=== PATIENT | male | born 1935 | race Caucasian/White ===

== ENCOUNTER → 2020-07-18 13:26 | Outpatient (BNVA) | payer MEDICARE, SELFPAY | PROVIDERS: PCP Internal Medicine; Referring Provider Internal Medicine; Visit Provider Internal Medicine Cardiovascular Disease | DX: I42.9 Cardiomyopathy, unspecified (principal); I48.92 Unspecified atrial flutter; I50.22 Chronic systolic (congestive) heart failure; Z79.899 Other long term (current) drug therapy | CPT/HCPCS: 93005; 99212 ==

== ENCOUNTER → 2020-08-08 09:12 | Outpatient (REF) | payer MEDICARE, SELFPAY ==
--- NOTE | 2020-08-08 09:16 | CA_ITS ---
Transthoracic Echocardiogram Patient (Last, First, Middle): Ozzy Thorne A Gender: Male Date of : 1935 Age: 85 Procedure Date: 08/08/2020 Procedure Type: Transthoracic Echocardiogram Location: OP Height: 177.8 cm Weight: 79.38 kg BSA: 1.97 m2 Heart Rate: bpm BP: 144 / 72 mmHg Machine Adjuster: Miller MD: Woo Finley MD Symptoms: I42.9 - Cardiomyopathy, unspecified Study Quality: Fair ECG Rhythm: Sinus Conclusions: - The left ventricular systolic function is moderate to severely decreased. The visually estimated ejection fraction is between 30-35%. - There is moderately decreased right ventricular systolic function. - There is mild mitral valve regurgitation. Findings Left Ventricle Normal left ventricular cavity size. There is mildly increased left ventricular wall thickness. The left ventricular systolic function is moderate to severely decreased. The visually estimated ejection fraction is between 30-35%. The calculated ejection fraction is 31% by biplane method. Diastolic function is indeterminate on the basis of available data. Right Ventricle Normal right ventricular cavity size. There is moderately decreased right ventricular systolic function. Aortic Valve There is a normal trileaflet aortic valve. There is no aortic valve stenosis. There is mild aortic valve regurgitation. Mitral Valve The mitral valve appears normal. There is mild mitral valve regurgitation. There is no mitral valve stenosis. Pulmonic Valve The pulmonic valve was not well visualized. There is trace pulmonic valve regurgitation. Tricuspid Valve Normal tricuspid valve structure. There is trace tricuspid valve regurgitation. The pulmonary artery systolic pressure is normal. Great Vessels There is mild dilatation of the ascending aorta measuring 3.90 cm. Venous The inferior vena cava is normal in size and collapses greater than 50% with inspiration. Pericardium/Pleural There is no evidence of pericardial effusion. Prior Study Comparison No significant change compared to prior study dated: 12/23/2019. Measurements 2D Linear Measurements RVIDd: 3.24 RVIDd Index: 1.64 IVSd: 1.16 0.6-0.9/0.6-1.0 cm LVIDd: 5.31 3.9-5.3/4.2-5.9 cm LVIDd Index: 2.70 2.4-3.2/2.2-3.1 cm/m2 LVIDs: 4.39 2.0-3.6 cm LVPWd: 1.16 0.7-1.1 cm Ao Root: 4.00 2.1-3.5 cm LA Diam: 4.30 2.7-3.8/3.0-4.0 cm LAIDs Index: 2.18 1.5-2.3 cm/m2 LV Mass: 306.25 67-162/88-224 g LV Mass Index: 155.46 43-95/49-115 g/m2 LVOT Diam: 2.10 3.0+(-)1.3 cm 2D Systolic Function EF 4C: 33.10 >55% EF 2C: 33.60 >55% EF BiP: 31.40 >55% Mitral Valve MR Vol - PW Dopp: 14.58 MR VTI: 1.62 MR ERO: 9.00 MR Alias Michael: 0.27 MR RAD: 0.50 Aortic Valve AoV Pk Michael: 1.22 AoV Mn Michael: 0.86 AoV VTI: 0.23 AoV Pk Grad: 6.00 Aov Mn Grad: 3.00 LORRAINE Cont.VTI: 2.73 AI Pk Michael: 3.18 AI Hunt: 1.17 LVOT LVOT Pk Michael: 0.84 LVOT Mn Michael: 0.54 LVOT VTI: 0.18 LVOT Pk Grad: 3.00 LVOT Mn Grad: 1.00 LVOT Diam: 2.10 LVOT Area: 3.46 Tricuspid Valve TR Pk Michael: 2.26 TR Pk Grad: 20.00 RA Press: 8.00 RVSP: 28.00 Great Vessels Aorta Ao Root-2D: 4.00 2.0-3.7 cm Ao Asc: 3.90 2.1-3.4 cm Updated in Other Vendor System with Status of Final Kristopher Early MD electronically signed on 08/08/2020 3:37:14 PM with status of Final
== END ==
LOC: HO.CARD 09:12
PROVIDERS: PCP Internal Medicine; Visit Provider Internal Medicine Cardiovascular Disease
DX: I42.9 Cardiomyopathy, unspecified (principal)
CPT/HCPCS: 93306

== ENCOUNTER 2020-08-09 08:00 | Outpatient (RCR) | payer MEDICARE, SELFPAY ==
[2020-07-08 10:22] LABS: Anion Gap 12 (12-20); Blood Urea Nitrogen 36 mg/dL (9-16); Calcium 8.7 mg/dL (8.4-10.2); Carbon Dioxide 27 mmol/L (22-29); Chloride 101 mmol/L (96-108); Estimated Glomerular Filt Rate 38; Potassium 4.3 mmol/l (3.3-5.1); Sodium 136 mmol/L (135-145)
--- NOTE | 2020-08-09 09:19 | MHC.PT.DC ---
[facility] [place] Office [place] Office [place] Office [address] Smith Almendarez [address] [phone] F: [phone] F: [phone] F: [phone] F: [phone] Physical Therapy Discharge Report Diagnosis: gait instability Date of Surgery: Date of Evaluation: 06/13/20 Date of Discharge: 08/09/20 Treatments to Date: 16 Cancellations to Date: 0 No Shows to Date: 0 Discharge Status: Improved Function Independent with HEP Discharge Summary: Pt has improved and is independent with all HEPS. All strength and balance exercises were reviewed with him. Pt d/c from therapy today. Pt is currently a part of [employer] where he does all his strengthening exercises. Pt advised to continue with these exercises. Electronically signed by: Korina Savage DPT Please sign and return to therapist. Thank you for your referral.
== END 2020-08-09 09:21 | disposition other institution (70) ==
LOC: HO.PT 08:00
PROVIDERS: Internal Medicine Hypertension Specialist; Visit Provider Internal Medicine
DX: R26.9 Unspecified abnormalities of gait and mobility (principal)
CPT/HCPCS: 80051; 82310; 82565; 84520; 97110; 97112; 97530

== ENCOUNTER → 2020-08-31 12:21 | Outpatient (BNVA) | payer MEDICARE, SELFPAY | PROVIDERS: PCP Internal Medicine; Visit Provider Internal Medicine Cardiovascular Disease | DX: I50.22 Chronic systolic (congestive) heart failure (principal); I48.92 Unspecified atrial flutter; I42.9 Cardiomyopathy, unspecified | CPT/HCPCS: 99212 ==

== ENCOUNTER 2020-09-23 09:48 | Outpatient (REF) | payer MEDICARE, SELFPAY ==
[2020-09-23 10:17] LABS: MANUAL DIFF FLAG NO
[2020-09-23 10:24] LABS: Basophils Percent Auto 0.4 % (0-2); Eosinophils Absolute Auto 0.2 X10*3/uL (0.0-0.4); Eosinophils Percent Auto 3.8 % (0-4); Hematocrit 45.3 % (42-52); Hemoglobin 14.8 g/dl (14.0-18.0); Imm Gran Abs Auto 0.08 X10*3/uL (0.00-0.03); Imm Gran Pct Auto 1.5 % (0.0-0.4); Lymphocytes Absolute Auto 0.9 X10*3/uL (1.2-4.9); Lymphocytes Percent Auto 16.5 % (20-40); Mean Corpuscular HGB Conc 32.7 g/dl (31.0-36.0); Mean Corpuscular Hemoglobin 33.8 pg (27.0-33.0); Mean Corpuscular Volume 103.4 fL (80-98); Mean Platelet Volume 9.8 fL (9.4-12.4); Monocytes Absolute Auto 0.4 X10*3/uL (0.1-1.2); Monocytes Percent Auto 7.7 % (2-11); Neutrophils Absolute Auto 3.7 X10*3/uL (2.0-8.3); Neutrophils Percent Auto 70.1 % (45-73); Platelet Count 136 X10*3/uL (160-400); Red Blood Count 4.38 X10*6/uL (4.60-5.80); Red Cell Distribution Width 13.2 % (11.0-16.0); White Blood Count 5.3 X10*3/uL (4.8-10.8)
[2020-09-23 11:01] LABS: Anion Gap 11 (12-20); Blood Urea Nitrogen 31 mg/dL (9-16); Calcium 8.3 mg/dL (8.4-10.2); Carbon Dioxide 29 mmol/L (22-29); Chloride 101 mmol/L (96-108); Estimated Glomerular Filt Rate 35; Potassium 4.4 mmol/l (3.3-5.1); Sodium 137 mmol/L (135-145)
== END 2020-09-23 09:49 | disposition home or self-care (01) ==
LOC: HO.10HDL 09:48
PROVIDERS: Visit Provider Internal Medicine Hypertension Specialist
DX: I12.9 Hypertensive chronic kidney disease with stage 1 through stage 4 chronic kidney disease, or unspecified chronic kidney disease (principal); N18.30 Chronic kidney disease, stage 3 unspecified
CPT/HCPCS: 36415; 80051; 82310; 82565; 84520; 85025

== ENCOUNTER 2020-10-19 | Outpatient (REF) | payer MEDICARE, SELFPAY | END 2020-10-19 00:01 | disposition home or self-care (01) | LOC: HO.VC | PROVIDERS: Visit Provider Internal Medicine | DX: Z23 Encounter for immunization (principal) | CPT/HCPCS: 0011A ==

== ENCOUNTER 2020-11-15 | Outpatient (REF) | payer MEDICARE, SELFPAY | END 2020-11-15 00:01 | disposition home or self-care (01) | LOC: HO.VC | PROVIDERS: Visit Provider Internal Medicine | DX: Z23 Encounter for immunization (principal) | CPT/HCPCS: 0012A ==

== ENCOUNTER → 2020-12-05 10:43 | Outpatient (BNVA) | payer MEDICARE, SELFPAY | PROVIDERS: PCP Internal Medicine; Visit Provider Internal Medicine Cardiovascular Disease | DX: I42.9 Cardiomyopathy, unspecified (principal); I48.92 Unspecified atrial flutter; I50.22 Chronic systolic (congestive) heart failure | CPT/HCPCS: 99212 ==

== ENCOUNTER 2021-02-02 10:03 | Outpatient (REF) | payer MEDICARE, SELFPAY ==
[2021-02-02 11:01] LABS: Albumin Level 3.9 g/dL (3.5-5.0); Anion Gap 12 (12-20); Blood Urea Nitrogen 38 mg/dL (9-16); Calcium 9.3 mg/dL (8.4-10.2); Carbon Dioxide 31 mmol/L (22-29); Chloride 103 mmol/L (96-108); Estimated Glomerular Filt Rate 31; Magnesium 2.3 mg/dL (1.6-2.6); Phosphorus 3.8 mg/dL (2.7-4.5); Potassium 4.2 mmol/L (3.3-5.1); Sodium 142 mmol/L (135-145)
== END 2021-02-02 10:04 | disposition home or self-care (01) ==
LOC: HO.LAB 10:03
PROVIDERS: PCP Internal Medicine; Referring Provider Internal Medicine; Visit Provider Internal Medicine Hypertension Specialist
DX: I12.9 Hypertensive chronic kidney disease with stage 1 through stage 4 chronic kidney disease, or unspecified chronic kidney disease (principal); N18.30 Chronic kidney disease, stage 3 unspecified
CPT/HCPCS: 36415; 80051; 82040; 82310; 82565; 83735; 84100; 84520

== ENCOUNTER → 2021-02-27 10:42 | Outpatient (BNVA) | payer MEDICARE, SELFPAY | PROVIDERS: PCP Internal Medicine; Referring Provider Internal Medicine; Visit Provider Internal Medicine Cardiovascular Disease | DX: I48.92 Unspecified atrial flutter (principal); I42.9 Cardiomyopathy, unspecified; I50.22 Chronic systolic (congestive) heart failure; Z79.899 Other long term (current) drug therapy | CPT/HCPCS: 99212 ==

== ENCOUNTER → 2021-06-05 10:03 | Outpatient (BNVA) | payer MEDICARE, SELFPAY | PROVIDERS: PCP Internal Medicine; Referring Provider Internal Medicine; Visit Provider Internal Medicine Cardiovascular Disease | DX: I48.92 Unspecified atrial flutter (principal); I50.22 Chronic systolic (congestive) heart failure | CPT/HCPCS: 93005; 99212 ==

== ENCOUNTER 2021-06-06 08:44 | Outpatient (REF) | payer MEDICARE, SELFPAY ==
[2021-06-06 10:15] LABS: Hematocrit 46.6 % (42-52); Mean Corpuscular HGB Conc 32.2 g/dl (31.0-36.0); Mean Corpuscular Volume 102.4 fL (80-98); Mean Platelet Volume 10.3 fL (9.4-12.4); Platelet Count 157 X10*3/uL (160-400); Red Blood Count 4.55 X10*6/uL (4.60-5.80); Red Cell Distribution Width 13.3 % (11.0-16.0); White Blood Count 6.1 X10*3/uL (4.8-10.8)
[2021-06-06 10:47] LABS: Anion Gap 13 (12-20); Blood Urea Nitrogen 22 mg/dL (9-16); Calcium 8.8 mg/dL (8.4-10.2); Carbon Dioxide 28 mmol/L (22-29); Chloride 102 mmol/L (96-108); Estimated Glomerular Filt Rate 37; Glucose Random 129 mg/dL (60-115); Potassium 4.8 mmol/L (3.3-5.1); Sodium 138 mmol/L (135-145)
[2021-06-08 11:01] LABS: Calcium (PTHI) 8.5 mg/dL (8.6-10.3); PTHI 182 pg/mL (14-64)
== END 2021-06-06 08:45 | disposition home or self-care (01) ==
LOC: HO.10HDL 08:44
PROVIDERS: Visit Provider Internal Medicine Hypertension Specialist
DX: I12.9 Hypertensive chronic kidney disease with stage 1 through stage 4 chronic kidney disease, or unspecified chronic kidney disease (principal); N18.9 Chronic kidney disease, unspecified
CPT/HCPCS: 36415; 80048; 83970; 85027

== ENCOUNTER → 2021-08-21 12:31 | Outpatient (BNVA) | payer MEDICARE, SELFPAY | PROVIDERS: PCP Internal Medicine; Referring Provider Internal Medicine; Visit Provider Internal Medicine Cardiovascular Disease | DX: I48.92 Unspecified atrial flutter (principal); I42.9 Cardiomyopathy, unspecified; I50.22 Chronic systolic (congestive) heart failure | CPT/HCPCS: 93005; 99212 ==

== ENCOUNTER → 2021-08-22 07:44 | Outpatient (REF) | payer MEDICARE, SELFPAY ==
--- NOTE | ~2021-08-22 | NM_ITS ---
Lexiscan Myocardial perfusion study Indication: Cardiomyopathy, assess for coronary disease and ischemia Technique: The patient was brought in for a Lexiscan perfusion study on 08/22/2021 and was injected 0.4 mg of Lexiscan intravenously. Within a minute of this injection 30 mCi of sestamibi was given intravenously. Images were obtained using the SPECT gamma camera interlaced with the gating device. Images were obtained in supine position. Resting perfusion study was performed on 08/23/2021. Patient was administered 30 mCi of sestamibi intravenously at rest. Images were then obtained in supine position. Total DLP 126mGy-cm. Images were processed with the software and compared side to side in short axis, horizontal long axis and vertical long axis views. Findings: Raw acquisition was reviewed. Arms by the patient's side. The stress perfusion study showed diminished tracer uptake along the inferior wall and adjacent apex. There is some improvement with CT attenuation correction towards the basal and mid inferior wall. The gated study shows diminished LV systolic function with calculated LVEF of 34%. LV cavity is dilated in size. The gated study shows globally diminished wall thickening and contraction of segments; inferior wall appears akinetic. Resting study shows diminished tracer uptake along the inferior wall and adjacent apex with some improvement during CT attenuation correction in the basal to mid part.. Gating at rest reveals globally diminished wall motion with ejection fraction at 35%. The findings are consistent with no clear reversible defects. Fixed defect in the inferior wall and adjacent apex. NM/NM brian perf SPECT rest & str Impression: 1. Myocardial perfusion imaging study shows no clear ischemia. Fixed defect along the inferior wall and adjacent apex but with some improvement during CT attenuation correction; this could indicate an old inferior infarct with superimposed of traumatic attenuation artifact. 2. Gated LVEF is 34% during stress and 35% during rest. 3. Transient ischemic dilatation not present but LV cavity is dilated. EKG component of the test reported separately.
--- NOTE | 2021-08-22 07:47 | CA_ITS ---
Acquisition Time: 2021-08-22 07:47:01 Total Exercise Time: 00:02:00 Test Indications: LBBB,CHF, AFLUTTER Medications: SEE CHART Protocol: LEXISCAN Max HR: 103 BPM 75% of Pred: 136 BPM Max BP: 128/066 mmHG Max Work Load: 1.0 METS Pharmacological stress test with Lexiscan injection, while sitting, without anginal symptoms, with isolated PVC, with normotensive response to injection, with nondiagnostic EKG for ischemia. Nuclear images pending. Test reviewed with Dr Finley. Referred By: Woo Finley Overread By: BLOSSOM HARE
== END ==
LOC: HO.CARD 07:44
PROVIDERS: PCP Internal Medicine; Visit Provider Internal Medicine Cardiovascular Disease
DX: I50.22 Chronic systolic (congestive) heart failure (principal)
CPT/HCPCS: 78452; 93017; A9500; J0280; J2785

== ENCOUNTER → 2021-08-24 07:38 | Outpatient (REF) | payer MEDICARE, SELFPAY ==
--- NOTE | 2021-08-24 07:41 | CA_ITS ---
Transthoracic Echocardiogram Patient (Last, First, Middle): Ozzy Thorne A Gender: Male Date of : 1935 Age: 86 Procedure Date: 08/24/2021 Procedure Type: Transthoracic Echocardiogram Location: OP Height: 177.8 cm Weight: 79.38 kg BSA: 1.97 m2 Heart Rate: bpm BP: 120 / 68 mmHg Connection Worker: ISRAEL Referring MD: Woo Finley MD Symptoms: I50.22 - Chronic systolic (congestive) heart failure Conclusions: - The left ventricular systolic function is moderate to severely decreased. The visually estimated ejection fraction is between 25-30%. - Mildly increased right ventricular cavity size. There is mild to moderately decreased right ventricular systolic function. Findings Left Ventricle Normal left ventricular cavity size. There is mildly increased left ventricular wall thickness. The left ventricular systolic function is moderate to severely decreased. The visually estimated ejection fraction is between 25-30%. There is moderate global hypokinesis. There is paradoxical septal motion consistent with a left bundle branch block. Diastolic function is indeterminate on the basis of available data. Right Ventricle Mildly increased right ventricular cavity size. There is mild to moderately decreased right ventricular systolic function. Atria The left atrium is mildly dilated. The right atrium is normal in size. Aortic Valve There is a normal trileaflet aortic valve. There is no aortic valve stenosis. There is mild aortic valve regurgitation. Mitral Valve The mitral valve appears normal. There is mild mitral valve regurgitation. There is no mitral valve stenosis. Pulmonic Valve The pulmonic valve is likely normal. Tricuspid Valve Normal tricuspid valve structure and function. There is no tricuspid valve regurgitation. Normal right atrial pressure. There is no evidence of pulmonary hypertension. Great Vessels There is mild dilatation of the ascending aorta measuring 3.80 cm. The visualized portions of the pulmonary artery and branches are normal. Venous The inferior vena cava is dilated and collapses greater than 50% with inspiration. Pericardium/Pleural There is no evidence of pericardial effusion. Prior Study Comparison Changes noted compared to prior study dated: 08/08/2020. EF 25-30% (mildly worse) Measurements 2D Linear Measurements IVSd: 1.08 0.6-0.9/0.6-1.0 cm LVIDd: 4.87 3.9-5.3/4.2-5.9 cm LVIDd Index: 2.47 2.4-3.2/2.2-3.1 cm/m2 LVIDs: 4.38 2.0-3.6 cm LVPWd: 1.14 0.7-1.1 cm Ao Root: 4.10 2.1-3.5 cm LA Diam: 4.40 2.7-3.8/3.0-4.0 cm LAIDs Index: 2.23 1.5-2.3 cm/m2 LV Mass: 250.54 67-162/88-224 g LV Mass Index: 127.18 43-95/49-115 g/m2 LVOT Diam: 2.40 3.0+(-)1.3 cm 2D Systolic Function EF 4C: 13.20 >55% EF 2C: 45.20 >55% EF BiP: 32.00 >55% Mitral Valve MV Pk E: 0.69 MV PK A: 0.21 MV Decel Time: 158.00 E/A: 3.30 E'Lateral: 7.83 E'Medial: 2.28 E/E' Med: 30.30 E/E' Lat: 8.80 PHT: 46.00 MVA PHT: 4.78 Decel Stanton: 4.76 Aortic Valve AoV Pk Michael: 1.03 AoV Pk Grad: 4.00 AI Pk Michael: 3.10 AI Stanton: 1.57 LVOT LVOT Pk Michael: 0.74 LVOT Mn Michael: 0.49 LVOT VTI: 0.15 LVOT Pk Grad: 2.00 LVOT Mn Grad: 1.00 LVOT Diam: 2.40 LVOT Area: 4.52 Diastolic Function MV Pk E: 0.69 MV Pk A: 0.21 E/A: 3.30 E'Medial: 2.28 E/E' Med: 30.30 E' Laterial: 7.83 E/E' Lat: 8.80 Right Ventricle TAPSE (mm): 1.53 Tricuspid Valve TR Pk Michael: 2.60 TR Pk Grad: 27.00 RA Press: 8.00 RVSP: 35.00 Great Vessels Aorta Ao Root-2D: 4.10 2.0-3.7 cm Ao Asc: 3.80 2.1-3.4 cm Updated in Other Vendor System with Status of Final Woo Finley MD electronically signed on 08/27/2021 10:44:15 AM with status of Final
== END ==
LOC: HO.CARD 07:38
PROVIDERS: PCP Internal Medicine; Visit Provider Internal Medicine Cardiovascular Disease
DX: I50.22 Chronic systolic (congestive) heart failure (principal)
CPT/HCPCS: 93306

== ENCOUNTER 2021-09-19 09:58 | Outpatient (REF) | payer MEDICARE, SELFPAY ==
[2021-09-19 13:53] LABS: Anion Gap 13 (12-20); Blood Urea Nitrogen 27 mg/dL (9-16); Calcium 9.3 mg/dL (8.4-10.2); Carbon Dioxide 29 mmol/L (22-29); Chloride 103 mmol/L (96-108); Estimated Glomerular Filt Rate 31; Glucose Random 88 mg/dL (60-115); Potassium 4.7 mmol/L (3.3-5.1); Sodium 140 mmol/L (135-145)
[2021-09-20 11:37] LABS: PTHI 90 pg/mL (14-64)
== END 2021-09-19 09:59 | disposition home or self-care (01) ==
LOC: HO.10HDL 09:58
PROVIDERS: Visit Provider Internal Medicine Hypertension Specialist
DX: N18.32 Chronic kidney disease, stage 3b (principal)
CPT/HCPCS: 36415; 80048; 83970

== ENCOUNTER → 2021-11-02 09:09 | Outpatient (BNVA) | payer MEDICARE, SELFPAY | PROVIDERS: PCP Internal Medicine; Referring Provider Internal Medicine; Visit Provider Internal Medicine Cardiovascular Disease | DX: I42.9 Cardiomyopathy, unspecified (principal); I48.92 Unspecified atrial flutter; I50.22 Chronic systolic (congestive) heart failure | CPT/HCPCS: 99212 ==

== ENCOUNTER 2021-12-07 09:37 | Outpatient (REF) | payer MEDICARE, SELFPAY ==
[2021-12-07 09:55] LABS: MANUAL DIFF FLAG NO
[2021-12-07 10:11] LABS: Basophils Percent Auto 0.8 % (0-2); Eosinophils Absolute Auto 0.3 X10*3/uL (0.0-0.4); Eosinophils Percent Auto 5.6 % (0-4); Hematocrit 48.4 % (42.0-52.0); Hemoglobin 15.6 g/dl (14.0-18.0); Imm Gran Abs Auto 0.04 X10*3/uL (0.00-0.03); Imm Gran Pct Auto 0.8 % (0.0-0.4); Lymphocytes Absolute Auto 1.1 X10*3/uL (1.2-4.9); Lymphocytes Percent Auto 21.1 % (20-40); Mean Corpuscular HGB Conc 32.2 g/dl (31.0-36.0); Mean Corpuscular Hemoglobin 31.6 pg (27.0-33.0); Mean Corpuscular Volume 98.2 fL (80.0-98.0); Mean Platelet Volume 9.5 fL (9.4-12.4); Monocytes Absolute Auto 0.4 X10*3/uL (0.1-1.2); Monocytes Percent Auto 8.6 % (2-11); Neutrophils Absolute Auto 3.2 x10*3/uL (2.0-8.3); Neutrophils Percent Auto 63.1 % (45-73); Platelet Count 145 X10*3/uL (160-400); Red Blood Count 4.93 X10*6/uL (4.60-5.80); Red Cell Distribution Width 13.9 % (11.0-16.0)
[2021-12-07 10:28] LABS: INTERNATIONAL NORM RATIO 1.2 (0.9-1.1); Prothrombin Time 14.2 SEC (9.9-13.0)
[2021-12-07 10:34] LABS: Anion Gap 16 (12-20); Blood Urea Nitrogen 38 mg/dL (9-16); Calcium 9.4 mg/dL (8.4-10.2); Carbon Dioxide 30 mmol/L (22-29); Chloride 96 mmol/L (96-108); Estimated Glomerular Filt Rate 28; Glucose Random 133 mg/dL (60-115); Potassium 4.3 mmol/L (3.3-5.1); Sodium 138 mmol/L (135-145)
== END 2021-12-07 09:38 | disposition home or self-care (01) ==
LOC: HO.LAB 09:37
PROVIDERS: PCP Internal Medicine; Visit Provider Internal Medicine Cardiovascular Disease
DX: I48.91 Unspecified atrial fibrillation (principal)
CPT/HCPCS: 36415; 80048; 85025; 85610

== ENCOUNTER → 2021-12-11 09:15 | Outpatient (BNVA) | payer MEDICARE, SELFPAY | PROVIDERS: PCP Internal Medicine; Referring Provider Internal Medicine; Visit Provider Internal Medicine Cardiovascular Disease | DX: I50.22 Chronic systolic (congestive) heart failure (principal); L03.115 Cellulitis of right lower limb | CPT/HCPCS: 99212 ==

== ENCOUNTER 2021-12-21 12:36 | Outpatient (RCR) | payer MEDICARE, SELFPAY | END 2021-12-29 16:00 | disposition home or self-care (01) | LOC: HO.WCC 12:36 | PROVIDERS: PCP Internal Medicine; Visit Provider Surgery | DX: I87.311 Chronic venous hypertension (idiopathic) with ulcer of right lower extremity (principal); L97.812 Non-pressure chronic ulcer of other part of right lower leg with fat layer exposed; I48.91 Unspecified atrial fibrillation; N18.9 Chronic kidney disease, unspecified; Z87.891 Personal history of nicotine dependence | CPT/HCPCS: 11042; 99212 ==

== ENCOUNTER 2022-01-15 09:19 | Outpatient (REF) | payer MEDICARE, SELFPAY ==
[2022-01-15 10:26] LABS: Hematocrit 45.5 % (42.0-52.0); Hemoglobin 14.5 g/dl (14.0-18.0); Mean Corpuscular HGB Conc 31.9 g/dl (31.0-36.0); Mean Corpuscular Hemoglobin 31.4 pg (27.0-33.0); Mean Corpuscular Volume 98.5 fL (80.0-98.0); Mean Platelet Volume 9.9 fL (9.4-12.4); Platelet Count 149 X10*3/uL (160-400); Red Blood Count 4.62 X10*6/uL (4.60-5.80); White Blood Count 4.6 X10*3/uL (4.8-10.8)
[2022-01-15 10:58] LABS: Anion Gap 14 (12-20); Blood Urea Nitrogen 24 mg/dL (9-16); Calcium 9.1 mg/dL (8.4-10.2); Carbon Dioxide 29 mmol/L (22-29); Chloride 101 mmol/L (96-108); Estimated Glomerular Filt Rate 32; Glucose Random 153 mg/dL (60-115); Potassium 4.3 mmol/L (3.3-5.1); Sodium 140 mmol/L (135-145)
== END 2022-01-15 09:20 | disposition home or self-care (01) ==
LOC: HO.10HDL 09:19
PROVIDERS: Visit Provider Internal Medicine Hypertension Specialist
DX: N18.32 Chronic kidney disease, stage 3b (principal)
CPT/HCPCS: 36415; 80048; 85027

== ENCOUNTER 2022-02-01 15:13 | Emergency (ER) | payer MEDICARE, SELFPAY ==
--- NOTE | ~2022-02-01 | US_ITS ---
EXAMINATION: US VENOUS WITH DOPPLER UPPER EXTREMITY, left upper extremity CLINICAL INFORMATION: Left arm swelling COMPARISON: None TECHNIQUE: Ultrasound of the upper extremity is performed using compression sonography and color and pulse Doppler flow with assessment of augmentation of flow. There is also imaging and Doppler assessment of the jugular and subclavian veins. Spectral analysis with color-flow imaging is performed. FINDINGS: There is a echogenic material in the deep venous system of the left upper extremity extending from the left internal jugular through the basilic vein compatible with deep venous thrombosis. US/US venous duplex UE LT IMPRESSION: Positive DVT. Thrombosis of the left jugular through the basilic veins. (Referring physician staff is being called, to be alerted of the above findings and recommendations.) MS
[2022-02-01 17:25] VITALS: BP 132/82; PULSE 115; RESP 20; TEMP 36.9; O2SAT 97; BMI 25.8
--- NOTE | 2022-02-01 17:55 | ED.GENADULT ---
HPI - General Adult General Chief complaint: Recheck/Abnormal Lab/Rx Time Seen by Provider: 02/01/22 17:32 Source: patient Mode of arrival: ambulatory Limitations: no limitations History of Present Illness HPI narrative: Patient comes to the emergency room complaining of having a blood clot in his left arm. Patient had a pacemaker/defibrillator inserted 8 days ago. A few days later, patient started complaining of left arm swelling. Five days ago, patient was prophylactically started on Eliquis 2.5 mg b.i.d. today, patient states that the pain keeps increasing, patient denies chest pain, no shortness of breath. Patient had an ultrasound done this morning, patient was informed that he has a DVT, thrombosis of the left jugular through the basilic vein. Patient denies chest pain, shortness of breath, no lower extremity pain or swelling. Related Data Home Medications Medication Instructions Recorded Confirmed calcitriol 0.25 mcg capsule 0.25 mcg PO .Twice a week cap 11/02/21 12/11/21 furosemide 40 mg tablet 40 mg PO BID tab 11/16/21 12/11/21 Previous Rx's Medication Instructions Recorded apixaban 2.5 mg tablet (Eliquis) 2.5 mg PO BID 90 Days #180 tab 03/16/21 metoprolol succinate 50 mg 50 mg PO DAILY 90 Days #90 tab 10/11/21 tablet,extended release 24 hr tamsulosin 0.4 mg capsule 0.4 mg PO DAILY #90 cap 01/01/22 allopurinol 100 mg tablet 100 mg PO DAILY #90 tab 01/24/22 apixaban 5 mg tablet (Eliquis) 5 mg PO BID #60 tab 02/01/22 tramadol 50 mg tablet 50 mg PO BID PRN #10 tab 02/01/22 Allergies Allergy/AdvReac Type Severity Reaction Status Date / Time No Known Allergies Allergy Verified 12/11/21 09:28 Review of Systems Review of Systems: Constitutional : No Weight loss, No Fever, No Chills, No Night Sweats, No Fatigue, No Malaise ENT/Mouth : No Hearing loss, No Ear Pain, No Nasal Congestion, No Sinus Pain, No Hoarseness, No sore throat, No Rhinorrhea, No Swallowing Difficulty Eyes: No Eye Pain, No Swelling, No Redness, No Foreign Body, No Discharge, No Vision Changes Cardiovascular : No Chest Pain, No SOB, No Dyspnea on Exertion, No Orthopnea, No Edema, No Palpitations Respiratory : No Cough, No Sputum, No Wheezing, No Smoke Exposure, No Dyspnea Gastrointestinal : No Nausea, No Vomiting, No Diarrhea, No Constipation, No abdominal Pain, No Hematochezia, No Melena Genitourinary : no irregular bleeding, No Dysuria, No Urinary Frequency, No Hematuria, No Urinary Incontinence, No Urgency, No Flank Pain, No Urinary Flow Changes, No Hesitancy Musculoskeletal : Complaining of left arm swelling and pain Skin : No Skin Lesions, No rash Neuro : No Weakness, No Numbness, No Paresthesias, No Loss of Consciousness, No Dizziness, No Headache Psych : No Anxiety/Panic, No Depression, No SI/HI/AH/VH, No Social Issues, Heme/Lymph: No Bruising, No Bleeding,No Lymphadenopathy Endocrine : No Polyuria, No Polydipsia, No Temperature Intolerance [facility] Past Medical History Medical History (Updated 02/01/22 @ 18:24 by Buffy Boucher MD) Acute renal insufficiency Atrial flutter Cardiomyopathy Chronic systolic (congestive) heart failure DVT (deep venous thrombosis) Surgical History 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 Father No problems noted. Social History Social History Housing: House Alcohol intake: current Alcohol intake frequency: 3 or more drinks per day Alcohol type: hard liquor Patient Tobacco Use Status: Former Tobacco user Quit Date: 2000 Years Smoked: 50 +/- e-Cigarette/Vaping Use: Never Used Second Hand Smoke Exposure: No service: No Current occupational status: retired Cognitive needs: No Hearing needs: No Vision needs: No Physical Exam ED Vital Signs: Vital Signs - 24 hr 02/01/22 17:25 02/01/22 18:00 Temperature 98.5 F Pulse Rate 115 H 86 Respiratory Rate 20 18 Blood Pressure 132/82 123/76 Pulse Oximetry 97 97 BMI result Body Mass Index 25.8 Const Other: Appearance: Alert. Oriented X3. No acute distress. Eyes: Pupils equal, round and reactive to light. ENT: Pharynx normal. Neck: Normal inspection. Neck supple. No lymph nodes noted. No crepitus CVS: Normal heart rate and rhythm. Pulses normal. Normal S1 and S2 Respiratory: No respiratory distress. Breath sounds normal. No Wheezing. No rales Abdomen: Soft and nontender. No rigidity. No distention. Skin: Skin warm and dry. Patient has multiple ecchymoses in upper extremities Extremities: No lower extremity edema. No calf pain to palpation bilaterally. Left arm is swollen, pain to palpation from distal and 2 proximal part of the arm Neuro: Oriented X 3. No motor deficit. No sensory deficit. Moving all extremities. No slurred speech. CN 2 through 12 grossly intact Psych: calm, cooperative, normal affect Course Course Course Narrative: Patient's ultrasound shows a DVT, thrombosis of the left jugular through the basilic veins. I discussed the patient with Dr. Grande and Dr. Chen, patient can be treated at home, we are going to increase his dose of Eliquis from 2.5 mg to 5 mg. Patient is slightly tachycardic. This was discussed, is kind of DVTs are an unlikely source of pulmonary embolisms. Additionally, patient has no chest pain or shortness of breath. Patient was instructed that he if he develops any symptoms, he needs to return to the emergency room. Prior to discharge, patient was given Eliquis 5 mg and tramadol 50 mg. Patient agrees with plan, patient will follow-up tomorrow with his surgeon tomorrow at [facility] Medical Decision Making ECG Data Attestation: I personally reviewed and interpreted this ECG as follows: (Atrial sensed ventricular paced rhythm, heart rate 91, EKG similar to previous EKGs from 2019 except by the atrial sensed/ventricular paced rhythm) Discharge Plan Discharge Clinical Impression: Acute deep vein thrombosis (DVT) of left upper extremity Patient Disposition: Home, Self-Care Instructions: Apixaban (By mouth), Deep Vein Thrombosis (ED) Additional Instructions: If you have any chest pain, shortness of breath, any new symptoms, please call 911 or return to the emergency room. Otherwise, please follow-up with your primary care physician tomorrow and with her surgeon at [facility]. Prescriptions: New Eliquis 5 mg tablet 5 mg PO BID Qty: 60 0RF tramadol 50 mg tablet 50 mg PO BID PRN (Reason: pain) Qty: 10 0RF No Action Eliquis 2.5 mg tablet 2.5 mg PO BID 90 Days Qty: 180 5RF metoprolol succinate 50 mg tablet extended release 24 hr 50 mg PO DAILY 90 Days Qty: 90 3RF tamsulosin 0.4 mg capsule 0.4 mg PO DAILY Qty: 90 1RF allopurinol 100 mg tablet 100 mg PO DAILY Qty: 90 1RF calcitriol 0.25 mcg capsule 0.25 mcg PO .Twice a week 0RF furosemide 40 mg tablet 40 mg PO BID 0RF
[2022-02-01 18:00] VITALS: BP 123/76; PULSE 86; RESP 18; O2SAT 97
--- NOTE | 2022-02-01 18:11 | ECG_ITS ---
Test Reason : dvt Blood Pressure : / mmHG Vent. Rate : 091 BPM Atrial Rate : 091 BPM P-R Int : 160 ms QRS Dur : 136 ms QT Int : 432 ms P-R-T Axes : 243 -79 105 degrees QTc Int : 531 ms Ventricular-paced rhythm Underlying atrial rhythm possible flutter Abnormal ECG When compared with ECG of 20-AUG-2019 13:50, rhythm change Referred By: Buffy Boucher Electronically Signed By:NATANAEL DAVIDSON
[2022-02-01] MEDS: Apixaban 5 MG TABLET PO (18:32)
[2022-02-01] MEDS: traMADoL HCL 50 MG TABLET PO (18:32)
[2022-02-01] MEDS: Morphine Sulfate 2 MG/ML CARTRIDGE 1 MG IM (19:15)
== END 2022-02-01 19:45 | disposition home or self-care (01) ==
LOC: HO.ED 17:14 → HO.US 17:25 → HO.ED 17:40
PROVIDERS: Emergency Provider Emergency Medicine; PCP Internal Medicine
DX: I82.622 Acute embolism and thrombosis of deep veins of left upper extremity (principal); R79.89 Other specified abnormal findings of blood chemistry; R60.0 Localized edema; Z79.899 Other long term (current) drug therapy; Z87.891 Personal history of nicotine dependence
CPT/HCPCS: 93005; 93971; 96372; 99284; J2270

== ENCOUNTER 2022-02-03 07:21 | Inpatient (IN) | payer MEDICARE, SELFPAY ==
--- NOTE | ~2022-02-03 | XR_ITS ---
EXAMINATION: XR CHEST CLINICAL INFORMATION: Shortness of breath left upper extremity. COMPARISON: None TECHNIQUE: Frontal view of the chest was obtained. FINDINGS: The lungs are hypoexpanded and clear of acute pneumonic process. The heart size and pulmonary vascularity is normal. There are dual pacer electrodes in right atrium and right ventricle. No gross bony abnormality seen. XR/XR chest 1V IMPRESSION: Unremarkable chest examination.
[2022-02-03 07:39] VITALS: BP 148/89; PULSE 116; RESP 17; TEMP 36.8; O2SAT 98; BMI 25.1
--- NOTE | 2022-02-03 08:07 | ECG_ITS ---
Test Reason : CHEST PAIN Blood Pressure : / mmHG Vent. Rate : 116 BPM Atrial Rate : 116 BPM P-R Int : 144 ms QRS Dur : 154 ms QT Int : 390 ms P-R-T Axes : 065 -57 115 degrees QTc Int : 542 ms Atrial-sensed ventricular-paced rhythm Abnormal ECG When compared with ECG of 01-FEB-2022 18:14, Vent. rate has increased BY 25 BPM Referred By: Harry Tao Electronically Signed By:NATANAEL DAVIDSON
[2022-02-03 09:02] LABS: Basophils Percent Auto 0.3 % (0-2); Eosinophils Absolute Auto 0.1 X10*3/uL (0.0-0.4); Eosinophils Percent Auto 1.4 % (0-4); Hematocrit 43.8 % (42.0-52.0); Hemoglobin 14.6 g/dl (14.0-18.0); Imm Gran Abs Auto 0.05 X10*3/uL (0.00-0.03); Imm Gran Pct Auto 0.6 % (0.0-0.4); Lymphocytes Absolute Auto 0.7 X10*3/uL (1.2-4.9); Lymphocytes Percent Auto 8.7 % (20-40); MANUAL DIFF FLAG NO; Mean Corpuscular HGB Conc 33.3 g/dl (31.0-36.0); Mean Corpuscular Hemoglobin 31.8 pg (27.0-33.0); Mean Corpuscular Volume 95.4 fL (80.0-98.0); Mean Platelet Volume 9.6 fL (9.4-12.4); Monocytes Absolute Auto 0.6 X10*3/uL (0.1-1.2); Monocytes Percent Auto 8.1 % (2-11); Neutrophils Absolute Auto 6.3 x10*3/uL (2.0-8.3); Neutrophils Percent Auto 80.9 % (45-73); Platelet Count 176 X10*3/uL (160-400); Red Blood Count 4.59 X10*6/uL (4.60-5.80); Red Cell Distribution Width 14.5 % (11.0-16.0); White Blood Count 7.8 X10*3/uL (4.8-10.8)
--- NOTE | 2022-02-03 09:04 | PC.NURSE ---
Pt comes in from home sent by for blood clot in L neck. Pt had a pacemaker placed last saturday and since was found to have a blood clot and on elliquis with no relief. L arm swollen, +2 edema with scattered bruising throughout. Pt pain 6/10 to the arm at this time. Pt paced on the monitor, A&Ox4, LCA, abd soft, non tender +BS x 4. No edema to BLE, no edema to RUE, +pulses throughout all 4 ext. 2 IV established, awaiting further orders. Will continue to monitor.
[2022-02-03 09:07] LABS: INTERNATIONAL NORM RATIO 2.5 (0.9-1.1); Prothrombin Time 28.9 SEC (9.9-13.0)
[2022-02-03 09:10] LABS: Partial Thromboplastin Time 37.4 SEC (24.1-38.0)
[2022-02-03 09:19] LABS: Alanine Aminotransferase 9 U/L (0-40); Albumin Level 3.6 g/dL (3.5-5.0); Alkaline Phosphatase 102 U/L (39-117); Anion Gap 14 (12-20); Aspartate Amino Transferase 18 U/L (5-37); Bilirubin Total 1.2 mg/dL (0.0-1.0); Blood Urea Nitrogen 33 mg/dL (9-16); Carbon Dioxide 30 mmol/L (22-29); Chloride 94 mmol/L (96-108); Creatinine Clr Calc Pharmacy 29.3; Estimated Glomerular Filt Rate 34; Glucose Random 112 mg/dL (60-115); Lipase 14 U/L (8-78); Potassium 3.8 mmol/L (3.3-5.1); Sodium 134 mmol/L (135-145); Total Protein 7.5 g/dL (6.5-8.0)
[2022-02-03 09:22] VITALS: BMI 25.9
--- NOTE | 2022-02-03 09:25 | ED.GENADULT ---
HPI - General Adult General Chief complaint: General Medical Stated complaint: IV drip/L hand swollen Time Seen by Provider: 02/03/22 08:05 Source: patient Limitations: no limitations History of Present Illness HPI narrative: 87-year-old male with a history of cardiomyopathy, atrial fibrillation who had a pacemaker/automatic cardiac defibrillator placed on 01/24/2022 at [facility]. He was seen on 02/01/[address] Jiménez for left upper extremity swelling x3 days. He also had a allergic reaction to doxycycline (facial rash). According to Dr. Valencia's note the patient's Eliquis was held for the procedure and then restarted. Despite restarting the Eliquis, the patient's swelling of his left upper extremity did not improve. He had an urgent ultrasound on 02/01/2022 which revealed a thrombus of the left jugular vein through the a basillic veins confirming a DVT of the left upper extremity. Dr. Valencia recommended admission for IV heparin however the patient refused at that time. The patient was taking Eliquis 2.5 mg twice a day and he was increased to Eliquis 5 mg twice a day and aspirin 81 mg daily. The patient's symptoms did not improve and the patient did agree to come to the emergency department today for re-evaluation and admission for IV heparin. He states that his left arm is painful and swollen and is heavy. He denied fever, chills, rhinorrhea, sore throat, cough, chest pain. He states that he does feel short of breath but he believes that this is unchanged from his baseline. He denied nausea, vomiting or diarrhea. Related Data Home Medications Medication Instructions Recorded Confirmed calcitriol 0.25 mcg capsule 0.25 mcg PO MOTH@0900 cap 11/02/21 02/03/22 furosemide 40 mg tablet 40 mg PO BID tab 11/16/21 02/03/22 apixaban 2.5 mg tablet (Eliquis) 5 mg PO BID 02/03/22 02/03/22 bisacodyl 5 mg tablet,delayed 10 mg PO DAILY 02/03/22 02/03/22 release (Dulcolax (bisacodyl)) magnesium hydroxide 400 mg/5 mL 30 ml PO DAILY PRN 02/03/22 02/03/22 oral suspension (Milk of Magnesia) psyllium 1 packet PO DAILY 02/03/22 02/03/22 tamsulosin 0.4 mg capsule 1 cap PO DAILY 02/03/22 02/03/22 Previous Rx's Medication Instructions Recorded metoprolol succinate 50 mg 50 mg PO DAILY 90 Days #90 tab 10/11/21 tablet,extended release 24 hr allopurinol 100 mg tablet 100 mg PO DAILY #90 tab 01/24/22 tramadol 50 mg tablet 50 mg PO BID PRN #10 tab 02/01/22 Allergies Allergy/AdvReac Type Severity Reaction Status Date / Time No Known Allergies Allergy Verified 12/11/21 09:28 Review of Systems Review of Systems: Yes all other systems are reviewed and are negative [facility] Past Medical History [facility] Narrative: Social history: The patient is a former smoker, he quit smoking 20 years, he smoked 1 pack per day for 40 years. He occasionally drinks alcohol. He denies drug use. Medical History Acute renal insufficiency Atrial flutter Cardiomyopathy Chronic systolic (congestive) heart failure DVT (deep venous thrombosis) Surgical History 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 Father No problems noted. Social History Social History Housing: House Alcohol intake: current Alcohol intake frequency: 3 or more drinks per day Alcohol type: hard liquor Patient Tobacco Use Status: Former Tobacco user Quit Date: 2000 Smoked: 50 +/- e-Cigarette/Vaping Use: Never Used Second Hand Smoke Exposure: No Advance Directives: Yes Advance Directives Information Provided: No Advance Directives on File: No service: No Current occupational status: retired Cognitive needs: No Hearing needs: No Vision needs: No Physical Exam ED Vital Signs: Vital Signs - 24 hr 02/03/22 07:39 Temperature 98.3 F Pulse Rate 116 H Respiratory Rate 17 Blood Pressure 148/89 H Pulse Oximetry 98 BMI result Body Mass Index 25.9 Const General: cooperative and no acute distress Orientation/consciousness: oriented to person and oriented to place Limitations: no limitations HENMT Head: Yes normal to inspection, Yes normocephalic and Yes atraumatic Ears: external ears normal General nose exam: Normal external nose present Face and sinus: Yes other (Facial skin is red, peeling, not warm to the touch) Mouth: Normal oral and palatal mucosa present Throat: Yes posterior oropharynx normal Eyes General: appearance normal, both eyes and all related structures Pupils: Equal, round and reactive pupils present Neck Neck: Yes normal visual inspection, Yes no lymphadenopathy, Yes trachea midline and Yes supple Chest Chest palpation & inspection: normal inspection of the chest and normal palpation of entire chest wall Resp Effort & Inspection: normal respiratory effort and able to speak in complete sentences Auscultation: clear to auscultation bilaterally Cardio Rate: regular rate Rhythm: regular rhythm Heart sounds: S1 normal heart sound present, S2 normal heart sound present and no murmurs GI Inspection: Yes normal to inspection Palpation (GI): Soft to palpation, nontender and no guarding Auscultation: normal bowel sounds General: Yes no CVA tenderness Back/Spine/Pelvis Back: no CVA tenderness Skin General skin exam: no rashes or lesions noted Neuro General: oriented to person and oriented to place Cranial nerves: Yes CN's II-XII intact bilaterally and Yes Equal, round and reactive pupils present Cognition (Neuro): normal cognition Motor exam (neuro): 5/5 motor strength present throughout Extrem Other: Left upper extremity is swollen from the hand to shoulder, there is a per approves discoloration, the extremities neurovascularly intact Psych Appearance: grossly normal Speech and movement: Normal speech and movement present Affect: normal affect Attitude: cooperative Thought process: Normal thought process present Thought content: Normal thought content present Course Course Course Narrative: 87-year-old male who presents emergency department for evaluation of left upper extremity DVT diagnosed on 02/01/2022 which is not improved despite being on increased dose of Eliquis 5 mg twice a day. The patient was referred to the emergency department by his ham stringer for admission and treatment with IV heparin. Patient's vital signs did reveal an elevated blood pressure of 148/89 elevated heart rate of 116 otherwise vital signs were unremarkable. His lung exam was clear. His left upper extremity is swollen which is consistent with a DVT. I did order laboratory evaluation heparin bolus and drip as per DVT protocol. 1004: Laboratory evaluation: H&H was normal 14.6 and 43.8. PT INR were elevated 28.9 and 2.5. PTT was normal 37.4. [place] [address]. Carbon dioxide was elevated 30. BUN and creatinine are elevated 33 and 1.9-this is chronic. Total bili is elevated 1.2. BNP is elevated 335. COVID-19 and influenza were negative. I will discuss admission with the covering hospitalist. Medical Decision Making Lab Data Result diagrams: 02/03/22 08:47 02/03/22 08:47 Labs: Lab Results 02/03/22 02/03/22 02/03/22 Range/Units 08:47 08:47 08:47 WBC 7.8 (4.8-10.8) X10*3/uL RBC 4.59 L (4.60-5.80) X10*6/uL Hgb 14.6 (14.0-18.0) g/dl Hct 43.8 (42.0-52.0) % MCV 95.4 (80.0-98.0) fL MCH 31.8 (27.0-33.0) pg MCHC 33.3 (31.0-36.0) g/dl RDW 14.5 (11.0-16.0) % Plt Count 176 (160-400) X10*3/uL MPV 9.6 (9.4-12.4) fL Immature Gran % (Auto) 0.6 H (0.0-0.4) % Neut % (Auto) 80.9 H (45-73) % Lymph % (Auto) 8.7 L (20-40) % [place] % (Auto) 8.1 (2-11) % Eos % (Auto) 1.4 (0-4) % Baso % (Auto) 0.3 (0-2) % Lymph # (Auto) 0.7 L (1.2-4.9) X10*3/uL [place] # (Auto) 0.6 (0.1-1.2) X10*3/uL Eos # (Auto) 0.1 (0.0-0.4) X10*3/uL Baso # (Auto) 0.0 (0.0-0.2) X10*3/uL Abs Immat Gran (auto) 0.05 H (0.00-0.03) X10*3/uL Absolute Neuts (auto) 6.3 (2.0-8.3) x10*3/uL Absolute Nucleated RBC 0.000 (0.0-0.012) X10*3/uL Nucleated RBC % (auto) 0.0 (0.0-0.2) /100WBC PT (9.9-13.0) SEC INR (0.9-1.1) APTT 37.4 (24.1-38.0) SEC Sodium 134 L (135-145) mmol/L Potassium 3.8 (3.3-5.1) mmol/L Chloride 94 L (96-108) mmol/L Carbon Dioxide 30 H (22-29) mmol/L Anion Gap 14 (12-20) BUN 33 H (9-16) mg/dL Creatinine 1.90 H (0.5-1.4) mg/dL Estim Creat Clear Calc 29.3 Estimated GFR 34 Random Glucose 112 (60-115) mg/dL Calcium 9.0 (8.4-10.2) mg/dL Total Bilirubin 1.2 H (0.0-1.0) mg/dL AST 18 (5-37) U/L ALT 9 (0-40) U/L Alkaline Phosphatase 102 (39-117) U/L Troponin I High Sens (<3.5-35.0) ng/L B-Natriuretic Peptide (<100) pg/mL Total Protein 7.5 (6.5-8.0) g/dL Albumin 3.6 (3.5-5.0) g/dL Lipase 14 (8-78) U/L COVID-19 (PENNY) (Negative) COVID-19 Clin Com Influenza Type A (HAIM) (Negative) Influenza Type B (HAIM) (Negative) Influenza A & B Note Blood Type Antibody Screen 02/03/22 02/03/22 02/03/22 Range/Units 08:47 08:47 08:47 WBC (4.8-10.8) X10*3/uL RBC (4.60-5.80) X10*6/uL Hgb (14.0-18.0) g/dl Hct (42.0-52.0) % MCV (80.0-98.0) fL MCH (27.0-33.0) pg MCHC (31.0-36.0) g/dl RDW (11.0-16.0) % Plt Count (160-400) X10*3/uL MPV (9.4-12.4) fL Immature Gran % (Auto) (0.0-0.4) % Neut % (Auto) (45-73) % Lymph % (Auto) (20-40) % [place] % (Auto) (2-11) % Eos % (Auto) (0-4) % Baso % (Auto) (0-2) % Lymph # (Auto) (1.2-4.9) X10*3/uL [place] # (Auto) (0.1-1.2) X10*3/uL Eos # (Auto) (0.0-0.4) X10*3/uL Baso # (Auto) (0.0-0.2) X10*3/uL Abs Immat Gran (auto) (0.00-0.03) X10*3/uL Absolute Neuts (auto) (2.0-8.3) x10*3/uL Absolute Nucleated RBC (0.0-0.012) X10*3/uL Nucleated RBC % (auto) (0.0-0.2) /100WBC PT (9.9-13.0) SEC INR (0.9-1.1) APTT (24.1-38.0) SEC Sodium (135-145) mmol/L Potassium (3.3-5.1) mmol/L Chloride (96-108) mmol/L Carbon Dioxide (22-29) mmol/L Anion Gap (12-20) BUN (9-16) mg/dL Creatinine (0.5-1.4) mg/dL Estim Creat Clear Calc Estimated GFR Random Glucose (60-115) mg/dL Calcium (8.4-10.2) mg/dL Total Bilirubin (0.0-1.0) mg/dL AST (5-37) U/L ALT (0-40) U/L Alkaline Phosphatase (39-117) U/L Troponin I High Sens (<3.5-35.0) ng/L B-Natriuretic Peptide 335 H (<100) pg/mL Total Protein (6.5-8.0) g/dL Albumin (3.5-5.0) g/dL Lipase (8-78) U/L COVID-19 (PENNY) Negative (Negative) COVID-19 Clin Com See Note Influenza Type A (HAIM) Negative (Negative) Influenza Type B (HAIM) Negative (Negative) Influenza A & B Note See Note Blood Type Antibody Screen 02/03/22 02/03/22 02/03/22 Range/Units 08:47 08:47 08:47 WBC (4.8-10.8) X10*3/uL RBC (4.60-5.80) X10*6/uL Hgb (14.0-18.0) g/dl Hct (42.0-52.0) % MCV (80.0-98.0) fL MCH (27.0-33.0) pg MCHC (31.0-36.0) g/dl RDW (11.0-16.0) % Plt Count (160-400) X10*3/uL MPV (9.4-12.4) fL Immature Gran % (Auto) (0.0-0.4) % Neut % (Auto) (45-73) % Lymph % (Auto) (20-40) % [place] % (Auto) (2-11) % Eos % (Auto) (0-4) % Baso % (Auto) (0-2) % Lymph # (Auto) (1.2-4.9) X10*3/uL [place] # (Auto) (0.1-1.2) X10*3/uL Eos # (Auto) (0.0-0.4) X10*3/uL Baso # (Auto) (0.0-0.2) X10*3/uL Abs Immat Gran (auto) (0.00-0.03) X10*3/uL Absolute Neuts (auto) (2.0-8.3) x10*3/uL Absolute Nucleated RBC (0.0-0.012) X10*3/uL Nucleated RBC % (auto) (0.0-0.2) /100WBC PT 28.9 H (9.9-13.0) SEC INR 2.5 H (0.9-1.1) APTT (24.1-38.0) SEC Sodium (135-145) mmol/L Potassium (3.3-5.1) mmol/L Chloride (96-108) mmol/L Carbon Dioxide (22-29) mmol/L Anion Gap (12-20) BUN (9-16) mg/dL Creatinine (0.5-1.4) mg/dL Estim Creat Clear Calc Estimated GFR Random Glucose (60-115) mg/dL Calcium (8.4-10.2) mg/dL Total Bilirubin (0.0-1.0) mg/dL AST (5-37) U/L ALT (0-40) U/L Alkaline Phosphatase (39-117) U/L Troponin I High Sens 20.0 (<3.5-35.0) ng/L B-Natriuretic Peptide (<100) pg/mL Total Protein (6.5-8.0) g/dL Albumin (3.5-5.0) g/dL Lipase (8-78) U/L COVID-19 (PENNY) (Negative) COVID-19 Clin Com Influenza Type A (HAIM) (Negative) Influenza Type B (HAIM) (Negative) Influenza A & B Note Blood Type B Positive Antibody Screen NEGATIVE ECG Data Attestation: I personally reviewed and interpreted this ECG as follows: Interpretation: 0821: Atrial sensed ventricular paced rhythm at 116. Discharge Plan Discharge Patient Disposition: Admitted As Inpatient Prescriptions: No Action metoprolol succinate 50 mg tablet extended release 24 hr 50 mg PO DAILY 90 Days Qty: 90 3RF allopurinol 100 mg tablet 100 mg PO DAILY Qty: 90 1RF tramadol 50 mg tablet 50 mg PO BID PRN (Reason: pain) Qty: 10 0RF Metamucil Packet 1 packet PO DAILY 0RF Rx Instructions: mix into at least 8 oz of water or juice before administering magnesium hydroxide [Milk of Magnesia] 400 mg/5 mL Suspension 30 ml PO DAILY PRN (Reason: Constipation) 0RF bisacodyl [Dulcolax (bisacodyl)] 5 mg Tablet,Delayed Release (Dr/Ec) 10 mg PO DAILY 0RF Eliquis 2.5 mg tablet 5 mg PO BID 0RF Rx Instructions: PATIENT IS TAKING #2 OF 2. 5 MG TABLETS TWICE DAILY (TOTAL OF 5 MG BID) tamsulosin 0.4 mg capsule 1 cap PO DAILY 0RF calcitriol 0.25 mcg capsule 0.25 mcg PO MOTH@0900 0RF furosemide 40 mg tablet 40 mg PO BID 0RF
[2022-02-03 09:26] LABS: B Type Natriuretic Peptide 335 pg/mL (<100); IDNOW Serial# 55D5AD1C; Influenza A Negative (Negative); Influenza B2 Negative (Negative)
[2022-02-03 09:27] LABS: COVID-19 Test Negative (Negative)
--- NOTE | 2022-02-03 09:43 | PHA.MEDREC ---
Pharmacy Consult ? Medication Reconciliation Pharmacy has completed the medication reconciliation. Spoke with patient in the ED who took all meds this morning.
[2022-02-03] MEDS: Heparin Sodium,Porcine 5,000 UNIT/ML VIAL 6600 UNIT IVPUSH (10:58)
[2022-02-03] MEDS: Heparin Sodium,Porcine/1/2NS 25,000 UNIT/250 ML IV.SOLN 11.51 UNIT IVCONT (10:59)
--- NOTE | 2022-02-03 11:40 | P.CONCC_ITS ---
History of Present Illness Data of Consult Service Date: 02/03/22 Requesting physician: Harry Tao Primary Care Provider: Unknown Physician HPI Reason for consult: Swelling of left upper extremity status post placement of biventricular ICD 87-year-old male with known congestive cardiomyopathy and a complete left bundle branch block one-week status post placement of biventricular ICD and venous duplex indicates the presence of thrombus in the proximal system from from entry of the internal jugular all the way down to the basilic vein with clear-cut swelling of his left upper extremity and currently in sinus tachycardia and with a complete left bundle branch block and I see good placement of all 3 leads with a coronary sinus lead in the posterior lateral wall and a right ventricular did defibrillator lead in the right ventricular apex and of course in atrial lead so he sinus sensing and appears to be 100% [place] conduction of a complete left bundle branch block no evidence of paced capture of either the left ventricular or the right ventricular lead so reprogramming at the very least needs to take place and my bedside echo confirms persistent paradoxical motion of the interventricular septum and Ki nieces of only the posterior lateral wall and hypokinesis at that with a 25-30% overall ejection fraction and no primary valve or pericardial disease Review of Systems Review of Systems: Still complains of fatigue and dyspnea PMFSH Past Medical History Medical History (Updated 02/03/22 @ 11:48 by Arlette Chen MD) Acute renal insufficiency Atrial flutter Cardiomyopathy Chronic renal failure, stage 3 (moderate) Chronic systolic (congestive) heart failure DVT (deep venous thrombosis) Family History Family History Mother No problems noted. Father No problems noted. Surgical History Surgical History History of left hip replacement History of total right knee replacement Social History Social History Housing: House Alcohol intake: current Alcohol intake frequency: 3 or more drinks per day Alcohol type: hard liquor Patient Tobacco Use Status: Former Tobacco user Quit Date: 2000 Years Smoked: 50 +/- e-Cigarette/Vaping Use: Never Used Second Hand Smoke Exposure: No Advance Directives: Yes Advance Directives Information Provided: No Advance Directives on File: No service: No Current occupational status: retired Cognitive needs: No Hearing needs: No Vision needs: No Meds Allergies Allergy/AdvReac Type Severity Reaction Status Date / Time No Known Allergies Allergy Verified 12/11/21 09:28 Active Medications: Current Medications Allopurinol (Allopurinol 100 Mg Tablet) 100 mg PO DAILY [facility] Bisacodyl (Bisacodyl 5 Mg Tablet.Dr) 10 mg PO DAILY [facility] Calcitriol (Calcitriol 0.25 Mcg Capsule) 0.25 mcg PO MOTH@0900 MARKO Furosemide (Furosemide 40 Mg Tablet) 40 mg PO BID@0800,1800 [facility]; Protocol Heparin Sodium (Porcine) (Heparin Sodium,Porcine 5,000 Unit/Ml Vial) 3,300 unit 40 unit/kg (3300 unit) IVPUSH PROTOCOL BOLUS PRN PRN Reason: 40 unit/kg - Heparin Protocol Heparin Sodium (Porcine) (Heparin Sodium,Porcine 5,000 Unit/Ml Vial) 6,600 unit 80 unit/kg (6600 unit) IVPUSH PROTOCOL BOLUS PRN PRN Reason: 80 unit/kg - Heparin Protocol Heparin Sodium/Sodium Chloride () 25,000 unit in 250 mls @ 0 mls/hr IVCONT .Q0M [facility]; Protocol Last Admin: 02/03/22 10:59 Dose: 14 units/kg/hr, 11.51 mls/hr Documented by: Magnesium Hydroxide (Milk Of Magnesia 30 Ml Oral.Susp) 30 ml PO DAILY PRN PRN Reason: Constipation Metoprolol Succinate (Metoprolol Succinate Er 50 Mg Tab.Er.24h) 50 mg PO DAILY [facility]; Protocol Psyllium Hydrophilic Mucilloid (Psyllium Seed 3.4 Gm Powd.Pack) 3.4 gm PO DAILY [facility] Sodium Chloride (0.9 % Sodium Chloride Flush 3 Ml Syringe) 3 ml IVFLUSH QSHIFT [facility] Last Admin: 02/03/22 11:05 Dose: Not Given Documented by: Tamsulosin HCl (Tamsulosin Hcl 0.4 Mg Capsule) 0.4 mg PO DAILY [facility] Home Medications Medication Instructions Recorded Confirmed Last Taken Type calcitriol 0.25 mcg capsule 0.25 mcg PO MOTH@0900 cap 11/02/21 02/03/22 02/01/22 History furosemide 40 mg tablet 40 mg PO BID tab 11/16/21 02/03/22 02/03/22 History apixaban 2.5 mg tablet (Eliquis) 5 mg PO BID 02/03/22 02/03/22 02/03/22 History bisacodyl 5 mg tablet,delayed 10 mg PO DAILY 02/03/22 02/03/22 02/03/22 History release (Dulcolax (bisacodyl)) magnesium hydroxide 400 mg/5 mL 30 ml PO DAILY PRN 02/03/22 02/03/22 02/03/22 History oral suspension (Milk of Magnesia) psyllium 1 packet PO DAILY 02/03/22 02/03/22 02/03/22 History tamsulosin 0.4 mg capsule 1 cap PO DAILY 02/03/22 02/03/22 Unknown History Physical Exam Vital Signs: Vital Signs: Last Vital Signs Temp 98.3 F 02/03/22 07:39 Pulse 116 H 02/03/22 07:39 Resp 17 02/03/22 07:39 BP 148/89 H 02/03/22 07:39 Pulse Ox 98 02/03/22 07:39 BMI result Body Mass Index 25.9 Awake and alert with systolic pressure of 148 and sinus tachycardia at 01:16 afebrile Comfortable breathing no respiratory effort no adventitious sounds Cardiac exam by bedside echo as described No peripheral edema Results Labs CBC & Chem 7: 02/03/22 08:47 02/03/22 08:47 Labs: Short CBC 02/03/22 Range/Units 08:47 WBC 7.8 (4.8-10.8) X10*3/uL Hgb 14.6 (14.0-18.0) g/dl Hct 43.8 (42.0-52.0) % Plt Count 176 (160-400) X10*3/uL BMP 02/03/22 08:47 Sodium 134 L Potassium 3.8 Chloride 94 L Carbon Dioxide 30 H BUN 33 H Creatinine 1.90 H Calcium 9.0 Liver Function 02/03/22 Range/Units 08:47 Total Bilirubin 1.2 H (0.0-1.0) mg/dL AST 18 (5-37) U/L ALT 9 (0-40) U/L Alkaline Phosphatase 102 (39-117) U/L Albumin 3.6 (3.5-5.0) g/dL Assessment and Plan (1) Acute deep vein thrombosis (DVT) of left upper extremity: Status: Acute (2) DVT (deep venous thrombosis): Status: Acute (3) Leg wound, right: Status: Acute (4) Cellulitis of right leg: Status: Acute (5) Annual physical exam: Status: Acute (6) Cardiomyopathy: Status: Acute (7) Chronic systolic (congestive) heart failure: Status: Acute (8) Atrial flutter: Status: Acute (9) Acute renal insufficiency: Status: Acute (10) Chronic renal failure, stage 3 (moderate): Status: Acute (11) Biventricular ICD (implantable cardioverter-defibrillator) in place: Status: Acute Plan So at this point he has a congestive cardiomyopathy but he is not pacing in a biventricular mode and we need to force that by reprogramming his AV delay and 1st retest the capture thresholds of both the LV and RV leads so we have to call the [employer] insurance healthcare representative and we can continue keeping him on the oral anticoagulant because he does have reflection of its affect with an INR of 2.5 that should be adequate treatment I do not think this ago clinical reason for in [address] with contrast especially with his renal insufficiency and he is a chronic stage III renal failure with a 34 cc a GFR if you want to be complete ventilation perfusion lung scanning veno can be performed but I do not see the necessity I think it is a low likelihood as an embolic source from the left upper extremity I would just concentrate on reprogramming the ICD
--- NOTE | 2022-02-03 12:03 | PM.CNCAR ---
History of Present Illness History of Present Illness Date of Service: 02/03/22 Chief complaint: DVT Narrative: This is a cardiology consultation regarding acute upper extremity DVT following PRIMING POWDER PREMIX BLENDER implantation. Patient had a biventricular ICD placed about 10 days ago or so. He then developed left upper extremity swelling over the last few days. He has been seen by EP about 2 days ago. At that time, it was recommended that he actually goes to the ER for evaluation. Patient does take baseline anticoagulation with Eliquis 2.5 mg b.i.d. but it seems that in spite of this he developed the clot. Apart from the swelling in the left upper extremity does not really have any cardiac complaints like angina. Shortness of breath is at baseline. No significant leg swelling. He is quite upset that he has to come here for this. Review of Systems Review of Systems: Yes all other systems are reviewed and are negative Constitutional: Constitutional: Reports as per HPI Eyes: Eyes: Reports as per HPI ENT: Reports as per HPI Cardiovascular: Cardiovascular: Reports as per HPI, Denies acrocyanosis, Denies cool extremities, Denies chest pain, Denies leg edema, Denies lightheadedness, Denies palpitations and Denies dyspnea Respiratory: Respiratory: Reports as per HPI, Reports no additional respiratory complaints and Denies dyspnea Gastrointestinal: Gastrointestinal: Reports as per HPI and Reports no additional gastrointestinal complaints Genitourinary: Genitourinary: Reports no additional male genitourinary complaints and Reports as per HPI Musculoskeletal: Musculoskeletal: Reports no additional musculoskeletal complaints and Reports as per HPI Integumentary/Breasts: Skin/Breast: Reports system reviewed and no additional complaints, except as docu Neurologic: Reports system reviewed and no additional complaints, except as documented and Reports as per HPI Psychiatric: Psychiatric: Reports no additional psychiatric complaints and Reports as per HPI Endocrine: Endocrine: Reports no additional endocrine complaints, Reports as per HPI and Denies palpitations Hematologic/Lymphatic: Hematologic/Lymphatic: Reports no additional hematologic/lymphatic complaints and Reports as per HPI Allergic/Immunologic: Allergic/Immunologic: Reports no additional allergic/immunologic complaints and Reports as per HPI PMF Past Medical History Medical History (Updated 02/03/22 @ 11:48 by Arlette Chen MD) Acute renal insufficiency Atrial flutter Cardiomyopathy Chronic renal failure, stage 3 (moderate) Chronic systolic (congestive) heart failure DVT (deep venous thrombosis) Family History Family History Mother No problems noted. Father No problems noted. Surgical History Surgical History History of left hip replacement History of total right knee replacement Social History Social History Housing: House Alcohol intake: current Alcohol intake frequency: 3 or more drinks per day Alcohol type: hard liquor Patient Tobacco Use Status: Former Tobacco user Quit Date: 2000 Years Smoked: 50 +/- e-Cigarette/Vaping Use: Never Used Second Hand Smoke Exposure: No Advance Directives: Yes Advance Directives Information Provided: No Advance Directives on File: No service: No Current occupational status: retired Cognitive needs: No Hearing needs: No Vision needs: No Meds Allergies Allergy/AdvReac Type Severity Reaction Status Date / Time No Known Allergies Allergy Verified 12/11/21 09:28 Active Medications: Current Medications Allopurinol (Allopurinol 100 Mg Tablet) 100 mg PO DAILY [facility] Bisacodyl (Bisacodyl 5 Mg Tablet.Dr) 10 mg PO DAILY [facility] Calcitriol (Calcitriol 0.25 Mcg Capsule) 0.25 mcg PO MOTH@0900 [facility] Furosemide (Furosemide 40 Mg Tablet) 40 mg PO BID@0800,1800 [facility]; Protocol Heparin Sodium (Porcine) (Heparin Sodium,Porcine 5,000 Unit/Ml Vial) 3,300 unit 40 unit/kg (3300 unit) IVPUSH PROTOCOL BOLUS PRN PRN Reason: 40 unit/kg - Heparin Protocol Heparin Sodium (Porcine) (Heparin Sodium,Porcine 5,000 Unit/Ml Vial) 6,600 unit 80 unit/kg (6600 unit) IVPUSH PROTOCOL BOLUS PRN PRN Reason: 80 unit/kg - Heparin Protocol Heparin Sodium/Sodium Chloride () 25,000 unit in 250 mls @ 0 mls/hr IVCONT .Q0M [facility]; Protocol Last Admin: 02/03/22 10:59 Dose: 14 units/kg/hr, 11.51 mls/hr Documented by: Magnesium Hydroxide (Milk Of Magnesia 30 Ml Oral.Susp) 30 ml PO DAILY PRN PRN Reason: Constipation Metoprolol Succinate (Metoprolol Succinate Er 50 Mg Tab.Er.24h) 50 mg PO DAILY [facility]; Protocol Psyllium Hydrophilic Mucilloid (Psyllium Seed 3.4 Gm Powd.Pack) 3.4 gm PO DAILY [facility] Sodium Chloride (0.9 % Sodium Chloride Flush 3 Ml Syringe) 3 ml IVFLUSH QSHIFT [facility] Last Admin: 02/03/22 11:05 Dose: Not Given Documented by: Tamsulosin HCl (Tamsulosin Hcl 0.4 Mg Capsule) 0.4 mg PO DAILY [facility] Home Medications Medication Instructions Recorded Confirmed Last Taken Type calcitriol 0.25 mcg capsule 0.25 mcg PO MOTH@0900 cap 11/02/21 02/03/22 02/01/22 History furosemide 40 mg tablet 40 mg PO BID tab 11/16/21 02/03/22 02/03/22 History apixaban 2.5 mg tablet (Eliquis) 5 mg PO BID 02/03/22 02/03/22 02/03/22 History bisacodyl 5 mg tablet,delayed 10 mg PO DAILY 02/03/22 02/03/22 02/03/22 History release (Dulcolax (bisacodyl)) magnesium hydroxide 400 mg/5 mL 30 ml PO DAILY PRN 02/03/22 02/03/22 02/03/22 History oral suspension (Milk of Magnesia) psyllium 1 packet PO DAILY 02/03/22 02/03/22 02/03/22 History tamsulosin 0.4 mg capsule 1 cap PO DAILY 02/03/22 02/03/22 Unknown History Physical Exam Vital Signs: Vital Signs: Last Vital Signs Temp 98.3 F 02/03/22 07:39 Pulse 116 H 02/03/22 07:39 Resp 17 02/03/22 07:39 BP 148/89 H 02/03/22 07:39 Pulse Ox 98 02/03/22 07:39 BMI result Body Mass Index 25.9 Const: General: comfortable and no acute distress Orientation/consciousness: patient oriented x3 HEENT: Other: Unremarkable Head: Yes normal to inspection Neck: Neck: Yes normal visual inspection Chest: Chest palpation & inspection: normal inspection of the chest Resp: Auscultation: clear to auscultation bilaterally Cardio: Palpation: normal PMI Heart sounds: S1 normal heart sound present, S2 normal heart sound present, no gallops, no murmurs and no rubs GI: Palpation (GI): Soft to palpation Back/Spine/Pelvis: Other: unremarkable Skin: General skin exam: no rashes or lesions noted Neuro: General: patient oriented x3 Extrem: Other: Left upper extremity is swollen; discoloration. Psych: Mental Status: mental status grossly normal Objective Labs and Meds Result diagrams: 02/03/22 08:47 02/03/22 08:47 Lab results: Laboratory Results - last 24 hr 02/03/22 02/03/22 02/03/22 08:47 08:47 08:47 WBC 7.8 RBC 4.59 L Hgb 14.6 Hct 43.8 MCV 95.4 MCH 31.8 MCHC 33.3 RDW 14.5 Plt Count 176 MPV 9.6 Immature Gran % (Auto) 0.6 H Neut % (Auto) 80.9 H Lymph % (Auto) 8.7 L [place] % (Auto) 8.1 Eos % (Auto) 1.4 Baso % (Auto) 0.3 Lymph # (Auto) 0.7 L [place] # (Auto) 0.6 Eos # (Auto) 0.1 Baso # (Auto) 0.0 Abs Immat Gran (auto) 0.05 H Absolute Neuts (auto) 6.3 Absolute Nucleated RBC 0.000 Nucleated RBC % (auto) 0.0 PT INR APTT 37.4 Sodium 134 L Potassium 3.8 Chloride 94 L Carbon Dioxide 30 H Anion Gap 14 BUN 33 H Creatinine 1.90 H Estim Creat Clear Calc 29.3 Estimated GFR 34 Random Glucose 112 Calcium 9.0 Total Bilirubin 1.2 H AST 18 ALT 9 Alkaline Phosphatase 102 Troponin I High Sens B-Natriuretic Peptide Total Protein 7.5 Albumin 3.6 Lipase 14 COVID-19 ([facility]) COVID-19 Clin Com Influenza Type A ([facility]) Influenza Type B ([facility]) Influenza A & B Note Blood Type Antibody Screen 02/03/22 02/03/22 02/03/22 08:47 08:47 08:47 WBC RBC Hgb Hct MCV MCH MCHC RDW Plt Count MPV Immature Gran % (Auto) Neut % (Auto) Lymph % (Auto) [place] % (Auto) Eos % (Auto) Baso % (Auto) Lymph # (Auto) [place] # (Auto) Eos # (Auto) Baso # (Auto) Abs Immat Gran (auto) Absolute Neuts (auto) Absolute Nucleated RBC Nucleated RBC % (auto) PT INR APTT Sodium Potassium Chloride Carbon Dioxide Anion Gap BUN Creatinine Estim Creat Clear Calc Estimated GFR Random Glucose Calcium Total Bilirubin AST ALT Alkaline Phosphatase Troponin I High Sens B-Natriuretic Peptide 335 H Total Protein Albumin Lipase COVID-19 ([facility]) Negative COVID-19 Clin Com See Note Influenza Type A ([facility]) Negative Influenza Type B ([facility]) Negative Influenza A & B Note See Note Blood Type Antibody Screen 02/03/22 02/03/22 02/03/22 08:47 08:47 08:47 WBC RBC Hgb Hct MCV MCH MCHC RDW Plt Count MPV Immature Gran % (Auto) Neut % (Auto) Lymph % (Auto) [place] % (Auto) Eos % (Auto) Baso % (Auto) Lymph # (Auto) [place] # (Auto) Eos # (Auto) Baso # (Auto) Abs Immat Gran (auto) Absolute Neuts (auto) Absolute Nucleated RBC Nucleated RBC % (auto) PT 28.9 H INR 2.5 H APTT Sodium Potassium Chloride Carbon Dioxide Anion Gap BUN Creatinine Estim Creat Clear Calc Estimated GFR Random Glucose Calcium Total Bilirubin AST ALT Alkaline Phosphatase Troponin I High Sens 20.0 B-Natriuretic Peptide Total Protein Albumin Lipase COVID-19 ([facility]) COVID-19 Clin Com Influenza Type A ([facility]) Influenza Type B ([facility]) Influenza A & B Note Blood Type B Positive Antibody Screen NEGATIVE ECG Interpretation: EKG with sinus tachycardia at 01:16/Min. Cannot see pacing spikes clearly. Imaging Radiologist's impression: Impressions Chest X-Ray 02/03/22 10:27 IMPRESSION: Unremarkable chest examination. Assessment and Plan (1) Acute deep vein thrombosis (DVT) of left upper extremity: Status: Acute (2) Chronic systolic (congestive) heart failure: Status: Acute (3) Biventricular ICD (implantable cardioverter-defibrillator) in place: Status: Acute (4) Chronic renal failure, stage 3 (moderate): Status: Acute Plan Pertinent data reviewed. Creatinine is 1.9. BUN is 33. Cardiac BNP 335. Previously 997. COVID status negative. Chest x-ray reported to be unremarkable. Echocardiogram in the past with LVEF of 25-30%. Myocardial perfusion imaging study shows no clear ischemia. Probable old inferior infarct +/-attenuation artifact Ultrasound study from 02/01-positive DVT-thrombosis of left jugular through the basal veins. Overall, he has acute DVT after recent PRIMING POWDER PREMIX BLENDER implantation. This in spite of taking Eliquis. Discussed with Dr. Jiménez, who implanted the device. Two days ago on , the device was completely normal in function. We do not see the pacer leads clearly because it is only programmed to Bi V paced still 110/Min. According to him, beta-evin dose was actually increased to metoprolol ER 75 mg daily. Hence as he is tachycardic he is not appropriately Bi V pacing. We will try to slow him down by giving him the above beta-evin dose and then see how he does. After discussion of chest x-ray with implanting physician as well as the above findings, he does not think there is a need to urgently reinterrogate the device as it was completely normal just 2 days ago. His advise was to just use IV heparin for anticoagulation hoping that the clot resolves. Long-term anticoagulation still needs to be decided. Discussed with ER physician as well as Dr. Hair. Patient to be admitted for further care. Procedures Date of Service Date of Service: 02/03/22
[2022-02-03] MEDS: Metoprolol Succinate ER 25 MG TAB.ER.24H PO (14:04)
[2022-02-03 14:06] VITALS: BP 131/84; PULSE 113; RESP 12; O2SAT 99
--- NOTE | 2022-02-03 16:22 | PM.IMHP ---
History of Present Illness Date of Service: 02/03/22 Chief Complaint: LUE DVT 87-year-old male with a history of cardiomyopathy, atrial fibrillation who had a pacemaker/automatic cardiac defibrillator placed on 01/24/2022 at [facility].? He was seen on 02/01/[address] Jiménez for left upper extremity swelling x3 days.? He also had a allergic reaction to doxycycline (facial rash).? According to Dr. Valencia's note the patient's Eliquis was held for the procedure and then restarted.? Despite restarting the Eliquis, the patient's swelling of his left upper extremity did not improve.? He had an urgent ultrasound on 02/01/2022? which revealed a thrombus of the left jugular vein through the a basillic veins confirming a DVT of the left upper extremity. ? Dr. Valencia recommended admission for IV heparin however the patient refused at that time.? The patient was taking Eliquis 2.5 mg twice a day and he was increased to Eliquis 5 mg twice a day and aspirin 81 mg daily.? The patient's symptoms did not improve and the patient did agree to come to the emergency department today for re-evaluation and admission for IV heparin. Review of Systems Review of Systems: Denies chest pain Denies shortness of breath Denies nausea vomiting diarrhea Denies fever chills PMFSH Medical History Acute renal insufficiency Atrial flutter Cardiomyopathy Chronic renal failure, stage 3 (moderate) Chronic systolic (congestive) heart failure DVT (deep venous thrombosis) Family History Mother No problems noted. Father No problems noted. Surgical History History of left hip replacement History of total right knee replacement Social History Housing: House Alcohol intake: current Alcohol intake frequency: 3 or more drinks per day Alcohol type: hard liquor Patient Tobacco Use Status: Former Tobacco user Quit Date: 2000 Years Smoked: 50 +/- e-Cigarette/Vaping Use: Never Used Second Hand Smoke Exposure: No Advance Directives: Yes Advance Directives Information Provided: No Advance Directives on File: No service: No Current occupational status: retired Cognitive needs: No Hearing needs: No Vision needs: No Meds Allergies Allergy/AdvReac Type Severity Reaction Status Date / Time No Known Allergies Allergy Verified 12/11/21 09:28 Active Medications: Current Medications Allopurinol (Allopurinol 100 Mg Tablet) 100 mg PO DAILY [facility] Bisacodyl (Bisacodyl 5 Mg Tablet.Dr) 10 mg PO DAILY [facility] Calcitriol (Calcitriol 0.25 Mcg Capsule) 0.25 mcg PO MOTH@0900 [facility] Furosemide (Furosemide 40 Mg Tablet) 40 mg PO BID@0800,1800 [facility]; Protocol Heparin Sodium (Porcine) (Heparin Sodium,Porcine 5,000 Unit/Ml Vial) 3,300 unit 40 unit/kg (3300 unit) IVPUSH PROTOCOL BOLUS PRN PRN Reason: 40 unit/kg - Heparin Protocol Heparin Sodium (Porcine) (Heparin Sodium,Porcine 5,000 Unit/Ml Vial) 6,600 unit 80 unit/kg (6600 unit) IVPUSH PROTOCOL BOLUS PRN PRN Reason: 80 unit/kg - Heparin Protocol Heparin Sodium/Sodium Chloride () 25,000 unit in 250 mls @ 0 mls/hr IVCONT .Q0M [facility]; Protocol Last Admin: 02/03/22 10:59 Dose: 14 units/kg/hr, 11.51 mls/hr Documented by: Magnesium Hydroxide (Milk Of Magnesia 30 Ml Oral.Susp) 30 ml PO DAILY PRN PRN Reason: Constipation Metoprolol Succinate (Metoprolol Succinate Er 25 Mg Tab.Er.24h) 75 mg PO DAILY [facility]; Protocol Psyllium Hydrophilic Mucilloid (Psyllium Seed 3.4 Gm Powd.Pack) 3.4 gm PO DAILY [facility] Sodium Chloride (0.9 % Sodium Chloride Flush 3 Ml Syringe) 3 ml IVFLUSH QSHIFT [facility] Last Admin: 02/03/22 11:05 Dose: Not Given Documented by: Tamsulosin HCl (Tamsulosin Hcl 0.4 Mg Capsule) 0.4 mg PO DAILY [facility] Home Medications Medication Instructions Recorded Confirmed Last Taken Type calcitriol 0.25 mcg capsule 0.25 mcg PO MOTH@0900 cap 11/02/21 02/03/22 02/01/22 History furosemide 40 mg tablet 40 mg PO BID tab 11/16/21 02/03/2202/03/22 History apixaban 2.5 mg tablet (Eliquis) 5 mg PO BID 02/03/22 02/03/22 02/03/22 History bisacodyl 5 mg tablet,delayed 10 mg PO DAILY 02/03/22 02/03/22 02/03/22 History release (Dulcolax (bisacodyl)) magnesium hydroxide 400 mg/5 mL 30 ml PO DAILY PRN 02/03/22 02/03/22 02/03/22 History oral suspension (Milk of Magnesia) psyllium 1 packet PO DAILY 02/03/22 02/03/22 02/03/22 History tamsulosin 0.4 mg capsule 1 cap PO DAILY 02/03/22 02/03/22 Unknown History Physical Exam Vital Signs and Narrative: Vital Signs: Last Vital Signs Temp 98.3 F 02/03/22 07:39 Pulse 113 H 02/03/22 14:06 Resp 12 02/03/22 14:06 BP 131/84 02/03/22 14:06 Pulse Ox 99 02/03/22 14:06 BMI result Body Mass Index 25.9 Const: Other: Awake alert oriented x3 no acute distress Resp: Other: Clear to auscultation bilaterally no rales rhonchi or wheezes Cardio: Other: No S4; positive S1-S2; no S3 murmurs rubs or gallops Extrem: Other: Left upper extremity swollen from shoulder to wrist Results Labs CBC and Chem 7: 02/03/22 08:47 02/03/22 08:47 Labs: Laboratory Results - last 24 hr 02/03/22 02/03/22 02/03/22 08:47 08:47 08:47 MCV 95.4 MCH 31.8 MCHC 33.3 RDW 14.5 Plt Count 176 MPV 9.6 Immature Gran % (Auto) 0.6 H Neut % (Auto) 80.9 H Lymph % (Auto) 8.7 L [place] % (Auto) 8.1 Eos % (Auto) 1.4 Baso % (Auto) 0.3 Lymph # (Auto) 0.7 L [place] # (Auto) 0.6 Eos # (Auto) 0.1 Baso # (Auto) 0.0 Abs Immat Gran (auto) 0.05 H Absolute Neuts (auto) 6.3 Absolute Nucleated RBC 0.000 Nucleated RBC % (auto) 0.0 PT INR APTT 37.4 Anion Gap 14 Estim Creat Clear Calc 29.3 Estimated GFR 34 Random Glucose 112 Calcium 9.0 Total Bilirubin 1.2 H AST 18 ALT 9 Alkaline Phosphatase 102 Troponin I High Sens B-Natriuretic Peptide Total Protein 7.5 Albumin 3.6 Lipase 14 COVID-19 ([facility]) COVID-19 Clin Com Influenza Type A ([facility]) Influenza Type B ([facility]) Influenza A & B Note Blood Type Antibody Screen 02/03/22 02/03/22 02/03/22 08:47 08:47 08:47 MCV MCH MCHC RDW Plt Count MPV Immature Gran % (Auto) Neut % (Auto) Lymph % (Auto) [place] % (Auto) Eos % (Auto) Baso % (Auto) Lymph # (Auto) [place] # (Auto) Eos # (Auto) Baso # (Auto) Abs Immat Gran (auto) Absolute Neuts (auto) Absolute Nucleated RBC Nucleated RBC % (auto) PT INR APTT Anion Gap Estim Creat Clear Calc Estimated GFR Random Glucose Calcium Total Bilirubin AST ALT Alkaline Phosphatase Troponin I High Sens B-Natriuretic Peptide 335 H Total Protein Albumin Lipase COVID-19 ([facility]) Negative COVID-19 Clin Com See Note Influenza Type A ([facility]) Negative Influenza Type B ([facility]) Negative Influenza A & B Note See Note Blood Type Antibody Screen 02/03/22 02/03/22 02/03/22 08:47 08:47 08:47 MCV MCH MCHC RDW Plt Count MPV Immature Gran % (Auto) Neut % (Auto) Lymph % (Auto) [place] % (Auto) Eos % (Auto) Baso % (Auto) Lymph # (Auto) [place] # (Auto) Eos # (Auto) Baso # (Auto) Abs Immat Gran (auto) Absolute Neuts (auto) Absolute Nucleated RBC Nucleated RBC % (auto) PT 28.9 H INR 2.5 H APTT Anion Gap Estim Creat Clear Calc Estimated GFR Random Glucose Calcium Total Bilirubin AST ALT Alkaline Phosphatase Troponin I High Sens 20.0 B-Natriuretic Peptide Total Protein Albumin Lipase COVID-19 ([facility]) COVID-19 Clin Com Influenza Type A ([facility]) Influenza Type B ([facility]) Influenza A & B Note Blood Type B Positive Antibody Screen NEGATIVE Imaging Radiologist's Impressions: Impressions Chest X-Ray 02/03/22 10:27 IMPRESSION: Unremarkable chest examination. Assessment and Plan (1) Acute deep vein thrombosis (DVT) of left upper extremity: Status: Acute (2) Acute renal insufficiency: Status: Acute (3) Atrial flutter: Status: Acute Plan 87-year-old male presents to the emergency room for evaluation of left upper extremity DVT diagnosed on 02/01/2022. He underwent a biventricular pacer/AICD approximately 10 days ago. Approximately 2 days ago he was seen by Cardiology who diagnosed DVT and wanted patient to be admitted for IV heparin secondary to failing Eliquis however patient refused. Presents today for further treatment of his DVT failed Eliquis outpatient 1. Left upper extremity DVT(left jugular through basal veins) -heparin drip secondary to failure of Eliquis -cardiology following new device -given outpatient failure of Eliquis to consider Coumadin therapy. Will discuss with Oncology Hematology 2. Acute renal insufficiency -likely related to failure of Eliquis -patient at baseline -follow renals/divalents 3. Atrial flutter -acceptable control on current therapies -increase Toprol-XL to 75 mg daily -follow on telemetry Heparin drip Full code Requires hospitalization of 2 midnights going forward for stabilization of clot on IV heparin drip given failed outpatient therapies with Eliquist. This cannot be accomplished in the lesser acute setting Quality Stroke Does the patient have a stroke diagnosis?: No VTE Prior VTE?: No VTE Risk Level:: Medical - moderate - high VTE Device Contraindication: Treatment Not Indicated VTE Drug Contraindication: N/A - Med Ordered
[2022-02-03 17:31] LABS: PTT Heparin Drip 94.2 SEC (53-77.9)
--- NOTE | 2022-02-03 18:30 | PC.NURSE ---
Per pharmacy, Heparin drip held at 1805, restart at 1905 rate of 11u/kg/hr. Max MEYERS made aware prior to pt transport.
[2022-02-03 18:44] VITALS: BP 139/72; PULSE 106; RESP 18; TEMP 36.3; O2SAT 98
[2022-02-03] MEDS: Furosemide 40 MG TABLET PO (18:50)
[2022-02-03] MEDS: 0.9 % Sodium Chloride Flush 3 ML SYRINGE IVFLUSH (22:01)
[2022-02-04] VITALS: PULSE 109; RESP 18; TEMP 36.2; O2SAT 99
[2022-02-04 01:29] LABS: PTT Heparin Drip 51.6 SEC (53-77.9)
[2022-02-04] MEDS: Heparin Sodium,Porcine 5,000 UNIT/ML VIAL 3300 UNIT IVPUSH ×2 (03:00→14:08)
[2022-02-04 03:05] VITALS: BP 120/82; PULSE 74; RESP 18; TEMP 36.3; O2SAT 99
[2022-02-04 07:04] LABS: INTERNATIONAL NORM RATIO 1.9 (0.9-1.1); Prothrombin Time 21.5 SEC (9.9-13.0)
[2022-02-04 07:07] LABS: PTT Heparin Drip 82.3 SEC (53-77.9)
[2022-02-04 07:12] LABS: Hematocrit 47.4 % (42.0-52.0); Hemoglobin 15.2 g/dl (14.0-18.0); Mean Corpuscular HGB Conc 32.1 g/dl (31.0-36.0); Mean Corpuscular Hemoglobin 31.1 pg (27.0-33.0); Mean Corpuscular Volume 97.1 fL (80.0-98.0); Mean Platelet Volume 9.8 fL (9.4-12.4); Platelet Count 202 X10*3/uL (160-400); Red Blood Count 4.88 X10*6/uL (4.60-5.80); Red Cell Distribution Width 14.2 % (11.0-16.0); White Blood Count 9.6 X10*3/uL (4.8-10.8)
[2022-02-04 07:23] LABS: B Type Natriuretic Peptide 699 pg/mL (<100)
[2022-02-04 07:36] LABS: Alanine Aminotransferase 9 U/L (0-40); Albumin Level 3.4 g/dL (3.5-5.0); Alkaline Phosphatase 107 U/L (39-117); Anion Gap 17 (12-20); Aspartate Amino Transferase 23 U/L (5-37); Bilirubin Total 1.2 mg/dL (0.0-1.0); Blood Urea Nitrogen 30 mg/dL (9-16); Calcium 8.9 mg/dL (8.4-10.2); Carbon Dioxide 26 mmol/L (22-29); Chloride 94 mmol/L (96-108); Creatinine Clr Calc Pharmacy 35.2; Estimated Glomerular Filt Rate 42; Glucose Fasting 101 mg/dL (60-99); Potassium 3.9 mmol/L (3.3-5.1); Sodium 133 mmol/L (135-145); Total Protein 7.4 g/dL (6.5-8.0)
[2022-02-04] MEDS: Metoprolol Succinate ER 25 MG TAB.ER.24H 75 MG PO (07:43)
[2022-02-04] MEDS: allopurinoL 100 MG TABLET PO (07:44)
[2022-02-04] MEDS: bisacodyL 5 MG TABLET.DR 10 MG PO (07:44)
[2022-02-04] MEDS: Furosemide 40 MG TABLET PO ×2 (07:44→17:16)
[2022-02-04] MEDS: Tamsulosin HCL 0.4 MG CAPSULE PO (07:44)
[2022-02-04] MEDS: 0.9 % Sodium Chloride Flush 3 ML SYRINGE IVFLUSH (07:45)
[2022-02-04 07:51] VITALS: BP 119/72; PULSE 97; RESP 20; TEMP 36; O2SAT 100
--- NOTE | 2022-02-04 11:11 | PM.PNCARD ---
Subjective Subjective Date of Service: 02/04/22 Interval history: Patient states he feels better. Left arm is still swollen. However no new complaints like angina or shortness of breath or anything else. Review of Systems Review of Systems Yes all other systems are reviewed and are negative Constitutional: Reports as per HPI Eyes: Reports as per HPI Reports as per HPI Cardiovascular: Reports as per HPI, Denies acrocyanosis, Denies cool extremities, Denies chest pain, Denies leg edema, Denies lightheadedness, Denies palpitations and Denies dyspnea Respiratory: Reports as per HPI, Reports no additional respiratory complaints and Denies dyspnea Gastrointestinal: Reports as per HPI and Reports no additional gastrointestinal complaints Genitourinary: Reports no additional male genitourinary complaints and Reports as per HPI Musculoskeletal: Reports no additional musculoskeletal complaints and Reports as per HPI Skin/Breast: Reports system reviewed and no additional complaints, except as docu Reports system reviewed and no additional complaints, except as documented and Reports as per HPI Psychiatric: Reports no additional psychiatric complaints and Reports as per HPI Endocrine: Reports no additional endocrine complaints, Reports as per HPI and Denies palpitations Hematologic/Lymphatic: Reports no additional hematologic/lymphatic complaints and Reports as per HPI Allergic/Immunologic: Reports no additional allergic/immunologic complaints and Reports as per HPI Physical Exam Vital Signs: Last Vital Signs Temp 96.8 F 02/04/22 07:51 Pulse 97 02/04/22 07:51 Resp 20 02/04/22 07:51 BP 119/72 02/04/22 07:51 Pulse Ox 100 02/04/22 07:51 BMI result Body Mass Index 25.9 Const General: comfortable and no acute distress Orientation/consciousness: patient oriented x3 HEENT Other: Unremarkable Head: Yes normal to inspection Neck Neck: Yes normal visual inspection Chest Chest palpation & inspection: normal inspection of the chest Resp Auscultation: clear to auscultation bilaterally Cardio Palpation: normal PMI Heart sounds: S1 normal heart sound present, S2 normal heart sound present, no gallops, no murmurs and no rubs GI Palpation (GI): Soft to palpation Back/Spine/Pelvis Other: unremarkable Skin General skin exam: no rashes or lesions noted Neuro General: patient oriented x3 Extrem Other: Left upper extremity is swollen; discoloration. General: Yes normal to inspection Psych Mental Status: mental status grossly normal Objective Labs and Meds Result diagrams: 02/04/22 06:41 02/04/22 06:41 Lab results: Laboratory Results - last 24 hr 02/03/22 02/04/22 02/04/22 17:09 01:13 06:40 WBC RBC Hgb Hct MCV MCH MCHC RDW Plt Count MPV Absolute Nucleated RBC Nucleated RBC % (auto) PT 21.5 H INR 1.9 H aPTT Heparin Protocol 94.2 H 51.6 L D 82.3 H D Sodium Potassium Chloride Carbon Dioxide Anion Gap BUN Creatinine Estim Creat Clear Calc Estimated GFR Fasting Glucose Calcium Total Bilirubin AST ALT Alkaline Phosphatase B-Natriuretic Peptide Total Protein Albumin 02/04/22 02/04/22 02/04/22 06:41 06:41 06:41 WBC 9.6 RBC 4.88 Hgb 15.2 Hct 47.4 MCV 97.1 MCH 31.1 MCHC 32.1 RDW 14.2 Plt Count 202 MPV 9.8 Absolute Nucleated RBC 0.000 Nucleated RBC % (auto) 0.0 PT INR aPTT Heparin Protocol Sodium 133 L Potassium 3.9 Chloride 94 L Carbon Dioxide 26 Anion Gap 17 BUN 30 H Creatinine 1.58 H Estim Creat Clear Calc 35.2 Estimated GFR 42 Fasting Glucose 101 H Calcium 8.9 Total Bilirubin 1.2 H AST 23 ALT 9 Alkaline Phosphatase 107 B-Natriuretic Peptide 699 H Total Protein 7.4 Albumin 3.4 L Imaging Radiologist's impression: Impressions Chest X-Ray 02/03/22 10:27 IMPRESSION: Unremarkable chest examination. Progress Note: A&P Assessment and plan (1) Acute deep vein thrombosis (DVT) of left upper extremity: Status: Acute (2) Chronic systolic (congestive) heart failure: Status: Acute (3) Biventricular ICD (implantable cardioverter-defibrillator) in place: Status: Acute (4) Chronic renal failure, stage 3 (moderate): Status: Acute Plan Ultrasound study from 02/01-positive DVT-thrombosis of left jugular through the basal veins. He continues to have left upper extremity swelling as well as discoloration. Is able to move his fingers okay. We will continue on the IV heparin drip for now. Long-term anticoagulation had to be decided. Possibly Coumadin with strict INR monitoring. Otherwise, on telemetry pacing seems to be appropriate. We can continue the higher dose of beta-blockers at Toprol-XL 25 mg daily. Otherwise, can elevate the left upper extremity to help with the swelling. Will follow up with you. Discussed with Dr. Hair. Time Spent With Patient Time: Total time spent is greater than 50% in coordination of care (as documented) at patient's floor/unit and/or counseling patient: 35min. Progress Note: Quality Stroke Does the patient have a stroke diagnosis?: No Procedures Date of Service Date of Service: 02/04/22
[2022-02-04 11:45] VITALS: BP 107/60; PULSE 83; RESP 20; TEMP 36.3; O2SAT 97
--- NOTE | 2022-02-04 12:19 | HO.PM.IMPN ---
Subjective Subjective Date of Service: 02/04/22 Interval History: No acute issues overnight. Monitor demonstrating adequate pacing spikes Review of Systems Denies chest pain Denies shortness of breath Denies nausea vomiting diarrhea Denies fever chills Physical Exam Vital Signs: Vital Signs: Last Vital Signs Temp 97.4 F 02/04/22 11:45 Pulse 83 02/04/22 11:45 Resp 20 02/04/22 11:45 BP 107/60 02/04/22 11:45 Pulse Ox 97 02/04/22 11:45 BMI result Body Mass Index 25.9 Const: Other: Awake alert oriented x3 no acute distress Resp: Other: Clear to auscultation bilaterally no rales rhonchi or wheezes Cardio: Other: No S4; positive S1-S2; no S3 murmurs rubs or gallops Extrem: Other: Left upper extremity swollen from shoulder to wrist Objective Data Active Medications Allopurinol (Allopurinol 100 Mg Tablet) 100 mg PO DAILY [facility] Last Admin: 02/04/22 07:44 Dose: 100 mg Documented by: NIA Bisacodyl (Bisacodyl 5 Mg Tablet.) 10 mg PO DAILY [facility] Last Admin: 02/04/22 07:44 Dose: 10 mg Documented by: NIA Calcitriol (Calcitriol 0.25 Mcg Capsule) 0.25 mcg PO MOTH@0900 [facility] Furosemide (Furosemide 40 Mg Tablet) 40 mg PO BID@0800,1800 [facility]; Protocol Last Admin: 02/04/22 07:44 Dose: 40 mg Documented by: NIA Heparin Sodium (Porcine) (Heparin Sodium,Porcine 5,000 Unit/Ml Vial) 3,300 unit 40 unit/kg (3300 unit) IVPUSH PROTOCOL BOLUS PRN PRN Reason: 40 unit/kg - Heparin Protocol Last Admin: 02/04/22 03:00 Dose: 3,300 unit Documented by: CHERY Heparin Sodium (Porcine) (Heparin Sodium,Porcine 5,000 Unit/Ml Vial) 6,600 unit 80 unit/kg (6600 unit) IVPUSH PROTOCOL BOLUS PRN PRN Reason: 80 unit/kg - Heparin Protocol Heparin Sodium/Sodium Chloride () 25,000 unit in 250 mls @ 0 mls/hr IVCONT .Q0M [facility]; Protocol Last Titration: 02/04/22 02:58 Dose: 13 units/kg/hr, 10.69 mls/hr Documented by: CHERY Cosigned by: SHU Magnesium Hydroxide (Milk Of Magnesia 30 Ml Oral.Susp) 30 ml PO DAILY PRN PRN Reason: Constipation Metoprolol Succinate (Metoprolol Succinate Er 25 Mg Tab.Er.24h) 75 mg PO DAILY [facility]; Protocol Last Admin: 02/04/22 07:43 Dose: 75 mg Documented by: NIA Psyllium Hydrophilic Mucilloid (Psyllium Seed 3.4 Gm Powd.Pack) 3.4 gm PO DAILY [facility] Last Admin: 02/04/22 07:45 Dose: 3.4 gm Documented by: NIA Sodium Chloride (0.9 % Sodium Chloride Flush 3 Ml Syringe) 3 ml IVFLUSH QSHIFT [facility] Last Admin: 02/04/22 07:45 Dose: 3 ml Documented by: NIA Tamsulosin HCl (Tamsulosin Hcl 0.4 Mg Capsule) 0.4 mg PO DAILY [facility] Last Admin: 02/04/22 07:44 Dose: 0.4 mg Documented by: NIA Labs CBC & Chem 7: 02/04/22 06:41 02/04/22 06:41 Labs: Laboratory Results - last 24 hr 02/03/22 02/04/22 02/04/22 17:09 01:13 06:40 MCV MCH MCHC RDW Plt Count MPV Absolute Nucleated RBC Nucleated RBC % (auto) PT 21.5 H INR 1.9 H aPTT Heparin Protocol 94.2 H 51.6 L D 82.3 H D Anion Gap Estim Creat Clear Calc Estimated GFR Fasting Glucose Calcium Total Bilirubin AST ALT Alkaline Phosphatase B-Natriuretic Peptide Total Protein Albumin 02/04/22 02/04/22 02/04/22 06:41 06:41 06:41 MCV 97.1 MCH 31.1 MCHC 32.1 RDW 14.2 Plt Count 202 MPV 9.8 Absolute Nucleated RBC 0.000 Nucleated RBC % (auto) 0.0 PT INR aPTT Heparin Protocol Anion Gap 17 Estim Creat Clear Calc 35.2 Estimated GFR 42 Fasting Glucose 101 H Calcium 8.9 Total Bilirubin 1.2 H AST 23 ALT 9 Alkaline Phosphatase 107 B-Natriuretic Peptide 699 H Total Protein 7.4 Albumin 3.4 L Assessment and Plan (1) Acute deep vein thrombosis (DVT) of left upper extremity: Status: Acute (2) Acute renal insufficiency: Status: Acute (3) Atrial flutter: Status: Acute Plan 87-year-old male presents to the emergency room for evaluation of left upper extremity DVT diagnosed on 02/01/2022. He underwent a biventricular pacer/AICD approximately 10 days ago. Approximately 2 days ago he was seen by Cardiology who diagnosed DVT and wanted patient to be admitted for IV heparin secondary to failing Eliquis however patient refused. Presents today for further treatment of his DVT failed Eliquis outpatient 1. Left upper extremity DVT(left jugular through basal veins) -heparin drip secondary to failure of Eliquis -given outpatient failure of Eliquis will initiate Coumadin therapy 2. Acute renal insufficiency -likely related to failure of Eliquis -patient at baseline -follow renals/divalents 3. Atrial flutter -acceptable control on current therapies -increase Toprol-XL to 75 mg daily -follow on telemetry Heparin drip Full code Requires hospitalization for stabilization of clot on IV heparin drip as bridge to coumadin given failed outpatient therapies with Eliquist. Quality Stroke Does the patient have a stroke diagnosis?: No VTE Prior VTE?: No VTE Risk Level:: Medical - moderate - high VTE Device Contraindication: Treatment Not Indicated VTE Drug Contraindication: N/A - Med Ordered
[2022-02-04] MEDS: Heparin Sodium,Porcine/1/2NS 25,000 UNIT/250 ML IV.SOLN 10.69 UNIT IVCONT (13:23)
[2022-02-04] MEDS: Metoprolol Tartrate 25 MG TABLET PO (13:30)
[2022-02-04 13:34] LABS: PTT Heparin Drip 47.6 SEC (53-77.9)
--- NOTE | 2022-02-04 14:13 | PC.NURSE ---
Heparin drip adjusted for PTTHD at 0700. PTTHD was 82.3 and rate decreased to 11/kg/hr.
[2022-02-04 15:40] VITALS: BP 119/65; PULSE 94; RESP 18; TEMP 36.3; O2SAT 93
--- NOTE | 2022-02-04 16:02 | MHC.CM.PN ---
CM MET WITH PT AND DAUGHTER WHO WAS AT BEDSIDE PT LIVES WITH HIS SON AND IS INDEPENDENT WITH CARE PT HAS NO SERVICES AND NO DME PT REPORTS HIS DAUGHTER IS HIS HCP, COPY REQUESTED PCP: TODD OLIVEIRA PT REPORTS HE IS COVID-19 VACCINATED AND BOOSTED X 2 IMM DELIVERED CURRENT DC PLAN IS HOME WITH NO SERVICES FAMILY TO TRANSPORT
[2022-02-04 20:00] VITALS: BP 103/62; PULSE 90; RESP 18; TEMP 36.3; O2SAT 93
[2022-02-04 20:31] LABS: PTT Heparin Drip 59.8 SEC (53-77.9)
[2022-02-05] VITALS: BP 128/60; PULSE 83; RESP 18; TEMP 36.3; O2SAT 99
[2022-02-05 02:55] LABS: PTT Heparin Drip 49.6 SEC (53-77.9)
[2022-02-05] MEDS: Heparin Sodium,Porcine 5,000 UNIT/ML VIAL 3300 UNIT IVPUSH (03:03)
[2022-02-05 04:00] VITALS: BP 127/60; PULSE 79; RESP 18; TEMP 36.2; O2SAT 100
[2022-02-05 08:00] VITALS: BP 125/60; PULSE 102; RESP 17; TEMP 36.3; O2SAT 97
[2022-02-05] MEDS: Furosemide 40 MG TABLET PO (09:06)
[2022-02-05] MEDS: Tamsulosin HCL 0.4 MG CAPSULE PO (09:06)
[2022-02-05] MEDS: bisacodyL 5 MG TABLET.DR 10 MG PO (09:06)
[2022-02-05] MEDS: Metoprolol Succinate ER 25 MG TAB.ER.24H 75 MG PO (09:06)
[2022-02-05] MEDS: calcitrioL 0.25 MCG CAPSULE PO (09:07)
[2022-02-05] MEDS: allopurinoL 100 MG TABLET PO (09:07)
--- NOTE | 2022-02-05 10:15 | PC.NURSE ---
STAT PTTHD due to be drawn at 0900 today. PTTHD has not been drawn yet. This RN called lab and they stated they did not draw it and they will come draw it now. Awaiting PTTHD.
[2022-02-05 10:51] LABS: PTT Heparin Drip 66.9 SEC (53-77.9)
[2022-02-05] MEDS: Heparin Sodium,Porcine/1/2NS 25,000 UNIT/250 ML IV.SOLN 12.33 UNIT IVCONT (11:23)
[2022-02-05 11:31] LABS: Alanine Aminotransferase 14 U/L (0-40); Albumin Level 3.6 g/dL (3.5-5.0); Alkaline Phosphatase 114 U/L (39-117); Anion Gap 17 (12-20); Aspartate Amino Transferase 28 U/L (5-37); Bilirubin Total 0.6 mg/dL (0.0-1.0); Blood Urea Nitrogen 36 mg/dL (9-16); Calcium 9.4 mg/dL (8.4-10.2); Carbon Dioxide 27 mmol/L (22-29); Chloride 94 mmol/L (96-108); Creatinine Clr Calc Pharmacy 31.3; Estimated Glomerular Filt Rate 37; Glucose Fasting 89 mg/dL (60-99); Potassium 3.9 mmol/L (3.3-5.1); Sodium 134 mmol/L (135-145); Total Protein 7.6 g/dL (6.5-8.0)
[2022-02-05] MEDS: Milk of Magnesia 30 ML ORAL.SUSP PO (11:39)
[2022-02-05 12:00] VITALS: BP 125/73; PULSE 88; RESP 18; TEMP 36.2; O2SAT 100
--- NOTE | 2022-02-05 13:01 | P.EN_ITS ---
Event Note Date of Service: 02/05/22 Event Note: Device interrogation with Dr Sanches. [employer] Bi V ICD in place. Implanted 01/24/22. Battery 7.1 years, RV threshold 0.75 V at 0.4 ms, LV threshold 0.875 V at 0.4ms, DIALYSIS PATIENT CARE TECHNICIAN total 74.2 % of time, presence of AF 94.8% of time, mode changed to AAIR, low rate 80, upper tracking rate 105. VT/ VF therapies reviewed, no changes.
--- NOTE | 2022-02-05 13:08 | PM.PNCARD ---
Subjective Subjective Date of Service: 02/05/22 Interval history: Feeling good. Left arm is less swollen. Has been on heparin drip. He has been tachycardic and his beta-evin dose was adjusted. On telemetry it appears he has been in atrial flutter. Physical Exam Vital Signs: Last Vital Signs Temp 97.2 F 02/05/22 12:00 Pulse 88 02/05/22 12:00 Resp 18 02/05/22 12:00 BP 125/73 02/05/22 12:00 Pulse Ox 100 02/05/22 12:00 BMI result Body Mass Index 25.9 GENERAL APPEARANCE: in no acute distress, pleasant. NECK: no carotid bruit, no jugular venous distention. SKIN: no suspicious lesions, warm and dry. HEART: no murmurs, regular rate and rhythm. Tachycardic. LUNGS: clear to auscultation bilaterally. ABDOMEN: soft, nontender. EXTREMITIES: Left forearm and hand edema. Pulses are equal. PERIPHERAL PULSES: equal. NEUROLOGIC: No gross deficits, AAO X 3 Objective Labs and Meds Result diagrams: 02/04/22 06:41 02/05/22 10:25 Lab results: Laboratory Results - last 24 hr 02/04/22 02/04/22 02/05/22 13:13 20:11 02:04 aPTT Heparin Protocol 47.6 L D 59.8 D 49.6 L Sodium Potassium Chloride Carbon Dioxide Anion Gap BUN Creatinine Estim Creat Clear Calc Estimated GFR Fasting Glucose Calcium Total Bilirubin AST ALT Alkaline Phosphatase Total Protein Albumin 02/05/22 02/05/22 10:25 10:25 aPTT Heparin Protocol 66.9 D Sodium 134 L Potassium 3.9 Chloride 94 L Carbon Dioxide 27 Anion Gap 17 BUN 36 H Creatinine 1.78 H Estim Creat Clear Calc 31.3 Estimated GFR 37 Fasting Glucose 89 Calcium 9.4 Total Bilirubin 0.6 AST 28 ALT 14 Alkaline Phosphatase 114 Total Protein 7.6 Albumin 3.6 Progress Note: A&P Assessment and plan (1) Acute deep vein thrombosis (DVT) of left upper extremity: Status: Acute (2) Chronic systolic (congestive) heart failure: Status: Acute Plan 87-year-old gentleman who is presenting with acute left arm swelling and has been diagnosed with deep vein thrombosis. He had cardiac resynchronization therapy recently. Was on Eliquis. Has been on heparin drip and the hand is less swollen. Good pulses and motor function. He has tachycardia probably due to atrial flutter. We will reprogrammed the device today and adjust the beta-evin dose. I had a discussion with Dr. Jiménez anticoagulation plan. He is in favor of changing him does role to 20 mg once a day. Other option is to give him Coumadin. Will discuss with the patient and come with the plan. Thank you for allowing me to participate in the care of your patient. Please feel free to contact me if you have any questions. Time Spent With Patient Time: Total time spent is greater than 50% in coordination of care (as documented) at patient's floor/unit and/or counseling patient: Progress Note: Quality Stroke Does the patient have a stroke diagnosis?: No Procedures Date of Service Date of Service: 02/05/22
--- NOTE | 2022-02-05 13:29 | P.DS_ITS ---
DS: Providers Provider Date of Service: 02/05/22 Date of admission: 02/03/22 10:20 Date of discharge: 02/05/22 Primary care physician: Unknown Physician DS: Diagnosis Discharge Diagnosis (1) Acute deep vein thrombosis (DVT) of left upper extremity: Status: Acute (2) Chronic systolic (congestive) heart failure: Status: Acute DS: Summary Hospital Course Hospital Course: 87-year-old male with a history of cardiomyopathy, atrial fibrillation who had a pacemaker/automatic cardiac defibrillator placed on 01/24/2022 at [facility].? He was seen on 02/01/[address] Jiménez for left upper extr emity swelling x3 days.? He also had a allergic reaction to doxycycline (facial rash).? According to Dr. Valencia's note the patient's Eliquis was held for the procedure and then restarted.? Despite restarting the Eliquis, the patient's swelling of his left upper extremity did not improve.? He had an urgent ultrasound on 02/01/2022? which revealed a thrombus of the left jugular vein through the a basillic veins confirming a DVT of the left upper extremity. ? Dr. Valencia recommended admission for IV heparin however the patient refused at that time.? The patient was taking Eliquis 2.5 mg twice a day and he was increased to Eliquis 5 mg twice a day and aspirin 81 mg daily.? The patient's symptoms did not improve and the patient did agree to come to the emergency department today for re-evaluation and admission for IV heparin. [facility] The admitted on heparin drip as per EP. Left upper extremity arm swelling improved. Seen by Cardiology who reprogrammed pacemaker. EP favors Roserelerik will follow-up as outpatient. Time Spent with Patient Time attestation: Total time spent providing and/or coordinating discharge services: Discharge coordination time: Greater than 30 minutes Quality: Safe Use of Opioids Does Pt have an Active Cancer Diagnosis on the Problem List?: No Quality: Stroke Does the patient have a stroke diagnosis?: No Physical Exam Vital Signs: Vital Signs: Last Vital Signs Temp 97.2 F 02/05/22 12:00 Pulse 88 02/05/22 12:00 Resp 18 02/05/22 12:00 BP 125/73 02/05/22 12:00 Pulse Ox 100 02/05/22 12:00 BMI result Body Mass Index 25.9 Const: Other: Awake alert oriented x3 no acute distress Resp: Other: Clear to auscultation bilaterally no rales rhonchi or wheezes Cardio: Other: No S4; positive S1-S2; no S3 murmurs rubs or gallops Extrem: Other: Left upper extremity swollen from shoulder to wrist DS: Data Data Completed and Pending Labs on day of discharge: Laboratory Results - last 24 hr 02/04/22 02/04/22 02/05/22 13:13 20:11 02:04 aPTT Heparin Protocol 47.6 L D 59.8 D 49.6 L Sodium Potassium Chloride Carbon Dioxide Anion Gap BUN Creatinine Estim Creat Clear Calc Estimated GFR Fasting Glucose Calcium Total Bilirubin AST ALT Alkaline Phosphatase Total Protein Albumin 02/05/22 02/05/22 10:25 10:25 aPTT Heparin Protocol 66.9 D Sodium 134 L Potassium 3.9 Chloride 94 L Carbon Dioxide 27 Anion Gap 17 BUN 36 H Creatinine 1.78 H Estim Creat Clear Calc 31.3 Estimated GFR 37 Fasting Glucose 89 Calcium 9.4 Total Bilirubin 0.6 AST 28 ALT 14 Alkaline Phosphatase 114 Total Protein 7.6 Albumin 3.6 Discharge Plan Discharge Patient Disposition: Home, Self-Care Discharge Diagnosis: DVT LUE Referrals: Physician,Unknown J [Primary Care Provider] - 1 Week Discharge Medications: New metoprolol succinate 25 mg Tablet Extended Release 24 Hr 75 mg PO DAILY Qty: 90 0RF Protocol: Hold for SBP/HR < HOLD for SBP < : 90 HOLD for HR < : 60 Xarelto 20 mg tablet 20 mg PO DAILY Qty: 30 0RF Rx Instructions: must administer with evening meal Continued allopurinol 100 mg tablet 100 mg PO DAILY Qty: 90 1RF tramadol 50 mg tablet 50 mg PO BID PRN (Reason: pain) Qty: 10 0RF psyllium Packet 1 packet PO DAILY 0RF Rx Instructions: mix into at least 8 oz of water or juice before administering magnesium hydroxide [Milk of Magnesia] 400 mg/5 mL Suspension 30 ml PO DAILY PRN (Reason: Constipation) 0RF bisacodyl [Dulcolax (bisacodyl)] 5 mg Tablet,Delayed Release (Dr/Ec) 10 mg PO DAILY 0RF tamsulosin 0.4 mg capsule 1 cap PO DAILY 0RF calcitriol 0.25 mcg capsule 0.25 mcg PO MOTH@0900 0RF furosemide 40 mg tablet 40 mg PO BID 0RF Discontinued metoprolol succinate 50 mg tablet extended release 24 hr 50 mg PO DAILY 90 Days Qty: 90 3RF Eliquis 2.5 mg tablet 5 mg PO BID 0RF Rx Instructions: PATIENT IS TAKING #2 OF 2. 5 MG TABLETS TWICE DAILY (TOTAL OF 5 MG BID) Discharge Orders: Discharge Order (Routine); Ordered 02/05/22 Ordered By: Eren Hair Diet: advance to usual diet Activity on Discharge: As tolerated Stand Alone Forms: Patient Portal Discharge page Care Plan Goals: Stop Eliquis to. Start Xarelto 20 mg daily Health Concerns: Follow with cardiology 1-2 weeks Plan of Treatment: Resume previous medications as ordered Assessment: See discharge summary
--- NOTE | 2022-02-05 14:17 | MHC.CM.PN ---
PATIENT IS DC HOME - SELF CARE RN AWARE OF PLAN.
[2022-02-05] MEDS: Rivaroxaban 20 MG TABLET PO (14:44)
== END 2022-02-05 15:29 | disposition home or self-care (01) | DRG 300 ==
LOC: HO.ED 11:37 → HO.EDOVER 11:53 → HO.S3 14:35
PROVIDERS: Admitting Provider Hospitalist; Emergency Provider Emergency Medicine Emergency Medical Services; Visit Provider Hospitalist
DX: I82.622 Acute embolism and thrombosis of deep veins of left upper extremity (principal); I42.9 Cardiomyopathy, unspecified; L03.115 Cellulitis of right lower limb; I50.22 Chronic systolic (congestive) heart failure; R00.0 Tachycardia, unspecified; N28.9 Disorder of kidney and ureter, unspecified; N18.30 Chronic kidney disease, stage 3 unspecified; Z96.642 Presence of left artificial hip joint; Z96.651 Presence of right artificial knee joint; Z95.810 Presence of automatic (implantable) cardiac defibrillator; Z87.891 Personal history of nicotine dependence; Z79.01 Long term (current) use of anticoagulants; Z79.899 Other long term (current) drug therapy
CPT/HCPCS: 36415; 71045; 80053; 83690; 83880; 84484; 85025; 85027; 85610; 85730; 86850; 86900; 86901; 87502; 87635; 93005; 96365; 96366; 96375; 99285

== ENCOUNTER → 2022-03-01 14:11 | Outpatient (BNVA) | payer MEDICARE, SELFPAY | PROVIDERS: PCP Internal Medicine; Visit Provider Internal Medicine Cardiovascular Disease | DX: I42.9 Cardiomyopathy, unspecified (principal); I82.622 Acute embolism and thrombosis of deep veins of left upper extremity; I48.92 Unspecified atrial flutter | CPT/HCPCS: 99212 ==

== ENCOUNTER → 2022-06-14 12:30 | Outpatient (BNVA) | payer MEDICARE, SELFPAY | PROVIDERS: PCP Internal Medicine; Referring Provider Internal Medicine; Visit Provider Internal Medicine Cardiovascular Disease | DX: I48.92 Unspecified atrial flutter (principal); I42.9 Cardiomyopathy, unspecified | CPT/HCPCS: 99212 ==

== ENCOUNTER → 2022-07-06 10:15 | Outpatient (REF) | payer MEDICARE, SELFPAY ==
--- NOTE | 2022-07-06 10:18 | CA_ITS ---
Transthoracic Echocardiogram Patient (Last, First, Middle): Ozzy Thorne A Gender: Male Date of : 1935 Age: 87 Procedure Date: 07/06/2022 Procedure Type: Transthoracic Echocardiogram Location: OP Height: 172.72 cm Weight: 77.11 kg BSA: 1.91 m2 Heart Rate: 80 bpm BP: 140 / 70 mmHg Sap Basis Architect: SB Referring MD: Woo Finley MD Symptoms: I42.9 - Cardiomyopathy, unspecified Study Quality: Fair ECG Rhythm: Paced Conclusions: - Normal left ventricular cavity size. There is mildly increased left ventricular wall thickness. The left ventricular systolic function is moderately decreased. The visually estimated ejection fraction is between 30-35%. - The inferior wall and inferolateral wall are akinetic. - There is moderate dilatation of the sinuses of Valsalva measuring 4.50 cm and mild dilatation of the ascending aorta measuring 4.20 cm. - Normal right ventricular cavity size. There is mildly decreased right ventricular systolic function. Findings Left Ventricle Normal left ventricular cavity size. There is mildly increased left ventricular wall thickness. The left ventricular systolic function is moderately decreased. The visually estimated ejection fraction is between 30 35%. There is evidence of regional wall motion abnormalities. Diastolic function is indeterminate on the basis of available data. Wall Motion Rest Echo Findings The inferior wall and inferolateral wall are akinetic. Right Ventricle Normal right ventricular cavity size. There is mildly decreased right ventricular systolic function. Atria The left atrium is moderately dilated. The right atrium is mildly dilated. Aortic Valve There is a normal trileaflet aortic valve. There is mild calcification of the aortic valve. There is no aortic valve stenosis. There is mild aortic valve regurgitation. Mitral Valve The mitral valve appears normal. There is mild mitral valve regurgitation. There is no mitral valve stenosis. Pulmonic Valve The pulmonic valve was not well visualized. Tricuspid Valve Normal tricuspid valve structure. There is trace tricuspid valve regurgitation. Mildly elevated right atrial pressure. There is no evidence of pulmonary hypertension. Great Vessels The pulmonary artery was not well visualized. There is moderate dilatation of the sinuses of Valsalva measuring 4.50 cm and mild dilatation of the ascending aorta measuring 4.20 cm. Venous The inferior vena cava is normal in size and collapses less than 50% with inspiration. Pericardium/Pleural There is no evidence of pericardial effusion. Prior Study Comparison Changes noted compared to prior study dated: 08/24/2021. Mild improvement in LV function EF 30-35%, RV function also mildly improved. Measurements 2D Linear Measurements IVSd: 1.07 0.6-0.9/0.6-1.0 cm LVIDd: 5.29 3.9-5.3/4.2-5.9 cm LVIDd Index: 2.77 2.4-3.2/2.2-3.1 cm/m2 LVIDs: 4.76 2.0-3.6 cm LVPWd: 0.78 0.7-1.1 cm LA Diam: 4.60 2.7-3.8/3.0-4.0 cm LAIDs Index: 2.41 1.5-2.3 cm/m2 LV Mass: 224.28 67-162/88-224 g LV Mass Index: 117.42 43-95/49-115 g/m2 LVOT Diam: 2.20 3.0+(-)1.3 cm 2D Systolic Function EF 4C: 29.30 >55% EF 2C: 28.60 >55% EF BiP: 29.80 >55% Mitral Valve MV Pk E: 0.79 MV PK A: 0.44 MV Decel Time: 191.00 E/A: 1.80 E'Lateral: 8.85 E'Medial: 6.30 E/E' Med: 12.60 E/E' Lat: 9.00 PHT: 56.00 MVA PHT: 3.93 Decel Mason: 4.16 Aortic Valve AoV Pk Michael: 0.99 AoV Pk Grad: 4.00 LORRAINE: 3.05 LVOT LVOT Pk Michael: 0.80 LVOT Mn Michael: 0.56 LVOT VTI: 0.15 LVOT Pk Grad: 3.00 LVOT Mn Grad: 1.00 LVOT Diam: 2.20 LVOT Area: 3.80 Diastolic Function MV Pk E: 0.79 MV Pk A: 0.44 E/A: 1.80 E'Medial: 6.30 E/E' Med: 12.60 E' Laterial: 8.85 E/E' Lat: 9.00 Right Ventricle TVS' Michael: 9.08 Tricuspid Valve TR Pk Michael: 2.24 TR Pk Grad: 20.00 RA Press: 8.00 RVSP: 28.00 Great Vessels Aorta Sinus of Valsalva: 4.50 2.0-3.5 cm Ao Asc: 4.20 2.1-3.4 cm Pulmonary Valve PV Pk Michael: 0.46 Peak PV Grad: 1.00 Updated in Other Vendor System with Status of Final Woo Finley MD electronically signed on 07/07/2022 8:44:15 PM with status of Final
== END ==
LOC: HO.CARD 10:15
PROVIDERS: Visit Provider Internal Medicine Cardiovascular Disease
DX: I42.9 Cardiomyopathy, unspecified (principal)
CPT/HCPCS: 93306

== ENCOUNTER 2022-09-03 09:32 | Outpatient (REF) | payer MEDICARE, SELFPAY ==
[2022-09-03 09:57] LABS: MANUAL DIFF FLAG NO
[2022-09-03 10:37] LABS: Basophils Percent Auto 0.5 % (0-2); Eosinophils Absolute Auto 0.3 X10*3/uL (0.0-0.4); Eosinophils Percent Auto 4.5 % (0-4); Hematocrit 22.8 % (42.0-52.0); Imm Gran Abs Auto 0.04 X10*3/uL (0.00-0.03); Imm Gran Pct Auto 0.7 % (0.0-0.4); Lymphocytes Absolute Auto 0.7 X10*3/uL (1.2-4.9); Lymphocytes Percent Auto 12.4 % (20-40); Mean Corpuscular HGB Conc 27.6 g/dl (31.0-36.0); Mean Corpuscular Hemoglobin 20.9 pg (27.0-33.0); Mean Corpuscular Volume 75.5 fL (80.0-98.0); Mean Platelet Volume 9.9 fL (9.4-12.4); Monocytes Absolute Auto 0.5 X10*3/uL (0.1-1.2); Monocytes Percent Auto 7.6 % (2-11); Neutrophils Absolute Auto 4.4 x10*3/uL (2.0-8.3); Neutrophils Percent Auto 74.3 % (45-73); Platelet Count 205 X10*3/uL (160-400); Red Blood Count 3.02 X10*6/uL (4.60-5.80); Red Cell Distribution Width 18.3 % (11.0-16.0)
[2022-09-03 10:52] LABS: Hemoglobin 6.3 g/dl (14.0-18.0)
[2022-09-03 10:54] LABS: Anion Gap 16 (12-20); Blood Urea Nitrogen 31 mg/dL (9-16); Calcium 8.8 mg/dL (8.4-10.2); Carbon Dioxide 24 mmol/L (22-29); Chloride 102 mmol/L (96-108); Estimated Glomerular Filt Rate 28; Glucose Random 136 mg/dL (60-115); Potassium 3.9 mmol/L (3.3-5.1); Sodium 138 mmol/L (135-145)
[2022-09-03 20:08] LABS: Ferritin 25 ng/mL (20-250); Iron 22 mcg/dL (45-160); Percent Iron Saturation 5 % (15-50); Total Iron Binding Capacity 410 mcg/dL (228-428); Unsaturated Iron Binding 388 ug/dL
== END 2022-09-03 09:33 | disposition home or self-care (01) ==
LOC: HO.LAB 09:32
PROVIDERS: PCP Internal Medicine; Visit Provider Internal Medicine Cardiovascular Disease
DX: I48.92 Unspecified atrial flutter (principal); I42.9 Cardiomyopathy, unspecified
CPT/HCPCS: 36415; 80048; 82728; 83540; 85025

== ENCOUNTER 2022-09-03 11:52 | Inpatient (IN) | payer MEDICARE, SELFPAY ==
[2022-09-03] VITALS (12 sets, daily range): BP systolic 99–154; BP diastolic 40–67; PULSE 77–88; RESP 13–19; TEMP 36.3–36.8; O2SAT 94–100; BMI 25.8
--- NOTE | ~2022-09-03 | US_ITS ---
EXAMINATION: US VENOUS WITH DOPPLER UPPER EXTREMITY, LEFT CLINICAL INFORMATION: Worsening left arm swelling COMPARISON: Left upper extremity Doppler ultrasound 02/01/2022 TECHNIQUE: Ultrasound of the upper extremity is performed using compression sonography and color and pulse Doppler flow with assessment of augmentation of flow. There is also imaging and Doppler assessment of the jugular and subclavian veins. Spectral analysis with color-flow imaging is performed. FINDINGS: Thrombus is present in the left internal jugular vein. Since the prior exam of 02/01/2022 the previously seen thrombus in the basilic vein has resolved. Similar to prior, the cephalic vein is not visualized. The subclavian vein, axillary, brachial, basilic vein nd radial and ulnar veins are unremarkable. US/US venous duplex UE LT IMPRESSION: Thrombus is present in the left jugular vein.
--- NOTE | 2022-09-03 11:59 | ED_ITS ---
HPI - Recheck/Abnormal Lab/Rx General Chief Complaint: Recheck/Abnormal Lab/Rx <Andressa Powers CNP - Last Filed: 09/03/22 12:02> Stated Complaint: Losing Blood <Andressa Powers CNP - Last Filed: 09/03/22 12:02> Time Seen by Provider: 09/03/22 12:52 <Andressa Powers CNP - Last Filed: 09/03/22 12:02> Source: patient <Buffy Boucher MD - Last Filed: 09/03/22 18:42> Mode of arrival: ambulatory <Buffy Boucher MD - Last Filed: 09/03/22 18:42> Limitations: no limitations <Buffy Boucher MD - Last Filed: 09/03/22 18:42> History of Present Illness HPI narrative: Patient comes to the emergency room complaining of low blood count. [place] ent states that Dr. Finley ordered some lab work, he received a phone call this morning and he found out that his hemoglobin is low. Patient states that he has been having dark brown stool for several months but did not think much of it. Patient states that he feels very fatigued and short of breath whenever he walks but he attributed to his chronic heart conditions including a flutter/CHF. [place] hutchison takes Xarelto for AFib as well. 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 Patient denies any chest pain. <Buffy Boucher MD - Last Filed: 09/03/22 18:42> Related Data Home Medications: Home Medications Medication Instructions Recorded Confirmed calcitriol 0.25 mcg capsule 0.25 mcg PO MOTH@0900 11/02/21 09/03/22 bisacodyl 5 mg tablet,delayed 10 mg PO DAILY 02/03/22 09/03/22 release (Dulcolax (bisacodyl)) metoprolol tartrate 25 mg tablet 25 mg PO DAILY@0700 09/03/22 09/03/22 metoprolol tartrate 50 mg tablet 50 mg PO BID@0700,1900 09/03/22 09/03/22 psyllium 1 packet PO DAILY 09/03/22 09/03/22 Previous Rx's Medication Instructions Recorded tamsulosin 0.4 mg capsule 0.4 mg PO DAILY #90 caps 05/04/22 allopurinol 100 mg tablet 100 mg PO DAILY #90 tabs 05/27/22 rivaroxaban 15 mg tablet (Xarelto) 15 mg PO QPM #30 tabs 07/02/22 furosemide 40 mg tablet 40 mg PO BID #180 tabs 08/20/22 <Andressa Powers CNP - Last Filed: 09/03/22 12:02> Allergies/Adverse Reactions: Allergies Allergy/AdvReac Type Severity Reaction Status Date / Time No Known Allergies Allergy Verified 07/30/22 16:06 <Andressa Powers CNP - Last Filed: 09/03/22 12:02> Review of Systems Review of Systems: Constitutional : No Weight loss, No Fever, No Chills, No Night Sweats, complaining of weakness worsening over the last few months ENT/Mouth : No Hearing loss, No Ear Pain, No Nasal Congestion, No Sinus Pain, No Hoarseness, No sore throat, No Rhinorrhea, No Swallowing Difficulty Eyes: No Eye Pain, No Swelling, No Redness, No Foreign Body, No Discharge, No Vision Changes Cardiovascular : No Chest Pain, complaining of shortness of breath with exertion, mild orthopnea Respiratory : No Cough, No Sputum, No Wheezing, No Smoke Exposure Gastrointestinal : No Nausea, No Vomiting, No Diarrhea, No Constipation, No abdominal Pain, No Hematochezia, No Melena Genitourinary : no irregular bleeding, No Dysuria, No Urinary Frequency, No Hematuria, No Urinary Incontinence, No Urgency, No Flank Pain, No Urinary Flow Changes, No Hesitancy Musculoskeletal : No joint pain, No Myalgias, No Joint Swelling Skin : No Skin Lesions, No rash Neuro : No Weakness, No Numbness, No Paresthesias, No Loss of Consciousness, No Dizziness, No Headache Psych : No Anxiety/Panic, No Depression, No SI/HI/AH/VH, No Social Issues, Heme/Lymph: No Bruising, No Bleeding,No Lymphadenopathy Endocrine : No Polyuria, No Polydipsia, No Temperature Intolerance <Buffy Boucher MD - Last Filed: 09/03/22 18:42> [facility] Past Medical History Medical History: Medical History Acute renal insufficiency Annual physical exam Biventricular ICD (implantable cardioverter-defibrillator) in place Cardiomyopathy Cellulitis of right leg Chronic renal failure, stage 3 (moderate) Chronic systolic (congestive) heart failure Leg wound, right <Andrsesa Powers CNP - Last Filed: 09/03/22 12:02> Surgical History: Surgical History History of cardiac defibrillator placement History of left hip replacement History of permanent cardiac pacemaker placement History of removal of skin mole History of total right knee replacement <Andressa Powers CNP - Last Filed: 09/03/22 12:02> Family History Family History: Family History Mother No problems noted. Father No problems noted. <Andressa Powers CNP - Last Filed: 09/03/22 12:02> Social History Social History: Social History Household Members: Family Housing: House Do you presently have visiting nurse or other home services: No Alcohol intake: current Alcohol intake frequency: 3 or more drinks per day Alcohol type: hard liquor Patient Tobacco Use Status: Former Tobacco user Quit Date: 2000 Tobacco use type: Cigarette Years Smoked: 50 +/- Smoked in Last 30 Days: No e-Cigarette/Vaping Use: Never Used Second Hand Smoke Exposure: No Use of substances other than those prescribed or required for medical reasons: No Advance Directives: Yes Advance Directives Information Provided: No Advance Directives on File: No service: No Current occupational status: retired Cognitive needs: Yes (cane) Hearing needs: No Vision needs: Yes (glasses) <Andressa Powers CNP - Last Filed: 09/03/22 12:02> Physical Exam Vital Signs: Vital Signs: Last Vital Signs Temp 98.1 F 09/03/22 18:19 Pulse 81 09/03/22 18:19 Resp 13 09/03/22 18:19 BP 125/59 L 09/03/22 18:19 Pulse Ox 99 09/03/22 17:39 O2 Del Method 09/03/22 17:39 BMI result Body Mass Index 25.8 <Andressa Powers CNP - Last Filed: 09/03/22 12:02> Vital Signs: Last Vital Signs Temp 98.1 F 09/03/22 18:19 Pulse 81 09/03/22 18:19 Resp 13 09/03/22 18:19 BP 125/59 L 09/03/22 18:19 Pulse Ox 99 09/03/22 17:39 O2 Del Method 09/03/22 17:39 BMI result Body Mass Index 25.8 <Buffy Boucher MD - Last Filed: 09/03/22 18:42> Const: Other: Appearance: Alert. Oriented X3. No acute distress. Eyes: Pupils equal, round and reactive to light. ENT: Pharynx normal. Neck: Normal inspection. Neck supple. No lymph nodes noted. No crepitus CVS: Normal heart rate and rhythm. Pulses normal. Normal S1 and S2 Respiratory: No respiratory distress. Breath sounds normal. No Wheezing. No rales Abdomen: Soft and nontender. No rigidity. No distention. Digital rectal exam shows dark brown stool Skin: Skin warm and dry. Normal skin color. Normal skin turgor. Extremities: No lower extremity edema. No Lacerations. No Rash Neuro: Oriented X 3. No motor deficit. No sensory deficit. Moving all extremities. No slurred speech. CN 2 through 12 grossly intact Psych: calm, cooperative, normal affect <Buffy Boucher MD - Last Filed: 09/03/22 18:42> Course Course Course Narrative: RME: Patient is an 87-year-old male presents to the emergency department. Received a call from Cardiology Dr. Finley, was advised to come to the emergency department for evaluation of ?losing blood?. Review of labs obtained this morning reveal hemoglobin 6.3 hematocrit 22.8, does not appear to have history of prior. Reporting generalized weakness, fatigue. Denies any active bleeding, bloody or dark stools. Plan: Spoke with negative cutter, patient moved back to main ED for further evaluation and treatment. <Andressa Powers CNP - Last Filed: 09/03/22 12:02> RME: Patient is an 87-year-old male presents to the emergency department. Received a call from Cardiology Dr. Finley, was advised to come to the emergency department for evaluation of ?losing blood?. Review of labs obtained this morning reveal hemoglobin 6.3 hematocrit 22.8, does not appear to have history of prior. Reporting generalized weakness, fatigue. Denies any active bleeding, bloody or dark stools. Plan: Spoke with negative cutter, patient moved back to main ED for further evaluation and treatment. I discussed with the patient the risks versus benefits of getting a blood transfusion. Patient is agreeable. Patient signed the consent, now in his chart. Dr. Finley at bedside. Patient agreeable to stay in the hospital, initially wanted to leave AMA after blood transfusion. We will go ahead and start 2 units of blood, we will diurese the patient with 40 mg of Lasix, patient has history of CHF Also, it was noted that patient's left upper extremity is a bit swollen, patient has history of DVT. Per Dr. Finley, seems larger than usual. Patient agrees. We will go ahead and order an ultrasound. Ultrasound still shows the left jugular DVT, which was present in previous ultrasound. Patient discussed with Dr. Prado, pt being admitted <Buffy Boucher MD - Last Filed: 09/03/22 18:42> Medications Administered Discontinued Medications Generic Name Dose Route Start Last Admin Trade Name Freq PRN Reason Stop Dose Admin Furosemide 40 mg 09/03/22 14:05 09/03/22 17:47 Furosemide 40 Mg/4 Ml Vial IVPUSH 09/03/22 14:06 40 mg ONCE ONE Administration Protocol <Andressa Powers CNP - Last Filed: 09/03/22 12:02> Medications Administered Discontinued Medications Generic Name Dose Route Start Last Admin Trade Name Freq PRN Reason Stop Dose Admin Furosemide 40 mg 09/03/22 14:05 09/03/22 17:47 Furosemide 40 Mg/4 Ml Vial IVPUSH 09/03/22 14:06 40 mg ONCE ONE Administration Protocol <Buffy Boucher MD - Last Filed: 09/03/22 18:42> Medical Decision Making Differential Diagnosis Differential Diagnoses: The differential diagnosis associated with the presentation includes (Anemia, GI bleed) <Buffy Boucher MD - Last Filed: 09/03/22 18:42> Admission/Observation Consideration of admission/observation: Escalation of care including admission/observation considered (Patient has CHF, patient will be receiving 2 units of blood and will need Lasix in between. High risk of CHF exacerbation. Patient will be admitted.) <Buffy Boucher MD - Last Filed: 09/03/22 18:42> Consult Healthcare Provider Management of the patient was discussed with: Hospitalist (I discussed the patient with Dr. Prado, patient being admitted) and Internal Medicine Nurse Practitioner (Dr. Finley from cardiology evaluated the patient at bedside. We will go ahead and start at least 2 units of blood transfusion with Lasix in between) <Buffy Boucher MD - Last Filed: 09/03/22 18:42> Lab Data MDM Lab Attestation statement: I reviewed the patient's lab results. <Buffy Boucher MD - Last Filed: 09/03/22 18:42> Earlier today, patient had outpatient lab work done, hemoglobin is 6.3 which is new for the patient, his baseline is 15. <Buffy Boucher MD - Last Filed: 09/03/22 18:42> Labs: Lab Results 09/03/22 09/03/22 Range/Units 13:44 14:28 Stool Occult Blood POSITIVE (NEGATIVE) Blood Type B Positive Antibody Screen NEGATIVE Crossmatch See Detail <Andressa Powers CNP - Last Filed: 09/03/22 12:02> Lab Results 09/03/22 09/03/22 Range/Units 13:44 14:28 Stool Occult Blood POSITIVE (NEGATIVE) Blood Type B Positive Antibody Screen NEGATIVE Crossmatch See Detail <Buffy Boucher MD - Last Filed: 09/03/22 18:42> Chronic Conditions Patient?s care impacted by: Other (CHF: Patient will be given Lasix to avoid exacerbation) <Buffy Boucher MD - Last Filed: 09/03/22 18:42> Critical Care Time Critical Care Time Critical Care Time: Yes <Buffy Boucher MD - Last Filed: 09/03/22 18:42> Total Critical Care Time: 60 <Buffy Boucher MD - Last Filed: 09/03/22 18:42> Attestation: I have personally provided critical care time. Time includes review of lab data, radiology results, discussion with consultants, and monitoring for potential decompensation. Intervention performed as documented. <Buffy Boucher MD - Last Filed: 09/03/22 18:42> Discharge Plan Discharge Clinical Impression: Anemia, GI bleed, Acute on chronic renal failure <Andressa Powers CNP - Last Filed: 09/03/22 12:02> Patient Disposition: Admitted As Inpatient <Andressa Powers CNP - Last Filed: 09/03/22 12:02> Prescriptions: No Action tamsulosin 0.4 mg capsule 0.4 mg PO DAILY Qty: 90 1RF allopurinol 100 mg tablet 100 mg PO DAILY Qty: 90 1RF Xarelto 15 mg tablet 15 mg PO QPM Qty: 30 5RF furosemide 40 mg tablet 40 mg PO BID Qty: 180 2RF bisacodyl [Dulcolax (bisacodyl)] 5 mg Tablet,Delayed Release (Dr/Ec) 10 mg PO DAILY Metamucil Packet 1 packet PO DAILY Rx Instructions: mix into at least 8 oz of water or juice before administering metoprolol tartrate 50 mg tablet 50 mg PO BID@0700,1900 metoprolol tartrate 25 mg tablet 25 mg PO DAILY@0700 Rx Instructions: 1 tablet daily in am ( in addition to his 50mg tab in am for total of 75mg in am) calcitriol 0.25 mcg capsule 0.25 mcg PO MOTH@0900 <Andressa Powers CNP - Last Filed: 09/03/22 12:02>
[2022-09-03 14:18] LABS: OBS Int Ctl Valid YES; OBS1 POSITIVE (NEGATIVE)
--- NOTE | 2022-09-03 14:46 | PHA.MEDREC ---
Pharmacy Consult ? Medication Reconciliation Pharmacy has completed the medication reconciliation.
--- NOTE | 2022-09-03 16:15 | PC.NURSE ---
patient alert, oriented x4. ambulated to the bathroom with steady gait using a walker. able to make needs known. blood transfusion started. will continue to monitor for adverse reaction. call johnson within reach
--- NOTE | 2022-09-03 17:03 | PM.CNCAR ---
History of Present Illness History of Present Illness Date of Service: 09/03/22 Requesting physician: Buffy Boucher Chief complaint: Anemia Narrative: 87-year-old gentleman with background history of cardiomyopathy, atrial flutter and left upper extremity DVT after ICD placement who is presenting for fatigue and blood workup evidence of anemia. His hemoglobin was 6.3 P was advised to go to the emergency department. He is saying he has been feeling short of breath with ambulation inside the house. He also has been feeling tired. No chest discomfort. He has constipation and has some bleeding after passing stool but he is saying he more recently has been hydrating himself better and this problem is actually improving. No significant blood in the stool or hematemesis otherwise. Taking medications regularly. He is on Xarelto. [facility] Past Medical History Medical History Acute renal insufficiency Annual physical exam Biventricular ICD (implantable cardioverter-defibrillator) in place Cardiomyopathy Cellulitis of right leg Chronic renal failure, stage 3 (moderate) Chronic systolic (congestive) heart failure Leg wound, right Family History Family History Mother No problems noted. Father No problems noted. Surgical History Surgical History History of cardiac defibrillator placement History of left hip replacement History of permanent cardiac pacemaker placement History of removal of skin mole History of total right knee replacement Social History Social History Household Members: Family Housing: House Do you presently have visiting nurse or other home services: No Alcohol intake: current Alcohol intake frequency: 3 or more drinks per day Alcohol type: hard liquor Patient Tobacco Use Status: Former Tobacco user Quit Date: 2000 Tobacco use type: Cigarette Years Smoked: 50 +/- Smoked in Last 30 Days: No e-Cigarette/Vaping Use: Never Used Second Hand Smoke Exposure: No Use of substances other than those prescribed or required for medical reasons: No Advance Directives: Yes Advance Directives Information Provided: No Advance Directives on File: No service: No Current occupational status: retired Cognitive needs: Yes (cane) Hearing needs: No Vision needs: Yes (glasses) Meds Allergies Allergy/AdvReac Type Severity Reaction Status Date / Time No Known Allergies Allergy Verified 07/30/22 16:06 Active Medications: Current Medications Pharmacy Consult (Consult Rx Perform Med Rec) 1 each MISCELLANE ONCE PRN PRN Reason: Consult order Home Medications Medication Instructions Recorded Confirmed Last Taken Type calcitriol 0.25 mcg capsule 0.25 mcg PO MOTH@0900 11/02/21 09/03/22 09/03/22 08:00 History bisacodyl 5 mg tablet,delayed 10 mg PO DAILY 02/03/22 09/03/22 09/03/22 08:00 History release (Dulcolax (bisacodyl)) metoprolol tartrate 25 mg tablet 25 mg PO DAILY@0700 09/03/22 09/03/22 09/03/22 08:00 History metoprolol tartrate 50 mg tablet 50 mg PO BID@0700,1900 09/03/22 09/03/22 09/03/22 08:00 History psyllium 1 packet PO DAILY 09/03/22 09/03/22 09/03/22 08:00 History Physical Exam Vital Signs: Vital Signs: Last Vital Signs Temp 97.6 F 09/03/22 16:02 Pulse 80 09/03/22 16:02 Resp 17 09/03/22 16:02 BP 142/61 H 09/03/22 16:02 Pulse Ox 100 09/03/22 15:19 O2 Del Method 09/03/22 15:19 BMI result Body Mass Index 25.8 GENERAL APPEARANCE: in no acute distress, pleasant. NECK: no carotid bruit, no jugular venous distention. HEART: no murmurs, regular rate and rhythm. LUNGS: clear to auscultation bilaterally. ABDOMEN: soft, nontender. PERIPHERAL PULSES: equal. NEUROLOGIC: No gross deficits, AAO X 3. Left upper extremity has edema and swelling compared to the right. He previously had this after DVT but improved in the past and has recurred. Objective Labs and Meds Lab results: Laboratory Results - last 24 hr 09/03/22 09/03/22 13:44 14:28 Stool Occult Blood POSITIVE Blood Type B Positive Antibody Screen NEGATIVE Crossmatch See Detail Assessment and Plan (1) Cardiomyopathy: Status: Acute (2) Atrial flutter: Status: Acute (3) Anemia: Status: Acute Plan [age] year gentleman presenting for fatigue and anemia. His hemoglobin was 6 monthly. He has been on Xarelto for flutter and he was DVT. Stool occult blood is positive. He has not noticed any significant bleeding otherwise recently. Not in heart failure clinically. Would recommend giving him 2 units of blood with 40 mg Lasix in between. If any dyspnea then he will need IV diuretics further. It is difficult to predict usually. Otherwise he can continue his home medications with exception of Xarelto. He is resistant to staying in the hospital but after discussion he has agreed to stay until tomorrow. I think we will give him blood and reassess his hemoglobin. Will rediscuss about staying and having further workup including GI workup given heme-positive stool and anemia. Thank you for allowing me to participate in the care of your patient. Please feel free to contact me if you have any questions. Time Spent With Patient Time: Total time managing care of this patient today ____ minutes. Procedures Date of Service Date of Service: 09/03/22
[2022-09-03] MEDS: Furosemide 40 MG/4 ML VIAL IVPUSH (17:47)
--- NOTE | 2022-09-03 18:27 | PC.NURSE ---
IVP lasix given between blood transfusions per provider verbal order. patient denies SOB. SPO2 100% room air. will continue to monitor output and resp status
--- NOTE | 2022-09-03 19:32 | P.HPHOSP_ITS ---
History of Present Illness Date of Service: 09/03/22 Chief Complaint: sob, low hgb 87M with PMH chronic systolic chf (EF 30%), unspecified aflutter, CKD IV, 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 patient states sob began with cold weather. has been progressively worsening, worse on exertion, relieved by rest. denies orthopnea, fever, chills, chest pain. was at cardiology on day of presentation, noted to have hgb of 6.3 (was 15.2 in January 2022). patient is on AC for both aflutter and DVT of left IJ s/p ICD placement. patient also notes that his left arm after initial resolution of edema, has been slightly more swollen over past 2 weeks. he reports chronic constipation with occasional red blood in stool, that has been improving over last 2 months. he uses ASA 325mg about once weekly for pain. drinks 2 Manhattans per day. in ED given 2 units prbc with lasix, doppler still positive for left IJ DVT. Review of Systems Review of Systems: Constitutional: Denies fever, denies Chills Eyes: denies blurry vision ENT: denies sore throat CVS: denies chest pain Respiratory: dyspnea GI: no abdominal pain : denies dysuria MSK: denies neck pain Skin: denies rash Neuro: denies specific motor weakness Psych: denies suicidal ideation Endocrine: denies heat/cold intolerance Hematologic: denies easy bleeding Allergy: denies hives [facility] Medical History Acute renal insufficiency Annual physical exam Biventricular ICD (implantable cardioverter-defibrillator) in place Cardiomyopathy Cellulitis of right leg Chronic renal failure, stage 3 (moderate) Chronic systolic (congestive) heart failure Leg wound, right Family History Mother No problems noted. Father No problems noted. Surgical History History of cardiac defibrillator placement History of left hip replacement History of permanent cardiac pacemaker placement History of removal of skin mole History of total right knee replacement Social History Household Members: Family Housing: House Do you presently have visiting nurse or other home services: No Alcohol intake: current Alcohol intake frequency: 3 or more drinks per day Alcohol type: hard liquor Patient Tobacco Use Status: Former Tobacco user Quit Date: 2000 Tobacco use type: Cigarette Years Smoked: 50 +/- Smoked in Last 30 Days: No e-Cigarette/Vaping Use: Never Used Second Hand Smoke Exposure: No Use of substances other than those prescribed or required for medical reasons: No Advance Directives: Yes Advance Directives Information Provided: No Advance Directives on File: No service: No Current occupational status: retired Cognitive needs: Yes (cane) Hearing needs: No Vision needs: Yes (glasses) Meds Allergies Allergy/AdvReac Type Severity Reaction Status Date / Time No Known Allergies Allergy Verified 07/30/22 16:06 Active Medications: Current Medications Allopurinol (Allopurinol 100 Mg Tablet) 100 mg PO DAILY [facility] Bisacodyl (Bisacodyl 5 Mg Tablet.Dr) 10 mg PO DAILY [facility] Calcitriol (Calcitriol 0.25 Mcg Capsule) 0.25 mcg PO MOTH@0900 [facility] Furosemide (Furosemide 40 Mg Tablet) 40 mg PO BID [facility]; Protocol Metoprolol Tartrate (Metoprolol Tartrate 50 Mg Tablet) 50 mg PO BID@0700,1900 [facility]; Protocol Metoprolol Tartrate (Metoprolol Tartrate 25 Mg Tablet) 25 mg PO DAILY@0700 [facility]; Protocol Non-Formulary Medication (Psyllium) 1 packet PO DAILY [facility] Pharmacy Consult (Consult Rx Perform Med Rec) 1 each MISCELLANE ONCE PRN PRN Reason: Consult order Tamsulosin HCl (Tamsulosin Hcl 0.4 Mg Capsule) 0.4 mg PO DAILY [facility] Home Medications Medication Instructions Recorded Confirmed Last Taken Type calcitriol 0.25 mcg capsule 0.25 mcg PO MOTH@0900 11/02/21 09/03/22 09/03/22 08:00 History bisacodyl 5 mg tablet,delayed 10 mg PO DAILY 02/03/22 09/03/22 09/03/22 08:00 History release (Dulcolax (bisacodyl)) metoprolol tartrate 25 mg tablet 25 mg PO DAILY@0700 09/03/22 09/03/22 09/03/22 08:00 History metoprolol tartrate 50 mg tablet 50 mg PO BID@0700,1900 09/03/22 09/03/22 09/03/22 08:00 History psyllium 1 packet PO DAILY 09/03/22 09/03/22 09/03/22 08:00 History Physical Exam Vital Signs and Narrative: Vital Signs: Last Vital Signs Temp 98.1 F 09/03/22 18:19 Pulse 81 09/03/22 18:19 Resp 13 09/03/22 18:19 BP 125/59 L 09/03/22 18:19 Pulse Ox 99 09/03/22 17:39 O2 Del Method 09/03/22 17:39 BMI result Body Mass Index 25.8 General: no acute distress HEENT: atraumatic Neck: normal to visual inspection CVS: S1, S2, RRR Resp: CTA bilateral Chest: non tender GI: soft, non tender, non distended : no CVA tenderness Skin: no rashes Extremities: LUE edema Neuro: Oriented X3, grossly intact Psych: cooperative Results Labs Labs: Laboratory Results - last 24 hr 09/03/22 09/03/22 13:44 14:28 Stool Occult Blood POSITIVE Blood Type B Positive Antibody Screen NEGATIVE Crossmatch See Detail Imaging Radiologist's Impressions: Impressions Venous Duplex 09/03/22 17:30 IMPRESSION: Thrombus is present in the left jugular vein. Assessment and Plan (1) Anemia: Status: Acute Plan 87M with PMH chronic systolic chf (EF 30%), unspecified aflutter, CKD IV, 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 found to have kateryna orcytic anemia. dyspnea due to microcytic anemia likely related to chronic GI blood loss transfuse 2 units prbc with lasix follow up hgb GI eval (will make npo after midnight) hold xarelto empiric ppi ivan on CKD IV vs progression of CKD monitor bmp unspecified aflutter metoprolol xarelto on hold chronic systolic chf appears euvolemic metoprolol continue home lasix 40mg bid dvt prophylaxis - mechancial due to suspected bleed DNR/DNI patient with significant anemia likely due to gi bleed and strong dual indication for AC, as well as risk factors for poor outcome such as CHF, aflutter, CKD IV, advanced age, therefore, will likely need inpatient GI eval and work up requiring atleast 2 midnights inpatient. Time Spent With Patient Time: Total time managing care of this patient today ____ minutes. Quality Stroke Does the patient have a stroke diagnosis?: No VTE Prior VTE?: Yes VTE Risk Level:: Medical - moderate - high VTE Device Contraindication: N/A - Device Ordered VTE Drug Contraindication: Treatment Not Tolerated
[2022-09-03 22:02] LABS: COVID-19 Test Negative (Negative); IDNOW Serial# 16C4AD1C
[2022-09-03] MEDS: Metoprolol Tartrate 50 MG TABLET PO (22:07)
[2022-09-03] MEDS: Furosemide 40 MG TABLET PO (22:10)
[2022-09-04] VITALS: BP 120/48; PULSE 80; RESP 16; TEMP 36.7
--- NOTE | 2022-09-04 00:12 | PC.NURSE ---
called to give report. nurse will call back
[2022-09-04 00:59] VITALS: BP 129/64; PULSE 80; RESP 14; TEMP 36.4; O2SAT 99
[2022-09-04 01:02] VITALS: BMI 25.9
[2022-09-04 04:00] VITALS: BP 140/82; PULSE 82; RESP 16; TEMP 36.6; O2SAT 99
[2022-09-04 06:38] LABS: Hemoglobin 8.2 g/dl (14.0-18.0); Mean Corpuscular HGB Conc 29.3 g/dl (31.0-36.0); Mean Corpuscular Hemoglobin 22.2 pg (27.0-33.0); Mean Corpuscular Volume 75.7 fL (80.0-98.0); Mean Platelet Volume 9.3 fL (9.4-12.4); NRBC Pct Auto 0.4 /100WBC (0.0-0.2); Platelet Count 177 X10*3/uL (160-400); Red Cell Distribution Width 18.2 % (11.0-16.0); White Blood Count 7.6 X10*3/uL (4.8-10.8)
[2022-09-04] MEDS: Metoprolol Tartrate 50 MG TABLET PO ×2 (06:44→20:13)
[2022-09-04] MEDS: Omeprazole 40 MG CAPSULE.DR PO ×2 (06:44→16:41)
[2022-09-04] MEDS: Metoprolol Tartrate 25 MG TABLET PO (06:44)
[2022-09-04 07:00] LABS: Anion Gap 14 (12-20); Blood Urea Nitrogen 35 mg/dL (9-16); Calcium 9.1 mg/dL (8.4-10.2); Carbon Dioxide 29 mmol/L (22-29); Chloride 101 mmol/L (96-108); Creatinine Clr Calc Pharmacy 25.3; Estimated Glomerular Filt Rate 30; Glucose Fasting 101 mg/dL (60-99); Potassium 3.7 mmol/L (3.3-5.1); Sodium 140 mmol/L (135-145)
[2022-09-04 07:10] VITALS: BP 131/60; PULSE 81; RESP 19; TEMP 36.6; O2SAT 100
[2022-09-04] MEDS: Furosemide 40 MG TABLET PO ×2 (08:44→20:12)
[2022-09-04] MEDS: Tamsulosin HCL 0.4 MG CAPSULE PO (08:44)
[2022-09-04] MEDS: allopurinoL 100 MG TABLET PO (08:44)
[2022-09-04] MEDS: bisacodyL 5 MG TABLET.DR 10 MG PO (08:45)
[2022-09-04] MEDS: 0.9 % Sodium Chloride Flush 3 ML SYRINGE IVFLUSH ×3 (08:46→20:16)
--- NOTE | 2022-09-04 12:23 | HO.PM.IMPN ---
Subjective Subjective Date of Service: 09/04/22 Interval History: patient feeling better this a.m. denies hematemesis, melena, give history of dark colored stools and at time with straining noted to have fresh blood in stools, denies nausea vomiting abdominal pain, wants colonoscopy to be done instead of upper endoscopy since his last colonoscopy was when he was in his 70s and wishes to be discharged home in 24 hours Review of Systems [employer] no headache no dizziness CVS no chest pain, no palpitation GI no nausea, no vomiting Review of Systems: Yes all other systems are reviewed and are negative Physical Exam Vital Signs: Vital Signs: Last Vital Signs Temp 97.9 F 09/04/22 07:10 Pulse 81 09/04/22 07:10 Resp 19 09/04/22 07:10 BP 131/60 09/04/22 07:10 Pulse Ox 100 09/04/22 07:10 O2 Del Method 09/04/22 07:10 BMI result Body Mass Index 25.9 Const: Other: General awake alert, resting comfortably in no acute distress. Neck supple no JVD. CVS regular rate rhythm, Respiratory lungs clear to auscultation, no respiratory distress, no wheeze, no rhonchi. Gastrointestinal abdomen soft, nontender, bowel sounds audible, no guarding , no rigidity. Extremities no edema. left upper extremity edema Neuro nonfocal , moving all 4 extremity, speech clear. Skin bruising ecchymosis upper extremities psych appropriate affect Objective Data Active Medications Allopurinol (Allopurinol 100 Mg Tablet) 100 mg PO DAILY [facility] Last Admin: 09/04/22 08:44 Dose: 100 mg Documented By: FRANKLIN Bisacodyl (Bisacodyl 5 Mg Tablet.) 10 mg PO DAILY [facility] Last Admin: 09/04/22 08:45 Dose: 10 mg Documented By: FRANKLIN Calcitriol (Calcitriol 0.25 Mcg Capsule) 0.25 mcg PO MOTH@0900 [facility] Furosemide (Furosemide 40 Mg Tablet) 40 mg PO BID [facility]; Protocol Last Admin: 09/04/22 08:44 Dose: 40 mg Documented By: FRANKLIN Metoprolol Tartrate (Metoprolol Tartrate 50 Mg Tablet) 50 mg PO BID@0700,1900 [facility]; Protocol Last Admin: 09/04/22 06:44 Dose: 50 mg Documented By: ROSE Metoprolol Tartrate (Metoprolol Tartrate 25 Mg Tablet) 25 mg PO DAILY@0700 [facility]; Protocol Last Admin: 09/04/22 06:44 Dose: 25 mg Documented By: ROSE Omeprazole (Omeprazole 40 Mg Capsule.Dr) 40 mg PO BID@0630,1630 [facility] Last Admin: 09/04/22 06:44 Dose: 40 mg Documented By: ROSE Pharmacy Consult (Consult Rx Perform Med Rec) 1 each MISCELLANE ONCE PRN PRN Reason: Consult order Psyllium Hydrophilic Mucilloid (Psyllium Seed 3.4 Gm Powd.Pack) 3.4 gm PO DAILY [facility] Last Admin: 09/04/22 08:36 Dose: Not Given Documented By: FRANKLIN Non-Admin Reason: NPO Sodium Chloride (0.9 % Sodium Chloride Flush 3 Ml Syringe) 3 ml IVFLUSH QSHIFT [facility] Last Admin: 09/04/22 08:46 Dose: 3 ml Documented By: FRANKLIN Tamsulosin HCl (Tamsulosin Hcl 0.4 Mg Capsule) 0.4 mg PO DAILY [facility] Last Admin: 09/04/22 08:44 Dose: 0.4 mg Documented By: FRANKLIN Labs CBC & Chem 7: 09/04/22 05:58 09/04/22 05:58 Labs: Laboratory Results - last 24 hr 09/03/22 09/03/22 09/03/22 13:44 14:28 21:39 MCV MCH MCHC RDW Plt Count MPV Absolute Nucleated RBC Nucleated RBC % (auto) Anion Gap Estim Creat Clear Calc Estimated GFR Fasting Glucose Calcium Stool Occult Blood POSITIVE COVID-19 (PENNY) Negative COVID-19 Clin Com See Note Blood Type B Positive Antibody Screen NEGATIVE Crossmatch See Detail 09/04/22 09/04/22 05:58 05:58 MCV 75.7 L MCH 22.2 L MCHC 29.3 L RDW 18.2 H Plt Count 177 MPV 9.3 L Absolute Nucleated RBC 0.030 H Nucleated RBC % (auto) 0.4 H Anion Gap 14 Estim Creat Clear Calc 25.3 Estimated GFR 30 Fasting Glucose 101 H Calcium 9.1 Stool Occult Blood COVID-19 (PENNY) COVID-19 Clin Com Blood Type Antibody Screen Crossmatch Assessment and Plan (1) Anemia: Status: Acute (2) GI bleed: Status: Acute (3) Acute on chronic renal failure: Status: Acute (4) Anemia: Status: Acute (5) Atrial flutter: Status: Acute Plan 87M with PMH chronic systolic chf (EF 30%), unspecified aflutter, CKD IV, 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 found to have micorcytic anemia. dyspnea due to microcytic anemia likely related to chronic GI blood loss received 2 units of packed RBC hemoglobin improved from 6.3-8.2 await GI input, Xarelto on hold continue PPI ivan on CKD IV vs progression of CKD creatinine improved to 2.1 from 2.2, baseline around 1.8 ,monitor bmp unspecified aflutter continue metoprolol,xarelto on hold as above chronic systolic chf appears euvolemic, continue metoprolol and Lasix 40 mg b.i.d. left IJ DVT, patient noted to have thrombus in the left internal jugular vein, since the prior exam of 02/01/2022 previously seen thrombus in the basilar vein has resolved. will wait for GI input if they recommend to hold anticoagulation for longer duration than will consider vascular surgery consult dvt prophylaxis - mechancial due to suspected bleed DNR/DNI patient with significant anemia likely due to gi bleed and strong dual indication for AC, as well as risk factors for poor outcome such as CHF, aflutter, CKD IV, advanced age, therefore, will likely need continued inpatient stay for GI eval and workup. Time Spent With Patient Time: Total time managing care of this patient today ____ minutes. Quality Stroke Does the patient have a stroke diagnosis?: No VTE Prior VTE?: Yes VTE Risk Level:: Medical - moderate - high VTE Device Contraindication: N/A - Device Ordered VTE Drug Contraindication: Treatment Not Tolerated
--- NOTE | 2022-09-04 12:39 | P.PNCA_ITS ---
Subjective Subjective Date of Service: 09/04/22 <JEREMIAS Marquez - Last Filed: 09/04/22 16:01> 09/04/22 <Woo Finley MD - Last Filed: 09/04/22 21:51> Principal diagnosis: GIB, PAF, Jugular thrombus <JEREMIAS Marquez - Last Filed: 09/04/22 16:01> Interval history: Seen at 1100. Today he reports feeling well. Only complaint is that he is hungry. No reported signs of bleeding. Tells me one of his stools yesterday was dark . No sob, CP, palpitation. Walking in room to BR without symptoms. Transfused with 2 units yesterday. Xarelto on hold. Awaiting GI eval. <JEREMIAS Marquez - Last Filed: 09/04/22 16:01> Review of Systems Review of Systems as above <JEREMIAS Marquez - Last Filed: 09/04/22 16:01> Yes all other systems are reviewed and are negative <JEREMIAS Marquez - Last Filed: 09/04/22 16:01> Physical Exam Vital Signs: Last Vital Signs Temp 97.9 F 09/04/22 07:10 Pulse 81 09/04/22 07:10 Resp 19 09/04/22 07:10 BP 131/60 09/04/22 07:10 Pulse Ox 100 09/04/22 07:10 O2 Del Method 09/04/22 07:10 BMI result Body Mass Index 25.9 <JEREMIAS Marquez - Last Filed: 09/04/22 16:01> Const General: cooperative, healthy appearing, comfortable and no acute distress <JEREMIAS Marquez - Last Filed: 09/04/22 16:01> Orientation/consciousness: patient oriented x3 <JEREMIAS Marquez Last Filed: 09/04/22 16:01> Neck Neck: Yes normal visual inspection and Yes no JVD <JEREMIAS Marquez - Last Filed: 09/04/22 16:01> Resp Effort & Inspection: normal respiratory effort <JEREMIAS Marquez - Last Filed: 09/04/22 16:01> Auscultation: clear to auscultation bilaterally, no crackles, no rales, no rhonchi and no wheezes <Zoë Gomez NP - Last Filed: 09/04/22 16:01> Cardio Jugular venous distension: no JVD <Zoë Gomez NP - Last Filed: 09/04/22 16:01> Rate: regular rate <Zoë Gomez [facility] - Last Filed: 09/04/22 16:01> Rhythm: regular rhythm <Zoë Gomez [facility] - Last Filed: 09/04/22 16:01> Heart sounds: S1 normal heart sound present, S2 normal heart sound present, no gallops, no murmurs and no rubs <Zoë Gomez [facility] - Last Filed: 09/04/22 16:01> Peripheral pulses: Peripheral pulses 2+ throughout <Zoë Gomez [facility] - Last Filed: 09/04/22 16:01> GI Inspection: Yes normal to inspection <Zoë Gomez [facility] - Last Filed: 09/04/22 16:01> Neuro General: patient oriented x3 <Zoë Gomez [facility] - Last Filed: 09/04/22 16:01> Extrem General: Yes normal to inspection <Zoë Gomez [facility] - Last Filed: 09/04/22 16:01> Psych Appearance: grossly normal <Zoë Gomez [facility] - Last Filed: 09/04/22 16:01> Mental Status: mental status grossly normal <Zoë Gomez [facility] - Last Filed: 09/04/22 16:01> Speech and movement: Normal speech and movement present <Zoë Gomez [facility] - Last Filed: 09/04/22 16:01> Objective Labs and Meds Result diagrams: : 09/04/22 05:58 09/04/22 05:58 <Zoë Gomez [facility] - Last Filed: 09/04/22 16:01> Lab results: Laboratory Results - last 24 hr 09/03/22 09/03/22 09/03/22 13:44 14:28 21:39 WBC RBC Hgb Hct MCV MCH MCHC RDW Plt Count MPV Absolute Nucleated RBC Nucleated RBC % (auto) Sodium Potassium Chloride Carbon Dioxide Anion Gap BUN Creatinine Estim Creat Clear Calc Estimated GFR Fasting Glucose Calcium Stool Occult Blood POSITIVE COVID-19 ([facility]ENNY) Negative COVID-19 Clin Com See Note Blood Type B Positive Antibody Screen NEGATIVE Crossmatch See Detail 09/04/22 09/04/22 05:58 05:58 WBC 7.6 RBC 3.70 L D Hgb 8.2 L D Hct 28.0 L D MCV 75.7 L MCH 22.2 L MCHC 29.3 L RDW 18.2 H Plt Count 177 MPV 9.3 L Absolute Nucleated RBC 0.030 H Nucleated RBC % (auto) 0.4 H Sodium 140 Potassium 3.7 Chloride 101 Carbon Dioxide 29 Anion Gap 14 BUN 35 H Creatinine 2.13 H Estim Creat Clear Calc 25.3 Estimated GFR 30 Fasting Glucose 101 H Calcium 9.1 Stool Occult Blood COVID-19 (PENNY) COVID-19 Clin Com Blood Type Antibody Screen Crossmatch <JEREMIAS Marquez - Last Filed: 09/04/22 16:01> Imaging Radiologist's impression: Impressions Venous Duplex 09/03/22 17:30 IMPRESSION: Thrombus is present in the left jugular vein. <JEREMIAS Marquez - Last Filed: 09/04/22 16:01> Progress Note: A&P Assessment and plan (1) Anemia: Status: Acute <JEREMIAS Marquez - Last Filed: 09/04/22 16:01> Assessment and Plan: On Xarelto at home for afib, DVT. Pt had reports of fatigue and sob. Hgb 6.3, Hct 22.8. Xarelto placed on hold. Pt admitted for eval and tx. Received 2 units of PC yesterday. Hgb 8.2, Hct 28 today. He denies any concerning symptoms at present. No signs of active bleeding though does report having a dark stool yesterday. Stool hem +. Awaiting GI evaluation. <JEREMIAS Marquez Last Filed: 09/04/22 16:01> (2) GI bleed: Status: Acute <JEREMIAS Marquez Last Filed: 09/04/22 16:01> (3) Atrial flutter: Status: Acute <JEREMIAS Marquez - Last Filed: 09/04/22 16:01> Assessment and Plan: Hx atrial flutter. On Metoprolol for rate control. He usually is on Xarelto for anticoagulation which is on hold as above. CHADSVASc score 4. Stoke risk while off anticoagulation discussed with him and he states understanding. Will need restart of anticoagulation once cleared by GI to do so. <JEREMIAS Marquez - Last Filed: 09/04/22 16:01> (4) Acute deep vein thrombosis (DVT) of left upper extremity: Status: Acute <JEREMIAS Marquez - Last Filed: 09/04/22 16:01> Assessment and Plan: Ultrasound yesterday confirms Left Jugular thrombus. Start on Anticoagulation as soon as able. <JEREMIAS Marquez - Last Filed: 09/04/22 16:01> (5) Cardiomyopathy: Status: Acute <JEREMIAS Marquez - Last Filed: 09/04/22 16:01> Assessment and Plan: hx of nonischemic CMP. Last known EF 30-35%. On exam today does not appear fluid overloaded. He has hx CKD and is not on edi/ arb. He is on Metoprolol and lasix. Bi V ICD in place. Follows with Dr Finley as outpt <GISEL Marquez - Last Filed: 09/04/22 16:01> Assessment and Plan: Seen and examined at bedside. updated daughter at bedside. IJ thrombus, anemia likely due to GI blood loss. s/p 2 units of blood. clinically stable. GI input for EGD/colonoscopy. Hopefully we can find a reversible cause. Will need A/c for atrial flutter and IJ thrombus once done with the EGD/colonoscopy. <Woo Finley MD - Last Filed: 09/04/22 21:51> Time Spent With Patient Time: Total time managing care of this patient today __20__ minutes. <JEREMIAS Marquez - Last Filed: 09/04/22 16:01> Progress Note: Quality Stroke Does the patient have a stroke diagnosis?: No <JEREMIAS Marquez - Last Filed: 09/04/22 16:01> Procedures Date of Service Date of Service: 09/04/22 <JEREMIAS Marquez - Last Filed: 09/04/22 16:01>
--- NOTE | 2022-09-04 13:53 | MHC.CM.PN ---
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 PT DENIES NEED FOR VNA SERVICES HOWEVER WOULD BE OPEN TO THEM IF RECOMMENDED BY HOSPITALIST. PT VERIFIES PCP TODD OLIVEIRA, CHARLEE X5 INCLUDING BIVALENT AND HCP IS VIRY FUENTES AND ON FILE FROM PREVIOUS ADMIT. ANTIC D/C BY TOMORROW 09/05 HOME NO SERVICES AND PT WILL ARRANGE TRANSPORT
--- NOTE | 2022-09-04 15:18 | MHC.SHP ---
Pre-Procedural Eval Section A Date of Service: 09/04/22 The patient is an INPATIENT: Yes Changes since office visit: No Cold of Flu in the past 2 weeks, No New Medical Problems, No Changes in Medication and No Patient answered all questions The History & Physical has been completed within 30 days and I have reviewed it.: Yes Section B Chief Complaint: anemia Allergies: Allergies Allergy/AdvReac Type Severity Reaction Status Date / Time No Known Allergies Allergy Verified 07/30/22 16:06 Plan I have reviewed the history and physical and performed a pertinent physical examination on my patient. No changes have occurred unless specified. Time Spent With Patient Time: Total time managing care of this patient today ____ minutes.
--- NOTE | 2022-09-04 15:19 | PM.EVENT ---
Event Note Date of Service: 09/04/22 Event Note: GI consult dictated EGD and colonoscopy planned for further evaluation of iron deficiency anemia and heme pos stools. Mr Thorne is aware of risks and benefits and agrees to proceed. Time Spent With Patient Time: Total time managing care of this patient today ____ minutes.
[2022-09-04 15:26] VITALS: BP 119/60; PULSE 88; RESP 16; TEMP 36.7; O2SAT 95
[2022-09-04] MEDS: PEG 3350/Na Sulf,Bicarb,Cl/KCL 4,000 ML SOLN.RECON 4000 ML PO (16:35)
[2022-09-04] MEDS: Phytonadione (Vit K1) 10 MG in 0.9 % Sodium Chloride 50 ML 51 MG IV (16:35)
[2022-09-04 20:00] VITALS: BP 127/66; PULSE 84; RESP 16; TEMP 36.1
[2022-09-04 23:46] LABS: Hematocrit 28.8 % (42.0-52.0); Hemoglobin 8.5 g/dl (14.0-18.0); Mean Corpuscular HGB Conc 29.5 g/dl (31.0-36.0); Mean Corpuscular Hemoglobin 22.1 pg (27.0-33.0); Mean Platelet Volume 8.8 fL (9.4-12.4); NRBC Pct Auto 0.2 /100WBC (0.0-0.2); Platelet Count 166 X10*3/uL (160-400); Red Blood Count 3.84 X10*6/uL (4.60-5.80); Red Cell Distribution Width 18.7 % (11.0-16.0); White Blood Count 8.8 X10*3/uL (4.8-10.8)
[2022-09-05] VITALS (9 sets, daily range): BP systolic 110–159; BP diastolic 56–76; PULSE 62–98; RESP 16–18; TEMP 36.2–36.8; O2SAT 94–100
--- NOTE | 2022-09-05 00:05 | PC.NURSE ---
Sis Dorsey phone call order for [facility]. prepare for the tomorrow colonoscopy. it is completed.
[2022-09-05] MEDS: Metoprolol Tartrate 25 MG TABLET PO (06:07)
[2022-09-05] MEDS: Metoprolol Tartrate 50 MG TABLET PO ×2 (06:07→21:00)
[2022-09-05] MEDS: Omeprazole 40 MG CAPSULE.DR PO ×2 (06:07→18:03)
[2022-09-05 06:44] LABS: INTERNATIONAL NORM RATIO 1.1 (0.9-1.1); Prothrombin Time 12.6 SEC (10.0-13.1)
--- NOTE | 2022-09-05 08:43 | PM.HEMONCCN ---
Subjective - Subjective Chief complaint: Right IJ thrombosis. Patient: new to practice Consult date: 09/05/22 Requesting Physician: Norm Primary Care Provider: Gene Dave MD Medical Summary: DIAGNOSIS: RIGHT IJ THROMBOSIS. RECENT GI BLEED. HPI - Consult Narrative Reason for consult: Right IJ thrombosis. Narrative: Ozzy Thorne is a 87 year old gentleman, with the complaints of sob, low hgb. 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 patient states sob began with cold weather. has been progressively worsening, worse on exertion, relieved by rest. denies orthopnea, fever, chills, chest pain. was at cardiology on day of presentation, noted to have hgb of 6.3 (was 15.2 in January 2022). He was on AC for both aflutter and DVT of left IJ s/p ICD placement. patient also notes that his left arm after initial resolution of edema, had been slightly more swollen over past 2 weeks. He reports chronic constipation for over a year, with occasional red blood in stool he takes ASA 325mg about once weekly for pain. Drinks 2 Manhattans per day. In ED given 2 units prbc with lasix, Doppler still positive for left I.J DVT. Review of Systems Review of Systems: Constitutional: Denies fever, denies Chills Eyes: denies blurry vision ENT: denies sore throat CVS: denies chest pain Respiratory: dyspnea GI: no abdominal pain : denies dysuria MSK: denies neck pain Skin: denies rash Neuro: denies specific motor weakness Psych: denies suicidal ideation Endocrine: denies heat/cold intolerance Hematologic: denies easy bleeding Allergy: denies hives [facility] Medical History: PMH chronic systolic chf (EF 30%), unspecified aflutter, CKD IV, Acute renal insufficiency Annual physical exam Biventricular ICD (implantable cardioverter-defibrillator) in place Cardiomyopathy Cellulitis of right leg Chronic renal failure, stage 3 (moderate) Chronic systolic (congestive) heart failure Leg wound, right Family History: Mother :No problems noted. Father : No problems noted. 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 He is . He has 2 children. He smoked for 55 years quit at the age of 73. He drinks 2 manhattans every night. Review of Systems - Constitutional Reports system reviewed and no additional complaints, except as documented - Eyes Reports system reviewed and no additional complaints, except as documented - ENT Reports system reviewed and no additional complaints, except as documented - Cardiovascular Reports system reviewed and no additional complaints, except as documented - Respiratory Reports no additional respiratory complaints - Gastrointestinal Reports system reviewed and no additional complaints, except as documented - Genitourinary Genitourinary: Reports no additional male genitourinary complaints - Musculoskeletal Reports system reviewed and no additional complaints, except as documented - Integumentary/Breasts Skin/Breast: Reports no additional skin complaints - Neurologic Reports system reviewed and no additional complaints, except as documented - Psychiatric Reports system reviewed and no additional complaints, except as documented - Endocrine Reports no additional endocrine complaints - Hematologic/Lymphatic Reports system reviewed and no additional complaints, except as documented - Allergic/Immunologic Reports system reviewed and no additional complaints, except as documented Oncology Screenings - ECOG Performance Status ECOG Performance Status: 2 [facility] Medical History: Medical History (Last Reviewed 09/05/22 @ 14:01 by Dunia Bolivar MD) Acute renal insufficiency Annual physical exam Biventricular ICD (implantable cardioverter-defibrillator) in place Cardiomyopathy Cellulitis of right leg Chronic renal failure, stage 3 (moderate) Chronic systolic (congestive) heart failure Leg wound, right Functional capacity: wheelchair bound Patient : No Family History: Family History (Last Reviewed 09/05/22 @ 14:01 by Dunia Bolivar MD) Mother No problems noted. Father No problems noted. Surgical History: Surgical History (Last Reviewed 09/05/22 @ 14:01 by Dunia Bolivar MD) History of cardiac defibrillator placement History of left hip replacement History of permanent cardiac pacemaker placement History of removal of skin mole History of total right knee replacement Social History: Social History (Last Reviewed 09/05/22 @ 14:01 by Dunia Bolivar MD) Living Situation History: Household Members: Children Household Members Other:: 1 Housing: House Do you presently have visiting nurse or other home services: No Tobacco History: Patient Tobacco Use Status: Former Tobacco user Tobacco use type: Cigarette Years Smoked: 50 +/- Smoke Quit Date: over 20 years ago e-Cigarette/Vaping Use: Never Used Second Hand Smoke Exposure: No Occupation Assessmet: service: No Current occupational status: retired Home Medications and Allergies Current Medications: Current Medications Allopurinol (Allopurinol 100 Mg Tablet) 100 mg PO DAILY [facility] Last Admin: 09/04/22 08:44 Dose: 100 mg Bisacodyl (Bisacodyl 5 Mg Tablet.) 10 mg PO DAILY [facility] Last Admin: 09/04/22 08:45 Dose: 10 mg Calcitriol (Calcitriol 0.25 Mcg Capsule) 0.25 mcg PO MOTH@0900 [facility] Furosemide (Furosemide 40 Mg Tablet) 40 mg PO BID [facility]; Protocol Last Admin: 09/04/22 20:12 Dose: 40 mg Metoprolol Tartrate (Metoprolol Tartrate 50 Mg Tablet) 50 mg PO BID@0700,1900 [facility]; Protocol Last Admin: 09/05/22 06:07 Dose: 50 mg Metoprolol Tartrate (Metoprolol Tartrate 25 Mg Tablet) 25 mg PO DAILY@0700 [facility]; Protocol Last Admin: 09/05/22 06:07 Dose: 25 mg Omeprazole (Omeprazole 40 Mg Capsule.) 40 mg PO BID@0630,1630 [facility] Last Admin: 09/05/22 06:07 Dose: 40 mg Pharmacy Consult (Consult Rx Perform Med Rec) 1 each MISCELLANE ONCE PRN PRN Reason: Consult order Psyllium Hydrophilic Mucilloid (Psyllium Seed 3.4 Gm Powd.Pack) 3.4 gm PO DAILY [facility] Last Admin: 09/04/22 08:36 Dose: Not Given Sodium Chloride (0.9 % Sodium Chloride Flush 3 Ml Syringe) [facility] Last Admin: 09/04/22 20:16 Dose: 3 ml Tamsulosin HCl (Tamsulosin Hcl 0.4 Mg Capsule) 0.4 mg PO DAILY [facility] Last Admin: 09/04/22 08:44 Dose: 0.4 mg Home Medications Medication Instructions Recorded Confirmed Type calcitriol 0.25 mcg capsule 0.25 mcg PO MOTH@0900 11/02/21 09/03/22 History bisacodyl 5 mg tablet,delayed 10 mg PO DAILY 02/03/22 09/03/22 History release (Dulcolax (bisacodyl)) metoprolol tartrate 25 mg tablet 25 mg PO DAILY@0700 09/03/22 09/03/22 History metoprolol tartrate 50 mg tablet 50 mg PO BID@0700,1900 09/03/22 09/03/22 History psyllium 1 packet PO DAILY 09/03/22 09/03/22 History Allergies Allergy/AdvReac Type Severity Reaction Status Date / Time No Known Allergies Allergy Verified 07/30/22 16:06 Physical Exam Vital signs: Vital Signs Temp 97.2 F 09/05/22 07:45 Pulse 84 09/05/22 07:45 Resp 16 09/05/22 07:45 BP 119/59 L 09/05/22 07:45 Pulse Ox 94 09/05/22 07:45 O2 Del Method 09/05/22 07:45 Intake & Output 09/04/22 09/05/22 09/05/22 18:59 06:59 18:59 Intake Total Output Total 1100 / 1100 Balance 51 / -1019 -1070 / -1019 Urine Output (Average ml/kg/hr) 1.15 Intake: Intake, Oral Amount Intake, IV Amount Phytonadione (Vit K1) 10 mg In 0.9 % Sodium Chloride 50 ml @ 51 mls/hr IV ONCE ONE Rx#: [id number] Output: Output, Urine Amount 1100 / 1100 Other: Meal Refused No NPO Yes Yes Number of Unmeasured Voids 3 Number of Bowel Movements 10 Urine Bathroom Urine Color Yellow Last Bowel Movement 09/04/22 Stool Bathroom Stool Amount Moderate Stool Color Brown Stool Consistency Watery Weight 79.547 kg - Constitutional Present: mild distress - Routine HEENT Exam Head: Present: normocephalic ENT: Present: mucous membranes moist - Routine Neck Exam Present: supple - Routine Respiratory Exam Present: CTAB - Routine Cardiovascular Exam Cardiovascular: Present: RRR, S1, S2 - Routine Abdominal Exam Present: normal bowel sounds, nontender Hem/Onc Consult Result - Labs CBC & Chem 7: 09/05/22 09:22 09/05/22 09:22 Labs: Short CBC 09/04/22 Range/Units 23:37 WBC 8.8 (4.8-10.8) X10*3/uL Hgb 8.5 L (14.0-18.0) g/dl Hct 28.8 L (42.0-52.0) % Plt Count 166 (160-400) X10*3/uL Assessment and Plan Patient Active problem list reviewed?: Yes (1) Acute deep vein thrombosis (DVT) of left upper extremity Status: Acute Assessment and plan: 87-year-old gentleman presented with shortness of breath. History of melena. Noted to be significantly anemic with hemoglobin of 6.8. Had left upper extremity edema. Ultrasound revealed right IJ thrombosis. I reviewed the ultrasound with the radiologist. The clot has actually improved compared to ultrasound done in January. Concern is anticoagulation in the setting of GI bleeding. He was given 2 units of blood. Patient has been seen by GI. H&H remained stable yesterday. In a.m.: 8.2. 23:00: 8.5. PLAN: He will undergo EGD and colonoscopy today. Will make further plans based upon the results. If no obvious bleeding source is identified, can give IV heparin, which can be quickly reversed if needed. Thank you, Cc: Dr. Bower Addendum: GI evaluation: EGD shows mild duodenitis Colonoscopy shows multiple polyps, largest piecemeal resected in cecum and 2 clips applied to prevent post polypectomy bleeding. mild diverticulosis 8x10 mm nobleeding cecal avm. Will check with GI when he can safely be started on IV heparin. - Time Spent With Patient Time Spent with Patient (in minutes): 30
[2022-09-05] MEDS: 0.9 % Sodium Chloride Flush 3 ML SYRINGE IVFLUSH ×2 (08:45→18:04)
[2022-09-05] MEDS: Furosemide 40 MG TABLET PO ×2 (08:45→21:00)
[2022-09-05 09:27] LABS: MANUAL DIFF FLAG NO
--- NOTE | 2022-09-05 09:30 | MHC.CM.PN ---
EMR REVIEWED, PLAN FOR FOR UPPER/LOWER ENDOSCOPIES TODAY, ANTIC PT WILL D/C HOME NO SERVICES LATER TODAY, PT HAS FAMILY FOR TRANSPORT.
[2022-09-05 09:31] LABS: Basophils Absolute Auto 0.1 X10*3/uL (0.0-0.2); Basophils Percent Auto 0.6 % (0-2); Eosinophils Absolute Auto 0.3 X10*3/uL (0.0-0.4); Eosinophils Percent Auto 3.7 % (0-4); Hematocrit 29.5 % (42.0-52.0); Hemoglobin 8.6 g/dl (14.0-18.0); Imm Gran Abs Auto 0.05 X10*3/uL (0.00-0.03); Imm Gran Pct Auto 0.6 % (0.0-0.4); Lymphocytes Absolute Auto 0.9 X10*3/uL (1.2-4.9); Lymphocytes Percent Auto 11.6 % (20-40); Mean Corpuscular HGB Conc 29.2 g/dl (31.0-36.0); Mean Corpuscular Hemoglobin 22.2 pg (27.0-33.0); Mean Corpuscular Volume 76.2 fL (80.0-98.0); Mean Platelet Volume 8.9 fL (9.4-12.4); Monocytes Percent Auto 11.7 % (2-11); Neutrophils Absolute Auto 5.8 x10*3/uL (2.0-8.3); Neutrophils Percent Auto 71.8 % (45-73); Platelet Count 184 X10*3/uL (160-400); Red Blood Count 3.87 X10*6/uL (4.60-5.80); Red Cell Distribution Width 18.9 % (11.0-16.0); White Blood Count 8.1 X10*3/uL (4.8-10.8)
[2022-09-05 09:50] LABS: Alanine Aminotransferase 17 U/L (0-40); Albumin Level 3.9 g/dL (3.5-5.0); Alkaline Phosphatase 109 U/L (39-117); Anion Gap 14 (12-20); Aspartate Amino Transferase 37 U/L (5-37); Blood Urea Nitrogen 27 mg/dL (9-16); Calcium 9.3 mg/dL (8.4-10.2); Carbon Dioxide 29 mmol/L (22-29); Chloride 102 mmol/L (96-108); Creatinine Clr Calc Pharmacy 25.9; Estimated Glomerular Filt Rate 31; Glucose Random 94 mg/dL (60-115); Potassium 3.3 mmol/L (3.3-5.1); Sodium 142 mmol/L (135-145); Total Protein 7.2 g/dL (6.5-8.0)
--- NOTE | 2022-09-05 11:29 | HO.PM.IMPN ---
Subjective Subjective Date of Service: 09/05/22 Interval History: awake alert resting comfortably on chair offers no acute complaints, no episodes of black stools, no hematemesis denies nausea vomiting or abdominal pain is NPO for upper endoscopy and colonoscopy hematocrit remains stable overnight, no acute events noted in last 24 hours. 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 awake alert, resting comfortably in no acute distress.? Neck? supple no JVD. CVS? regular rate rhythm, Respiratory lungs clear to auscultation, no respiratory distress, no wheeze, no rhonchi. Gastrointestinal abdomen soft, nontender, bowel sounds audible, no guarding , no rigidity. Extremities no? edema. left upper extremity edema Neuro nonfocal , moving all 4 extremity, speech clear. Skin ecchymosis upper extremities psych appropriate affect Objective Data Active Medications Allopurinol (Allopurinol 100 Mg Tablet) 100 mg PO DAILY [facility] Last Admin: 09/04/22 08:44 Dose: 100 mg Documented By: FRANKLIN Bisacodyl (Bisacodyl 5 Mg Tablet.) 10 mg PO DAILY [facility] Last Admin: 09/05/22 08:45 Dose: Not Given Documented By: ELYSIA Non-Admin Reason: NPO Calcitriol (Calcitriol 0.25 Mcg Capsule) 0.25 mcg PO MOTH@0900 [facility] Furosemide (Furosemide 40 Mg Tablet) 40 mg PO BID [facility]; Protocol Last Admin: 09/05/22 08:45 Dose: 40 mg Documented By: ELYSIA Metoprolol Tartrate (Metoprolol Tartrate 50 Mg Tablet) 50 mg PO BID@0700,1900 [facility]; Protocol Last Admin: 09/05/22 06:07 Dose: 50 mg Documented By: ROSE Metoprolol Tartrate (Metoprolol Tartrate 25 Mg Tablet) 25 mg PO DAILY@0700 [facility]; Protocol Last Admin: 09/05/22 06:07 Dose: 25 mg Documented By: ROSE Omeprazole (Omeprazole 40 Mg Capsule.) 40 mg PO BID@0630,1630 [facility] Last Admin: 09/05/22 06:07 Dose: 40 mg Documented By: ROSE Pharmacy Consult (Consult Rx Perform Med Rec) 1 each MISCELLANE ONCE PRN PRN Reason: Consult order Psyllium Hydrophilic Mucilloid (Psyllium Seed 3.4 Gm Powd.Pack) 3.4 gm PO DAILY [facility] Last Admin: 09/05/22 08:45 Dose: Not Given Documented By: ELYSIA Non-Admin Reason: NPO Sodium Chloride (0.9 % Sodium Chloride Flush 3 Ml Syringe) 3 ml IVFLUSH QSHIFT [facility] Last Admin: 09/05/22 08:45 Dose: 3 ml Documented By: ELYSIA Tamsulosin HCl (Tamsulosin Hcl 0.4 Mg Capsule) 0.4 mg PO DAILY [facility] Last Admin: 09/04/22 08:44 Dose: 0.4 mg Documented By: FRANKLIN Labs CBC & Chem 7: 09/05/22 09:22 09/05/22 09:22 Labs: Laboratory Results - last 24 hr 09/04/22 09/05/22 09/05/22 23:37 06:07 09:22 MCV 75.0 L 76.2 L MCH 22.1 L 22.2 L MCHC 29.5 L 29.2 L RDW 18.7 H 18.9 H Plt Count 166 184 MPV 8.8 L 8.9 L Immature Gran % (Auto) 0.6 H Neut % (Auto) 71.8 Lymph % (Auto) 11.6 L [place] % (Auto) 11.7 H Eos % (Auto) 3.7 Baso % (Auto) 0.6 Lymph # (Auto) 0.9 L [place] # (Auto) 1.0 Eos # (Auto) 0.3 Baso # (Auto) 0.1 Abs Immat Gran (auto) 0.05 H Absolute Neuts (auto) 5.8 Absolute Nucleated RBC 0.020 H 0.000 Nucleated RBC % (auto) 0.2 0.0 PT 12.6 INR 1.1 Anion Gap Estim Creat Clear Calc Estimated GFR Random Glucose Calcium Total Bilirubin AST ALT Alkaline Phosphatase Total Protein Albumin 09/05/22 09:22 MCV MCH MCHC RDW Plt Count MPV Immature Gran % (Auto) Neut % (Auto) Lymph % (Auto) [place] % (Auto) Eos % (Auto) Baso % (Auto) Lymph # (Auto) [place] # (Auto) Eos # (Auto) Baso # (Auto) Abs Immat Gran (auto) Absolute Neuts (auto) Absolute Nucleated RBC Nucleated RBC % (auto) PT INR Anion Gap 14 Estim Creat Clear Calc 25.9 Estimated GFR 31 Random Glucose 94 Calcium 9.3 Total Bilirubin 1.0 AST 37 ALT 17 Alkaline Phosphatase 109 Total Protein 7.2 Albumin 3.9 Assessment and Plan (1) Anemia: Status: Acute (2) GI bleed: Status: Acute (3) Acute on chronic renal failure: Status: Acute (4) Anemia: Status: Acute (5) Atrial flutter: Status: Acute Plan 87M with PMH chronic systolic chf (EF 30%), unspecified aflutter, CKD IV, 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 found to have micorcytic anemia. dyspnea due to microcytic anemia likely related to chronic GI blood loss received 2 units of packed RBC hemoglobin improved from 6.3-8.6 Xarelto on hold, continue PPI, seen by GI , kept NPO will undergo upper endoscopy and colonoscopy this afternoon ivan on CKD IV vs progression of CKD creatinine improved to 2.1 from 2.2, baseline around 1.8 ,monitor bmp unspecified aflutter continue metoprolol,xarelto on hold as above chronic systolic chf appears euvolemic, continue metoprolol and Lasix 40 mg b.i.d. potassium low normal will add low-dose potassium left IJ DVT, patient noted to have thrombus in the left internal jugular vein, since the prior exam of 02/01/2022 previously seen thrombus in the basilar vein has resolved. will wait for GI input , consulted Hematology for recurrent thrombus and anticoagulation recommendation. dvt prophylaxis - mechancial due to suspected bleed DNR/DNI patient with significant anemia likely due to gi bleed and strong dual indication for AC, as well as risk factors for poor outcome such as CHF, aflutter, CKD IV, advanced age, therefore, will likely need continued inpatient stay for GI eval and workup. Time Spent With Patient Time: Total time managing care of this patient today ____ minutes. Quality Stroke Does the patient have a stroke diagnosis?: No VTE Prior VTE?: Yes VTE Risk Level:: Medical - moderate - high VTE Device Contraindication: N/A - Device Ordered VTE Drug Contraindication: Treatment Not Tolerated
[2022-09-05] MEDS: KCl 20 mEq in 5 % Dex/Lact Rin 20 MEQ/1,000 ML IV.SOLN 80 MEQ IVCONT (12:20)
--- NOTE | 2022-09-05 14:01 | HO.ANESPROP2 ---
HPI - Anesthesia Eval Consult details Narrative: 87 yo male patient for EGD/ Colonoscopy [facility] Active Problems Active Problems: All Active Problems (Updated 09/05/22 @ 08:50 by Sis Rdoriguez MD) Anemia (Acute) GI bleed (Acute) Acute on chronic renal failure (Acute) Anemia (Acute)S/p 2units PRBC. Hct 29.5 Annual physical exam (Acute) Neck pain (Acute) Constipation (Acute) Atrial flutter (Acute) Cardiomyopathy (Acute). 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 [employer]. Rate 80-115. Remote check 08/07- OK Past Medical History Medical History Acute renal insufficiency Annual physical exam Biventricular ICD (implantable cardioverter-defibrillator) in place Cardiomyopathy Cellulitis of right leg Chronic renal failure, stage 3 (moderate) Chronic systolic (congestive) heart failure Leg wound, right Functional capacity: wheelchair bound Family History Family History Mother No problems noted. Father No problems noted. Family history of problems with anesthesia: No Surgical History Surgical History History of cardiac defibrillator placement History of left hip replacement History of permanent cardiac pacemaker placement History of removal of skin mole History of total right knee replacement History of Problems with Anesthesia: No Social History Social History Household Members: Children Household Members Other:: 1 Housing: House Do you presently have visiting nurse or other home services: No Alcohol intake: current Alcohol intake frequency: 3 or more drinks per day Alcohol type: hard liquor Patient Tobacco Use Status: Former Tobacco user Quit Date: over 20 years ago Tobacco use type: Cigarette Years Smoked: 50 +/- e-Cigarette/Vaping Use: Never Used Second Hand Smoke Exposure: No service: No Current occupational status: retired Cognitive needs: Yes (cane) Hearing needs: No Vision needs: Yes (glasses) Meds Allergies Allergy/AdvReac Type Severity Reaction Status Date / Time No Known Allergies Allergy Verified 07/30/22 16:06 Active Medications: Current Medications Allopurinol (Allopurinol 100 Mg Tablet) 100 mg PO DAILY [facility] Last Admin: 09/05/22 11:31 Dose: Not Given Bisacodyl (Bisacodyl 5 Mg Tablet.) 10 mg PO DAILY [facility] Last Admin: 09/05/22 08:45 Dose: Not Given Calcitriol (Calcitriol 0.25 Mcg Capsule) 0.25 mcg PO MOTH@0900 [facility] Furosemide (Furosemide 40 Mg Tablet) 40 mg PO BID [facility]; Protocol Last Admin: 09/05/22 08:45 Dose: 40 mg Potassium Cl/Dextrose/Lact Ringer's (Kcl 20 Meq In 5 % Dex/Lact Rin) 20 meq in 1,000 mls @ 80 mls/hr IVCONT .[id number] [facility] Stop: 09/06/22 00:14 Last Admin: 09/05/22 12:20 Dose: 80 mls/hr Metoprolol Tartrate (Metoprolol Tartrate 50 Mg Tablet) 50 mg PO BID@0700,1900 [facility]; Protocol Last Admin: 09/05/22 06:07 Dose: 50 mg Metoprolol Tartrate (Metoprolol Tartrate 25 Mg Tablet) 25 mg PO DAILY@0700 [facility]; Protocol Last Admin: 09/05/22 06:07 Dose: 25 mg Omeprazole (Omeprazole 40 Mg Capsule.) 40 mg PO BID@0630,1630 [facility] Last Admin: 09/05/22 06:07 Dose: 40 mg Pharmacy Consult (Consult Rx Perform Med Rec) 1 each MISCELLANE ONCE PRN PRN Reason: Consult order Psyllium Hydrophilic Mucilloid (Psyllium Seed 3.4 Gm Powd.Pack) 3.4 gm PO DAILY [facility] Last Admin: 09/05/22 08:45 Dose: Not Given Sodium Chloride (0.9 % Sodium Chloride Flush 3 Ml Syringe) 3 ml IVFLUSH QSHIFT [facility] Last Admin: 09/05/22 08:45 Dose: 3 ml Tamsulosin HCl (Tamsulosin Hcl 0.4 Mg Capsule) 0.4 mg PO DAILY [facility] Last Admin: 09/05/22 11:31 Dose: Not Given Home Medications Medication Instructions Recorded Confirmed Last Taken Type calcitriol 0.25 mcg capsule 0.25 mcg PO MOTH@0900 11/02/21 09/03/22 09/03/22 08:00 History bisacodyl 5 mg tablet,delayed 10 mg PO DAILY 02/03/22 09/03/22 09/03/22 08:00 History release (Dulcolax (bisacodyl)) metoprolol tartrate 25 mg tablet 25 mg PO DAILY@0700 09/03/22 09/03/22 09/03/22 08:00 History metoprolol tartrate 50 mg tablet 50 mg PO BID@0700,1900 09/03/22 09/03/22 09/03/22 08:00 History psyllium 1 packet PO DAILY 09/03/22 09/03/22 09/03/22 08:00 History Exam Exam Date and Time: September 05, 2022 1401 Height,Weight and Vital Signs: Height 5 ft 9 in Weight 79.547 kg Last Vital Signs Temp 98.3 F 09/05/22 13:38 Pulse 62 09/05/22 13:38 Resp 16 09/05/22 13:38 BP 135/76 09/05/22 13:38 Pulse Ox 98 09/05/22 13:38 O2 Del Method 09/05/22 13:38 Pertinent Lab Results Pertinent Lab Results: Laboratory Tests 09/03/22 09/03/22 09/03/22 13:44 14:28 21:39 WBC RBC Hgb Hct MCV MCH MCHC RDW Plt Count MPV Immature Gran % (Auto) Neut % (Auto) Lymph % (Auto) [place] % (Auto) Eos % (Auto) Baso % (Auto) Lymph # (Auto) [place] # (Auto) Eos # (Auto) Baso # (Auto) Abs Immat Gran (auto) Absolute Neuts (auto) Absolute Nucleated RBC Nucleated RBC % (auto) PT INR Sodium Potassium Chloride Carbon Dioxide Anion Gap BUN Creatinine Estim Creat Clear Calc Estimated GFR Random Glucose Fasting Glucose Calcium Total Bilirubin AST ALT Alkaline Phosphatase Total Protein Albumin Stool Occult Blood POSITIVE COVID-19 ([facility]NY) Negative COVID-19 Clin Com See Note Blood Type B Positive Antibody Screen NEGATIVE Crossmatch See Detail 09/04/22 09/04/22 09/04/22 05:58 05:58 23:37 WBC 7.6 8.8 RBC 3.70 L D 3.84 L Hgb 8.2 L D 8.5 L Hct 28.0 L D 28.8 L MCV 75.7 L 75.0 L MCH 22.2 L 22.1 L MCHC 29.3 L 29.5 L RDW 18.2 H 18.7 H Plt Count 177 166 MPV 9.3 L 8.8 L Immature Gran % (Auto) Neut % (Auto) Lymph % (Auto) [place] % (Auto) Eos % (Auto) Baso % (Auto) Lymph # (Auto) [place] # (Auto) Eos # (Auto) Baso # (Auto) Abs Immat Gran (auto) Absolute Neuts (auto) Absolute Nucleated RBC 0.030 H 0.020 H Nucleated RBC % (auto) 0.4 H 0.2 PT INR Sodium 140 Potassium 3.7 Chloride 101 Carbon Dioxide 29 Anion Gap 14 BUN 35 H Creatinine 2.13 H Estim Creat Clear Calc 25.3 Estimated GFR 30 Random Glucose Fasting Glucose 101 H Calcium 9.1 Total Bilirubin AST ALT Alkaline Phosphatase Total Protein Albumin Stool Occult Blood COVID-19 ([facility]NY) COVIDTOSA ([employer]) Blood Type Antibody Screen Crossmatch 09/05/22 09/05/22 09/05/22 06:07 09:22 09:22 WBC 8.1 RBC 3.87 L Hgb 8.6 L Hct 29.5 L MCV 76.2 L MCH 22.2 L MCHC 29.2 L RDW 18.9 H Plt Count 184 MPV 8.9 L Immature Gran % (Auto) 0.6 H Neut % (Auto) 71.8 Lymph % (Auto) 11.6 L [place] % (Auto) 11.7 H Eos % (Auto) 3.7 Baso % (Auto) 0.6 Lymph # (Auto) 0.9 L [place] # (Auto) 1.0 Eos # (Auto) 0.3 Baso # (Auto) 0.1 Abs Immat Gran (auto) 0.05 H Absolute Neuts (auto) 5.8 Absolute Nucleated RBC 0.000 Nucleated RBC % (auto) 0.0 PT 12.6 INR 1.1 Sodium 142 Potassium 3.3 Chloride 102 Carbon Dioxide 29 Anion Gap 14 BUN 27 H Creatinine 2.08 H Estim Creat Clear Calc 25.9 Estimated GFR 31 Random Glucose 94 Fasting Glucose Calcium 9.3 Total Bilirubin 1.0 AST 37 ALT 17 Alkaline Phosphatase 109 Total Protein 7.2 Albumin 3.9 Stool Occult Blood COVID-19 ([facility]) COVID-19 Clin Com Blood Type Antibody Screen Crossmatch Airway Mallampati Class: III TM Dist: >3cm Neck ROM: Full Denture: Upper Partial: Lower Loose/Missing/Broken Teeth: No (Own teeth bottom front. Denies broken or loose) Heart: ? Regular Lungs: CTAB Assessment and Plan Assessment Anesthesia Assessment: Anesthesia Plan Discussed and Chart Reviewed Final Anesthetic Review Family History of Problems with Anesthesia: No History of Problems with Anesthesia: No NPO: Yes ASA Class: IV and Emergency Final Preanesthetic Review: No Changes in Pt Med Stat, Meds/Allgs Chart Reviewed, Consent Obtained/Reviewed, Anes Risks/Benef Reviewed and DNR Form (If Appl.) (Addressed. Patient requests to maintain DNR status osito-op. Does not want to be resuscitated) Patient Risk: High Procedure Risk: Low Assessment/Block/Sedation in SS: Assess/Block/Sedation-SS Anesthetic Plan Anesthetic Plan: MAC: Disposition: Standard PACU
--- NOTE | 2022-09-05 15:59 | PM.OP ---
Brief Operative Note Date of Service: 09/05/22 Pre-op diagnosis: iron def anemia heme pos stools Post-op diagnosis: same (colon polyps, duodenitis) Procedure: EGD colonoscopy Surgeon: Tesfaye Hammond Anesthesia: MAC Was an Metal Extrusion Supervisor used for this Procedure?: No Estimated blood loss (mL): 5 Pathology: other Condition: stable Disposition: PACU
--- NOTE | 2022-09-05 16:01 | PM.EVENT ---
Event Note Date of Service: 09/05/22 Event Note: EGD colonoscopy dictated EGD shows mild duodenitis Colonoscopy shows multiple polyps, largest piecemeal resected in cecum and 2 clips applied to prevent post polypectomy bleeding. mild diverticulosis 8x10 mm nobleeding cecal avm. rec: advance diet oral ppi hold anticoagulation x24 hours start iron supplementation per hematology recommendations. f/u path results will need close monitoring of hct as outpatient. Time Spent With Patient Time: Total time managing care of this patient today ____ minutes.
--- NOTE | 2022-09-05 17:36 | PC.NURSE ---
report to Kellee Snyder patient stable questions asked and answered; belongings returned
--- NOTE | 2022-09-05 17:58 | PC.NURSE ---
Patient refused IV fluids,Dr. Zheng notified
--- NOTE | 2022-09-05 18:15 | PC.NURSE ---
patient refuses sequentials,risks explained to patient,encouraged activity,Dr. Zheng notified
[2022-09-06] VITALS: BP 131/63; PULSE 78; RESP 16; TEMP 36.1; O2SAT 96
[2022-09-06] MEDS: 0.9 % Sodium Chloride Flush 3 ML SYRINGE IVFLUSH ×2 (00:35→08:47)
--- NOTE | 2022-09-06 03:33 | OP_ITS ---
SURGEON: Tesfaye Hammond MD INDICATIONS: Iron deficiency anemia and Hemoccult-positive stools. PREOPERATIVE DIAGNOSIS: POSTOPERATIVE DIAGNOSIS: PROCEDURE PERFORMED: Upper endoscopy with biopsy, colonoscopy to the terminal ileum with snare polypectomy. ESTIMATED BLOOD LOSS: COMPLICATIONS: ANESTHESIA: Monitored anesthesia care. ASSISTANTS: SPECIMENS: DESCRIPTION OF PROCEDURE: Date:09/05/22. History and physical performed, the risks and benefits of the procedure were explained to the patient. Informed consent was obtained. The patient was placed in the left lateral decubitus position. The Olympus video gastroscope was introduced into the esophagus, stomach, and duodenum. Examination was performed. The scope was removed, he was repositioned for colonoscopy. A digital rectal exam was performed and was found to be normal. The Olympus pediatric video colonoscope was introduced into the rectum and advanced to the cecum without difficulty. The cecum was identified by transillumination, palpation, and identification of the ileocecal valve, examination was performed. The scope was removed. He tolerated both procedures well, and was returned to recovery area in stable condition. FINDINGS: Upper endoscopy: Esophagus: The esophagus was normal. There was a small hiatal hernia. Stomach: The stomach showed no evidence of masses, ulcers, or polyps. There was no gastritis. Duodenum: The bulb and second portion were notable for some mild duodenitis. Colonoscopy: The terminal ileum was briefly glimpsed and appeared normal. In the cecum was an 8 x 10 mm spidery, nonbleeding AVM. No therapy was performed. There was a large 15 x 20 mm polyp in the cecum, which was sessile. This was piecemeal resected with a snare and 2 endoscopic hemostatic clips were placed as the patient will need to resume anticoagulation. The 2nd polyp in the cecum measuring approximately 6 x 12 mm was piecemeal resected as well. Two right colon polyps measuring less than 10 mm were resected with a snare as well and 2 transverse colon polyps, 1 measuring approximately 20 mm were resected with a snare. The 2nd transverse colon polyp measured approximately 8 mm. No other polyps were identified. There was mild sigmoid diverticulosis. Retroflexed examination showed some internal hemorrhoids. IMPRESSION: 1. Duodenitis. 2. Colon polyps. RECOMMENDATIONS: 1. Follow up the biopsy results. 2. Hold anticoagulation for 24 hours. 3. Continue oral proton pump inhibitor. MD MAJOR Anderson/MATILDE / [id number] JOSE
[2022-09-06] MEDS: Omeprazole 40 MG CAPSULE.DR PO (05:51)
[2022-09-06] MEDS: Metoprolol Tartrate 50 MG TABLET PO (06:13)
[2022-09-06] MEDS: Metoprolol Tartrate 25 MG TABLET PO (06:14)
[2022-09-06 06:57] LABS: Hematocrit 28.4 % (42.0-52.0); Hemoglobin 8.3 g/dl (14.0-18.0); Mean Corpuscular HGB Conc 29.2 g/dl (31.0-36.0); Mean Corpuscular Hemoglobin 22.3 pg (27.0-33.0); Mean Corpuscular Volume 76.1 fL (80.0-98.0); Mean Platelet Volume 9.5 fL (9.4-12.4); Platelet Count 173 X10*3/uL (160-400); Red Blood Count 3.73 X10*6/uL (4.60-5.80); Red Cell Distribution Width 19.5 % (11.0-16.0); White Blood Count 9.9 X10*3/uL (4.8-10.8)
[2022-09-06 07:47] VITALS: BP 123/69; PULSE 87; RESP 16; TEMP 36.6; O2SAT 99
[2022-09-06 08:08] LABS: Anion Gap 15 (12-20); Blood Urea Nitrogen 27 mg/dL (9-16); Calcium 8.8 mg/dL (8.4-10.2); Carbon Dioxide 28 mmol/L (22-29); Chloride 99 mmol/L (96-108); Creatinine Clr Calc Pharmacy 24.8; Estimated Glomerular Filt Rate 29; Glucose Random 105 mg/dL (60-115); Potassium 3.4 mmol/L (3.3-5.1); Sodium 139 mmol/L (135-145)
[2022-09-06] MEDS: allopurinoL 100 MG TABLET PO (08:46)
[2022-09-06] MEDS: calcitrioL 0.25 MCG CAPSULE PO (08:46)
[2022-09-06] MEDS: Furosemide 40 MG TABLET PO (08:46)
[2022-09-06] MEDS: Rivaroxaban 15 MG TABLET PO (08:46)
[2022-09-06] MEDS: Ferrous Sulfate 324 MG TABLET.DR PO (08:46)
[2022-09-06] MEDS: bisacodyL 5 MG TABLET.DR 10 MG PO (08:46)
[2022-09-06] MEDS: Tamsulosin HCL 0.4 MG CAPSULE PO (08:47)
--- NOTE | 2022-09-06 09:44 | PM.DS ---
DS: Providers Provider Date of Service: 09/06/22 Date of admission: 09/03/22 19:28 Primary care physician: Gene Dave MD Consults: 09/03/22 14:03 Consult to Cardiology Stat Consulting Provider: Woo Finley Reason for consultation: chf, anemia, dvt 09/03/22 19:28 Consult to Gastroenterology Routine Consulting Provider: Tesfaye Hammond Reason for consultation: aneima, on xarelto for afib and dvt 09/05/22 11:28 Consult to Hematology / Oncology Routine Consulting Provider: Sis Rodriguez Reason for consultation: dvt Has provider been notified: Yes DS: Diagnosis Discharge Diagnosis (1) Acute deep vein thrombosis (DVT) of left upper extremity: Status: Acute DS: Summary Hospital Course Hospital Course: from initial hpi: Chief Complaint: sob, low hgb 87M with PMH chronic systolic chf (EF 30%), unspecified aflutter, CKD IV, 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 patient states sob began with cold weather. has been progressively worsening, worse on exertion, relieved by rest. denies orthopnea, fever, chills, chest pain. was at cardiology on day of presentation, noted to have hgb of 6.3 (was 15.2 in January 2022). patient is on AC for both aflutter and DVT of left IJ s/p ICD placement. patient also notes that his left arm after initial resolution of edema, has been slightly more swollen over past 2 weeks. he reports chronic constipation with occasional red blood in stool, that has been improving over last 2 months. he uses ASA 325mg about once weekly for pain. drinks 2 Manhattans per day. in ED given 2 units prbc with lasix, doppler still positive for left IJ DVT. hospital course: Patient was admitted for dyspnea due to iron deficiency anemia from likely chronic blood loss anemia while on Xarelto. He was transfused 2 units of PRBC and hemoglobin improved appropriately from 6.3-8.6. He was seen by GI who performed EGD and colonoscopy which showed duodenitis and colonic polyps which were removed. Recommendations were to restart anticoagulation in 24 hours, monitor CBC as outpatient, continue oral PPI and oral iron. Patient's shortness of breath improved. Patient was noted to have elevated creatinine from baseline this is either acute kidney injury on CKD 4 or progression of his CKD. His creatinine remained stable around to during hospitalization, this can be monitored as outpatient. For patient's unspecified atrial flutter he was continued on metoprolol and Xarelto will be restarted as outpatient. For his chronic systolic CHF he was continue metoprolol and Lasix p.o. for his left IJ DVT he will be restarted on Xarelto. Time Spent with Patient Time attestation: Total time managing care of this patient today ____ minutes. Discharge coordination time: Greater than 30 minutes Quality: Safe Use of Opioids Does Pt have an Active Cancer Diagnosis on the Problem List?: No Quality: Stroke Does the patient have a stroke diagnosis?: No Physical Exam Vital Signs: Vital Signs: Last Vital Signs Temp 97.8 F 09/06/22 07:47 Pulse 87 09/06/22 07:47 Resp 16 09/06/22 07:47 BP 123/69 09/06/22 07:47 Pulse Ox 99 09/06/22 07:47 O2 Del Method 09/06/22 07:47 BMI result Body Mass Index 25.9 General: AO X 3, no acute distress Resp: CTA bilateral, no accessory muscles used CVS: S1,S2,RRR GI: soft, non tender, non distended Neuro: motor grossly intact, alert Psych: appropriate affect, appropriate insight DS: Data Data Completed and Pending Pending studies at discharge: Pending at discharge 09/05/22 14:47 Surgical [PTH] Routine Labs on day of discharge: Laboratory Results - last 24 hr 09/05/22 09/06/22 09/06/22 09:22 06:17 06:17 WBC 9.9 RBC 3.73 L Hgb 8.3 L Hct 28.4 L MCV 76.1 L MCH 22.3 L MCHC 29.2 L RDW 19.5 H Plt Count 173 MPV 9.5 Absolute Nucleated RBC 0.000 Nucleated RBC % (auto) 0.0 Sodium 142 139 Potassium 3.3 3.4 Chloride 102 99 Carbon Dioxide 29 28 Anion Gap 14 15 BUN 27 H 27 H Creatinine 2.08 H 2.17 H Estim Creat Clear Calc 25.9 24.8 Estimated GFR 31 29 Random Glucose 94 105 Calcium 9.3 8.8 Total Bilirubin 1.0 AST 37 ALT 17 Alkaline Phosphatase 109 Total Protein 7.2 Albumin 3.9 Discharge Plan Discharge Anticipated Discharge Date/Time: 09/06/22 09:41 Patient Disposition: Home, Self-Care Discharge Diagnosis: anemia Referrals: Tesfaye Hammond [Physician] - 1 Week Gene Dave MD [Primary Care Provider] - 1 Week Discharge Medications: New ferrous sulfate 324 mg (65 mg iron) Tablet,Delayed Release (Dr/Ec) 324 mg PO DAILY Qty: 30 0RF omeprazole 20 mg capsule,delayed release(DR/EC) 20 mg PO DAILY Qty: 30 0RF Continued tamsulosin 0.4 mg capsule 0.4 mg PO DAILY Qty: 90 1RF allopurinol 100 mg tablet 100 mg PO DAILY Qty: 90 1RF Xarelto 15 mg tablet 15 mg PO QPM Qty: 30 5RF furosemide 40 mg tablet 40 mg PO BID Qty: 180 2RF bisacodyl [Dulcolax (bisacodyl)] 5 mg Tablet,Delayed Release (Dr/Ec) 10 mg PO DAILY psyllium Packet 1 packet PO DAILY Rx Instructions: mix into at least 8 oz of water or juice before administering metoprolol tartrate 50 mg tablet 50 mg PO BID@0700,1900 metoprolol tartrate 25 mg tablet 25 mg PO DAILY@0700 Rx Instructions: 1 tablet daily in am ( in addition to his 50mg tab in am for total of 75mg in am) calcitriol 0.25 mcg capsule 0.25 mcg PO MOTH@0900 Discharge Orders: Discharge Order (Routine); Ordered 09/06/22 Ordered By: Fernando Carrasco Diet: Advance to usual diet Activity on Discharge: As tolerated Stand Alone Forms: Patient Portal Discharge page Other Ambulatory Orders: Basic Metabolic Panel Fasting (Routine) Timeframe: 3 Days Facility: [facility] - Location: Laboratory Ordered By: Fernando Carrasco Complete Blood Count no Diff (Routine) Timeframe: 3 Days Facility: [facility] - Location: Laboratory Ordered By: Fernando Carrasco Care Plan Goals: recovery Health Concerns: gi bleed Plan of Treatment: start iron and ppi, follow up with gi, restart xarelto tonight, check labs in a few days Assessment: see above
--- NOTE | 2022-09-06 11:49 | MHC.CM.PN ---
PT MEDICALLY CLEARED FOR D/C HOME NO SERVICES W/FAMILY FOR TRANPORT
--- NOTE | 2022-09-06 14:27 | HO.POSTANES ---
Post Anesthesia Evaluation Post Anesthesia Evaluation Vital Signs: Vital Signs Temp Pulse Resp BP Pulse Ox O2 Del Method 09/06/22 07:47 97.8 F 87 16 123/69 99 Room Air Anesthesia: Monitored Mental Status: Awake Pain Control: Satisfactory Nausea/Vomiting: None Hydration: Adequate Anesthesia-Related Issues: No Anes. Related Issues
--- NOTE | 2022-09-14 14:13 | CONS_ITS ---
DATE OF SERVICE: 09/04/2022 REFERRING PHYSICIAN: Fernando Carrasco MD REASON FOR CONSULTATION: Iron deficiency anemia and Hemoccult-positive stools. 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 Iron indices were consistent with iron deficiency and stool was Hemoccult positive. The patient does report some use of aspirin for musculoskeletal complaints. He has no complaints of epigastric pain or chronic heart burn. He thinks he may have undergone an endoscopy approximately 25 years ago. He sees some occasional bright red blood per rectum when he strains to stool and frequently reports hard stools. He did undergo colonoscopy with removal of multiple tubular adenomas in 2006, but has not had followup examinations. PAST MEDICAL HISTORY: 1. Atrial fibrillation/flutter. 2. Chronic kidney disease. 3. DVT. 4. Congestive heart failure, systolic. 5. ICD placement. 6. Cellulitis, right leg. 7. Cardiomyopathy. CURRENT MEDICATIONS: His current medication list is reviewed in the chart. He has been on Eliquis, but did not take any on Saturday. This has been held since admission. ALLERGIES: NONE REPORTED. FAMILY HISTORY: Noncontributory. PAST SURGICAL HISTORY: Includes hip replacement and knee replacement, he has also had defibrillator placement. REVIEW OF SYSTEMS: SKIN: No pruritus. HEENT: Negative. CARDIOPULMONARY: He denies shortness of breath currently, but did have some prior to admission. GASTROINTESTINAL: As above. GENITOURINARY: Negative. NEUROPSYCHIATRIC: Negative. PHYSICAL EXAMINATION: GENERAL: Shows a pleasant male, sitting comfortably in a chair. VITAL SIGNS: Reviewed in the electronic medical record and are stable. SKIN: Anicteric. HEENT: Shows no scleral icterus. NECK: Without lymphadenopathy or thyromegaly. LUNGS: Clear. HEART: Shows an irregular S1, S2. No murmur. ABDOMEN: Soft without focal masses or tenderness. Bowel sounds are present. No organomegaly is noted. EXTREMITIES: Without edema. Laboratory data and imaging studies were reviewed. IMPRESSION: 1. Iron deficiency anemia with Hemoccult-positive stools. I discussed further evaluation with upper endoscopy and colonoscopy as he will need to eventually go back anticoagulation as he does have a history of risk factors for upper GI blood loss and no prior history of polyps. This will be arranged for tomorrow. In the interim, I agree with treating him with proton-pump inhibitor and following his laboratory studies. MD MAJOR Anderson/MATILDE / [id number] MTDD
== END 2022-09-06 11:02 | disposition home or self-care (01) | DRG 811 ==
LOC: HO.ED 18:42 → HO.EDOVER 19:34 → HO.S3 23:46
PROVIDERS: Hospitalist; Internal Medicine Gastroenterology; Internal Medicine Medical Oncology; Admitting Provider Internal Medicine; Emergency Provider Emergency Medicine; PCP Internal Medicine; Visit Provider Internal Medicine
PROC: 0DB98ZX Excision of Duodenum, Via Natural or Artificial Opening Endoscopic, Diagnostic (ICD-10-PCS; principal; 2022-09-05 14:20)
DX: D50.0 Iron deficiency anemia secondary to blood loss (chronic) (principal); K29.81 Duodenitis with bleeding; K57.31 Diverticulosis of large intestine without perforation or abscess with bleeding; I13.0 Hypertensive heart and chronic kidney disease with heart failure and stage 1 through stage 4 chronic kidney disease, or unspecified chronic kidney disease; I50.22 Chronic systolic (congestive) heart failure; N18.4 Chronic kidney disease, stage 4 (severe); I82.622 Acute embolism and thrombosis of deep veins of left upper extremity; I48.92 Unspecified atrial flutter; I42.8 Other cardiomyopathies; K63.5 Polyp of colon; T45.515A Adverse effect of anticoagulants, initial encounter; K55.20 Angiodysplasia of colon without hemorrhage; K44.9 Diaphragmatic hernia without obstruction or gangrene; Z66 Do not resuscitate; D63.1 Anemia in chronic kidney disease; Z20.822 Contact with and (suspected) exposure to COVID-19; Z95.810 Presence of automatic (implantable) cardiac defibrillator; Z96.642 Presence of left artificial hip joint; Z96.651 Presence of right artificial knee joint; Z87.891 Personal history of nicotine dependence; Z79.01 Long term (current) use of anticoagulants; Z79.899 Other long term (current) drug therapy
CPT/HCPCS: 36415; 80048; 80053; 82272; 85025; 85027; 85610; 86850; 86900; 86901; 86923; 87635; 88305; 93971; 99285; J1940; J2370; J3430; P9016

== ENCOUNTER 2022-09-13 09:30 | Outpatient (REF) | payer MEDICARE, SELFPAY ==
[2022-09-13 10:30] LABS: Hematocrit 27.5 % (42.0-52.0); Hemoglobin 7.7 g/dl (14.0-18.0); Mean Corpuscular Hemoglobin 22.4 pg (27.0-33.0); Mean Corpuscular Volume 80.2 fL (80.0-98.0); Mean Platelet Volume 9.5 fL (9.4-12.4); Platelet Count 226 X10*3/uL (160-400); Red Blood Count 3.43 X10*6/uL (4.60-5.80); Red Cell Distribution Width 22.5 % (11.0-16.0); White Blood Count 6.6 X10*3/uL (4.8-10.8)
[2022-09-13 10:53] LABS: Anion Gap 14 (12-20); Blood Urea Nitrogen 31 mg/dL (9-16); Calcium 8.7 mg/dL (8.4-10.2); Carbon Dioxide 31 mmol/L (22-29); Chloride 100 mmol/L (96-108); Estimated Glomerular Filt Rate 30; Glucose Fasting 131 mg/dL (60-99); Potassium 4.7 mmol/L (3.3-5.1); Sodium 140 mmol/L (135-145)
== END 2022-09-13 09:31 | disposition home or self-care (01) ==
LOC: HO.LAB 09:30
PROVIDERS: PCP Internal Medicine; Referring Provider Internal Medicine; Visit Provider Internal Medicine
DX: D64.9 Anemia, unspecified (principal); N17.9 Acute kidney failure, unspecified
CPT/HCPCS: 36415; 80048; 85027

== ENCOUNTER 2022-09-24 09:47 | Outpatient (REF) | payer MEDICARE, SELFPAY ==
[2022-09-24 10:03] LABS: MANUAL DIFF FLAG NO
[2022-09-24 10:13] LABS: Basophils Percent Auto 0.6 % (0-2); Eosinophils Absolute Auto 0.4 X10*3/uL (0.0-0.4); Eosinophils Percent Auto 5.6 % (0-4); Hematocrit 28.8 % (42.0-52.0); Imm Gran Abs Auto 0.06 X10*3/uL (0.00-0.03); Imm Gran Pct Auto 0.9 % (0.0-0.4); Lymphocytes Absolute Auto 0.8 X10*3/uL (1.2-4.9); Mean Corpuscular HGB Conc 27.8 g/dl (31.0-36.0); Mean Corpuscular Hemoglobin 22.4 pg (27.0-33.0); Mean Corpuscular Volume 80.7 fL (80.0-98.0); Mean Platelet Volume 9.1 fL (9.4-12.4); Monocytes Absolute Auto 0.7 X10*3/uL (0.1-1.2); Monocytes Percent Auto 10.1 % (2-11); Neutrophils Absolute Auto 4.5 x10*3/uL (2.0-8.3); Neutrophils Percent Auto 69.8 % (45-73); Platelet Count 228 X10*3/uL (160-400); Red Blood Count 3.57 X10*6/uL (4.60-5.80); Red Cell Distribution Width 21.8 % (11.0-16.0); White Blood Count 6.5 X10*3/uL (4.8-10.8)
== END 2022-09-24 09:48 | disposition home or self-care (01) ==
LOC: HO.LAB 09:47
PROVIDERS: PCP Internal Medicine; Visit Provider Internal Medicine
DX: D64.9 Anemia, unspecified (principal); K92.2 Gastrointestinal hemorrhage, unspecified; N17.9 Acute kidney failure, unspecified; N18.9 Chronic kidney disease, unspecified; Z66 Do not resuscitate
CPT/HCPCS: 36415; 85025

== ENCOUNTER → 2022-10-01 12:32 | Outpatient (BNVA) | payer MEDICARE, SELFPAY | PROVIDERS: PCP Internal Medicine; Referring Provider Internal Medicine; Visit Provider Internal Medicine Cardiovascular Disease | DX: I50.9 Heart failure, unspecified (principal); I42.9 Cardiomyopathy, unspecified; D64.9 Anemia, unspecified; K92.2 Gastrointestinal hemorrhage, unspecified | CPT/HCPCS: 99212 ==

== ENCOUNTER 2022-10-08 09:23 | Outpatient (REF) | payer MEDICARE, SELFPAY ==
[2022-10-08 10:08] LABS: Hematocrit 29.9 % (42.0-52.0); Hemoglobin 8.4 g/dl (14.0-18.0); Mean Corpuscular HGB Conc 28.1 g/dl (31.0-36.0); Mean Corpuscular Hemoglobin 21.7 pg (27.0-33.0); Mean Corpuscular Volume 77.3 fL (80.0-98.0); Mean Platelet Volume 9.4 fL (9.4-12.4); Platelet Count 161 X10*3/uL (160-400); Red Blood Count 3.87 X10*6/uL (4.60-5.80); Red Cell Distribution Width 21.6 % (11.0-16.0); White Blood Count 6.8 X10*3/uL (4.8-10.8)
[2022-10-08 13:47] LABS: Anion Gap 19 (12-20); Blood Urea Nitrogen 31 mg/dL (9-16); Calcium 9.1 mg/dL (8.4-10.2); Carbon Dioxide 26 mmol/L (22-29); Chloride 101 mmol/L (96-108); Estimated Glomerular Filt Rate 24; Glucose Random 147 mg/dL (60-115); Potassium 5.3 mmol/L (3.3-5.1); Sodium 141 mmol/L (135-145)
== END 2022-10-08 09:24 | disposition home or self-care (01) ==
LOC: HO.LAB 09:23
PROVIDERS: Absent Provider Internal Medicine; PCP Internal Medicine; Visit Provider Internal Medicine Cardiovascular Disease
DX: I50.9 Heart failure, unspecified (principal); D64.9 Anemia, unspecified
CPT/HCPCS: 36415; 80048; 85027

== ENCOUNTER 2022-10-12 11:20 | Outpatient (REF) | payer MEDICARE, SELFPAY ==
[2022-10-12 11:41] LABS: Hematocrit 29.7 % (42.0-52.0); Hemoglobin 8.3 g/dl (14.0-18.0); Mean Corpuscular HGB Conc 27.9 g/dl (31.0-36.0); Mean Corpuscular Hemoglobin 21.6 pg (27.0-33.0); Mean Corpuscular Volume 77.3 fL (80.0-98.0); Mean Platelet Volume 8.6 fL (9.4-12.4); Platelet Count 187 X10*3/uL (160-400); Red Blood Count 3.84 X10*6/uL (4.60-5.80); Red Cell Distribution Width 21.2 % (11.0-16.0); White Blood Count 7.2 X10*3/uL (4.8-10.8)
[2022-10-12 12:30] LABS: Anion Gap 16 (12-20); Blood Urea Nitrogen 28 mg/dL (9-16); Calcium 9.1 mg/dL (8.4-10.2); Carbon Dioxide 28 mmol/L (22-29); Chloride 102 mmol/L (96-108); Estimated Glomerular Filt Rate 25; Glucose Random 88 mg/dL (60-115); Potassium 5.2 mmol/L (3.3-5.1); Sodium 141 mmol/L (135-145)
== END 2022-10-12 11:21 | disposition home or self-care (01) ==
LOC: HO.LAB 11:20
PROVIDERS: PCP Internal Medicine; Visit Provider Internal Medicine Cardiovascular Disease
DX: I50.9 Heart failure, unspecified (principal)
CPT/HCPCS: 36415; 80048; 85027

== ENCOUNTER → 2022-10-22 12:23 | Outpatient (BNVA) | payer MEDICARE, SELFPAY | PROVIDERS: PCP Internal Medicine; Visit Provider Internal Medicine Cardiovascular Disease | DX: I50.9 Heart failure, unspecified (principal); D64.9 Anemia, unspecified; Z79.899 Other long term (current) drug therapy | CPT/HCPCS: 93005; 99212 ==

== ENCOUNTER → 2022-11-02 14:10 | Outpatient (BNV) | payer MEDICARE, SELFPAY | PROVIDERS: Visit Provider Internal Medicine Medical Oncology | DX: I82.622 Acute embolism and thrombosis of deep veins of left upper extremity (principal) | CPT/HCPCS: 99213; 99214 ==

== ENCOUNTER 2022-11-10 10:07 | Emergency (ER) | payer MEDICARE, SELFPAY ==
--- NOTE | ~2022-11-10 | XR_ITS ---
EXAMINATION: XR chest 2V CLINICAL INFORMATION: Shortness of breath COMPARISON: Prior chest x-ray 02/03/2022 TECHNIQUE: XR chest 2V Tubes and lines: Triple electrode cardiac device projecting over the left hemithorax probably positioned unchanged. Lungs and pleura: Both lungs are clear. Heart and mediastinum: The mediastinum is within normal limits.. Bones/soft tissue: Skeletal structures included are normal for patient's age. XR/XR chest 2V IMPRESSION: No radiographic evidence of acute cardiopulmonary disease.
--- NOTE | ~2022-11-10 | US_ITS ---
EXAMINATION: US VENOUS ULTRASOUND WITH DOPPLER LOWER EXTREMITY, RIGHT CLINICAL INFORMATION: Edema COMPARISON: None TECHNIQUE: Ultrasound of the deep veins is performed from the hip to the calf with compression sonography and color and pulse Doppler assessment. Spectral analysis with color-flow imaging is performed. FINDINGS: There is normal venous compression and respiratory variation and augmented flow. The visualized common femoral vein, superficial femoral vein, profunda femoral vein, popliteal vein, and the trifurcation region shows no evidence of deep venous thrombosis. There is no significant popliteal fossa cyst. If the patient's symptoms persist, followup ultrasound in 5 days 7 days might be of value to exclude proximal propagation from a non-visualized calf vein. US/US venous duplex LE RT IMPRESSION: No DVT demonstrated in the right lower extremity.
[2022-11-10 10:09] VITALS: BP 123/72; PULSE 81; RESP 22; TEMP 36.4; BMI 26.6
--- NOTE | 2022-11-10 10:16 | ECG_ITS ---
Test Reason : AFIB Blood Pressure : / mmHG Vent. Rate : 080 BPM Atrial Rate : 240 BPM P-R Int : 000 ms QRS Dur : 140 ms QT Int : 444 ms P-R-T Axes : 000 -75 122 degrees QTc Int : 512 ms Ventricular-paced rhythm Abnormal ECG When compared with ECG of 03-FEB-2022 08:21, Vent. rate has decreased BY 36 BPM Referred By: Generic ED Physician Electronically Signed By:NATANAEL DAVIDSON
[2022-11-10 10:43] LABS: Basophils Percent Auto 0.5 % (0-2); Eosinophils Absolute Auto 0.3 X10*3/uL (0.0-0.4); Eosinophils Percent Auto 4.7 % (0-4); Hematocrit 28.5 % (42.0-52.0); Imm Gran Abs Auto 0.03 X10*3/uL (0.00-0.03); Imm Gran Pct Auto 0.5 % (0.0-0.4); Lymphocytes Absolute Auto 0.7 X10*3/uL (1.2-4.9); Lymphocytes Percent Auto 11.8 % (20-40); MANUAL DIFF FLAG NO; Mean Corpuscular HGB Conc 28.1 g/dl (31.0-36.0); Mean Corpuscular Hemoglobin 21.1 pg (27.0-33.0); Mean Corpuscular Volume 75.2 fL (80.0-98.0); Mean Platelet Volume 8.8 fL (9.4-12.4); Monocytes Absolute Auto 0.4 X10*3/uL (0.1-1.2); Monocytes Percent Auto 6.5 % (2-11); Neutrophils Absolute Auto 4.2 x10*3/uL (2.0-8.3); Platelet Count 222 X10*3/uL (160-400); Red Blood Count 3.79 X10*6/uL (4.60-5.80); Red Cell Distribution Width 21.2 % (11.0-16.0); White Blood Count 5.5 X10*3/uL (4.8-10.8)
[2022-11-10 10:51] LABS: INTERNATIONAL NORM RATIO 1.3 (0.9-1.1); Prothrombin Time 15.3 SEC (10.0-13.1)
[2022-11-10 10:53] LABS: Partial Thromboplastin Time 36.1 SEC (26.0-36.4)
[2022-11-10 11:05] LABS: Troponin-I High Sensitivity 15.2 ng/L (<3.5-35.0)
[2022-11-10 11:10] LABS: B Type Natriuretic Peptide 409 pg/mL (<100)
--- NOTE | 2022-11-10 11:17 | ED.GENADULT ---
HPI - General Adult General Chief complaint: General Medical Stated complaint: R leg swelling Time Seen by Provider: 11/10/22 11:12 Source: patient Mode of arrival: ambulatory Limitations: no limitations History of Present Illness HPI narrative: right leg with increased swelling, normally not swelling. Onset (ago): day(s) Location: right and lower extremity Severity: mild Associated symptoms: rash (uleration and redness) Related Data Home Medications Medication Instructions Recorded Confirmed calcitriol 0.25 mcg capsule 0.25 mcg PO MOTH@0900 11/02/21 11/02/22 bisacodyl 5 mg tablet,delayed 10 mg PO DAILY 02/03/22 11/02/22 release (Dulcolax (bisacodyl)) metoprolol tartrate 50 mg tablet 50 mg PO BID@0700,1900 09/03/22 11/02/22 Previous Rx's Medication Instructions Recorded tamsulosin 0.4 mg capsule 0.4 mg PO DAILY #90 caps 05/04/22 allopurinol 100 mg tablet 100 mg PO DAILY #90 tabs 05/27/22 rivaroxaban 15 mg tablet (Xarelto) 15 mg PO QPM #30 tabs 07/02/22 furosemide 40 mg tablet 80 mg PO BID #180 tabs 10/22/22 cephalexin 500 mg capsule 500 mg PO Q6H 7 days #28 caps 11/10/22 Allergies Allergy/AdvReac Type Severity Reaction Status Date / Time No Known Allergies Allergy Verified 11/02/22 14:01 Review of Systems Review of Systems: Yes all other systems are reviewed and are negative [facility] Past Medical History Medical History Acute renal insufficiency Annual physical exam Biventricular ICD (implantable cardioverter-defibrillator) in place Cardiomyopathy Cellulitis of right leg Chronic renal failure, stage 3 (moderate) Chronic systolic (congestive) heart failure Leg wound, right Surgical History History of cardiac defibrillator placement History of left hip replacement History of permanent cardiac pacemaker placement History of removal of skin mole History of total right knee replacement Family History Family History Mother No problems noted. Father No problems noted. 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) Alcohol intake: current Alcohol intake frequency: 3 or more drinks per day Alcohol type: hard liquor Patient Tobacco Use Status: Former Tobacco user Quit Date: over 20 years ago Tobacco use type: Cigarette Years Smoked: 50 +/- e-Cigarette/Vaping Use: Never Used Second Hand Smoke Exposure: No Advance Directives: No Advance Directives Information Provided: Yes service: No Current occupational status: retired Cognitive needs: Yes (cane) Hearing needs: No Vision needs: Yes (glasses) Physical Exam ED Vital Signs: Vital Signs - 24 hr 11/10/22 10:09 Temperature 97.5 F Pulse Rate 81 Respiratory Rate 22 H Blood Pressure 123/72 BMI result Body Mass Index 26.6 Const General: healthy appearing Nutritional Appearance: average body habitus Orientation/consciousness: oriented to person and patient oriented x3 Limitations: no limitations HENMT Head: Yes normal to inspection Ears: external ears normal General nose exam: Normal external nose present Mouth: Normal oral and palatal mucosa present and oropharynx normal Throat: Yes posterior oropharynx normal Eyes General: appearance normal, both eyes and all related structures Neck Neck: Yes normal visual inspection Chest Chest palpation & inspection: normal inspection of the chest Resp Auscultation: clear to auscultation bilaterally Cardio Jugular venous distension: no JVD Rate: regular rate Rhythm: regular rhythm Heart sounds: S1 normal heart sound present and S2 normal heart sound present GI Inspection: Yes normal to inspection Palpation (GI): Soft to palpation, nontender and No hepatosplenomegaly present Auscultation: normal bowel sounds General: Yes no CVA tenderness Back/Spine/Pelvis Back: no CVA tenderness Skin Other: right leg ulcerations with redness to the right leg Neuro General: oriented to person and patient oriented x3 Cranial nerves: Yes CN's II-XII intact bilaterally Motor exam (neuro): 5/5 motor strength present throughout Extrem Other: 3+ edema to right leg Psych Appearance: grossly normal Course Reevaluation(s) Reevaluation #1: no DVT will treat for cellulitis Time: 14:21 Medications Administered Discontinued Medications Generic Name Dose Route Start Last Admin Trade Name Freq PRN Reason Stop Dose Admin Cephalexin HCl 500 mg 11/10/22 11:23 11/10/22 11:30 Cephalexin 500 Mg Capsule PO 11/10/22 11:24 500 mg ONCE ONE Administration Medical Decision Making Differential Diagnosis Differential Diagnoses: The differential diagnosis associated with the presentation includes (edema, cellulitis, DVT, CHF, anemia) Admission/Observation Consideration of admission/observation: Escalation of care including admission/observation considered (87 yo with history of cardiomyopathy and worsening edema, CHF was considered) Lab Data MDM Lab Attestation statement: I reviewed the patient's lab results. 11/10/22 10:36 11/10/22 10:36 Labs: Lab Results 11/10/22 11/10/22 11/10/22 Range/Units 10:36 10:36 10:36 WBC 5.5 (4.8-10.8) X10*3/uL RBC 3.79 L (4.60-5.80) X10*6/uL Hgb 8.0 L (14.0-18.0) g/dl Hct 28.5 L (42.0-52.0) % MCV 75.2 L (80.0-98.0) fL MCH 21.1 L (27.0-33.0) pg MCHC 28.1 L (31.0-36.0) g/dl RDW 21.2 H (11.0-16.0) % Plt Count 222 D (160-400) X10*3/uL MPV 8.8 L (9.4-12.4) fL Immature Gran % (Auto) 0.5 H (0.0-0.4) % Neut % (Auto) 76.0 H (45-73) % Lymph % (Auto) 11.8 L (20-40) % [place] % (Auto) 6.5 (2-11) % Eos % (Auto) 4.7 H (0-4) % Baso % (Auto) 0.5 (0-2) % Lymph # (Auto) 0.7 L (1.2-4.9) X10*3/uL [place] # (Auto) 0.4 (0.1-1.2) X10*3/uL Eos # (Auto) 0.3 (0.0-0.4) X10*3/uL Baso # (Auto) 0.0 (0.0-0.2) X10*3/uL Abs Immat Gran (auto) 0.03 (0.00-0.03) X10*3/uL Absolute Neuts (auto) 4.2 (2.0-8.3) x10*3/uL Absolute Nucleated RBC 0.000 (0.0-0.012) X10*3/uL Nucleated RBC % (auto) 0.0 (0.0-0.2) /100WBC PT 15.3 H (10.0-13.1) SEC INR 1.3 H (0.9-1.1) APTT 36.1 (26.0-36.4) SEC Sodium 140 (135-145) mmol/L Potassium 4.4 (3.3-5.1) mmol/L Chloride 100 (96-108) mmol/L Carbon Dioxide 29 (22-29) mmol/L Anion Gap 15 (12-20) BUN 33 H (9-16) mg/dL Creatinine 2.29 H (0.5-1.4) mg/dL Estim Creat Clear Calc 23.5 Estimated GFR 27 Random Glucose 165 H (60-115) mg/dL Calcium 8.8 (8.4-10.2) mg/dL Troponin I High Sens (<3.5-35.0) ng/L B-Natriuretic Peptide (<100) pg/mL 11/10/22 11/10/22 Range/Units 10:36 10:36 WBC (4.8-10.8) X10*3/uL RBC (4.60-5.80) X10*6/uL Hgb (14.0-18.0) g/dl Hct (42.0-52.0) % MCV (80.0-98.0) fL MCH (27.0-33.0) pg MCHC (31.0-36.0) g/dl RDW (11.0-16.0) % Plt Count (160-400) X10*3/uL MPV (9.4-12.4) fL Immature Gran % (Auto) (0.0-0.4) % Neut % (Auto) (45-73) % Lymph % (Auto) (20-40) % [place] % (Auto) (2-11) % Eos % (Auto) (0-4) % Baso % (Auto) (0-2) % Lymph # (Auto) (1.2-4.9) X10*3/uL [place] # (Auto) (0.1-1.2) X10*3/uL Eos # (Auto) (0.0-0.4) X10*3/uL Baso # (Auto) (0.0-0.2) X10*3/uL Abs Immat Gran (auto) (0.00-0.03) X10*3/uL Absolute Neuts (auto) (2.0-8.3) x10*3/uL Absolute Nucleated RBC (0.0-0.012) X10*3/uL Nucleated RBC % (auto) (0.0-0.2) /100WBC PT (10.0-13.1) SEC INR (0.9-1.1) APTT (26.0-36.4) SEC Sodium (135-145) mmol/L Potassium (3.3-5.1) mmol/L Chloride (96-108) mmol/L Carbon Dioxide (22-29) mmol/L Anion Gap (12-20) BUN (9-16) mg/dL Creatinine (0.5-1.4) mg/dL Estim Creat Clear Calc Estimated GFR Random Glucose (60-115) mg/dL Calcium (8.4-10.2) mg/dL Troponin I High Sens 15.2 (<3.5-35.0) ng/L B-Natriuretic Peptide 409 H (<100) pg/mL Independent Interpretation I performed an independent interpretation of an: EKG (sinus 80, ventricular paced, no st or twave changes) and Plain X-Ray (no CHF) Radiology Impression Discussion of test interpretation with radiology: I have reviewed the radiologist's reading. (ultrasound reading no DVT) Chronic Conditions Patient?s care impacted by: Other (cardiomyopathy) Discharge Plan Discharge Clinical Impression: Chronic heart failure, Cellulitis Patient Disposition: Home, Self-Care Instructions: Heart Failure (DC), Cellulitis (ED), Fluid Restriction (ED) Prescriptions: New cephalexin 500 mg capsule 500 mg PO Q6H 7 Days Qty: 28 0RF No Action tamsulosin 0.4 mg capsule 0.4 mg PO DAILY Qty: 90 1RF allopurinol 100 mg tablet 100 mg PO DAILY Qty: 90 1RF Xarelto 15 mg tablet 15 mg PO QPM Qty: 30 5RF bisacodyl [Dulcolax (bisacodyl)] 5 mg Tablet,Delayed Release (Dr/Ec) 10 mg PO DAILY metoprolol tartrate 50 mg tablet 50 mg PO BID@0700,1900 calcitriol 0.25 mcg capsule 0.25 mcg PO MOTH@0900 furosemide 40 mg tablet 80 mg PO BID Qty: 180 4RF Referrals: Gene Dave MD [Primary Care Provider] - 3 days
[2022-11-10 11:24] LABS: Anion Gap 15 (12-20); Blood Urea Nitrogen 33 mg/dL (9-16); Calcium 8.8 mg/dL (8.4-10.2); Carbon Dioxide 29 mmol/L (22-29); Chloride 100 mmol/L (96-108); Creatinine Clr Calc Pharmacy 23.5; Estimated Glomerular Filt Rate 27; Glucose Random 165 mg/dL (60-115); Potassium 4.4 mmol/L (3.3-5.1); Sodium 140 mmol/L (135-145)
[2022-11-10] MEDS: cephALEXin 500 MG CAPSULE PO (11:30)
--- NOTE | 2022-11-10 11:31 | PC.NURSE ---
pt a&ox3, vss, resting quietly, medicated per provider order, pt pending u/s.
[2022-11-10] MEDS: Bacitracin Oint 0.9 GM PACKET 1 APPL TOPICAL (14:30)
--- NOTE | 2022-11-10 14:38 | PC.NURSE ---
bacitracin applied to wound on right leg and wrapped.
== END 2022-11-10 14:39 | disposition home or self-care (01) ==
PROVIDERS: Emergency Provider Emergency Medicine; PCP Internal Medicine
DX: L03.115 Cellulitis of right lower limb (principal); L97.919 Non-pressure chronic ulcer of unspecified part of right lower leg with unspecified severity; R60.0 Localized edema; I13.0 Hypertensive heart and chronic kidney disease with heart failure and stage 1 through stage 4 chronic kidney disease, or unspecified chronic kidney disease; N18.30 Chronic kidney disease, stage 3 unspecified; I50.22 Chronic systolic (congestive) heart failure; D64.9 Anemia, unspecified; I48.92 Unspecified atrial flutter; Z86.718 Personal history of other venous thrombosis and embolism; Z95.810 Presence of automatic (implantable) cardiac defibrillator; Z87.891 Personal history of nicotine dependence; Z79.899 Other long term (current) drug therapy; Z79.01 Long term (current) use of anticoagulants
CPT/HCPCS: 36415; 71046; 80048; 83880; 84484; 85025; 85610; 85730; 93005; 93971; 99283; 99284

== ENCOUNTER 2022-11-19 07:57 | Outpatient (RCR) | payer MEDICARE, SELFPAY | END 2022-11-19 16:00 | disposition home or self-care (01) | LOC: HO.WCC 07:57 | PROVIDERS: PCP Internal Medicine; Visit Provider Physician Assistant | DX: S80.811D Abrasion, right lower leg, subsequent encounter (principal); I50.30 Unspecified diastolic (congestive) heart failure; I73.9 Peripheral vascular disease, unspecified; Z79.01 Long term (current) use of anticoagulants | CPT/HCPCS: 99212 ==

== ENCOUNTER → 2022-11-19 11:35 | Outpatient (BNVA) | payer MEDICARE, SELFPAY | PROVIDERS: PCP Internal Medicine; Referring Provider Internal Medicine; Visit Provider Internal Medicine Cardiovascular Disease | DX: I50.9 Heart failure, unspecified (principal); D64.9 Anemia, unspecified | CPT/HCPCS: 99212 ==

== ENCOUNTER 2022-11-20 12:36 | Outpatient (REF) | payer MEDICARE, SELFPAY | END 2022-11-20 12:37 | disposition home or self-care (01) | LOC: HO.MDS 12:36 | PROVIDERS: PCP Internal Medicine; Visit Provider Internal Medicine Medical Oncology | DX: D50.9 Iron deficiency anemia, unspecified (principal); Z66 Do not resuscitate | CPT/HCPCS: 96365; J1756 ==

== ENCOUNTER 2022-11-22 10:11 | Outpatient (REF) | payer MEDICARE, SELFPAY ==
--- NOTE | ~2022-11-22 | US_ITS ---
EXAMINATION: US VENOUS WITH DOPPLER UPPER EXTREMITY, LEFT CLINICAL INFORMATION: Follow-up left IJ thrombus COMPARISON: Multiple prior studies most recently 09/03/2022 TECHNIQUE: Ultrasound of the upper extremity is performed using compression sonography and color and pulse Doppler flow with assessment of augmentation of flow. There is also imaging and Doppler assessment of the jugular and subclavian veins. Spectral analysis with color-flow imaging is performed. 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 Above this level the vein appears thickened with a tiny amount of flow within it. Appearances are completely unchanged when compared with the prior study. The left subclavian vein can only be partially seen because of the presence of pacemaker wires. The axillary vein appeared normal. The left cephalic vein was not seen. The brachial and basilic veins appeared normal. The veins of the forearm were not examined. 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 Appearances are unchanged when compared to 09/03/2022.
== END 2022-11-22 10:12 | disposition home or self-care (01) ==
LOC: HO.US 10:11
PROVIDERS: PCP Internal Medicine; Visit Provider Internal Medicine Medical Oncology
DX: I82.622 Acute embolism and thrombosis of deep veins of left upper extremity (principal)
CPT/HCPCS: 93971

== ENCOUNTER 2022-11-27 13:01 | Outpatient (REF) | payer MEDICARE, SELFPAY | END 2022-11-27 13:02 | disposition home or self-care (01) | LOC: HO.MDS 13:01 | PROVIDERS: Visit Provider Internal Medicine Medical Oncology | DX: D50.9 Iron deficiency anemia, unspecified (principal); Z66 Do not resuscitate | CPT/HCPCS: 96365; J1756 ==

== ENCOUNTER 2022-12-04 12:32 | Outpatient (REF) | payer MEDICARE, SELFPAY | END 2022-12-04 12:33 | disposition home or self-care (01) | LOC: HO.MDS 12:32 | PROVIDERS: Visit Provider Internal Medicine Medical Oncology | DX: D50.9 Iron deficiency anemia, unspecified (principal); Z66 Do not resuscitate | CPT/HCPCS: 96374; J1756 ==

== ENCOUNTER 2022-12-11 12:14 | Outpatient (REF) | payer MEDICARE, SELFPAY ==
[2022-12-11 13:34] LABS: Baso%MD 0.6 %; Eos%MD 2.9 %; Hematocrit 23.4 % (42.0-52.0); IG%MD 0.6 %; Lymph%MD 12.7 %; Mean Corpuscular HGB Conc 28.6 g/dl (31.0-36.0); Mean Corpuscular Hemoglobin 23.7 pg (27.0-33.0); Mean Corpuscular Volume 82.7 fL (80.0-98.0); Mono%MD 8.8 %; Neut%MD 74.4 %; Platelet Count 181 X10*3/uL (160-400); Red Blood Count 2.83 X10*6/uL (4.60-5.80); Red Cell Distribution Width 26.3 % (11.0-16.0); White Blood Count 6.6 X10*3/uL (4.8-10.8)
[2022-12-11 13:39] LABS: Hemoglobin 6.7 g/dl (14.0-18.0)
[2022-12-11 13:50] LABS: Band Neutrophils Percent 1 % (3-5); Eosinophils Absolute Manual 0.6 X10*3/uL (0.0-0.4); Eosinophils Percent Manual 9 % (0-4); Lymphocytes Absolute Manual 0.7 X10*3/uL (1.2-4.9); Lymphocytes Percent Manual 10 % (20-40); Monocytes Absolute Manual 0.3 X10*3/uL (0.1-1.2); Monocytes Percent Manual 5 % (2-11); Neutrophils Percent Manual 75 % (45-73)
[2022-12-11 13:51] LABS: Microcytosis 1+ (5-14) /OIF; Platelet Estimate NORMAL (NORMAL); RBC Morphology NOTED
[2022-12-11 13:52] LABS: Acanthocytes 1+ (0-2) /OIF; Macrocytosis 1+ (5-14) /OIF; Ovalocytes 1+ (5-14) /OIF; Platelet Morphology Comment NORM; Polychromasia 1+ (0-2) /OIF
[2022-12-11 13:53] LABS: Tear Drop Cells 1+ (0-2) /OIF
== END 2022-12-11 12:15 | disposition home or self-care (01) ==
LOC: HO.MDS 12:14
PROVIDERS: Visit Provider Internal Medicine Medical Oncology
DX: D50.9 Iron deficiency anemia, unspecified (principal); Z66 Do not resuscitate
CPT/HCPCS: 36415; 85007; 85027; 96365; J1756

== ENCOUNTER 2022-12-11 13:57 | Emergency (ER) | payer MEDICARE, SELFPAY ==
--- NOTE | ~2022-12-11 | XR_ITS ---
EXAMINATION: XR CHEST CLINICAL INFORMATION: Anemia/general weakness. COMPARISON: Chest radiograph 11/10/2022. TECHNIQUE: 2 views of the chest were obtained. FINDINGS: Left-sided pacer/AICD with leads projecting over the right atrium, right ventricle and coronary sinus. Stable cardiomediastinal silhouette. Unchanged mild asymmetric elevation of the left hemidiaphragm. No focal airspace opacity, pleural effusion or pneumothorax. No acute osseous abnormalities. Thoracic spondylosis. The visualized upper abdomen is within normal limits. XR/XR chest 2V IMPRESSION: No acute cardiopulmonary findings.
--- NOTE | 2022-12-11 14:24 | ED.RECABL ---
HPI - Recheck/Abnormal Lab/Rx General Chief Complaint: Recheck/Abnormal Lab/Rx <ALISON Chew - Last Filed: 12/11/22 14:27> Stated Complaint: Abnormal labs hemoglobin 6.8 <ALISON Chew - Last Filed: 12/11/22 14:27> Time Seen by Provider: 12/11/22 15:03 <ALISON Chew - Last Filed: 12/11/22 14:27> Source: patient <Elsa Durant NP - Last Filed: 12/11/22 17:58> Mode of arrival: ambulatory <Elsa Durant NP - Last Filed: 12/11/22 17:58> Limitations: no limitations <Elsa Durant NP - Last Filed: 12/11/22 17:58> History of Present Illness HPI narrative: 87-year-old male with a history of cardiomyopathy, atrial fibrillation who had a pacemaker/automatic cardiac defibrillator placed on 01/24/2022, chronic anemia requiring iron infusions here with complaints of low hemoglobin. Patient reports had routine lab work done which showed hemoglobin of 6.7 was referred into the ER for further evaluation. Patient reports feeling generally but denies any chest pain, dizziness, shortness of breath. He does report that his stools have been dark in color but tells me he has been getting iron infusions by Hematology Dr. Rodriguez. No abdominal pain, vomiting blood, bright red blood in stool. Patient is on Xarelto <Elsa Durant NP - Last Filed: 12/11/22 17:58> Related Data Home Medications: Home Medications Medication Instructions Recorded Confirmed calcitriol 0.25 mcg capsule 0.25 mcg PO MOTH@0900 11/02/21 11/19/22 bisacodyl 5 mg tablet,delayed 10 mg PO DAILY 02/03/22 11/19/22 release (Dulcolax (bisacodyl)) metoprolol tartrate 50 mg tablet 50 mg PO BID@0700,1900 09/03/22 11/19/22 Previous Rx's Medication Instructions Recorded allopurinol 100 mg tablet 100 mg PO DAILY #90 tabs 05/27/22 rivaroxaban 15 mg tablet (Xarelto) 15 mg PO QPM #30 tabs 07/02/22 furosemide 40 mg tablet 80 mg PO BID #180 tabs 10/22/22 cephalexin 500 mg capsule 500 mg PO Q6H 7 days #28 caps 11/10/22 tamsulosin 0.4 mg capsule 0.4 mg PO DAILY #90 caps 11/18/22 <ALISON Chew - Last Filed: 12/11/22 14:27> Allergies/Adverse Reactions: Allergies Allergy/AdvReac Type Severity Reaction Status Date / Time No Known Allergies Allergy Verified 11/19/22 11:40 <ALISON Chew - Last Filed: 12/11/22 14:27> Review of Systems Review of Systems: Yes all other systems are reviewed and are negative <Elsa Durant NP - Last Filed: 12/11/22 17:58> Constitutional: Constitutional: Reports no additional constitutional complaints, Denies body ache(s), Denies chills, Denies fever(s), Denies headache(s) and Reports weakness <Elsa Durant NP - Last Filed: 12/11/22 17:58> Eyes: Eyes: Reports no additional eye complaints and Denies change in vision <Elsa Durant NP - Last Filed: 12/11/22 17:58> ENT: Reports system reviewed and no additional complaints, except as documented, Denies dizziness, Denies headache(s), Denies nasal congestion, Denies nasal discharge and Denies neck pain <Elsa Durant NP - Last Filed: 12/11/22 17:58> Cardiovascular: Cardiovascular: Reports no additional cardiovascular complaints, Denies chest pain, Denies leg edema and Denies dyspnea <Elsa Durant NP - Last Filed: 12/11/22 17:58> Respiratory: Respiratory: Reports no additional respiratory complaints, Denies cough and Denies dyspnea <Elsa Durant NP - Last Filed: 12/11/22 17:58> Gastrointestinal: Gastrointestinal: Reports no additional gastrointestinal complaints, Denies abdominal pain, Reports melena, Denies diarrhea, Denies nausea and Denies vomiting <Elsa Durant NP - Last Filed: 12/11/22 17:58> Genitourinary: Genitourinary: Denies urinary incontinence <Elsa Durant NP - Last Filed: 12/11/22 17:58> Musculoskeletal: Musculoskeletal: Reports no additional musculoskeletal complaints, Denies back pain, Denies arthralgias, Denies joint swelling, Denies neck pain, Denies numbness and Denies tingling <Elsa Durant NP - Last Filed: 12/11/22 17:58> Integumentary/Breasts: Skin/Breast: Reports system reviewed and no additional complaints, except as docu and Denies rash <Elsa Durant NP - Last Filed: 12/11/22 17:58> Neurologic: Reports system reviewed and no additional complaints, except as documented, Denies Abnormal speech present, Denies dizziness, Denies headache(s), Denies numbness, Denies tingling and Reports weakness <Elsa Durant NP - Last Filed: 12/11/22 17:58> PMFSH Past Medical History Attestation statement: The following information was validated with the patient. <Elsa Durant NP - Last Filed: 12/11/22 17:58> Source: old records reviewed and nursing notes reviewed <Elsa Durant NP - Last Filed: 12/11/22 17:58> Medical History: Medical History Acute renal insufficiency Annual physical exam Biventricular ICD (implantable cardioverter-defibrillator) in place Cardiomyopathy Cellulitis of right leg Chronic renal failure, stage 3 (moderate) Chronic systolic (congestive) heart failure Leg wound, right <ALISON Chew - Last Filed: 12/11/22 14:27> Surgical History: Surgical History History of cardiac defibrillator placement History of left hip replacement History of permanent cardiac pacemaker placement History of removal of skin mole History of total right knee replacement <ALISON Chew - Last Filed: 12/11/22 14:27> Family History Family History: Family History Mother No problems noted. Father No problems noted. 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) Alcohol intake: current Alcohol intake frequency: 3 or more drinks per day Alcohol type: hard liquor Patient Tobacco Use Status: Former Tobacco user Quit Date: over 20 years ago Tobacco use type: Cigarette Years Smoked: 50 +/- e-Cigarette/Vaping Use: Never Used Second Hand Smoke Exposure: No service: No Current occupational status: retired Cognitive needs: Yes (cane) Hearing needs: No Vision needs: Yes (glasses) <ALISON Chew - Last Filed: 12/11/22 14:27> Physical Exam Vital Signs: Vital Signs: Last Vital Signs Temp 97.7 F 12/11/22 17:29 Pulse 82 12/11/22 17:29 Resp 18 12/11/22 17:29 BP 121/64 12/11/22 17:29 Pulse Ox 98 12/11/22 16:08 O2 Del Method Room Air 12/11/22 16:08 BMI result Body Mass Index 26.6 <ALISON Chew - Last Filed: 12/11/22 14:27> Vital Signs: Last Vital Signs Temp 97.7 F 12/11/22 17:29 Pulse 82 12/11/22 17:29 Resp 18 12/11/22 17:29 BP 121/64 12/11/22 17:29 Pulse Ox 98 12/11/22 16:08 O2 Del Method Room Air 12/11/22 16:08 BMI result Body Mass Index 26.6 <Elsa Durant NP - Last Filed: 12/11/22 17:58> Const: General: cooperative, healthy appearing, comfortable and no acute distress <Elsa Durant NP - Last Filed: 12/11/22 17:58> Orientation/consciousness: patient oriented x3 <Elsa Durant NP - Last Filed: 12/11/22 17:58> Limitations: no limitations <Elsa Durant CHIEF OPERATING OFFICER - Last Filed: 12/11/22 17:58> HEENT: Head: Yes normal to inspection <Elsa Durant CHIEF OPERATING OFFICER - Last Filed: 12/11/22 17:58> Ears: hearing grossly normal bilaterally <Elsa Durant CHIEF OPERATING OFFICER - Last Filed: 12/11/22 17:58> General nose exam: Normal external nose present <Elsa Durant CHIEF OPERATING OFFICER - Last Filed: 12/11/22 17:58> Face and sinus: Yes normal facial exam <Elsa Durant, CHIEF OPERATING OFFICER - Last Filed: 12/11/22 17:58> Mouth: Normal oral and palatal mucosa present <Elsa Durant CHIEF OPERATING OFFICER - Last Filed: 12/11/22 17:58> Throat: Yes posterior oropharynx normal <Elsa Durant, CHIEF OPERATING OFFICER - Last Filed: 12/11/22 17:58> Eyes: General: appearance normal, both eyes and all related structures <Elsa Durant CHIEF OPERATING OFFICER - Last Filed: 12/11/22 17:58> Pupils: Equal, round and reactive pupils present <Elsa Durant CHIEF OPERATING OFFICER - Last Filed: 12/11/22 17:58> Neck: Neck: Yes normal visual inspection <Elsa Durant CHIEF OPERATING OFFICER - Last Filed: 12/11/22 17:58> Chest: Chest palpation & inspection: normal inspection of the chest <Elsa Durant CHIEF OPERATING OFFICER - Last Filed: 12/11/22 17:58> Resp: Effort & Inspection: normal respiratory effort <Elsa Durant CHIEF OPERATING OFFICER - Last Filed: 12/11/22 17:58> Auscultation: clear to auscultation bilaterally <Elsa Durant CHIEF OPERATING OFFICER - Last Filed: 12/11/22 17:58> Cardio: Rate: regular rate <Elsa Durant CHIEF OPERATING OFFICER - Last Filed: 12/11/22 17:58> Rhythm: regular rhythm <Elsa Durant CHIEF OPERATING OFFICER - Last Filed: 12/11/22 17:58> Peripheral pulses: Peripheral pulses 2+ throughout <Elsa Pascucci, CHIEF OPERATING OFFICER - Last Filed: 12/11/22 17:58> GI: 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: 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-heme positive <Elsanadege Durant, CHIEF OPERATING OFFICER - Last Filed: 12/11/22 17:58> Inspection: Yes normal to inspection <Elsa Bhargav, CHIEF OPERATING OFFICER - Last Filed: 12/11/22 17:58> Palpation (GI): Soft to palpation and nontender <Elsa Bhargav, CHIEF OPERATING OFFICER - Last Filed: 12/11/22 17:58> Auscultation: normal bowel sounds <Elsa Kimi, CHIEF OPERATING OFFICER - Last Filed: 12/11/22 17:58> Back/Spine/Pelvis: Thoracic/Lumbar Spine: thoracic and lumbar spine normal to inspection <Elsa Bhargav, CHIEF OPERATING OFFICER - Last Filed: 12/11/22 17:58> Skin: General skin exam: no rashes or lesions noted <Elsa Bhargav, CHIEF OPERATING OFFICER - Last Filed: 12/11/22 17:58> Neuro: General: patient oriented x3, no focal motor deficits and normal sensation to monofilament <Elsa Bhargav, CHIEF OPERATING OFFICER - Last Filed: 12/11/22 17:58> Cranial nerves: Yes Equal, round and reactive pupils present <Elsa Bhargav, CHIEF OPERATING OFFICER - Last Filed: 12/11/22 17:58> Cognition (Neuro): normal cognition <Elsa Bhargav, CHIEF OPERATING OFFICER - Last Filed: 12/11/22 17:58> Speech: No Abnormal speech present <Elsa Bhargav, CHIEF OPERATING OFFICER - Last Filed: 12/11/22 17:58> Gait exam (Neuro): Normal gait present <Elsa Bhargav, CHIEF OPERATING OFFICER - Last Filed: 12/11/22 17:58> Motor exam (neuro): 5/5 motor strength present throughout <Elsa Kimi, CHIEF OPERATING OFFICER - Last Filed: 12/11/22 17:58> Extrem: General: Yes normal to inspection <Elsa Bhargav, CHIEF OPERATING OFFICER - Last Filed: 12/11/22 17:58> Course Course Course Narrative: RME-14:30PM - 87yoM with a PMHx of anemia presenting to the ER after Dr. Rodriguez sent him here for further evaluation treatment due to low hemoglobin of 6. Patient reports that his hemoglobin went from 8-6. He has had some black stools since he has been taking iron infusions for the past 4 weeks. Reports generalized weakness. Denies any dizziness, change in vision, chest pain or shortness of breath, cough or any other symptoms complaints or concerns at this time. Plan: Will obtain labs, blood type and screen, EKG and chest x-ray. Recent to the ER for further evaluation treatment. <ALISON Chew - Last Filed: 12/11/22 14:27> Reevaluation(s) Reevaluation #1: Hemoglobin today is 7.1. Patient is symptomatic and has dark stools which are heme-positive. May be secondary to GI bleed. Patient was consented for blood and received 1 unit of PRBCs. I recommended admission to further work patient up for GI bleed but he declined this and wants to go home. Patient will leave against medical advice. He is alert and oriented and able to make his own medical decision <Elsa Durant NP - Last Filed: 12/11/22 17:58> Medical Decision Making Medical Decision Making [facility] Narrative: This is an 87-year-old male with an extensive medical history who is currently on Xarelto who also has a history of chronic anemia secondary to iron deficiency receiving iron infusions by hematology as he is unable to tolerate oral iron who presents to the ER with a hemoglobin of 6.7 drawn and outpatient labs and reports of dark stools. No focal abdominal pain. Vitals are stable. Patient feels generally weak but has no other symptoms. Rectal exam shows dark stool-heme positive Will obtain labs including type and screen, EKG, CXR anticipate admission <Elsa Durant NP - Last Filed: 12/11/22 17:58> Differential Diagnosis Differential Diagnoses: The differential diagnosis associated with the presentation includes <Elsa Durant NP - Last Filed: 12/11/22 17:58> GI bleed, symptomatic anemia <Elsa Durant NP - Last Filed: 12/11/22 17:58> Lab Data [facility] Lab Attestation statement: I reviewed the patient's lab results. <Elsa Durant NP - Last Filed: 12/11/22 17:58> Result Diagrams: 12/11/22 14:44 12/11/22 14:44 <ALISON Chew - Last Filed: 12/11/22 14:27> Labs: Lab Results 12/11/22 12/11/22 12/11/22 Range/Units 14:44 14:44 14:44 WBC 6.8 (4.8-10.8) X10*3/uL RBC 3.07 L (4.60-5.80) X10*6/uL Hgb 7.1 L (14.0-18.0) g/dl Hct 25.1 L (42.0-52.0) % MCV 81.8 (80.0-98.0) fL MCH 23.1 L (27.0-33.0) pg MCHC 28.3 L (31.0-36.0) g/dl RDW 26.2 H (11.0-16.0) % Plt Count 179 (160-400) X10*3/uL MPV 8.9 L (9.4-12.4) fL Immature Gran % (Auto) 0.6 H (0.0-0.4) % Neut % (Auto) 72.2 (45-73) % Lymph % (Auto) 13.5 L (20-40) % [place] % (Auto) 9.0 (2-11) % Eos % (Auto) 4.0 (0-4) % Baso % (Auto) 0.7 (0-2) % Lymph # (Auto) 0.9 L (1.2-4.9) X10*3/uL [place] # (Auto) 0.6 (0.1-1.2) X10*3/uL Eos # (Auto) 0.3 (0.0-0.4) X10*3/uL Baso # (Auto) 0.1 (0.0-0.2) X10*3/uL Abs Immat Gran (auto) 0.04 H (0.00-0.03) X10*3/uL Absolute Neuts (auto) 4.9 (2.0-8.3) x10*3/uL Absolute Nucleated RBC 0.000 (0.0-0.012) X10*3/uL Nucleated RBC % (auto) 0.0 (0.0-0.2) /100WBC PT (10.0-13.1) SEC INR (0.9-1.1) Sodium 141 (135-145) mmol/L Potassium 4.0 (3.3-5.1) mmol/L Chloride 99 (96-108) mmol/L Carbon Dioxide 30 H (22-29) mmol/L Anion Gap 16 (12-20) BUN 50 H (9-16) mg/dL Creatinine 2.71 H (0.5-1.4) mg/dL Estim Creat Clear Calc 19.9 Estimated GFR 22 Random Glucose 124 H (60-115) mg/dL Calcium 9.0 (8.4-10.2) mg/dL Magnesium 3.2 H (1.6-2.6) mg/dL Total Bilirubin 0.6 (0.0-1.0) mg/dL AST 22 (5-37) U/L ALT 11 (0-40) U/L Alkaline Phosphatase 102 (39-117) U/L Total Protein 7.0 (6.5-8.0) g/dL Albumin 3.8 (3.5-5.0) g/dL Stool Occult Blood (NEGATIVE) Influenza Type A (PCR) NEGATIVE (Negative) Influenza Type B (PCR) NEGATIVE (Negative) RSV RNA Qual (PCR) NEGATIVE (Negative) SARS-CoV-2 RNA (RT-PCR) NEGATIVE (Negative) Blood Type Antibody Screen Crossmatch 12/11/22 12/11/22 12/11/22 Range/Units 14:45 14:45 15:26 WBC (4.8-10.8) X10*3/uL RBC (4.60-5.80) X10*6/uL Hgb (14.0-18.0) g/dl Hct (42.0-52.0) % MCV (80.0-98.0) fL MCH (27.0-33.0) pg MCHC (31.0-36.0) g/dl RDW (11.0-16.0) % Plt Count (160-400) X10*3/uL MPV (9.4-12.4) fL Immature Gran % (Auto) (0.0-0.4) % Neut % (Auto) (45-73) % Lymph % (Auto) (20-40) % [place] % (Auto) (2-11) % Eos % (Auto) (0-4) % Baso % (Auto) (0-2) % Lymph # (Auto) (1.2-4.9) X10*3/uL [place] # (Auto) (0.1-1.2) X10*3/uL Eos # (Auto) (0.0-0.4) X10*3/uL Baso # (Auto) (0.0-0.2) X10*3/uL Abs Immat Gran (auto) (0.00-0.03) X10*3/uL Absolute Neuts (auto) (2.0-8.3) x10*3/uL Absolute Nucleated RBC (0.0-0.012) X10*3/uL Nucleated RBC % (auto) (0.0-0.2) /100WBC PT 15.3 H (10.0-13.1) SEC INR 1.3 H (0.9-1.1) Sodium (135-145) mmol/L Potassium (3.3-5.1) mmol/L Chloride (96-108) mmol/L Carbon Dioxide (22-29) mmol/L Anion Gap (12-20) BUN (9-16) mg/dL Creatinine (0.5-1.4) mg/dL Estim Creat Clear Calc Estimated GFR Random Glucose (60-115) mg/dL Calcium (8.4-10.2) mg/dL Magnesium (1.6-2.6) mg/dL Total Bilirubin (0.0-1.0) mg/dL AST (5-37) U/L ALT (0-40) U/L Alkaline Phosphatase (39-117) U/L Total Protein (6.5-8.0) g/dL Albumin (3.5-5.0) g/dL Stool Occult Blood POSITIVE (NEGATIVE) Influenza Type A (PCR) (Negative) Influenza Type B (PCR) (Negative) RSV RNA Qual (PCR) (Negative) SARS-CoV-2 RNA (RT-PCR) (Negative) Blood Type B Positive Antibody Screen NEGATIVE Crossmatch See Detail <ALISON Chew - Last Filed: 03/28/23 14:27> Lab Results 12/11/22 12/11/22 12/11/22 Range/Units 14:44 14:44 14:44 WBC 6.8 (4.8-10.8) X10*3/uL RBC 3.07 L (4.60-5.80) X10*6/uL Hgb 7.1 L (14.0-18.0) g/dl Hct 25.1 L (42.0-52.0) % MCV 81.8 (80.0-98.0) fL MCH 23.1 L (27.0-33.0) pg MCHC 28.3 L (31.0-36.0) g/dl RDW 26.2 H (11.0-16.0) % Plt Count 179 (160-400) X10*3/uL MPV 8.9 L (9.4-12.4) fL Immature Gran % (Auto) 0.6 H (0.0-0.4) % Neut % (Auto) 72.2 (45-73) % Lymph % (Auto) 13.5 L (20-40) % [place] % (Auto) 9.0 (2-11) % Eos % (Auto) 4.0 (0-4) % Baso % (Auto) 0.7 (0-2) % Lymph # (Auto) 0.9 L (1.2-4.9) X10*3/uL [place] # (Auto) 0.6 (0.1-1.2) X10*3/uL Eos # (Auto) 0.3 (0.0-0.4) X10*3/uL Baso # (Auto) 0.1 (0.0-0.2) X10*3/uL Abs Immat Gran (auto) 0.04 H (0.00-0.03) X10*3/uL Absolute Neuts (auto) 4.9 (2.0-8.3) x10*3/uL Absolute Nucleated RBC 0.000 (0.0-0.012) X10*3/uL Nucleated RBC % (auto) 0.0 (0.0-0.2) /100WBC PT (10.0-13.1) SEC INR (0.9-1.1) Sodium 141 (135-145) mmol/L Potassium 4.0 (3.3-5.1) mmol/L Chloride 99 (96-108) mmol/L Carbon Dioxide 30 H (22-29) mmol/L Anion Gap 16 (12-20) BUN 50 H (9-16) mg/dL Creatinine 2.71 H (0.5-1.4) mg/dL Estim Creat Clear Calc 19.9 Estimated GFR 22 Random Glucose 124 H (60-115) mg/dL Calcium 9.0 (8.4-10.2) mg/dL Magnesium 3.2 H (1.6-2.6) mg/dL Total Bilirubin 0.6 (0.0-1.0) mg/dL AST 22 (5-37) U/L ALT 11 (0-40) U/L Alkaline Phosphatase 102 (39-117) U/L Total Protein 7.0 (6.5-8.0) g/dL Albumin 3.8 (3.5-5.0) g/dL Stool Occult Blood (NEGATIVE) Influenza Type A (PCR) NEGATIVE (Negative) Influenza Type B (PCR) NEGATIVE (Negative) RSV RNA Qual (PCR) NEGATIVE (Negative) SARS-CoV-2 RNA (RT-PCR) NEGATIVE (Negative) Blood Type Antibody Screen Crossmatch 12/11/22 12/11/22 12/11/22 Range/Units 14:45 14:45 15:26 WBC (4.8-10.8) X10*3/uL RBC (4.60-5.80) X10*6/uL Hgb (14.0-18.0) g/dl Hct (42.0-52.0) % MCV (80.0-98.0) fL MCH (27.0-33.0) pg MCHC (31.0-36.0) g/dl RDW (11.0-16.0) % Plt Count (160-400) X10*3/uL MPV (9.4-12.4) fL Immature Gran % (Auto) (0.0-0.4) % Neut % (Auto) (45-73) % Lymph % (Auto) (20-40) % [place] % (Auto) (2-11) % Eos % (Auto) (0-4) % Baso % (Auto) (0-2) % Lymph # (Auto) (1.2-4.9) X10*3/uL [place] # (Auto) (0.1-1.2) X10*3/uL Eos # (Auto) (0.0-0.4) X10*3/uL Baso # (Auto) (0.0-0.2) X10*3/uL Abs Immat Gran (auto) (0.00-0.03) X10*3/uL Absolute Neuts (auto) (2.0-8.3) x10*3/uL Absolute Nucleated RBC (0.0-0.012) X10*3/uL Nucleated RBC % (auto) (0.0-0.2) /100WBC PT 15.3 H (10.0-13.1) SEC INR 1.3 H (0.9-1.1) Sodium (135-145) mmol/L Potassium (3.3-5.1) mmol/L Chloride (96-108) mmol/L Carbon Dioxide (22-29) mmol/L Anion Gap (12-20) BUN (9-16) mg/dL Creatinine (0.5-1.4) mg/dL Estim Creat Clear Calc Estimated GFR Random Glucose (60-115) mg/dL Calcium (8.4-10.2) mg/dL Magnesium (1.6-2.6) mg/dL Total Bilirubin (0.0-1.0) mg/dL AST (5-37) U/L ALT (0-40) U/L Alkaline Phosphatase (39-117) U/L Total Protein (6.5-8.0) g/dL Albumin (3.5-5.0) g/dL Stool Occult Blood POSITIVE (NEGATIVE) Influenza Type A (PCR) (Negative) Influenza Type B (PCR) (Negative) RSV RNA Qual (PCR) (Negative) SARS-CoV-2 RNA (RT-PCR) (Negative) Blood Type B Positive Antibody Screen NEGATIVE Crossmatch See Detail <Elsa Durant NP - Last Filed: 12/11/22 17:58> Independent Interpretation I performed an independent interpretation of an: EKG and Plain X-Ray <Elsa Durant NP - Last Filed: 12/11/22 17:58> Interpretation: I independently reviewed the chest x-ray and agree with radiologist's report Independently reviewed the EKG which shows V paced rhythm with a rate 81 <Elsa Durant NP - Last Filed: 12/11/22 17:58> Radiology Impression Discussion of test interpretation with radiology: I have reviewed the radiologist's reading. <Elsa Durant NP - Last Filed: 12/11/22 17:58> Radiologist Impression: [address] [id number] XRay Report Signed Patient: Ozzy Thorne MR#: [id number] : 1935 Acct:[id number] Age/Sex: 87 / M ADM Date: 12/11/22 Loc: .ED Attending Dr: Ordering Physician: Susu Mckeon Date of Service: 12/11/22 Procedure(s): XR chest 2V Accession Number(s): [id number] cc: Susu Mckeon~ EXAMINATION: XR CHEST CLINICAL INFORMATION: Anemia/general weakness. COMPARISON: Chest radiograph 11/10/2022. TECHNIQUE: 2 views of the chest were obtained. FINDINGS: Left-sided pacer/AICD with leads projecting over the right atrium, right ventricle and coronary sinus. Stable cardiomediastinal silhouette. Unchanged mild asymmetric elevation of the left hemidiaphragm. No focal airspace opacity, pleural effusion or pneumothorax. No acute osseous abnormalities. Thoracic spondylosis. The visualized upper abdomen is within normal limits. XR/XR chest 2V IMPRESSION: No acute cardiopulmonary findings. ? ? <Elsa Durant NP - Last Filed: 12/11/22 17:58> Discharge Plan Discharge Clinical Impression: Anemia <ALISON Chew - Last Filed: 12/11/22 14:27> Patient Disposition: Left Against Medical Advice <ALISON Chew - Last Filed: 12/11/22 14:27> Instructions: Anemia (ED) <ALISON Chew - Last Filed: 12/11/22 14:27> Additional Instructions: You did require 1 unit of blood. You do have blood in her stool and so the recommendation was for you to be admitted for further observation and treatment as needed. You did declined this. Please follow-up with your winding inspector and tester outpatient <ALISON Chew - Last Filed: 12/11/22 14:27> Prescriptions: No Action allopurinol 100 mg tablet 100 mg PO DAILY Qty: 90 1RF Xarelto 15 mg tablet 15 mg PO QPM Qty: 30 5RF tamsulosin 0.4 mg capsule 0.4 mg PO DAILY Qty: 90 1RF bisacodyl [Dulcolax (bisacodyl)] 5 mg Tablet,Delayed Release (Dr/Ec) 10 mg PO DAILY metoprolol tartrate 50 mg tablet 50 mg PO BID@0700,1900 cephalexin 500 mg capsule 500 mg PO Q6H 7 Days Qty: 28 0RF calcitriol 0.25 mcg capsule 0.25 mcg PO MOTH@0900 furosemide 40 mg tablet 80 mg PO BID Qty: 180 4RF <ALISON Chew - Last Filed: 12/11/22 14:27> Referrals: Sis Rodriguez MD [Physician] - 5 days Gene Dave MD [Primary Care Provider] - 1 week <ALISON Chew - Last Filed: 12/11/22 14:27> Stand Alone Forms: Against Medical Advice <ALISON Chew - Last Filed: 12/11/22 14:27> Interventions: ED Discharge Assessment Last Done: 12/11/22 17:51 <ALISON Chew - Last Filed: 12/11/22 14:27> Discharge Date/Time: 12/11/22 17:52 <ALISON Chew - Last Filed: 12/11/22 14:27>
[2022-12-11 14:25] VITALS: BP 107/53; PULSE 81; RESP 18; TEMP 36.3; O2SAT 100; BMI 26.6
--- NOTE | 2022-12-11 14:25 | ECG_ITS ---
Test Reason : ANEMIA Blood Pressure : / mmHG Vent. Rate : 081 BPM Atrial Rate : 227 BPM P-R Int : 000 ms QRS Dur : 108 ms QT Int : 440 ms P-R-T Axes : 000 -66 096 degrees QTc Int : 511 ms Ventricular-paced rhythm Abnormal ECG When compared with ECG of 10-NOV-2022 10:24, No significant change was found Referred By: Susu Mckeon Electronically Signed By:NATANAEL DAVIDSON
[2022-12-11 14:52] LABS: MANUAL DIFF FLAG NO
[2022-12-11 14:53] LABS: Basophils Absolute Auto 0.1 X10*3/uL (0.0-0.2); Basophils Percent Auto 0.7 % (0-2); Eosinophils Absolute Auto 0.3 X10*3/uL (0.0-0.4); Hematocrit 25.1 % (42.0-52.0); Hemoglobin 7.1 g/dl (14.0-18.0); Imm Gran Abs Auto 0.04 X10*3/uL (0.00-0.03); Imm Gran Pct Auto 0.6 % (0.0-0.4); Lymphocytes Absolute Auto 0.9 X10*3/uL (1.2-4.9); Lymphocytes Percent Auto 13.5 % (20-40); Mean Corpuscular HGB Conc 28.3 g/dl (31.0-36.0); Mean Corpuscular Hemoglobin 23.1 pg (27.0-33.0); Mean Corpuscular Volume 81.8 fL (80.0-98.0); Mean Platelet Volume 8.9 fL (9.4-12.4); Monocytes Absolute Auto 0.6 X10*3/uL (0.1-1.2); Neutrophils Absolute Auto 4.9 x10*3/uL (2.0-8.3); Neutrophils Percent Auto 72.2 % (45-73); Platelet Count 179 X10*3/uL (160-400); Red Blood Count 3.07 X10*6/uL (4.60-5.80); Red Cell Distribution Width 26.2 % (11.0-16.0); White Blood Count 6.8 X10*3/uL (4.8-10.8)
[2022-12-11 15:00] LABS: INTERNATIONAL NORM RATIO 1.3 (0.9-1.1); Prothrombin Time 15.3 SEC (10.0-13.1)
[2022-12-11 15:12] LABS: Alanine Aminotransferase 11 U/L (0-40); Albumin Level 3.8 g/dL (3.5-5.0); Alkaline Phosphatase 102 U/L (39-117); Anion Gap 16 (12-20); Aspartate Amino Transferase 22 U/L (5-37); Bilirubin Total 0.6 mg/dL (0.0-1.0); Blood Urea Nitrogen 50 mg/dL (9-16); Carbon Dioxide 30 mmol/L (22-29); Chloride 99 mmol/L (96-108); Creatinine Clr Calc Pharmacy 19.9; Estimated Glomerular Filt Rate 22; Glucose Random 124 mg/dL (60-115); Magnesium 3.2 mg/dL (1.6-2.6); Sodium 141 mmol/L (135-145)
[2022-12-11 15:49] LABS: OBS Int Ctl Valid YES; OBS1 POSITIVE (NEGATIVE)
[2022-12-11 15:54] LABS: Influenza A PCR NEGATIVE (Negative); Influenza B PCR NEGATIVE (Negative); Resp Syncy Virus RNA Qual PCR NEGATIVE (Negative); SARS COV2 PCR INHOUSE NEGATIVE (Negative)
[2022-12-11 16:03] VITALS: BP 103/46; PULSE 80; RESP 12; TEMP 36.6
[2022-12-11 16:08] VITALS: BP 103/46; PULSE 80; RESP 12; TEMP 36.6; O2SAT 98
[2022-12-11 16:20] VITALS: BP 141/72; PULSE 80; RESP 18; TEMP 36.6
--- NOTE | 2022-12-11 16:29 | PC.NURSE ---
transfusion running. denied complaints or complications. will continue to monitor.
[2022-12-11 17:29] VITALS: BP 121/64; PULSE 82; RESP 18; TEMP 36.5
== END 2022-12-11 17:52 | disposition left against medical advice (07) ==
PROVIDERS: Nurse Practitioner Family; Physician Assistant Medical; Emergency Provider Emergency Medicine; PCP Internal Medicine
DX: D64.9 Anemia, unspecified (principal); Z20.822 Contact with and (suspected) exposure to COVID-19; Z20.828 Contact with and (suspected) exposure to other viral communicable diseases; Z79.01 Long term (current) use of anticoagulants; Z79.899 Other long term (current) drug therapy
CPT/HCPCS: 0241U; 36415; 36430; 71046; 80053; 82272; 83735; 85025; 85610; 86850; 86900; 86901; 86923; 93005; 99285; P9016

== ENCOUNTER 2022-12-18 12:10 | Outpatient (REF) | payer MEDICARE, SELFPAY | END 2022-12-18 12:11 | disposition home or self-care (01) | LOC: HO.MDS 12:10 | PROVIDERS: Visit Provider Internal Medicine Medical Oncology | DX: D50.9 Iron deficiency anemia, unspecified (principal); Z66 Do not resuscitate | CPT/HCPCS: 96365; J1756 ==

== ENCOUNTER 2022-12-25 12:38 | Outpatient (REF) | payer MEDICARE, SELFPAY | END 2022-12-25 12:39 | disposition home or self-care (01) | LOC: HO.MDS 12:38 | PROVIDERS: Visit Provider Internal Medicine Medical Oncology | DX: D50.9 Iron deficiency anemia, unspecified (principal) | CPT/HCPCS: 96365; J1756 ==

== ENCOUNTER 2023-01-01 12:09 | Outpatient (REF) | payer MEDICARE, SELFPAY | END 2023-01-01 12:10 | disposition home or self-care (01) | LOC: HO.MDS 12:09 | PROVIDERS: Visit Provider Internal Medicine Medical Oncology | DX: D50.9 Iron deficiency anemia, unspecified (principal) | CPT/HCPCS: 96365; J1756 ==

== ENCOUNTER 2023-01-08 12:11 | Outpatient (REF) | payer MEDICARE, SELFPAY ==
[2023-01-08 12:45] LABS: MANUAL DIFF FLAG NO
[2023-01-08 12:53] LABS: Basophils Absolute Auto 0.1 X10*3/uL (0.0-0.2); Basophils Percent Auto 0.8 % (0-2); Eosinophils Absolute Auto 0.3 X10*3/uL (0.0-0.4); Eosinophils Percent Auto 4.6 % (0-4); Hematocrit 33.8 % (42.0-52.0); Hemoglobin 9.8 g/dl (14.0-18.0); Imm Gran Abs Auto 0.03 X10*3/uL (0.00-0.03); Imm Gran Pct Auto 0.5 % (0.0-0.4); Lymphocytes Absolute Auto 0.8 X10*3/uL (1.2-4.9); Mean Corpuscular Hemoglobin 25.9 pg (27.0-33.0); Mean Corpuscular Volume 89.2 fL (80.0-98.0); Mean Platelet Volume 9.1 fL (9.4-12.4); Monocytes Absolute Auto 0.6 X10*3/uL (0.1-1.2); Monocytes Percent Auto 9.3 % (2-11); Neutrophils Absolute Auto 4.2 x10*3/uL (2.0-8.3); Neutrophils Percent Auto 70.8 % (45-73); Platelet Count 182 X10*3/uL (160-400); Red Blood Count 3.79 X10*6/uL (4.60-5.80); Red Cell Distribution Width 23.7 % (11.0-16.0); White Blood Count 5.9 X10*3/uL (4.8-10.8)
== END 2023-01-08 12:12 | disposition home or self-care (01) ==
LOC: HO.MDS 12:11
PROVIDERS: Visit Provider Internal Medicine Medical Oncology
DX: D50.9 Iron deficiency anemia, unspecified (principal)
CPT/HCPCS: 36415; 85025; 96365; J1756

== ENCOUNTER 2023-02-06 10:49 | Emergency (ER) | payer MEDICARE, SELFPAY ==
[2023-02-06 10:59] VITALS: BP 128/70; PULSE 84; RESP 19; TEMP 36.6; O2SAT 100; BMI 26.6
--- NOTE | 2023-02-06 11:04 | ED.GENADULT ---
HPI - General Adult General Chief complaint: Recheck/Abnormal Lab/Rx Stated complaint: Rectal Bleed Time Seen by Provider: 02/06/23 13:53 Source: patient, family and old records reviewed Mode of arrival: ambulatory Limitations: no limitations History of Present Illness HPI narrative: 88 yo male with history of Alutter on Eliquis, CHF, cardiomyopathy, CKD, iron deficiency anemia s/p recent PRBC and iron transfusions who presents to the ER for evaluation of BBRPR x2 today. He states he has been constipated lately, taking milk of magnesia intermitently. This morning he strained to have a BM but it was soft and nonbloody. An hour later he had another BM that was watery, he states the bowel was filled with blood and stool. It occurred again about an hour later. No associated abdominal pain, nausea, vomiting, chest pain, dizziness, weakness, or SOB. Last colonscopy was September 06 showing diverticulosis, colonic polyps and cecal AVM. MD complaint: rectal bleeding Onset (ago): hour(s) Location: buttocks Radiation: non-radiation Relieving factors: none Exacerbating factors: none Associated symptoms: denies other symptoms Treatments prior to arrival: none Related Data Home Medications Medication Instructions Recorded Confirmed calcitriol 0.25 mcg capsule 0.25 mcg PO MOTH@0900 11/02/21 01/28/23 bisacodyl 5 mg tablet,delayed 10 mg PO DAILY 02/03/22 01/28/23 release (Dulcolax (bisacodyl)) metoprolol tartrate 50 mg tablet 50 mg PO BID@0700,1900 09/03/22 01/28/23 Previous Rx's Medication Instructions Recorded allopurinol 100 mg tablet 100 mg PO DAILY #90 tabs 05/27/22 tamsulosin 0.4 mg capsule 0.4 mg PO DAILY #90 caps 11/18/22 furosemide 40 mg tablet 80 mg PO BID 90 days #360 tabs 12/28/22 rivaroxaban 15 mg tablet (Xarelto) 15 mg PO QPM #30 tabs 12/28/22 Allergies Allergy/AdvReac Type Severity Reaction Status Date / Time No Known Allergies Allergy Verified 02/06/23 10:59 Review of Systems Review of Systems: Yes all other systems are reviewed and are negative [facility] Past Medical History Medical History Acute renal insufficiency Annual physical exam Biventricular ICD (implantable cardioverter-defibrillator) in place Cardiomyopathy Cellulitis of right leg Chronic renal failure, stage 3 (moderate) Chronic systolic (congestive) heart failure Leg wound, right Surgical History History of cardiac defibrillator placement History of left hip replacement History of permanent cardiac pacemaker placement History of removal of skin mole History of total right knee replacement Family History Family History Mother No problems noted. Father No problems noted. 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) Alcohol intake: current Alcohol intake frequency: 3 or more drinks per day Alcohol type: hard liquor Patient Tobacco Use Status: Former Tobacco user Quit Date: over 20 years ago Tobacco use type: Cigarette Years Smoked: 50 +/- e-Cigarette/Vaping Use: Never Used Second Hand Smoke Exposure: No Advance Directives: Yes Advance Directives on File: Yes Advance Directives Date on File: 09/07/22 service: No Current occupational status: retired Cognitive needs: Yes (cane) Hearing needs: No Vision needs: Yes (glasses) Physical Exam ED Vital Signs: Vital Signs - 24 hr 02/06/23 10:59 02/06/23 14:23 02/06/23 15:44 Temperature 98 F 97.6 F 97.4 F Pulse Rate 84 89 80 Respiratory Rate 19 17 16 Blood Pressure 128/70 144/75 H 136/68 Pulse Oximetry 100 98 Oxygen Delivery Method Room Air Room Air Room Air BMI result Body Mass Index 26.6 Appearance: Alert. Oriented X3. No acute distress. Head: normocephalic, atraumatic. Eyes: Pupils equal, round and reactive to light. ENT: Pharynx normal. No tonsillar swelling or exudate. Neck: Normal inspection. Neck supple. CVS: Normal heart rate and rhythm. Pulses normal. Respiratory: No respiratory distress. Breath sounds normal. Abdomen: Soft and nontender. +BS x4 CARMEN: normal inspection, normal rectal tone, nontender, no palpable hemorrhoids. brown, heme+ stool Skin: Skin warm and dry. Normal skin color. Normal skin turgor. No rashes. Extremities: No lower extremity edema. No joint swelling. Scattered ecchymotic areas on bilateral forearms Neuro/psych: Oriented X 3. No motor deficit. No sensory deficit. CN II-XII intact. Normal speech and cognition. Course Course Course Narrative: RME: 88-year-old male with a history of cardiomyopathy, atrial fibrillation who had a pacemaker/automatic cardiac defibrillator placed on 01/24/2022, chronic anemia requiring iron infusions, on Xarelto presenting to the ED complaining of constipation x 3 days, now with bright red bloody BMs x2 days. Denies other associated symptoms including abdominal pain, rectal pain, lightheadedness or dizziness Labs, UA, occult stool ordered Full HPI, ROS and PE to be performed by primary ED provider. Medical Decision Making Medical Decision Making [facility] Narrative: 88 yo male with history of Alutter on Eliquis, cardiomyopathy, anemia s/p recent PRBC and iron infusions presenting to the ER for evaluation of painless rectal bleeding x2 today. No further bleeding while in the ER. No palpable hemorrhoids on exam. CARMEN with brown heme+stool. Patient's H/H is stable. No tachycardia or hypotension. Patient would like to go home. Spoke with Dr. Hammond from GI who is recommending holding the eliquis for up to 3 days. Encouraged to come back to the ER if bleeding continues. Differential Diagnosis Differential Diagnoses: The differential diagnosis associated with the presentation includes hemorrhoidal bleeding, diverticular bleeding, AVM bleeding, less likely brisk UGIB Admission/Observation Consideration of admission/observation: Escalation of care including admission/observation considered Consult Healthcare Provider Management of the patient was discussed with: Didactic Instructor GI Lab Data [facility] Lab Attestation statement: I reviewed the patient's lab results. stable anemia, stable CKD 02/06/23 11:21 02/06/23 11:21 Labs: Lab Results 02/06/23 02/06/23 02/06/23 Range/Units 11:21 11:21 11:21 WBC 7.8 (4.8-10.8) X10*3/uL RBC 4.47 L (4.60-5.80) X10*6/uL Hgb 12.1 L (14.0-18.0) g/dl Hct 38.7 L (42.0-52.0) % MCV 86.6 (80.0-98.0) fL MCH 27.1 (27.0-33.0) pg MCHC 31.3 (31.0-36.0) g/dl RDW 19.3 H (11.0-16.0) % Plt Count 192 (160-400) X10*3/uL MPV 8.7 L (9.4-12.4) fL Immature Gran % (Auto) 0.5 H (0.0-0.4) % Neut % (Auto) 73.3 H (45-73) % Lymph % (Auto) 12.5 L (20-40) % [place] % (Auto) 9.0 (2-11) % Eos % (Auto) 4.1 H (0-4) % Baso % (Auto) 0.6 (0-2) % Lymph # (Auto) 1.0 L (1.2-4.9) X10*3/uL [place] # (Auto) 0.7 (0.1-1.2) X10*3/uL Eos # (Auto) 0.3 (0.0-0.4) X10*3/uL Baso # (Auto) 0.1 (0.0-0.2) X10*3/uL Abs Immat Gran (auto) 0.04 H (0.00-0.03) X10*3/uL Absolute Neuts (auto) 5.7 (2.0-8.3) x10*3/uL Absolute Nucleated RBC 0.000 (0.0-0.012) X10*3/uL Nucleated RBC % (auto) 0.0 (0.0-0.2) /100WBC PT 16.0 H (10.0-13.1) SEC INR 1.4 H (0.9-1.1) Sodium 136 (135-145) mmol/L Potassium 4.4 (3.3-5.1) mmol/L Chloride 96 (96-108) mmol/L Carbon Dioxide 31 H (22-29) mmol/L Anion Gap 13 (12-20) BUN 37 H (9-16) mg/dL Creatinine 2.28 H (0.5-1.4) mg/dL Estim Creat Clear Calc 22.5 Estimated GFR 27 Random Glucose 109 (60-115) mg/dL Calcium 9.1 (8.4-10.2) mg/dL Magnesium 3.2 H (1.6-2.6) mg/dL Total Bilirubin 0.7 (0.0-1.0) mg/dL Direct Bilirubin 0.2 (0.0-0.5) mg/dL AST 18 (5-37) U/L ALT 11 (0-40) U/L Alkaline Phosphatase 106 (39-117) U/L Total Protein 7.8 (6.5-8.0) g/dL Albumin 4.0 (3.5-5.0) g/dL Lipase 40 (8-78) U/L Stool Occult Blood (NEGATIVE) 02/06/23 Range/Units 14:36 WBC (4.8-10.8) X10*3/uL RBC (4.60-5.80) X10*6/uL Hgb (14.0-18.0) g/dl Hct (42.0-52.0) % MCV (80.0-98.0) fL MCH (27.0-33.0) pg MCHC (31.0-36.0) g/dl RDW (11.0-16.0) % Plt Count (160-400) X10*3/uL MPV (9.4-12.4) fL Immature Gran % (Auto) (0.0-0.4) % Neut % (Auto) (45-73) % Lymph % (Auto) (20-40) % [place] % (Auto) (2-11) % Eos % (Auto) (0-4) % Baso % (Auto) (0-2) % Lymph # (Auto) (1.2-4.9) X10*3/uL [place] # (Auto) (0.1-1.2) X10*3/uL Eos # (Auto) (0.0-0.4) X10*3/uL Baso # (Auto) (0.0-0.2) X10*3/uL Abs Immat Gran (auto) (0.00-0.03) X10*3/uL Absolute Neuts (auto) (2.0-8.3) x10*3/uL Absolute Nucleated RBC (0.0-0.012) X10*3/uL Nucleated RBC % (auto) (0.0-0.2) /100WBC PT (10.0-13.1) SEC INR (0.9-1.1) Sodium (135-145) mmol/L Potassium (3.3-5.1) mmol/L Chloride (96-108) mmol/L Carbon Dioxide (22-29) mmol/L Anion Gap (12-20) BUN (9-16) mg/dL Creatinine (0.5-1.4) mg/dL Estim Creat Clear Calc Estimated GFR Random Glucose (60-115) mg/dL Calcium (8.4-10.2) mg/dL Magnesium (1.6-2.6) mg/dL Total Bilirubin (0.0-1.0) mg/dL Direct Bilirubin (0.0-0.5) mg/dL AST (5-37) U/L ALT (0-40) U/L Alkaline Phosphatase (39-117) U/L Total Protein (6.5-8.0) g/dL Albumin (3.5-5.0) g/dL Lipase (8-78) U/L Stool Occult Blood POSITIVE (NEGATIVE) External Record Review External record reviewed: Inpatient record, Outpatient record and Prior outpatient labs Chronic Conditions Patient?s care impacted by: Other (aflutter, cardiomyopathy) Discharge Plan Discharge Clinical Impression: Rectal bleeding Patient Disposition: Home, Self-Care Instructions: Rectal Bleeding (ED) Additional Instructions: HOLD your Xarelto tonight and tomorrow If you have recurrent bleeding come back to the ER for further evaluation Prescriptions: No Action allopurinol 100 mg tablet 100 mg PO DAILY Qty: 90 1RF tamsulosin 0.4 mg capsule 0.4 mg PO DAILY Qty: 90 1RF Xarelto 15 mg tablet 15 mg PO QPM Qty: 30 5RF furosemide 40 mg tablet 80 mg PO BID 90 Days Qty: 360 3RF bisacodyl [Dulcolax (bisacodyl)] 5 mg Tablet,Delayed Release (Dr/Ec) 10 mg PO DAILY metoprolol tartrate 50 mg tablet 50 mg PO BID@0700,1900 calcitriol 0.25 mcg capsule 0.25 mcg PO MOTH@0900
[2023-02-06 11:26] LABS: MANUAL DIFF FLAG NO
[2023-02-06 11:30] LABS: Basophils Absolute Auto 0.1 X10*3/uL (0.0-0.2); Basophils Percent Auto 0.6 % (0-2); Eosinophils Absolute Auto 0.3 X10*3/uL (0.0-0.4); Eosinophils Percent Auto 4.1 % (0-4); Hematocrit 38.7 % (42.0-52.0); Hemoglobin 12.1 g/dl (14.0-18.0); Imm Gran Abs Auto 0.04 X10*3/uL (0.00-0.03); Imm Gran Pct Auto 0.5 % (0.0-0.4); Lymphocytes Percent Auto 12.5 % (20-40); Mean Corpuscular HGB Conc 31.3 g/dl (31.0-36.0); Mean Corpuscular Hemoglobin 27.1 pg (27.0-33.0); Mean Corpuscular Volume 86.6 fL (80.0-98.0); Mean Platelet Volume 8.7 fL (9.4-12.4); Monocytes Absolute Auto 0.7 X10*3/uL (0.1-1.2); Neutrophils Absolute Auto 5.7 x10*3/uL (2.0-8.3); Neutrophils Percent Auto 73.3 % (45-73); Platelet Count 192 X10*3/uL (160-400); Red Blood Count 4.47 X10*6/uL (4.60-5.80); Red Cell Distribution Width 19.3 % (11.0-16.0); White Blood Count 7.8 X10*3/uL (4.8-10.8)
[2023-02-06 11:35] LABS: INTERNATIONAL NORM RATIO 1.4 (0.9-1.1)
[2023-02-06 11:51] LABS: Alanine Aminotransferase 11 U/L (0-40); Alkaline Phosphatase 106 U/L (39-117); Anion Gap 13 (12-20); Aspartate Amino Transferase 18 U/L (5-37); Bilirubin Direct 0.2 mg/dL (0.0-0.5); Bilirubin Total 0.7 mg/dL (0.0-1.0); Blood Urea Nitrogen 37 mg/dL (9-16); Calcium 9.1 mg/dL (8.4-10.2); Carbon Dioxide 31 mmol/L (22-29); Chloride 96 mmol/L (96-108); Creatinine Clr Calc Pharmacy 22.5; Estimated Glomerular Filt Rate 27; Glucose Random 109 mg/dL (60-115); Lipase 40 U/L (8-78); Magnesium 3.2 mg/dL (1.6-2.6); Potassium 4.4 mmol/L (3.3-5.1); Sodium 136 mmol/L (135-145); Total Protein 7.8 g/dL (6.5-8.0)
[2023-02-06 14:23] VITALS: BP 144/75; PULSE 89; RESP 17; TEMP 36.4
[2023-02-06 14:48] LABS: OBS Int Ctl Valid YES; OBS1 POSITIVE (NEGATIVE)
[2023-02-06 15:44] VITALS: BP 136/68; PULSE 80; RESP 16; TEMP 36.3; O2SAT 98
--- NOTE | 2023-02-06 15:47 | MHC.EDTECH ---
THIS PCT ASSUMED CARE OF PT AT 1500 ,VITALS SIGN TAKEN ,PT WAS REPOSITION IN BED .
== END 2023-02-06 16:25 | disposition home or self-care (01) ==
PROVIDERS: Physician Assistant; Emergency Provider Emergency Medicine; PCP Internal Medicine
DX: K62.5 Hemorrhage of anus and rectum (principal); Z87.891 Personal history of nicotine dependence; Z95.0 Presence of cardiac pacemaker; Z79.01 Long term (current) use of anticoagulants; Z79.899 Other long term (current) drug therapy
CPT/HCPCS: 36415; 80048; 80076; 82272; 83690; 83735; 85025; 85610; 99283; 99284

== ENCOUNTER 2023-03-04 11:00 | Outpatient (REF) | payer MEDICARE, SELFPAY ==
[2023-03-04 12:14] LABS: Hematocrit 31.6 % (42.0-52.0); Hemoglobin 9.7 g/dl (14.0-18.0); Mean Corpuscular HGB Conc 30.7 g/dl (31.0-36.0); Mean Corpuscular Hemoglobin 26.6 pg (27.0-33.0); Mean Corpuscular Volume 86.6 fL (80.0-98.0); Mean Platelet Volume 9.4 fL (9.4-12.4); Platelet Count 199 X10*3/uL (160-400); Red Blood Count 3.65 X10*6/uL (4.60-5.80); White Blood Count 7.6 X10*3/uL (4.8-10.8)
[2023-03-04 12:38] LABS: Anion Gap 17 (12-20); Blood Urea Nitrogen 37 mg/dL (9-16); Calcium 9.3 mg/dL (8.4-10.2); Carbon Dioxide 30 mmol/L (22-29); Chloride 98 mmol/L (96-108); Estimated Glomerular Filt Rate 25; Glucose Random 107 mg/dL (60-115); Iron 32 mcg/dL (45-160); Percent Iron Saturation 9 % (15-50); Potassium 4.1 mmol/L (3.3-5.1); Sodium 141 mmol/L (135-145); Total Iron Binding Capacity 349 mcg/dL (228-428); Unsaturated Iron Binding 317 ug/dL
[2023-03-06 14:18] LABS: PTHI 206 pg/mL (16-77)
== END 2023-03-04 11:01 | disposition home or self-care (01) ==
LOC: HO.LAB 11:00
PROVIDERS: PCP Internal Medicine; Referring Provider Internal Medicine; Visit Provider Internal Medicine Hypertension Specialist
DX: N18.4 Chronic kidney disease, stage 4 (severe) (principal); D63.1 Anemia in chronic kidney disease; I42.9 Cardiomyopathy, unspecified; I50.9 Heart failure, unspecified
CPT/HCPCS: 36415; 80048; 83540; 83970; 85027; 99212

== ENCOUNTER 2023-03-13 14:13 | Outpatient (REF) | payer MEDICARE, SELFPAY ==
[2023-03-13 14:23] LABS: MANUAL DIFF FLAG NO
[2023-03-13 15:35] LABS: Basophils Absolute Auto 0.1 X10*3/uL (0.0-0.2); Basophils Percent Auto 0.6 % (0-2); Eosinophils Absolute Auto 0.3 X10*3/uL (0.0-0.4); Eosinophils Percent Auto 3.3 % (0-4); Hematocrit 29.1 % (42.0-52.0); Hemoglobin 8.5 g/dl (14.0-18.0); Imm Gran Abs Auto 0.02 X10*3/uL (0.00-0.03); Imm Gran Pct Auto 0.2 % (0.0-0.4); Lymphocytes Absolute Auto 1.5 X10*3/uL (1.2-4.9); Lymphocytes Percent Auto 18.2 % (20-40); Mean Corpuscular HGB Conc 29.2 g/dl (31.0-36.0); Mean Corpuscular Hemoglobin 24.9 pg (27.0-33.0); Mean Corpuscular Volume 85.3 fL (80.0-98.0); Mean Platelet Volume 9.3 fL (9.4-12.4); Monocytes Absolute Auto 0.7 X10*3/uL (0.1-1.2); Neutrophils Absolute Auto 5.6 x10*3/uL (2.0-8.3); Neutrophils Percent Auto 68.7 % (45-73); Platelet Count 241 X10*3/uL (160-400); Red Blood Count 3.41 X10*6/uL (4.60-5.80); Red Cell Distribution Width 17.6 % (11.0-16.0); White Blood Count 8.2 X10*3/uL (4.8-10.8)
[2023-03-13 16:28] LABS: Ferritin 28 ng/mL (20-250)
== END 2023-03-13 14:14 | disposition home or self-care (01) ==
LOC: HO.LAB 14:13
PROVIDERS: PCP Internal Medicine; Visit Provider Internal Medicine
DX: K92.1 Melena (principal); D64.9 Anemia, unspecified
CPT/HCPCS: 36415; 82728; 85025

== ENCOUNTER 2023-03-18 13:03 | Day surgery (SDC) | payer MEDICARE, SELFPAY ==
--- NOTE | 2023-03-15 14:09 | HO.ANESPROP2 ---
Documented by User: Brooklyn Shah NP 03/15/23 14:16 HPI - Anesthesia Eval Consult details Narrative: 88yo M for Upper Endoscopy ICD/GUEST SERVICE REPRESENTATIVE-D in situ Xarelto for Aflutter/DVT s/p EGD and [place] 08/2022 with MAC PMFSH Active Problems Active Problems: All Active Problems (Updated 02/07/23 @ 00:35 by Santi Nguyen) Internal jugular vein thrombosis (Acute) Chronic heart failure (Acute) Anemia (Acute) GI bleed (Acute) Acute on chronic renal failure (Acute) Anemia (Acute) Annual physical exam (Acute) Neck pain (Acute) Constipation (Acute) Atrial flutter (Acute) Cardiomyopathy (Acute) Acute deep vein thrombosis (DVT) of left upper extremity (Acute) Past Medical History Medical History Acute renal insufficiency Annual physical exam Biventricular ICD (implantable cardioverter-defibrillator) in place Cardiomyopathy Cellulitis of right leg Chronic renal failure, stage 3 (moderate) Chronic systolic (congestive) heart failure Leg wound, right Family History Family History Mother No problems noted. Father No problems noted. Other No family history of cancer Family history of problems with anesthesia: No Surgical History Surgical History History of cardiac defibrillator placement History of left hip replacement History of permanent cardiac pacemaker placement History of removal of skin mole History of total right knee replacement History of Problems with Anesthesia: No Social History Social History Household Members: Children Household Members Other:: 1 Housing: House Are you a primary primary care pediatrician to a significant other at home: No Do you presently have visiting nurse or other home services: Yes (youth pastor) Alcohol intake: current Alcohol intake frequency: 0-2 drinks per day Alcohol type: hard liquor Patient Tobacco Use Status: Former Tobacco user Quit Date: over 20 years ago Tobacco use type: Cigarette Years Smoked: 50 +/- e-Cigarette/Vaping Use: Never Used Second Hand Smoke Exposure: No Use of substances other than those prescribed or required for medical reasons: No Are you DNR?: No Advance Directives: No Advance Directives Information Provided: Yes Advance Directives Date on File: 09/07/22 service: No Current occupational status: retired Cognitive needs: Yes (cane) Hearing needs: No Vision needs: Yes (glasses) Meds Allergies Allergy/AdvReac Type Severity Reaction Status Date / Time No Known Allergies Allergy Verified 03/04/23 11:07 Home Medications Medication Instructions Recorded Confirmed Last Taken Type calcitriol 0.25 mcg capsule 0.25 mcg PO MOTH@0900 11/02/21 03/18/23 09/03/22 08:00 History bisacodyl 5 mg tablet,delayed 10 mg PO DAILY 02/03/22 03/04/23 09/03/22 08:00 History release (Dulcolax (bisacodyl)) metoprolol tartrate 50 mg tablet 50 mg PO BEDTIME 09/03/22 03/18/23 09/03/22 08:00 History metoprolol tartrate 25 mg tablet 75 mg PO DAILY 03/04/23 03/18/23 03/18/23 History Exam Exam Date and Time: March 15, 2023 1409 Pertinent Lab Results Pertinent Lab Results: Laboratory Tests 03/15/23 03/15/23 11:53 11:53 WBC 6.5 Hgb 8.2 L Hct 26.9 L Plt Count 198 Sodium 137 Potassium 3.7 Chloride 97 Carbon Dioxide 28 BUN 31 H Creatinine 2.31 H Narrative Narrative: HF monitor 03/15/23 Cardiac Device Check Details: [employer] GUEST SERVICE REPRESENTATIVE D.? V paced 97.4%.? No new alerts.? Stable thoracic impedance. ICD Interr 03/15/23 Cardiac Device Check Details: [employer] GUEST SERVICE REPRESENTATIVE D. Battery life more than 5 years. No new alerts.? V paced 97.4%. Background atrial flutter. EKG 11/2022 Vent. Rate : 081 BPM ? ? Atrial Rate : 227 BPM ?? P-R Int : 000 ms? QRS Dur : 108 ms ? ? QT Int : 440 ms ? ? ? P-R-T Axes : 000 -66 096 degrees ?? QTc Int : 511 ms ? Ventricular-paced rhythm Abnormal ECG When compared with ECG of 10-NOV-2022 10:24, No significant change was found ? ECHO 2021 Conclusions: - Normal left ventricular cavity size.? There is mildly increased left ventricular wall thickness.? The left ventricular systolic? function is moderately decreased.? The visually estimated? ejection fraction is between 30-35%. ? - The inferior wall and inferolateral wall are akinetic. ? - There is moderate dilatation of the sinuses of Valsalva? measuring 4.50 cm and mild dilatation of the ascending aorta ? ? measuring 4.20 cm. ? - Normal right ventricular cavity size.? There is mildly ? decreased right ventricular systolic function. ? ? ? Assessment and Plan Assessment Anesthesia Assessment: Chart Reviewed Final Anesthetic Review Family History of Problems with Anesthesia: No History of Problems with Anesthesia: No Documented by User: Bo Silverio MD 03/18/23 14:43 PMFSH Past Medical History Medical History Acute renal insufficiency Annual physical exam Biventricular ICD (implantable cardioverter-defibrillator) in place Cardiomyopathy Cellulitis of right leg Chronic renal failure, stage 3 (moderate) Chronic systolic (congestive) heart failure Leg wound, right Family History Family History Mother No problems noted. Father No problems noted. Other No family history of cancer Surgical History Surgical History History of cardiac defibrillator placement History of left hip replacement History of permanent cardiac pacemaker placement History of removal of skin mole History of total right knee replacement Social History Social History Household Members: Children Household Members Other:: 1 Housing: House Are you a primary primary care pediatrician to a significant other at home: No Do you presently have visiting nurse or other home services: Yes (youth pastor) Alcohol intake: current Alcohol intake frequency: 0-2 drinks per day Alcohol type: hard liquor Patient Tobacco Use Status: Former Tobacco user Quit Date: over 20 years ago Tobacco use type: Cigarette Years Smoked: 50 +/- e-Cigarette/Vaping Use: Never Used Second Hand Smoke Exposure: No Use of substances other than those prescribed or required for medical reasons: No Are you DNR?: No Advance Directives: No Advance Directives Information Provided: Yes Advance Directives Date on File: 09/07/22 service: No Current occupational status: retired Cognitive needs: Yes (cane) Hearing needs: No Vision needs: Yes (glasses) Meds Allergies Allergy/AdvReac Type Severity Reaction Status Date / Time No Known Allergies Allergy Verified 03/04/23 11:07 Home Medications Medication Instructions Recorded Confirmed Last Taken Type calcitriol 0.25 mcg capsule 0.25 mcg PO MOTH@0900 11/02/21 03/18/23 09/03/22 08:00 History bisacodyl 5 mg tablet,delayed 10 mg PO DAILY 02/03/22 03/04/23 09/03/22 08:00 History release (Dulcolax (bisacodyl)) metoprolol tartrate 50 mg tablet 50 mg PO BEDTIME 09/03/22 03/18/23 09/03/22 08:00 History metoprolol tartrate 25 mg tablet 75 mg PO DAILY 03/04/23 03/18/23 03/18/23 History Exam Airway Mallampati Class: III TM Dist: >3cm Neck ROM: Limited Heart: rrr Lungs: cta Assessment and Plan Assessment Anesthesia Assessment: Anesthesia Plan Discussed Final Anesthetic Review NPO: Yes ASA Class: IV Final Preanesthetic Review: No Changes in Pt Med Stat, Meds/Allgs Chart Reviewed, Consent Obtained/Reviewed and Anes Risks/Benef Reviewed Patient Risk: High Procedure Risk: Intermediate Anesthetic Plan Anesthetic Plan: MAC: and Agree w/ Assess. and Plan Disposition: Standard PACU
[2023-03-18 13:57] VITALS: BP 123/67; PULSE 96; RESP 18; TEMP 36.4; O2SAT 99
--- NOTE | 2023-03-18 14:20 | PC.NURSE ---
call placed to lab for cbc x 3.
--- NOTE | 2023-03-18 14:22 | PC.NURSE ---
Bar Attendant from oncology in to draw pt, will run stat.
[2023-03-18 15:30] VITALS: BP 115/63; PULSE 80; RESP 16; TEMP 36.3; O2SAT 100
--- NOTE | 2023-03-18 15:39 | PM.OP ---
Brief Operative Note Date of Service: 03/18/23 Pre-op diagnosis: Melena, anemia Post-op diagnosis: other (Erosive duodenitis, Hiatal hernia, GERD) Procedure: EGD with biopsies Surgeon: Kevin Hammond Anesthesia: MAC Was an Documentation Nurse used for this Procedure?: No Estimated blood loss (mL): 2.0 Pathology: other (A. Gastric antrum) Condition: stable Disposition: PACU
[2023-03-18 15:45] VITALS: BP 119/55; PULSE 81; RESP 16; O2SAT 99
[2023-03-18 16:00] VITALS: BP 126/66; PULSE 79; RESP 18; TEMP 36.6; O2SAT 99
== END 2023-03-18 16:10 | disposition home or self-care (01) ==
PROVIDERS: PCP Internal Medicine; Visit Provider Internal Medicine
PROC: 0DJ08ZZ Inspection of Upper Intestinal Tract, Via Natural or Artificial Opening Endoscopic (ICD-10-PCS; CPT 43235; principal; 2023-03-18 15:00)
DX: K92.2 Gastrointestinal hemorrhage, unspecified (principal); D64.9 Anemia, unspecified; K29.80 Duodenitis without bleeding; K21.9 Gastro-esophageal reflux disease without esophagitis; K44.9 Diaphragmatic hernia without obstruction or gangrene; I11.0 Hypertensive heart disease with heart failure; I50.9 Heart failure, unspecified; I48.91 Unspecified atrial fibrillation; Z79.01 Long term (current) use of anticoagulants; Z79.899 Other long term (current) drug therapy
CPT/HCPCS: 43239; 36415; 85025; 85610; 88305; 88342

== ENCOUNTER 2023-03-21 09:46 | Outpatient (AMB) | payer MEDICARE, SELFPAY ==
--- NOTE | 2023-03-21 10:02 | MHC.PC.OV ---
Vital Signs 03/21/23 10:05 Height 5 ft 8 in Weight 173 lb 2 oz BMI 26.3 BP 130/70 Blood Pressure Location Lt brachial Position Sitting Pulse 86 Pulse Source Pulse Oximeter Pulse Oximetry (%) 99 Oxygen Delivery Method Room Air Intake Visit Reasons: 3 month f/u Intake Note: Patient is here to follow up on CHF, Acute on chronic renal failure. Orchard Sprayer Required: No Fish And Wildlife Warden: Not Required per policy Accompanied by: Self / Same As Patient Allergies No Known Allergies Allergy (Verified 03/29/23 13:53) Medication List - Last Reconciled 03/29/23 by Gene Dave MD allopurinol 100 mg PO DAILY bisacodyl (Dulcolax (bisacodyl)) 10 mg PO DAILY calcitriol 0.25 mcg PO MOTH@0900 furosemide 80 mg (2 x 40 mg) PO BID 90 days metoprolol tartrate 50 mg PO BEDTIME metoprolol tartrate 75 mg PO DAILY omeprazole 40 mg PO DAILY rivaroxaban (Xarelto) 15 mg PO QPM tamsulosin 0.4 mg PO DAILY Tobacco use date assessed: 12/13/22 Fall risk assessment: No Falls in past year Last assessed Fall Risk: 03/21/23 Dental Screening Dental Screen Date: 03/21/23 Did you have a dental visit in the last 12 months?: Yes Did you have a dental problem in the last 6 months where you did not have access to dental care?: No Was dental information given to patient?: Patient has dentist HPI 3 month f/u HPI Details 88-year-old male presents to the office to discuss his chronic medical conditions. Patient is feeling much better now. He seems to have more energy. He had received multiple transfusions. Able to function and do activities of daily living. Continuing to use the oral anticoagulants. [facility] Medical History Acute renal insufficiency Annual physical exam Biventricular ICD (implantable cardioverter-defibrillator) in place Cardiomyopathy Cellulitis of right leg Chronic renal failure, stage 3 (moderate) Chronic systolic (congestive) heart failure Leg wound, right Surgical History History of cardiac defibrillator placement History of endoscopy History of left hip replacement History of permanent cardiac pacemaker placement History of removal of skin mole History of total right knee replacement Family History Mother No problems noted. Father No problems noted. 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) Alcohol intake: current Alcohol intake frequency: 0-2 drinks per day Alcohol type: hard liquor Patient Tobacco Use Status: Former Tobacco user Quit Date: over 20 years ago Tobacco use type: Cigarette Years Smoked: 50 +/- e-Cigarette/Vaping Use: Never Used Second Hand Smoke Exposure: No Advance Directives Date on File: 09/07/22 service: No Current occupational status: retired Cognitive needs: Yes (cane) Hearing needs: No Vision needs: Yes (glasses) Questionnaire Thrive Questionnaire Date Thrive assessed: 12/13/22 JANET-7 AMB Questionnaire JANET-7 Date JANET - 7 assessed: 12/13/22 Source: Developed by Drs. Kevin Rosario, Tiarra Menon, Lars Nelson and colleagues, with an educational gabby from [employer] Physical exam (Primary Care) Vital Signs: Last Vital Signs Pulse 86 03/21/23 10:05 BP 130/70 03/21/23 10:05 Pulse Ox 99 03/21/23 10:05 Oxygen Delivery Method Room Air 03/21/23 10:05 BMI result Body Mass Index 26.3 Tobacco/Smoking Status: Tobacco use Status Tobacco use date assessed 12/13/22 03/21/23 10:12 Patient Tobacco Use Status Former Tobacco user 03/21/23 10:12 Tobacco use type Cigarette 03/21/23 10:12 e-Cigarette/Vaping Use Never Used 03/21/23 10:12 Thrive Assessment: Date of Thrive Assessment Date Thrive assessed 12/13/22 03/21/23 10:12 Const General: cooperative, healthy appearing and comfortable HENNV Head: Yes normal to inspection and Yes atraumatic Eyes General: appearance normal, both eyes and all related structures Neck Neck: Yes normal visual inspection and Yes full ROM Chest Chest palpation & inspection: normal inspection of the chest Resp Effort & Inspection: normal respiratory effort Auscultation: clear to auscultation bilaterally Cardio Jugular venous distension: no JVD Palpation: normal PMI Rate: regular rate Heart sounds: S1 normal heart sound present and S2 normal heart sound present GI Palpation (GI): Soft to palpation and No hepatosplenomegaly present Extrem General: Yes normal to inspection and Yes full ROM Assessment and Plan Assessment & Plan (1) Acute on chronic renal failure: Code(s): N17.9 - Acute kidney failure, unspecified; N18.9 - Chronic kidney disease, unspecified Plan: Condition is stable. Continue current medications. Coding Level of Care Code Est Pt Level 3 (40226) Diagnoses Acute on chronic renal failure N17.9; N18.9
[2023-03-21 10:05] VITALS: BP 130/70; PULSE 86; O2SAT 99; BMI 26.3
== END 2023-03-21 10:28 | disposition home or self-care (01) ==
PROVIDERS: PCP Internal Medicine; Visit Provider Internal Medicine
DX: N17.9 Acute kidney failure, unspecified (principal); N18.30 Chronic kidney disease, stage 3 unspecified
CPT/HCPCS: 99213

== ENCOUNTER 2023-03-28 14:15 | Outpatient (REF) | payer MEDICARE, SELFPAY | END 2023-03-28 14:16 | disposition home or self-care (01) | LOC: HO.MDS 14:15 | PROVIDERS: Visit Provider Internal Medicine Medical Oncology | DX: D50.9 Iron deficiency anemia, unspecified (principal) | CPT/HCPCS: 96365; J1756 ==

== ENCOUNTER 2023-04-02 11:11 | Outpatient (REF) | payer MEDICARE, SELFPAY | END 2023-04-02 11:12 | disposition home or self-care (01) | LOC: HO.MDS 11:11 | PROVIDERS: Visit Provider Internal Medicine Medical Oncology | DX: D50.8 Other iron deficiency anemias (principal) | CPT/HCPCS: 96365; J1756 ==

== ENCOUNTER → 2023-04-08 23:59 | Outpatient (BNV) | payer MEDICARE, SELFPAY ==
--- NOTE | 2023-04-22 14:30 | MHC.OFFVIS ---
Intake Intake Visit Reasons: Remote HF Monitoring- Medtronic Allergies No Known Allergies Allergy (Verified 03/29/23 13:53) [facility] Medical History Acute renal insufficiency Annual physical exam Biventricular ICD (implantable cardioverter-defibrillator) in place Cardiomyopathy Cellulitis of right leg Chronic renal failure, stage 3 (moderate) Chronic systolic (congestive) heart failure Leg wound, right Surgical History History of cardiac defibrillator placement History of endoscopy History of left hip replacement History of permanent cardiac pacemaker placement History of removal of skin mole History of total right knee replacement Family History Mother No problems noted. Father No problems noted. 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 No significant arrhythmia. V paced 97.3%. Stable thoracic impedance. [id number] Cardiac Device Interrogation, cardio physiologic monitor Procedure code (CPT) selection complete Assessment & Plan Assessment & Plan (1) Chronic heart failure: Code(s): I50.9 - Heart failure, unspecified Coding Level of Care Code Procedure Only Diagnoses Chronic heart failure I50.9 CPT Codes Cardiac Device Check - Cardiac Device 15: [id number] Cardiac Device Interrogation, cardio physiologic monitor ([id number])
== END ==
PROVIDERS: PCP Internal Medicine; Visit Provider Internal Medicine Cardiovascular Disease
DX: I50.9 Heart failure, unspecified (principal)
CPT/HCPCS: 93297

== ENCOUNTER 2023-04-09 11:21 | Outpatient (REF) | payer MEDICARE, SELFPAY | END 2023-04-09 11:22 | disposition home or self-care (01) | LOC: HO.MDS 11:21 | PROVIDERS: Visit Provider Internal Medicine Medical Oncology | DX: D50.8 Other iron deficiency anemias (principal) | CPT/HCPCS: 96365; J1756 ==

== ENCOUNTER 2023-04-16 11:35 | Outpatient (REF) | payer MEDICARE, SELFPAY ==
[2023-04-16 12:25] LABS: MANUAL DIFF FLAG NO
[2023-04-16 12:27] LABS: Basophils Percent Auto 0.5 % (0-2); Eosinophils Absolute Auto 0.2 X10*3/uL (0.0-0.4); Eosinophils Percent Auto 3.1 % (0-4); Hematocrit 35.5 % (42.0-52.0); Hemoglobin 10.8 g/dl (14.0-18.0); Imm Gran Abs Auto 0.05 X10*3/uL (0.00-0.03); Imm Gran Pct Auto 0.9 % (0.0-0.4); Lymphocytes Absolute Auto 0.8 X10*3/uL (1.2-4.9); Lymphocytes Percent Auto 13.9 % (20-40); Mean Corpuscular HGB Conc 30.4 g/dl (31.0-36.0); Mean Corpuscular Hemoglobin 26.1 pg (27.0-33.0); Mean Corpuscular Volume 85.7 fL (80.0-98.0); Mean Platelet Volume 9.2 fL (9.4-12.4); Monocytes Absolute Auto 0.5 X10*3/uL (0.1-1.2); Monocytes Percent Auto 8.5 % (2-11); Neutrophils Absolute Auto 4.3 x10*3/uL (2.0-8.3); Neutrophils Percent Auto 73.1 % (45-73); Platelet Count 159 X10*3/uL (160-400); Red Blood Count 4.14 X10*6/uL (4.60-5.80); Red Cell Distribution Width 21.4 % (11.0-16.0); White Blood Count 5.9 X10*3/uL (4.8-10.8)
[2023-04-16 13:07] LABS: Ferritin 160 ng/mL (20-250)
== END 2023-04-16 11:36 | disposition home or self-care (01) ==
LOC: HO.MDS 11:35
PROVIDERS: Visit Provider Internal Medicine Medical Oncology
DX: D50.8 Other iron deficiency anemias (principal)
CPT/HCPCS: 36415; 82728; 85025; 96365; J1756

== ENCOUNTER 2023-04-23 11:38 | Outpatient (REF) | payer MEDICARE, SELFPAY | END 2023-04-23 11:39 | disposition home or self-care (01) | LOC: HO.MDS 11:38 | PROVIDERS: Visit Provider Internal Medicine Medical Oncology | DX: D50.8 Other iron deficiency anemias (principal) | CPT/HCPCS: 96365; J1756 ==

== ENCOUNTER 2023-04-30 12:11 | Outpatient (REF) | payer MEDICARE, SELFPAY | END 2023-04-30 12:12 | disposition home or self-care (01) | LOC: HO.MDS 12:11 | PROVIDERS: Visit Provider Internal Medicine Medical Oncology | DX: D50.8 Other iron deficiency anemias (principal) | CPT/HCPCS: 96365; J1756 ==

== ENCOUNTER 2023-05-07 12:04 | Outpatient (REF) | payer MEDICARE, SELFPAY | END 2023-05-07 12:05 | disposition home or self-care (01) | LOC: HO.MDS 12:04 | PROVIDERS: Visit Provider Internal Medicine Medical Oncology | DX: D50.8 Other iron deficiency anemias (principal) | CPT/HCPCS: 96365; J1756 ==

== ENCOUNTER → 2023-05-09 23:59 | Outpatient (BNV) | payer MEDICARE, SELFPAY ==
--- NOTE | 2023-05-22 12:38 | MHC.OFFVIS ---
Intake Intake Visit Reasons: Remote HF Monitoring- Medtronic Allergies No Known Allergies Allergy (Verified 03/29/23 13:53) [facility] Medical History Acute renal insufficiency Annual physical exam Biventricular ICD (implantable cardioverter-defibrillator) in place Cardiomyopathy Cellulitis of right leg Chronic renal failure, stage 3 (moderate) Chronic systolic (congestive) heart failure Leg wound, right Surgical History History of cardiac defibrillator placement History of endoscopy History of left hip replacement History of permanent cardiac pacemaker placement History of removal of skin mole History of total right knee replacement Family History Mother No problems noted. Father No problems noted. 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 V paced 96%. No arrhythmia. Stable thoracic impedance. [id number] Cardiac Device Interrogation, cardio physiologic monitor Procedure code (CPT) selection complete Assessment & Plan Assessment & Plan (1) Cardiomyopathy: Code(s): I42.9 - Cardiomyopathy, unspecified Coding Level of Care Code Procedure Only Diagnoses Cardiomyopathy I42.9 CPT Codes Cardiac Device Check - Cardiac Device 15: [id number] Cardiac Device Interrogation, cardio physiologic monitor ([id number])
== END ==
PROVIDERS: PCP Internal Medicine; Visit Provider Internal Medicine Cardiovascular Disease
DX: I50.9 Heart failure, unspecified (principal); I42.9 Cardiomyopathy, unspecified
CPT/HCPCS: 93297

== ENCOUNTER 2023-05-14 11:40 | Outpatient (REF) | payer MEDICARE, SELFPAY ==
[2023-05-14 12:19] LABS: MANUAL DIFF FLAG NO
[2023-05-14 12:22] LABS: Basophils Percent Auto 0.5 % (0-2); Eosinophils Absolute Auto 0.2 X10*3/uL (0.0-0.4); Eosinophils Percent Auto 2.8 % (0-4); Hematocrit 40.8 % (42.0-52.0); Hemoglobin 12.6 g/dl (14.0-18.0); Imm Gran Abs Auto 0.06 X10*3/uL (0.00-0.03); Lymphocytes Absolute Auto 0.8 X10*3/uL (1.2-4.9); Mean Corpuscular HGB Conc 30.9 g/dl (31.0-36.0); Mean Corpuscular Hemoglobin 28.1 pg (27.0-33.0); Mean Corpuscular Volume 90.9 fL (80.0-98.0); Mean Platelet Volume 8.9 fL (9.4-12.4); Monocytes Absolute Auto 0.6 X10*3/uL (0.1-1.2); Monocytes Percent Auto 9.8 % (2-11); Neutrophils Absolute Auto 4.5 x10*3/uL (2.0-8.3); Neutrophils Percent Auto 72.9 % (45-73); Platelet Count 133 X10*3/uL (160-400); Red Blood Count 4.49 X10*6/uL (4.60-5.80); Red Cell Distribution Width 22.5 % (11.0-16.0); White Blood Count 6.1 X10*3/uL (4.8-10.8)
[2023-05-14 12:55] LABS: Ferritin 268 ng/mL (20-250)
== END 2023-05-14 11:41 | disposition home or self-care (01) ==
LOC: HO.MDS 11:40
PROVIDERS: Visit Provider Internal Medicine Medical Oncology
DX: D50.8 Other iron deficiency anemias (principal)
CPT/HCPCS: 36415; 82728; 85025; 96365; J1756

== ENCOUNTER 2023-05-28 08:12 | Outpatient (REF) | payer MEDICARE, SELFPAY ==
[2023-05-28 08:29] LABS: MANUAL DIFF FLAG NO
[2023-05-28 09:01] LABS: Basophils Percent Auto 0.5 % (0-2); Eosinophils Absolute Auto 0.2 X10*3/uL (0.0-0.4); Hematocrit 45.5 % (42.0-52.0); Hemoglobin 14.2 g/dl (14.0-18.0); Imm Gran Abs Auto 0.03 X10*3/uL (0.00-0.03); Imm Gran Pct Auto 0.5 % (0.0-0.4); Lymphocytes Percent Auto 16.4 % (20-40); Mean Corpuscular HGB Conc 31.2 g/dl (31.0-36.0); Mean Corpuscular Hemoglobin 28.7 pg (27.0-33.0); Mean Corpuscular Volume 92.1 fL (80.0-98.0); Mean Platelet Volume 9.7 fL (9.4-12.4); Monocytes Absolute Auto 0.6 X10*3/uL (0.1-1.2); Monocytes Percent Auto 9.4 % (2-11); Neutrophils Absolute Auto 4.2 x10*3/uL (2.0-8.3); Neutrophils Percent Auto 69.2 % (45-73); Platelet Count 172 X10*3/uL (160-400); Red Blood Count 4.94 X10*6/uL (4.60-5.80); Red Cell Distribution Width 21.4 % (11.0-16.0); White Blood Count 6.1 X10*3/uL (4.8-10.8)
[2023-05-28 09:37] LABS: Anion Gap 15 (12-20); Blood Urea Nitrogen 28 mg/dL (9-16); Calcium 9.7 mg/dL (8.4-10.2); Carbon Dioxide 32 mmol/L (22-29); Chloride 98 mmol/L (96-108); Estimated Glomerular Filt Rate 35; Glucose Random 110 mg/dL (60-115); Potassium 4.3 mmol/L (3.3-5.1); Sodium 141 mmol/L (135-145)
== END 2023-05-28 08:13 | disposition home or self-care (01) ==
LOC: HO.LAB 08:12
PROVIDERS: Absent Provider Internal Medicine; PCP Internal Medicine; Referring Provider Internal Medicine Medical Oncology; Visit Provider Internal Medicine Hypertension Specialist
DX: N18.4 Chronic kidney disease, stage 4 (severe) (principal); D50.0 Iron deficiency anemia secondary to blood loss (chronic)
CPT/HCPCS: 36415; 80048; 85025

== ENCOUNTER 2023-06-07 10:37 | Emergency (ER) | payer MEDICARE, SELFPAY ==
[2023-06-07 10:43] VITALS: BP 116/77; PULSE 89; RESP 18; TEMP 36.7; O2SAT 99; BMI 25.8
[2023-06-07 10:57] LABS: MANUAL DIFF FLAG NO
[2023-06-07 10:59] LABS: Basophils Absolute Auto 0.1 X10*3/uL (0.0-0.2); Basophils Percent Auto 0.7 % (0-2); Eosinophils Absolute Auto 0.2 X10*3/uL (0.0-0.4); Eosinophils Percent Auto 2.4 % (0-4); Hematocrit 45.7 % (42.0-52.0); Hemoglobin 14.3 g/dl (14.0-18.0); Imm Gran Abs Auto 0.04 X10*3/uL (0.00-0.03); Imm Gran Pct Auto 0.6 % (0.0-0.4); Lymphocytes Absolute Auto 0.9 X10*3/uL (1.2-4.9); Lymphocytes Percent Auto 12.9 % (20-40); Mean Corpuscular HGB Conc 31.3 g/dl (31.0-36.0); Mean Corpuscular Hemoglobin 29.1 pg (27.0-33.0); Mean Corpuscular Volume 93.1 fL (80.0-98.0); Mean Platelet Volume 9.7 fL (9.4-12.4); Monocytes Absolute Auto 0.7 X10*3/uL (0.1-1.2); Monocytes Percent Auto 10.5 % (2-11); Neutrophils Absolute Auto 4.9 x10*3/uL (2.0-8.3); Neutrophils Percent Auto 72.9 % (45-73); Platelet Count 163 X10*3/uL (160-400); Red Blood Count 4.91 X10*6/uL (4.60-5.80); Red Cell Distribution Width 20.3 % (11.0-16.0); White Blood Count 6.7 X10*3/uL (4.8-10.8)
[2023-06-07 11:12] LABS: INTERNATIONAL NORM RATIO 1.4 (0.9-1.1); Prothrombin Time 16.8 SEC (11.1-13.3)
[2023-06-07 11:20] LABS: Alanine Aminotransferase 11 U/L (0-40); Albumin Level 4.2 g/dL (3.5-5.0); Alkaline Phosphatase 98 U/L (39-117); Anion Gap 16 (12-20); Aspartate Amino Transferase 20 U/L (5-37); Blood Urea Nitrogen 25 mg/dL (9-16); Calcium 9.8 mg/dL (8.4-10.2); Carbon Dioxide 30 mmol/L (22-29); Chloride 99 mmol/L (96-108); Creatinine Clr Calc Pharmacy 26.9; Estimated Glomerular Filt Rate 32; Glucose Random 120 mg/dL (60-115); Potassium 4.8 mmol/L (3.3-5.1); Sodium 140 mmol/L (135-145)
--- NOTE | 2023-06-07 15:51 | ED.GENADULT ---
HPI - General Adult General Chief complaint: Fall Stated complaint: L [place] S/P Fall 06/03/23 Time Seen by Provider: 06/07/23 15:51 Source: patient Mode of arrival: ambulatory Limitations: no limitations History of Present Illness HPI narrative: Patient is an 88-year-old male with history of a flutter on Xarelto, chronic renal failure, anemia presenting to the emergency department with complaint of ongoing bleeding from 2 skin tears to left upper arm. Patient reports that he had a trip and fall while getting out of his recliner on Saturday. He denies hitting his head at the time of fall, denies loss of consciousness, states he did not fall all the way to the floor but got his arm caught on the edge of his recliner. States he has been trying to manage the dressings at home, but has been having difficulty applying the dressings as he lives alone. He denies any pain to his arm. Denies any purulence drainage. Denies any fevers. He is unsure of his most recent tetanus vaccine. MD complaint: Left upper arm injury Onset (ago): day(s) Location: left and upper extremity Relieving factors: none Exacerbating factors: none Associated symptoms: other (Bleeding from wounds) Treatments prior to arrival: other (Bandages) Related Data Home Medications Medication Instructions Recorded Confirmed calcitriol 0.25 mcg capsule 0.25 mcg PO MOTH@0900 11/02/21 03/29/23 bisacodyl 5 mg tablet,delayed 10 mg PO DAILY 02/03/22 03/29/23 release (Dulcolax (bisacodyl)) metoprolol tartrate 50 mg tablet 50 mg PO BEDTIME 09/03/22 03/29/23 omeprazole 40 mg capsule,delayed 40 mg PO DAILY 03/21/23 03/29/23 release Previous Rx's Medication Instructions Recorded tamsulosin 0.4 mg capsule 0.4 mg PO DAILY #90 caps 11/18/22 furosemide 40 mg tablet 80 mg (2 x 40 mg) PO BID 90 days 12/28/22 #360 tabs rivaroxaban 15 mg tablet (Xarelto) 15 mg PO QPM #30 tabs 12/28/22 metoprolol tartrate 25 mg tablet 75 mg (3 x 25 mg) PO DAILY 90 days 05/16/23 #270 tabs allopurinol 100 mg tablet 100 mg PO DAILY #90 tabs 05/17/23 Allergies Allergy/AdvReac Type Severity Reaction Status Date / Time No Known Allergies Allergy Verified 03/29/23 13:53 Review of Systems Review of Systems: As per HPI. Yes all other systems are reviewed and are negative Constitutional: Constitutional: Reports as per HPI [facility] Past Medical History Medical History Acute renal insufficiency Annual physical exam Biventricular ICD (implantable cardioverter-defibrillator) in place Cardiomyopathy Cellulitis of right leg Chronic renal failure, stage 3 (moderate) Chronic systolic (congestive) heart failure Leg wound, right Surgical History History of cardiac defibrillator placement History of endoscopy History of left hip replacement History of permanent cardiac pacemaker placement History of removal of skin mole History of total right knee replacement Family History Family History Mother No problems noted. Father No problems noted. 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) Alcohol intake: current Alcohol intake frequency: 0-2 drinks per day Alcohol type: hard liquor Patient Tobacco Use Status: Former Tobacco user Quit Date: over 20 years ago Tobacco use type: Cigarette Years Smoked: 50 +/- e-Cigarette/Vaping Use: Never Used Second Hand Smoke Exposure: No Advance Directives: Yes Advance Directives on File: Yes Advance Directives Date on File: 09/07/22 service: No Current occupational status: retired Cognitive needs: Yes (cane) Hearing needs: No Vision needs: Yes (glasses) Physical Exam ED Vital Signs: Vital Signs - 24 hr 06/07/23 10:43 Temperature 98.1 F Pulse Rate 89 Respiratory Rate 18 Blood Pressure 116/77 Pulse Oximetry 99 Oxygen Delivery Method Room Air BMI result Body Mass Index 25.8 Vital signs have been reviewed and appear to be correct. Blood pressure normal. Heart rate normal. Respiratory rate normal. Temperature normal. Oxygen saturation normal. Const General: cooperative and no acute distress Orientation/consciousness: oriented to person, oriented to place, oriented to time and patient oriented x3 Limitations: no limitations HENMT Head: Yes normocephalic and Yes atraumatic Ears: external ears normal General nose exam: Normal external nose present Face and sinus: Yes face symmetric Mouth: oropharynx normal and moist mucous membranes Throat: Yes uvula midline Eyes Pupils: Equal, round and reactive pupils present Neck Neck: Yes normal visual inspection and Yes supple Resp Effort & Inspection: normal respiratory effort and able to speak in complete sentences Auscultation: clear to auscultation bilaterally Cardio Rate: regular rate Rhythm: regular rhythm Heart sounds: S1 normal heart sound present and S2 normal heart sound present GI Palpation (GI): Soft to palpation and nontender Auscultation: normoactive bowel sounds General: Yes no CVA tenderness Back/Spine/Pelvis Back: no CVA tenderness Skin Other: General skin exam: turgor decreased Trauma: laceration (2 skin tears, mild oozing of blood) left posterior upper arm flap, superficial and sensation intact Neuro General: oriented to person, oriented to place, oriented to time, patient oriented x3, moves all extremities, no focal motor deficits and CN's II-XI intact bilaterally Cranial nerves: Yes Equal, round and reactive pupils present Cognition (Neuro): normal cognition Extrem General: Yes full ROM, Yes no pedal edema and Yes no calf tenderness Left upper extremity: shoulder/upper arm (Two skin tears with surrounding ecchymosis, minor bleeding, no calor) Details: no tenderness Psych Mental Status: mental status grossly normal Affect: normal affect Thought process: Normal thought process present Medical Decision Making Medical Decision Making MDM Narrative: Patient is an 88-year-old male with history of a flutter on Xarelto, chronic renal failure, anemia presenting to the emergency department with complaint of ongoing bleeding from 2 skin tears to left upper arm. On exam patient is awake, A+Ox3, VS WNL, afebrile, normal neurological exam without focal deficits, physical exam findings as above. Given reported symptoms and physical exam findings, initial differential includes skin tear, cellulitis, anemia. Labs notable for H&H within normal limits. No signs of infection on physical exam. Wounds cleansed with Betadine and normal saline, Surgicel applied then covered with non adhesive dressing, then bulky dressing applied, then wrapped with Kerlix. Discussed with patient to leave dressing in place and keep dry for the next 24-48 hours. After that time, change dressing daily and assess for signs of infection. Tdap updated today's visit. Instructed patient to follow-up with primary care provider. Return precautions discussed at bedside. Patient verbalized understanding of and agreement with plan. Patient states that he has adequate dressing supplies at home but provided with additional nonadhesive dressings. Differential Diagnosis Differential Diagnoses: The differential diagnosis associated with the presentation includes As per MDM. Lab Data [facility] Lab Attestation statement: I reviewed the patient's lab results. As per [facility]. 06/07/23 10:52 06/07/23 10:52 Labs: Lab Results 06/07/23 Range/Units 10:52 WBC 6.7 (4.8-10.8) X10*3/uL RBC 4.91 (4.60-5.80) X10*6/uL Hgb 14.3 (14.0-18.0) g/dl Hct 45.7 (42.0-52.0) % MCV 93.1 (80.0-98.0) fL MCH 29.1 (27.0-33.0) pg MCHC 31.3 (31.0-36.0) g/dl RDW 20.3 H (11.0-16.0) % Plt Count 163 (160-400) X10*3/uL MPV 9.7 (9.4-12.4) fL Immature Gran % (Auto) 0.6 H (0.0-0.4) % Neut % (Auto) 72.9 (45-73) % Lymph % (Auto) 12.9 L (20-40) % Reynolds % (Auto) 10.5 (2-11) % Eos % (Auto) 2.4 (0-4) % Baso % (Auto) 0.7 (0-2) % Lymph # (Auto) 0.9 L (1.2-4.9) X10*3/uL Reynolds # (Auto) 0.7 (0.1-1.2) X10*3/uL Eos # (Auto) 0.2 (0.0-0.4) X10*3/uL Baso # (Auto) 0.1 (0.0-0.2) X10*3/uL Abs Immat Gran (auto) 0.04 H (0.00-0.03) X10*3/uL Absolute Neuts (auto) 4.9 (2.0-8.3) x10*3/uL Absolute Nucleated RBC 0.000 (0.0-0.012) X10*3/uL Nucleated RBC % (auto) 0.0 (0.0-0.2) /100WBC PT 16.8 H (11.1-13.3) SEC INR 1.4 H (0.9-1.1) Sodium 140 (135-145) mmol/L Potassium 4.8 (3.3-5.1) mmol/L Chloride 99 (96-108) mmol/L Carbon Dioxide 30 H (22-29) mmol/L Anion Gap 16 (12-20) BUN 25 H (9-16) mg/dL Creatinine 1.97 H (0.5-1.4) mg/dL Estim Creat Clear Calc 26.9 Estimated GFR 32 Random Glucose 120 H (60-115) mg/dL Calcium 9.8 (8.4-10.2) mg/dL Total Bilirubin 1.0 (0.0-1.0) mg/dL AST 20 (5-37) U/L ALT 11 (0-40) U/L Alkaline Phosphatase 98 (39-117) U/L Total Protein 8.0 (6.5-8.0) g/dL Albumin 4.2 (3.5-5.0) g/dL External Record Review External record reviewed: Inpatient record, Office record and Outpatient record Discharge Plan Discharge Clinical Impression: Skin tear of right upper arm without complication Qualifiers: Encounter type: initial encounter Qualified Code(s): S41.111A - Laceration without foreign body of right upper arm, initial encounter Patient Disposition: Home, Self-Care Instructions: Laceration (DC) Additional Instructions: You were evaluated in the emergency department today for 2 skin tears to your left upper arm. The wounds were cleansed and new dressings were applied in the emergency department today. Please keep this dressing in place and dry for at least the next 24 hours or up to 48 hours if possible. After that, change the dressing daily and assess for any signs of infection. Return to the emergency department for ongoing bleeding, new redness, swelling, warmth, thick yellow drainage, redness streaking up your arm, fever 100.4? F or greater, or any other symptoms. Your Tdap (tetanus) vaccine was updated in the emergency department today. Please follow-up with your primary care provider this week. Prescriptions: No Action tamsulosin 0.4 mg capsule 0.4 mg PO DAILY Qty: 90 1RF Xarelto 15 mg tablet 15 mg PO QPM Qty: 30 5RF furosemide 40 mg tablet 80 mg PO BID 90 Days Qty: 360 3RF metoprolol tartrate 25 mg tablet 75 mg PO DAILY 90 Days Qty: 270 2RF allopurinol 100 mg tablet 100 mg PO DAILY Qty: 90 1RF bisacodyl [Dulcolax (bisacodyl)] 5 mg Tablet,Delayed Release (Dr/Ec) 10 mg PO DAILY metoprolol tartrate 50 mg tablet 50 mg PO BEDTIME omeprazole 40 mg capsule,delayed release(DR/EC) 40 mg PO DAILY calcitriol 0.25 mcg capsule 0.25 mcg PO MOTH@0900
[2023-06-07] MEDS: Diphth,Pertus(ACell),Tet Adult 0.5 ML SYRINGE IM (16:32)
--- NOTE | 2023-06-09 14:13 | MHC.CM.ED ---
Patient discharged from ER on 06/07. Erna ROSAS [facility] [place] [facility] assist with wound dressing changes and education. Patient has [employer] for insurance. Referral broadcasted in [facility]. [facility] is able to accept patient. They will see patient tomorrow Sunday 06/10. Erna ROSAS aware.
== END 2023-06-07 16:40 | disposition home or self-care (01) ==
PROVIDERS: Emergency Provider Emergency Medicine; PCP Internal Medicine
DX: S41.111A Laceration without foreign body of right upper arm, initial encounter (principal); S40.811A Abrasion of right upper arm, initial encounter; I48.92 Unspecified atrial flutter; W01.0XXA Fall on same level from slipping, tripping and stumbling without subsequent striking against object, initial encounter; Y93.9 Activity, unspecified; Y92.9 Unspecified place or not applicable; Y99.9 Unspecified external cause status; Z79.01 Long term (current) use of anticoagulants; Z79.899 Other long term (current) drug therapy; Z23 Encounter for immunization
CPT/HCPCS: 36415; 80053; 85025; 85610; 90471; 90715; 99282; 99284

== ENCOUNTER → 2023-06-09 23:59 | Outpatient (BNV) | payer MEDICARE, SELFPAY ==
--- NOTE | 2023-06-12 21:41 | A.OFFVIS_ITS ---
Intake Intake Visit Reasons: Remote HF monitoring- Medtronic Allergies No Known Allergies Allergy (Verified 03/29/23 13:53) [facility] Medical History Acute renal insufficiency Annual physical exam Biventricular ICD (implantable cardioverter-defibrillator) in place Cardiomyopathy Cellulitis of right leg Chronic renal failure, stage 3 (moderate) Chronic systolic (congestive) heart failure Leg wound, right Surgical History History of cardiac defibrillator placement History of endoscopy History of left hip replacement History of permanent cardiac pacemaker placement History of removal of skin mole History of total right knee replacement Family History Mother No problems noted. Father No problems noted. 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) Alcohol intake: current Alcohol intake frequency: 0-2 drinks per day Alcohol type: hard liquor Patient Tobacco Use Status: Former Tobacco user Quit Date: over 20 years ago Tobacco use type: Cigarette Years Smoked: 50 +/- e-Cigarette/Vaping Use: Never Used Second Hand Smoke Exposure: No Advance Directives: Yes Advance Directives on File: Yes Advance Directives Date on File: 09/07/22 service: No Current occupational status: retired Cognitive needs: Yes (cane) Hearing needs: No Vision needs: Yes (glasses) Office Procedures Cardiac Device Check Cardiac Device Check Details: HF monitoring Stable thoracic impedance. [id number] Cardiac Device Interrogation, cardio physiologic monitor Procedure code (CPT) selection complete Assessment & Plan Assessment & Plan Orders: Orders AMB Cardiac Device Follow-up 06/09/23 I42.9 - Cardiomyopathy, unspecified Coding Level of Care Code Procedure Only CPT Codes Cardiac Device Check - Cardiac Device 15: [id number] Cardiac Device Interrog ation, cardio physiologic monitor ([id number])
== END ==
PROVIDERS: PCP Internal Medicine; Visit Provider Internal Medicine Cardiovascular Disease
DX: I50.9 Heart failure, unspecified (principal)
CPT/HCPCS: 93297

== ENCOUNTER 2023-06-17 10:13 | Outpatient (AMB) | payer MEDICARE, SELFPAY ==
--- NOTE | 2023-06-17 10:25 | A.OFFVIS_ITS ---
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 Accompanied by: Self / Same As Patient Allergies No Known Allergies Allergy (Verified 06/17/23 10:28) Medication List - Last Reconciled 06/17/23 by Woo Finley MD allopurinol 100 mg PO DAILY bisacodyl (Dulcolax (bisacodyl)) 10 mg PO DAILY calcitriol 0.25 mcg PO MOTH@0900 furosemide 80 mg (2 x 40 mg) PO BID 90 days metoprolol tartrate 50 mg PO BEDTIME metoprolol tartrate 75 mg (3 x 25 mg) PO DAILY 90 days omeprazole 40 mg PO DAILY rivaroxaban (Xarelto) 15 mg PO QPM tamsulosin 0.4 mg PO DAILY HPI HPI Comments History of Present Illness Details 88-year-old gentleman gentleman with atr ial flutter, left bundle-branch block and cardiomyopathy who is here for follow-up. He underwent Bi V AICD and subsequently developed a left upper extremity DVT. He was admitted to the hospital and was heparinized. He has significant swelling which has improved at this stage. He has been changed from Eliquis to Xarelto. He has skin cancer on the left side of his face. He will need surgery for that. He is here to discuss if rivaroxaban can be stopped. Denies any chest pain or shortness of breath. Admission to the hospital in August 2022 with anemia. He was found to have duodenitis and also had polyps removed. He was transfused and was restarted on Xarelto. He had left arm swelling and had all her left internal jugular thrombus. On last visit he was noticed to be in congestive heart failure. Was advised to increase the Lasix to 80 mg in the morning and 40 in the afternoon. He was previously taking 40 mg twice a day Lasix. He is returning and has been using Lasix on every other day. He looks significantly volume overloaded. He is short of breath. He was anemic with hemoglobin 8.2 and he has not been able to tolerate oral iron. He was advised to increase Lasix to 80 mg p.o. b.i.d.. With this regimen he has done well and overall volume status is improved. His repeat hemoglobin testing has shown stable hemoglobin. He had 1 episode of bright red blood per rectum and went to the emergency department and was discharged home from the ER. It appears a discussion was done by the ER physician with Dr. Hammond and it was advised that he hold his Xarelto for 3 days. He is saying that since then he has not had any further bleeding. 06/17/23: He returns for follow-up. He is denying any bleeding. Denying any chest discomfort. He gets dyspnea when he does activities but overall symptoms are stable. He has mild peripheral edema. Taking medications regularly. He is currently on Lasix 80 mg twice a day. FORMERLY [facility], [facility] Medical History Acute renal insufficiency Annual physical exam Biventricular ICD (implantable cardioverter-defibrillator) in place Cardiomyopathy Cellulitis of right leg Chronic renal failure, stage 3 (moderate) Chronic systolic (congestive) heart failure Leg wound, right Surgical History History of endoscopy History of removal of skin mole History of cardiac defibrillator placement History of permanent cardiac pacemaker placement History of total right knee replacement History of left hip replacement Family History Mother No problems noted. Father No problems noted. 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) Alcohol intake: current Alcohol intake frequency: 0-2 drinks per day Alcohol type: hard liquor Patient Tobacco Use Status: Former Tobacco user Quit Date: over 20 years ago Tobacco use type: Cigarette Years Smoked: 50 +/- e-Cigarette/Vaping Use: Never Used Second Hand Smoke Exposure: No Advance Directives Date on File: 09/07/22 service: No Current occupational status: retired Cognitive needs: Yes (cane) Hearing needs: No Vision needs: Yes (glasses) Review of Systems Const Denies weakness ENT Denies dizziness Card Denies chest pain, Denies chest pain with activity, Denies syncope, Denies rapid heart rate, Denies pedal edema, Denies edema, Denies leg edema, Denies lightheadedness, Denies palpitations, Denies dyspnea, Denies dyspnea on exertion and Denies orthopnea Resp Denies cough, Denies dyspnea and Denies dyspnea on exertion GI Denies hematochezia and Denies change in stool character Musc Denies abnormal gait, Denies muscle cramps, Denies muscle weakness, Denies numbness, Denies radiating pain into limb and Denies tingling Neuro Denies abnormal gait, Denies dizziness, Denies syncope, Denies numbness, Denies tingling and Denies weakness Endo Denies palpitations Physical Exam Vital Signs: Last Vital Signs Pulse 83 06/17/23 10:26 BP 132/72 06/17/23 10:26 BMI result Body Mass Index 25.7 GENERAL APPEARANCE: in no acute distress, pleasant. NECK: no carotid bruit, no JVD. HEART: no murmurs, regular rate and rhythm. LUNGS: clear to auscultation bilaterally. ABDOMEN: soft, nontender. PERIPHERAL PULSES: equal. NEUROLOGIC: No gross deficits, AAO X 3. Extremities: Mild edema at ankles. Left leg there are small areas of open wounds. Assessment & Plan Assessment & Plan (1) Chronic heart failure: Code(s): I50.9 - Heart failure, unspecified Plan Pleasant 88 year gentleman with background of atrial flutter and chronic heart failure is here for follow-up. Clinically stable. He has mild peripheral edema. He has kidney disease and I think right now his volume status is quite reasonable I have advised him that he should continue same dose of Lasix 80 mg twice a day. He is on Xarelto for anticoagulation. Overall stable. Will see us back in few months. Thank you for allowing me to participate in the care of your patient. Please feel free to contact me if you have any questions. Coding Level of Care Code Est Pt Level 4 (32509) Diagnoses Chronic heart failure I50.9
[2023-06-17 10:26] VITALS: BP 132/72; PULSE 83; BMI 25.7
== END 2023-06-17 10:49 | disposition home or self-care (01) ==
PROVIDERS: PCP Internal Medicine; Visit Provider Internal Medicine Cardiovascular Disease
DX: I50.9 Heart failure, unspecified (principal)
CPT/HCPCS: 99214

== ENCOUNTER → 2023-06-17 10:13 | Outpatient (BNVA) | payer MEDICARE, SELFPAY | PROVIDERS: PCP Internal Medicine; Visit Provider Internal Medicine Cardiovascular Disease | DX: I50.9 Heart failure, unspecified (principal) | CPT/HCPCS: 99212 ==

== ENCOUNTER → 2023-07-11 23:59 | Outpatient (BNV) | payer MEDICARE, SELFPAY ==
--- NOTE | 2023-07-15 11:32 | A.OFFVIS_ITS ---
Intake Intake Visit Reasons: Remote ICD Check- Medtronic Allergies No Known Allergies Allergy (Verified 06/17/23 10:28) [facility] Medical History Acute renal insufficiency Annual physical exam Biventricular ICD (implantable cardioverter-defibrillator) in place Cardiomyopathy Cellulitis of right leg Chronic renal failure, stage 3 (moderate) Chronic systolic (congestive) heart failure Leg wound, right Surgical History History of endoscopy History of removal of skin mole History of cardiac defibrillator placement History of permanent cardiac pacemaker placement History of total right knee replacement History of left hip replacement Family History Mother No problems noted. Father No problems noted. 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 Background atrial flutter. [id number] Cardiac Device Interrogation, pacemaker or defibrillator Procedure code (CPT) selection complete Assessment & Plan Assessment & Plan (1) Cardiomyopathy: Code(s): I42.9 - Cardiomyopathy, unspecified Orders: Orders AMB Cardiac Device Follow-up 07/11/23 I42.9 - Cardiomyopathy, unspecified Coding Level of Care Code Procedure Only Diagnoses Cardiomyopathy I42.9 CPT Codes Cardiac Device Check - Cardiac Device 14: [id number] Cardiac Device Interrogation, pacemaker or defibrillator ([id number])
== END ==
PROVIDERS: PCP Internal Medicine; Visit Provider Internal Medicine Cardiovascular Disease
DX: I42.9 Cardiomyopathy, unspecified (principal); Z95.810 Presence of automatic (implantable) cardiac defibrillator
CPT/HCPCS: 93295

== ENCOUNTER → 2023-07-11 23:59 | Outpatient (BNV) | payer MEDICARE, SELFPAY ==
--- NOTE | 2023-07-15 11:31 | MHC.OFFVIS ---
Intake Intake Visit Reasons: Remote HF Monitoring- Medtronic Allergies No Known Allergies Allergy (Verified 06/17/23 10:28) [facility] Medical History Acute renal insufficiency Annual physical exam Biventricular ICD (implantable cardioverter-defibrillator) in place Cardiomyopathy Cellulitis of right leg Chronic renal failure, stage 3 (moderate) Chronic systolic (congestive) heart failure Leg wound, right Surgical History History of endoscopy History of removal of skin mole History of cardiac defibrillator placement History of permanent cardiac pacemaker placement History of total right knee replacement History of left hip replacement Family History Mother No problems noted. Father No problems noted. 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 Stable thoracic impedance. [id number] Cardiac Device Interrogation, cardio physiologic monitor Procedure code (CPT) selection complete Assessment & Plan Assessment & Plan (1) Cardiomyopathy: Code(s): I42.9 - Cardiomyopathy, unspecified Orders: Orders AMB Cardiac Device Follow-up 07/11/23 I42.9 - Cardiomyopathy, unspecified Coding Level of Care Code Procedure Only Diagnoses Cardiomyopathy I42.9 CPT Codes Cardiac Device Check - Cardiac Device 15: [id number] Cardiac Device Interrogation, cardio physiologic monitor ([id number])
== END ==
PROVIDERS: PCP Internal Medicine; Visit Provider Internal Medicine Cardiovascular Disease
DX: I50.9 Heart failure, unspecified (principal)
CPT/HCPCS: 93297

== ENCOUNTER 2023-08-05 10:00 | Outpatient (RCR) | payer MEDICARE, SELFPAY ==
--- NOTE | 2022-10-11 13:00 | HE.ONCSEC ---
RESCHEDULED PT'S F/U THAT WAS FOR TODAY DUE TO THE DOCTOR BEING SICK . RESCHEDULED W/ PT ON THE PHONE.
--- NOTE | 2022-10-23 13:51 | HO.HEMONCSCH ---
pt called 10/23 informing me he has had blood work in the last couple weeks and is hoping Dr Rodriguez can use those results for his f/u appt on 11/02.
[2022-11-02 13:54] VITALS: BP 121/56; PULSE 102; RESP 14; TEMP 36.1; BMI 28.2
--- NOTE | 2022-11-02 13:55 | PM.HEMONCPN ---
Medical Summary - Medical Summary Date of Service: 11/02/22 Chief complaint: Follow-up for: Right IJ thrombosis. In the setting of GI bleeding. Medical Summary: DIAGNOSIS: IJ THROMBOSIS. CURRENT THERAPY: XERALTO 20 MG DAILY. Interval History Interval history: Ozzy Thorne is an 87 year old gentleman, who was seen in house back on 09/05/2022. He had the complaints of sob, low hgb. 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 patient states sob began with cold weather. has been progressively worsening, worse on exertion, relieved by rest. denies orthopnea, fever, chills, chest pain. He was at cardiology on day of presentation, noted to have hgb of 6.3 (was 15.2 in January 2022). He was on AC for both aflutter and DVT of left IJ s/p ICD placement. Patient also notes that his left arm after initial resolution of edema, had been slightly more swollen over past 2 weeks. He reported chronic constipation for over a year, with occasional red blood in stool He takes ASA 325mg about once weekly for pain. Drinks 2 Manhattans per day. n ED given 2 units prbc with lasix, Doppler still positive for left I.J DVT. He is now here for a follow-up visit. He still feels tired but somewhat better. His left upper extremity has improved a lot. He denies headache no dizziness. No chest pain or trouble breathing. No abdominal pain nausea vomiting heartburn indigestion. Bowels are working without any gross blood in it. He is in good spirits. Rest of the review of systems is unremarkable. He has not been taking oral iron because of the side effects. Review of Systems Review of Systems: Constitutional: Denies fever, denies Chills Eyes: denies blurry vision ENT: denies sore throat CVS: denies chest pain Respiratory: dyspnea GI: no abdominal pain : denies dysuria MSK: denies neck pain Skin: denies rash Neuro: denies specific motor weakness Psych: denies suicidal ideation Endocrine: denies heat/cold intolerance Hematologic: denies easy bleeding Allergy: denies hives FOR[facility]LY [facility], [facility] Medical History: PMH chronic systolic chf (EF 30%), unspecified aflutter, CKD IV, Acute renal insufficiency Annual physical exam Biventricular ICD (implantable cardioverter-defibrillator) in place Cardiomyopathy Cellulitis of right leg Chronic renal failure, stage 3 (moderate) Chronic systolic (congestive) heart failure Leg wound, right Family History: Mother :No problems noted. Father : No problems noted. Review of Systems - Constitutional Reports system reviewed and no additional complaints, except as documented, Reports weight gain, Denies fatigue, Denies fever(s), Denies weakness - Eyes Reports system reviewed and no additional complaints, except as documented - ENT Reports system reviewed and no additional complaints, except as documented - Cardiovascular Reports system reviewed and no additional complaints, except as documented - Respiratory Reports no additional respiratory complaints - Gastrointestinal Reports system reviewed and no additional complaints, except as documented - Genitourinary Genitourinary: Reports no additional male genitourinary complaints - Musculoskeletal Reports system reviewed and no additional complaints, except as documented - Integumentary/Breasts Skin/Breast: Reports no additional skin complaints - Neurologic Reports system reviewed and no additional complaints, except as documented - Psychiatric Reports system reviewed and no additional complaints, except as documented - Endocrine Reports no additional endocrine complaints - Hematologic/Lymphatic Reports system reviewed and no additional complaints, except as documented - Allergic/Immunologic Reports system reviewed and no additional complaints, except as documented PMFSH Medical History: Medical History (Last Reviewed 11/02/22 @ 13:59 by Allie Solis CMA) Acute renal insufficiency Annual physical exam Biventricular ICD (implantable cardioverter-defibrillator) in place Cardiomyopathy Cellulitis of right leg Chronic renal failure, stage 3 (moderate) Chronic systolic (congestive) heart failure Leg wound, right Functional capacity: uses cane/walker Patient : No Family History: Family History (Last Updated 11/02/22 @ 14:00 by Allie Solis CMA) Mother No problems noted. Father No problems noted. Other No family history of cancer Surgical History: Surgical History (Last Reviewed 11/02/22 @ 13:59 by Allie Solis CMA) History of cardiac defibrillator placement History of left hip replacement History of permanent cardiac pacemaker placement History of removal of skin mole History of total right knee replacement Social History: Social History (Last Updated 11/02/22 @ 14:01 by Allie Solis CMA) Living Situation History: Household Members: Children Household Members Other:: 1 Housing: House Are you a primary child day care provider to a significant other at home: No Do you presently have visiting nurse or other home services: Yes Do you presently have visiting nurse or other home services 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 How often do you have a drink containing alcohol?: e. 4 or more times a week 2. How many drinks containing alcohol do you have on a typical day when you are drinking?: a. 1 or 2 Tobacco History: Patient Tobacco Use Status: Former Tobacco user Tobacco use type: Cigarette Years Smoked: 50 +/- Smoke Quit Date: over 20 years ago e-Cigarette/Vaping Use: Never Used Second Hand Smoke Exposure: No Substance Use History: Use of substances other than those prescribed or required for medical reasons: No Domestic Abuse History: Have you been hit, kicked, punched, or otherwise hurt by someone within the past year? If so, by whom?: No Homicidal Assessment: Do you have thoughts of harming others: None Do you have a plan to hurt others: No Plan Do you have the means to hurt others: No Nutrition Assessment: Recently lost weight without trying: No Eating poorly because of decreased appetite: No Patient : No Occupation Assessmet: service: No Current occupational status: retired Oncology Screenings - ECOG Performance Status ECOG Performance Status: 1 Home Medications and Allergies Home Medications Medication Instructions Recorded Confirmed Type calcitriol 0.25 mcg capsule 0.25 mcg PO MOTH@0900 11/02/21 11/02/22 History bisacodyl 5 mg tablet,delayed 10 mg PO DAILY 02/03/22 11/02/22 History release (Dulcolax (bisacodyl)) metoprolol tartrate 50 mg tablet 50 mg PO BID@0700,1900 09/03/22 11/02/22 History Allergies Allergy/AdvReac Type Severity Reaction Status Date / Time No Known Allergies Allergy Verified 11/02/22 14:01 Exam - Constitutional Present: no acute distress - Routine HEENT Exam Head: Present: normal inspection Eye: Present: normal appearance ENT: Present: mucous membranes moist - Routine Neck Exam Present: full ROM - Routine Respiratory Exam Present: CTAB - Routine Cardiovascular Exam Cardiovascular: Present: RRR, S1, S2 - Routine Abdominal Exam Present: soft, nontender - Routine Extremities Exam Present: nontender - Routine Back/Spine/Pelvis Exam Back/Spine: Present: full ROM - Routine Skin Exam Present: intact - Routine Neurological Exam Present: alert, oriented X3 - Routine Psychiatric Exam Present: normal affect Data - Labs CBC & Chem 7: 11/02/22 15:03 11/02/22 15:03 Assessment and Plan Patient Active problem list reviewed?: Yes (1) Acute deep vein thrombosis (DVT) of left upper extremity Status: Acute Assessment and plan: 87-year-old gentleman, with H/O Right IJ thrombosis, into basilic vein, initially noted February 01. He was maintained on eliquis. He was admitted in August with shortness of breath. History of melena. Noted to be significantly Anemic with hemoglobin of 6.8. Had left upper extremity edema. Ultrasound revealed right IJ thrombosis. I reviewed the ultrasound with the radiologist. The clot actually improved compared to ultrasound done in January. Concern was anticoagulation in the setting of GI bleeding. He was given 2 units of blood. Patient was seen by GI. H&H remained stable. Hgb in A.M.: 8.2. 23:00: 8.5. He underwent EGD and colonoscopy. EGD shows mild duodenitis. Colonoscopy showed multiple polyps, largest piecemeal resected in cecum and 2 clips applied to prevent post polypectomy bleeding. mild diverticulosis, 8x10 mm nobleeding cecal avm. 09/06/22, discharge summary: Patient was admitted for dyspnea due to iron deficiency anemia from likely chronic blood loss anemia while on Xarelto.He was transfused 2 units of PRBC and hemoglobin improved appropriately from 6.3-8.6. He was seen by GI who performed EGD and colonoscopy which showed duodenitis and colonic polyps which were removed. Recommendations were to restart anticoagulation in 24 hours, monitor CBC as outpatient, continue oral PPI and oral iron. Patient's shortness of breath improved. He was noted to have elevated creatinine from baseline; this is either acute kidney injury on CKD 4 or progression of his CKD. His creatinine remained stable around to during hospitalization, this can be monitored as outpatient. For patient's unspecified atrial flutter he was continued on metoprolol and Xarelto will be restarted as outpatient. For his chronic systolic CHF he was continue metoprolol and Lasix p.o. for his left IJ DVT he will be restarted on Xarelto. He is now here for outpatient follow-up. The right arm edema has subsided. He still feels fatigued but somewhat improved. His hemoglobin is still low at 8.2. Iron studies: . PLAN: I will recheck ultrasound of his right upper extremity to follow-up on the IgA thrombosis. In the meantime, I will arrange for IV iron, to help improve his blood count quickly. Will arrange for follow-up with GI: Dr. Hammond. He will return in 3 months for a follow-up visit. He will be following up with Cardiology in the near future. Thank you, Cc: Dr. Bower - Time Spent With Patient Time Spent with Patient (in minutes): 30
[2022-11-02 15:07] LABS: MANUAL DIFF FLAG NO
[2022-11-02 15:12] LABS: Basophils Percent Auto 0.6 % (0-2); Eosinophils Absolute Auto 0.4 X10*3/uL (0.0-0.4); Eosinophils Percent Auto 5.3 % (0-4); Hematocrit 29.4 % (42.0-52.0); Hemoglobin 8.2 g/dl (14.0-18.0); Imm Gran Abs Auto 0.04 X10*3/uL (0.00-0.03); Imm Gran Pct Auto 0.6 % (0.0-0.4); Lymphocytes Absolute Auto 0.8 X10*3/uL (1.2-4.9); Lymphocytes Percent Auto 12.2 % (20-40); Mean Corpuscular HGB Conc 27.9 g/dl (31.0-36.0); Mean Corpuscular Hemoglobin 21.5 pg (27.0-33.0); Mean Corpuscular Volume 77.2 fL (80.0-98.0); Mean Platelet Volume 8.8 fL (9.4-12.4); Monocytes Absolute Auto 0.6 X10*3/uL (0.1-1.2); Monocytes Percent Auto 8.9 % (2-11); Neutrophils Absolute Auto 4.9 x10*3/uL (2.0-8.3); Neutrophils Percent Auto 72.4 % (45-73); Platelet Count 176 X10*3/uL (160-400); Red Blood Count 3.81 X10*6/uL (4.60-5.80); Red Cell Distribution Width 21.5 % (11.0-16.0); White Blood Count 6.8 X10*3/uL (4.8-10.8)
[2022-11-02 15:22] LABS: D Dimer High Sensitivity 269 NG/ML
[2022-11-02 15:40] LABS: Alanine Aminotransferase 12 U/L (0-40); Albumin Level 3.9 g/dL (3.5-5.0); Alkaline Phosphatase 106 U/L (39-117); Anion Gap 16 (12-20); Aspartate Amino Transferase 20 U/L (5-37); Bilirubin Total 0.7 mg/dL (0.0-1.0); Blood Urea Nitrogen 37 mg/dL (9-16); Calcium 8.8 mg/dL (8.4-10.2); Carbon Dioxide 29 mmol/L (22-29); Chloride 100 mmol/L (96-108); Creatinine Clr Calc Pharmacy 25.6; Estimated Glomerular Filt Rate 27; Glucose Random 101 mg/dL (60-115); Iron 26 mcg/dL (45-160); Percent Iron Saturation 7 % (15-50); Potassium 3.9 mmol/L (3.3-5.1); Sodium 141 mmol/L (135-145); Total Iron Binding Capacity 392 mcg/dL (228-428); Total Protein 7.4 g/dL (6.5-8.0); Unsaturated Iron Binding 366 ug/dL
[2022-11-02 15:48] LABS: Ferritin 34 ng/mL (20-250)
--- NOTE | 2022-11-02 15:56 | MHC.HEMONCMA ---
Pt was in for follow up. Clinical summary reviewed and updated, VSS. Labs were drawn. Pt to return in 3 months. IV iron given to rEum for PA. US sent to [facility].
--- NOTE | 2022-11-08 11:04 | MHC.HEMONCMA ---
Patient was booked for venofer infusion with Jesika [id number] for 11/20/22 at 1Pm, faxed order to [facility], sent copy to scanning, notified patient of [phone].
[2023-01-28 11:04] LABS: MANUAL DIFF FLAG NO
[2023-01-28 11:06] VITALS: BP 142/71; PULSE 93; TEMP 36.1; O2SAT 97; BMI 26.8
[2023-01-28 11:07] LABS: Basophils Absolute Auto 0.1 X10*3/uL (0.0-0.2); Basophils Percent Auto 0.8 % (0-2); Eosinophils Absolute Auto 0.4 X10*3/uL (0.0-0.4); Hematocrit 41.1 % (42.0-52.0); Hemoglobin 12.3 g/dl (14.0-18.0); Imm Gran Abs Auto 0.05 X10*3/uL (0.00-0.03); Imm Gran Pct Auto 0.7 % (0.0-0.4); Lymphocytes Absolute Auto 0.9 X10*3/uL (1.2-4.9); Lymphocytes Percent Auto 12.9 % (20-40); Mean Corpuscular HGB Conc 29.9 g/dl (31.0-36.0); Mean Corpuscular Hemoglobin 26.7 pg (27.0-33.0); Mean Corpuscular Volume 89.2 fL (80.0-98.0); Mean Platelet Volume 8.6 fL (9.4-12.4); Monocytes Absolute Auto 0.7 X10*3/uL (0.1-1.2); Monocytes Percent Auto 9.8 % (2-11); Neutrophils Absolute Auto 5.2 x10*3/uL (2.0-8.3); Neutrophils Percent Auto 70.8 % (45-73); Platelet Count 195 X10*3/uL (160-400); Red Blood Count 4.61 X10*6/uL (4.60-5.80); Red Cell Distribution Width 20.3 % (11.0-16.0); White Blood Count 7.3 X10*3/uL (4.8-10.8)
--- NOTE | 2023-01-28 11:16 | P.PNHO-ONC_ITS ---
Medical Summary - Medical Summary Date of Service: 01/28/23 Chief complaint: Follow-up for: Primary Care Provider: Gene Dave MD Medical Summary: DIAGNOSIS: IJ THROMBOSIS. CURRENT THERAPY: XERALTO 20 MG DAILY. Interval History Interval history: Ozzy Thorne is an 87 year old gentleman, here for a follow-up visit. He has been receiving IV iron. He received 8 doses, last dose on 01/08/23. He has started feeling better, but not all the way normal. He denies headache no dizziness. No chest pain or trouble breathing. No abdominal pain nausea vomiting heartburn indigestion. Bowels are working without any gross blood in it. He is in good spirits. Rest of the review of systems is unremarkable. PRESENTING HISTORY: He was seen in house back on 09/05/2022. He had the complaints of sob, low hgb. 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 patient states sob began with cold weather. has been progressively worsening, worse on exertion, relieved by rest. denies orthopnea, fever, chills, chest pain. He was at cardiology on day of presentation, noted to have hgb of 6.3 (was 15.2 in January 2022). He was on AC for both aflutter and DVT of left IJ s/p ICD placement. Patient also notes that his left arm after initial resolution of edema, had been slightly more swollen over past 2 weeks. He reported chronic constipation for over a year, with occasional red blood in stool He takes ASA 325mg about once weekly for pain. Drinks 2 Manhattans per day. n ED given 2 units prbc with lasix, Doppler still positive for left I.J DVT. He is now here for a follow-up visit. Review of Systems Review of Systems: Constitutional: Denies fever, denies Chills Eyes: denies blurry vision ENT: denies sore throat CVS: denies chest pain Respiratory: dyspnea GI: no abdominal pain : denies dysuria MSK: denies neck pain Skin: denies rash Neuro: denies specific motor weakness Psych: denies suicidal ideation Endocrine: denies heat/cold intolerance Hematologic: denies easy bleeding Allergy: denies hives [facility] Medical History: PMH chronic systolic chf (EF 30%), unspecified aflutter, CKD IV, Acute renal insufficiency Annual physical exam Biventricular ICD (implantable cardioverter-defibrillator) in place Cardiomyopathy Cellulitis of right leg Chronic renal failure, stage 3 (moderate) Chronic systolic (congestive) heart failure Leg wound, right Family History: Mother :No problems noted. Father : No problems noted. Review of Systems - Constitutional Reports no additional constitutional complaints, Reports fatigue, Denies fever(s), Reports weakness, Denies weight loss - Eyes Reports no additional eye complaints - ENT Reports no additional ear, nose, mouth, and throat complaints - Cardiovascular Reports no additional cardiovascular complaints - Respiratory Reports no additional respiratory complaints - Gastrointestinal Reports no additional gastrointestinal complaints - Genitourinary Genitourinary: Reports no additional male genitourinary complaints - Musculoskeletal Reports no additional musculoskeletal complaints - Integumentary/Breasts Skin/Breast: Reports no additional skin complaints - Neurologic Reports no additional neurologic complaints, Denies weakness - Psychiatric Reports no additional psychiatric complaints - Endocrine Reports no additional endocrine complaints - Hematologic/Lymphatic Reports no additional hematologic/lymphatic complaints - Allergic/Immunologic Reports no additional allergic/immunologic complaints [facility] Medical History: Medical History (Last Reviewed 01/28/23 @ 11:08 by Yudith Kelly) Acute renal insufficiency Annual physical exam Biventricular ICD (implantable cardioverter-defibrillator) in place Cardiomyopathy Cellulitis of right leg Chronic renal failure, stage 3 (moderate) Chronic systolic (congestive) heart failure Leg wound, right Functional capacity: uses cane/walker Patient : No Family History: Family History (Last Reviewed 01/28/23 @ 11:08 by Yudith Kelly) Mother No problems noted. Father No problems noted. Other No family history of cancer Surgical History: Surgical History (Last Reviewed 01/28/23 @ 11:08 by Yudith Kelly) History of cardiac defibrillator placement History of left hip replacement History of permanent cardiac pacemaker placement History of removal of skin mole History of total right knee replacement Social History: Social History (Last Reviewed 01/28/23 @ 11:08 by Yudith Kelly) Living Situation History: Household Members: Children Household Members Other:: 1 Housing: House Are you a primary transitional care nurse to a significant other at home: No Do you presently have visiting nurse or other home services: Yes Do you presently have visiting 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 How often do you have a drink containing alcohol?: e. 4 or more times a week 2. How many drinks containing alcohol do you have on a typical day when you are drinking?: a. 1 or 2 Tobacco History: Patient Tobacco Use Status: Former Tobacco user Tobacco use type: Cigarette Years Smoked: 50 +/- Smoke Quit Date: over 20 years ago e-Cigarette/Vaping Use: Never Used Second Hand Smoke Exposure: No Substance Use History: Use of substances other than those prescribed or required for medical reasons : No Domestic Abuse History: Have you been hit, kicked, punched, or otherwise hurt by someone within the past year? If so, by whom?: No Homicidal Assessment: Do you have thoughts of harming others: None Do you have a plan to hurt others: No Plan Do you have the means to hurt others: No Nutrition Assessment: Recently lost weight without trying: No Eating poorly because of decreased appetite: No Patient : No Occupation Assessmet: service: No Current occupational status: retired Oncology Screenings - ECOG Performance Status ECOG Performance Status: 1 Home Medications and Allergies Home Medications Medication Instructions Recorded Confirmed Type calcitriol 0.25 mcg capsule 0.25 mcg PO MOTH@0900 11/02/21 01/28/23 History bisacodyl 5 mg tablet,delayed 10 mg PO DAILY 02/03/22 01/28/23 History release (Dulcolax (bisacodyl)) metoprolol tartrate 50 mg tablet 50 mg PO BID@0700,1900 09/03/22 01/28/23 History Allergies Allergy/AdvReac Type Severity Reaction Status Date / Time No Known Allergies Allergy Verified 01/28/23 11:08 Exam Vital signs: Vital Signs Temp 97 F 01/28/23 11:06 Pulse 93 01/28/23 11:06 Resp 14 11/02/22 13:54 BP 142/71 H 01/28/23 11:06 Pulse Ox 97 01/28/23 11:06 O2 Del Method Room Air 01/28/23 11:06 Intake & Output 01/27/23 01/28/23 01/28/23 18:59 06:59 18:59 Other: Weight 82.2 kg Weight in Grams [id number] Weight 82.2 kg BMI result Body Mass Index 26.8 - Constitutional Present: no acute distress - Routine HEENT Exam Head: Present: normal inspection Eye: Present: normal appearance ENT: Present: mucous membranes moist - Routine Neck Exam Present: full ROM - Routine Respiratory Exam Present: CTAB - Routine Cardiovascular Exam Cardiovascular: Present: RRR, S1, S2 - Routine Abdominal Exam Present: soft, nontender - Routine Extremities Exam Present: nontender - Routine Back/Spine/Pelvis Exam Back/Spine: Present: full ROM - Routine Skin Exam Present: intact - Routine Neurological Exam Present: alert, oriented X3 - Routine Psychiatric Exam Present: normal affect Data - Labs CBC & Chem 7: 01/28/23 11:02 01/28/23 11:02 Labs: 11/02/22 15:03 Type and Screen Routine Complete Blood Count Auto Diff Stat Comprehensive Met. Panel Stat D Dimer High Sensitivity Stat Ferritin Routine IRON PROFILE Routine 01/28/23 11:02 Complete Blood Count Auto Diff Stat Laboratory Last Values WBC 7.3 X10*3/uL (4.8-10.8) 01/28/23 11:02 RBC 4.61 X10*6/uL (4.60-5.80) D 01/28/23 11:02 Hgb 12.3 g/dl (14.0-18.0) L D 01/28/23 11:02 Hct 41.1 % (42.0-52.0) L D 01/28/23 11:02 MCV 89.2 fL (80.0-98.0) 01/28/23 11:02 MCH 26.7 pg (27.0-33.0) L 01/28/23 11:02 MCHC 29.9 g/dl (31.0-36.0) L 01/28/23 11:02 RDW 20.3 % (11.0-16.0) H 01/28/23 11:02 Plt Count 195 X10*3/uL (160-400) 01/28/23 11:02 MPV 8.6 fL (9.4-12.4) L 01/28/23 11:02 Immature Gran % (Auto) 0.7 % (0.0-0.4) H 01/28/23 11:02 Neut % (Auto) 70.8 % (45-73) 01/28/23 11:02 Lymph % (Auto) 12.9 % (20-40) L 01/28/23 11:02 [place] % (Auto) 9.8 % (2-11) 01/28/23 11:02 Eos % (Auto) 5.0 % (0-4) H 01/28/23 11:02 Baso % (Auto) 0.8 % (0-2) 01/28/23 11:02 Lymph # (Auto) 0.9 X10*3/uL (1.2-4.9) L 01/28/23 11:02 [place] # (Auto) 0.7 X10*3/uL (0.1-1.2) 01/28/23 11:02 Eos # (Auto) 0.4 X10*3/uL (0.0-0.4) 01/28/23 11:02 Baso # (Auto) 0.1 X10*3/uL (0.0-0.2) 01/28/23 11:02 Abs Immat Gran (auto) 0.05 X10*3/uL (0.00-0.03) H 01/28/23 11:02 Absolute Neuts (auto) 5.2 x10*3/uL (2.0-8.3) 01/28/23 11:02 Absolute Nucleated RBC 0.000 X10*3/uL (0.0-0.012) 01/28/23 11:02 Nucleated RBC % (auto) 0.0 /100WBC (0.0-0.2) 01/28/23 11:02 D-Dimer High Sensitivty 269 NG/ML 11/02/22 15:03 Sodium 141 mmol/L (135-145) 11/02/22 15:03 Potassium 3.9 mmol/L (3.3-5.1) D 11/02/22 15:03 Chloride 100 mmol/L (96-108) 11/02/22 15:03 Carbon Dioxide 29 mmol/L (22-29) 11/02/22 15:03 Anion Gap 16 (12-20) 11/02/22 15:03 BUN 37 mg/dL (9-16) H 11/02/22 15:03 Creatinine 2.30 mg/dL (0.5-1.4) H 11/02/22 15:03 Estim Creat Clear Calc 25.6 11/02/22 15:03 Estimated GFR 27 11/02/22 15:03 Random Glucose 101 mg/dL (60-115) 11/02/22 15:03 Calcium 8.8 mg/dL (8.4-10.2) 11/02/22 15:03 Iron 26 mcg/dL (45-160) L 11/02/22 15:03 TIBC 392 mcg/dL (228-428) 11/02/22 15:03 % Saturation 7 % (15-50) L 11/02/22 15:03 Unsat Iron Binding 366 ug/dL 11/02/22 15:03 Ferritin 34 ng/mL (20-250) 11/02/22 15:03 Total Bilirubin 0.7 mg/dL (0.0-1.0) 11/02/22 15:03 AST 20 U/L (5-37) 11/02/22 15:03 ALT 12 U/L (0-40) 11/02/22 15:03 Alkaline Phosphatase 106 U/L (39-117) 11/02/22 15:03 Total Protein 7.4 g/dL (6.5-8.0) 11/02/22 15:03 Albumin 3.9 g/dL (3.5-5.0) 11/02/22 15:03 Blood Type B Positive 11/02/22 15:03 Antibody Screen NEGATIVE 11/02/22 15: Assessment and Plan Patient Active problem list reviewed?: Yes (1) Acute deep vein thrombosis (DVT) of left upper extremity Status: Acute Assessment and plan: 87-year-old gentleman, with H/O Right IJ thrombosis, into basilic vein, initially noted February 01. He was maintained on eliquis. He was admitted in August with shortness of breath. History of melena. Noted to be significantly Anemic with hemoglobin of 6.8. Had left upper extremity edema. Ultrasound revealed right IJ thrombosis. I reviewed the ultrasound with the radiologist. The clot actually improved compared to ultrasound done in January. Concern was anticoagulation in the setting of GI bleeding. He was given 2 units of blood. Patient was seen by GI. H&H remained stable. Hgb in A.M.: 8.2. 23:00: 8.5. He underwent EGD and colonoscopy. EGD shows mild duodenitis. Colonoscopy showed multiple polyps, largest piecemeal resected in cecum and 2 clips applied to prevent post polypectomy bleeding. mild diverticulosis, 8x10 mm nobleeding cecal avm. 09/06/22, discharge summary: Patient was admitted for dyspnea due to iron deficiency anemia from likely chronic blood loss anemia while on Xarelto.He was transfused 2 units of PRBC and hemoglobin improved appropriately from 6.3-8.6. He was seen by GI who performed EGD and colonoscopy which showed duodenitis and colonic polyps which were removed. Recommendations were to restart anticoagulation in 24 hours, monitor CBC as outpatient, continue oral PPI and oral iron. Patient's shortness of breath improved. He was noted to have elevated creatinine from baseline; this is either acute kidney injury on CKD 4 or progression of his CKD. His creatinine remained stable around to during hospitalization, this can be monitored as outpatient. For patient's unspecified atrial flutter he was continued on metoprolol and Xarelto will be restarted as outpatient. For his chronic systolic CHF he was continue metoprolol and Lasix p.o. for his left IJ DVT he will be restarted on Xarelto. He is now here for outpatient follow-up. He still feels fatigued but somewhat improved. On november 02, his hemoglobin was low at 8.2. Iron studies: /. He received 8 doses of IV iron between 11/20 through 01/08. His hemoglobin has improved to 12.3. Hopefully it will come up further. He would like to be referred for physical therapy. PLAN: He will ask his primary for the referral. He was referred to Dr. Hammond for follow-up. He will return in 6 months for a follow-up visit. He recently had a follow-up with Cardiology as well. Thank you, Cc: Dr. Bower (2) Internal jugular vein thrombosis Status: Acute Assessment and plan: 88-year-old gentleman with a history of right IJ thrombosis back in January of last year. 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 Appearances are unchanged when compared to 09/03/2022. He remains on the Xarelto. He probably needs anticoagulation on account of his cardiomyopathy. PLAN: Will continue. He will continue to follow with Dr. Finley. - Time Spent With Patient Time Spent with Patient (in minutes): 25
[2023-01-28 11:34] LABS: Alanine Aminotransferase 11 U/L (0-40); Albumin Level 4.1 g/dL (3.5-5.0); Alkaline Phosphatase 111 U/L (39-117); Anion Gap 13 (12-20); Aspartate Amino Transferase 20 U/L (5-37); Bilirubin Total 0.5 mg/dL (0.0-1.0); Blood Urea Nitrogen 28 mg/dL (9-16); Calcium 9.4 mg/dL (8.4-10.2); Carbon Dioxide 33 mmol/L (22-29); Chloride 99 mmol/L (96-108); Creatinine Clr Calc Pharmacy 24.4; Estimated Glomerular Filt Rate 29; Glucose Random 95 mg/dL (60-115); Potassium 4.6 mmol/L (3.3-5.1); Sodium 140 mmol/L (135-145); Total Protein 7.8 g/dL (6.5-8.0)
--- NOTE | 2023-01-28 11:44 | MHC.HEMONCMA ---
patient seen today for anemia, vss, labs, following up in 6 months with provider
[2023-01-28 11:45] LABS: D Dimer High Sensitivity 445 NG/ML
--- NOTE | 2023-03-07 11:51 | MHC.HEMONCMA ---
Patient called triage line asking to speak with Dr. Rodriguez or her nurse, no one is available at this time. Patient stated he was in ER 2 weeks ago for rectal bleeding and in stool. Was not admitted but released from ER but still has been having same issue just not as bad. His PCP also ordered labs and his hgb is dropping and hes concerned he is bleeding from somewhere. I spoke directly with DR. Rodriguez and she reviewed ER notes and labs, would like patient to see Dr. Hammond again for colonoscopy/end to be done. I called and spoke with Brooklyn Black at his office, who asked me to fax over all records from ER and labs to [phone], which I did complete, she will have Dr. Hammond review and call patient with appt. I then called Mr. Thorne back and informed him what Dr. Rodriguez decision was about and he will wait for them to call with appt. I instructed him to call us back if he doesn't hear from anyone soon. He is in agreement and understands.
--- NOTE | 2023-03-15 11:32 | MHC.HEMONC ---
Pt left , saying he has 12pm appt, but he may be too weak to make it in, said he may need to to go the ER. Dr. Rodriguez advised pt should do that if he cannot travel. Nurse called pt back on his cell, but pt had just arrived to this clinic. Pt was being pushed in w/c by security, said he had pulled up to the ER and they brought him here. Pt was checked-in for f/u appt.
[2023-03-15 11:38] VITALS: BP 106/55; PULSE 82; TEMP 36.4; O2SAT 99
[2023-03-15 11:57] LABS: MANUAL DIFF FLAG NO
[2023-03-15 12:12] LABS: Basophils Percent Auto 0.5 % (0-2); Eosinophils Absolute Auto 0.2 X10*3/uL (0.0-0.4); Eosinophils Percent Auto 2.8 % (0-4); Hematocrit 26.9 % (42.0-52.0); Hemoglobin 8.2 g/dl (14.0-18.0); Imm Gran Abs Auto 0.03 X10*3/uL (0.00-0.03); Imm Gran Pct Auto 0.5 % (0.0-0.4); Lymphocytes Absolute Auto 0.8 X10*3/uL (1.2-4.9); Mean Corpuscular HGB Conc 30.5 g/dl (31.0-36.0); Mean Corpuscular Hemoglobin 25.6 pg (27.0-33.0); Mean Corpuscular Volume 84.1 fL (80.0-98.0); Mean Platelet Volume 9.1 fL (9.4-12.4); Monocytes Absolute Auto 0.5 X10*3/uL (0.1-1.2); Neutrophils Absolute Auto 4.9 x10*3/uL (2.0-8.3); Neutrophils Percent Auto 76.2 % (45-73); Platelet Count 198 X10*3/uL (160-400); Red Cell Distribution Width 17.7 % (11.0-16.0); White Blood Count 6.5 X10*3/uL (4.8-10.8)
[2023-03-15 12:49] LABS: Ferritin 24 ng/mL (20-250)
[2023-03-15 12:50] LABS: Anion Gap 16 (12-20)
[2023-03-15 12:57] LABS: Alanine Aminotransferase 7 U/L (0-40); Albumin Level 3.7 g/dL (3.5-5.0); Alkaline Phosphatase 91 U/L (39-117); Aspartate Amino Transferase 15 U/L (5-37); Bilirubin Total 0.7 mg/dL (0.0-1.0); Blood Urea Nitrogen 31 mg/dL (9-16); Calcium 9.5 mg/dL (8.4-10.2); Carbon Dioxide 28 mmol/L (22-29); Chloride 97 mmol/L (96-108); Creatinine Clr Calc Pharmacy 22.9; Estimated Glomerular Filt Rate 27; Glucose Random 141 mg/dL (60-115); Lactate Dehydrogenase 223 U/L (118-273); Potassium 3.7 mmol/L (3.3-5.1); Sodium 137 mmol/L (135-145); Total Protein 7.2 g/dL (6.5-8.0)
[2023-03-15 13:09] VITALS: BP 114/57; PULSE 80; RESP 18; TEMP 36.1
[2023-03-15 13:25] VITALS: BP 115/57; PULSE 80; RESP 18; TEMP 36.4
[2023-03-15 13:49] LABS: Folate 12.7 ng/mL (> or = 4.0); Vitamin B12 553 pg/mL (200-900)
--- NOTE | 2023-03-15 14:42 | MHC.HEMONCMA ---
pt was seen in office today, vss, labs done, patient will return in 6 months
[2023-03-15 15:31] VITALS: BP 120/51; PULSE 81; TEMP 36.1
--- NOTE | 2023-03-15 15:35 | PM.HEMONCPN ---
Medical Summary - Medical Summary Date of Service: 03/15/23 Chief complaint: FOLLOW-UP FOR: 1. ANEMIA. 2. RIGHT IG THROMBOSIS. Primary Care Provider: Gnee Dave MD Medical Summary: DIAGNOSIS: IJ THROMBOSIS. ANEMIA. CURRENT THERAPY: XERALTO 20 MG DAILY. Interval History Interval history: Ozzy Thorne is an 88 year old gentleman, here for an unscheduled visit. He was referred by Dr. Hammond on account of her significant anemia. He was actually seen on 03/13. Three weeks ago he had an episode of bright red blood per rectum. Hemoglobin was 9.7. Creatinine 2.4. Iron was 32. Saturation 9%. He had been on aspirin and a NOAC. He does drink to [place] is a day. this was a single episode. However subsequently he had multiple days of dark and black stools. He has been feeling more fatigued. It appears the he has had an upper GI bleeding. He has felt rather dizzy. He denies headache. No chest pain, has had trouble breathing. No abdominal pain nausea vomiting heartburn indigestion. Bowels are working without any gross blood in it. He is in good spirits. Rest of the review of systems is unremarkable. He has been receiving IV iron. He received 8 doses, last dose on 01/08/23. He has started feeling better, but not all the way normal. PRESENTING HISTORY: He was seen in house back on 09/05/2022. He had the complaints of sob, low hgb. 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 patient states sob began with cold weather. has been progressively worsening, worse on exertion, relieved by rest. denies orthopnea, fever, chills, chest pain. He was at cardiology on day of presentation, noted to have hgb of 6.3 (was 15.2 in January 2022). He was on AC for both aflutter and DVT of left IJ s/p ICD placement. Patient also notes that his left arm after initial resolution of edema, had been slightly more swollen over past 2 weeks. He reported chronic constipation for over a year, with occasional red blood in stool He takes ASA 325mg about once weekly for pain. Drinks 2 [place] per day. n ED given 2 units prbc with lasix, Doppler still positive for left I.J DVT. He is now here for a follow-up visit. Review of Systems Review of Systems: Constitutional: Denies fever, denies Chills Eyes: denies blurry vision ENT: denies sore throat CVS: denies chest pain Respiratory: dyspnea GI: no abdominal pain : denies dysuria MSK: denies neck pain Skin: denies rash Neuro: denies specific motor weakness Psych: denies suicidal ideation Endocrine: denies heat/cold intolerance Hematologic: denies easy bleeding Allergy: denies hives [facility] Medical History: PMH chronic systolic chf (EF 30%), unspecified aflutter, CKD IV, Acute renal insufficiency Annual physical exam Biventricular ICD (implantable cardioverter-defibrillator) in place Cardiomyopathy Cellulitis of right leg Chronic renal failure, stage 3 (moderate) Chronic systolic (congestive) heart failure Leg wound, right Family History: Mother :No problems noted. Father : No problems noted. Review of Systems - Constitutional Reports no additional constitutional complaints, Reports fatigue, Reports lack of energy, Reports malaise, Reports poor appetite, Denies weight loss - Eyes Reports no additional eye complaints - ENT Reports no additional ear, nose, mouth, and throat complaints - Cardiovascular Reports no additional cardiovascular complaints - Respiratory Reports no additional respiratory complaints, Reports cough, Reports dyspnea on exertion - Gastrointestinal Reports no additional gastrointestinal complaints, Reports black, tarry stools - Genitourinary Genitourinary: Reports no additional male genitourinary complaints - Musculoskeletal Reports no additional musculoskeletal complaints - Integumentary/Breasts Skin/Breast: Reports no additional skin complaints - Neurologic Reports no additional neurologic complaints, Reports weakness - Psychiatric Reports no additional psychiatric complaints - Endocrine Reports no additional endocrine complaints - Hematologic/Lymphatic Reports no additional hematologic/lymphatic complaints - Allergic/Immunologic Reports no additional allergic/immunologic complaints [facility] Medical History: Medical History (Last Reviewed 03/15/23 @ 11:39 by Farhat Woo CMA) Acute renal insufficiency Annual physical exam Biventricular ICD (implantable cardioverter-defibrillator) in place Cardiomyopathy Cellulitis of right leg Chronic renal failure, stage 3 (moderate) Chronic systolic (congestive) heart failure Leg wound, right Functional capacity: uses cane/walker Patient : No Family History: Family History (Last Reviewed 03/15/23 @ 11:39 by Frahat Woo CMA) Mother No problems noted. Father No problems noted. Other No family history of cancer Surgical History: Surgical History (Last Reviewed 03/15/23 @ 11:39 by Farhat Woo CMA) History of cardiac defibrillator placement History of left hip replacement History of permanent cardiac pacemaker placement History of removal of skin mole History of total right knee replacement Social History: Social History (Last Reviewed 03/15/23 @ 11:39 by Farhat Woo CMA) Living Situation History: Household Members: Children Household Members Other:: 1 Housing: House Are you a primary care information associate to a significant other at home: No Do you presently have visiting nurse or other home services: Yes Do you presently have visiting nurse or other home services comment: fund accountant Alcohol History Details: 1. How often do you have a drink containing alcohol?: e. 4 or more times a week 2. How many drinks containing alcohol do you have on a typical day when you are drinking?: a. 1 or 2 Tobacco History: Patient Tobacco Use Status: Former Tobacco user Tobacco use type: Cigarette Years Smoked: 50 +/- Smoke Quit Date: over 20 years ago e-Cigarette/Vaping Use: Never Used Second Hand Smoke Exposure: No Substance Use History: Use of substances other than those prescribed or required for medical reasons: No Domestic Abuse History: Have you been hit, kicked, punched, or otherwise hurt by someone within the past year? If so, by whom?: No Advance Directives: Advance Directives Date on File: 09/07/22 Homicidal Assessment: Do you have thoughts of harming others: None Do you have a plan to hurt others: No Plan Do you have the means to hurt others: No Nutrition Assessment: Recently lost weight without trying: No Eating poorly because of decreased appetite: No Patient : No Occupation Assessmet: service: No Current occupational status: retired Home Medications and Allergies Home Medications Medication Instructions Recorded Confirmed Type calcitriol 0.25 mcg capsule 0.25 mcg PO MOTH@0900 11/02/21 03/04/23 History bisacodyl 5 mg tablet,delayed 10 mg PO DAILY 02/03/22 03/04/23 History release (Dulcolax (bisacodyl)) metoprolol tartrate 50 mg tablet 50 mg PO BID@0700,1900 09/03/22 03/04/23 History metoprolol tartrate 25 mg tablet 25 mg PO DAILY 03/04/23 03/04/23 History Allergies Allergy/AdvReac Type Severity Reaction Status Date / Time No Known Allergies Allergy Verified 03/04/23 11:07 Exam Vital signs: Vital Signs Temp 97 F 03/15/23 15:31 Pulse 81 03/15/23 15:31 Resp 18 03/15/23 13:25 BP 120/51 L 03/15/23 15:31 Pulse Ox 99 03/15/23 11:38 O2 Del Method Room Air 03/15/23 11:38 Intake & Output 03/14/23 03/15/23 03/15/23 18:59 06:59 18:59 Intake Total 350 / 350 Balance 350 / 350 Intake: Intake (Blood Product) Amount 350 / 350 Red Blood Cells (E0382) Unit 350 / 350 [id number] Weight 82.2 kg BMI result Body Mass Index 26.8 - Constitutional Present: no acute distress - Routine HEENT Exam Head: Present: normal inspection Eye: Present: normal appearance ENT: Present: mucous membranes moist - Routine Neck Exam Present: full ROM - Routine Respiratory Exam Present: CTAB - Routine Cardiovascular Exam Cardiovascular: Present: RRR, S1, S2 - Routine Abdominal Exam Present: soft, nontender - Routine Extremities Exam Present: nontender - Routine Back/Spine/Pelvis Exam Back/Spine: Present: full ROM - Routine Skin Exam Present: intact - Routine Neurological Exam Present: alert, oriented X3 - Routine Psychiatric Exam Present: normal affect Data - Labs CBC & Chem 7: 03/15/23 11:53 03/15/23 11:53 Assessment and Plan Patient Active problem list reviewed?: Yes (1) Acute deep vein thrombosis (DVT) of left upper extremity Status: Acute Assessment and plan: 87-year-old gentleman, with H/O Right IJ thrombosis, into basilic vein, initially noted February 01. He was maintained on eliquis. He was admitted in August with shortness of breath. History of melena. Noted to be significantly Anemic with hemoglobin of 6.8. Had left upper extremity edema. Ultrasound revealed right IJ thrombosis. I reviewed the ultrasound with the radiologist. The clot actually improved compared to ultrasound done in January. Concern was anticoagulation in the setting of GI bleeding. He was given 2 units of blood. Patient was seen by GI. H&H remained stable. Hgb in A.M.: 8.2. 23:00: 8.5. He underwent EGD and colonoscopy. EGD shows mild duodenitis. Colonoscopy showed multiple polyps, largest piecemeal resected in cecum and 2 clips applied to prevent post polypectomy bleeding. mild diverticulosis, 8x10 mm nobleeding cecal avm. 09/06/22, discharge summary: Patient was admitted for dyspnea due to iron deficiency anemia from likely chronic blood loss anemia while on Xarelto.He was transfused 2 units of PRBC and hemoglobin improved appropriately from 6.3-8.6. He was seen by GI who performed EGD and colonoscopy which showed duodenitis and colonic polyps which were removed. Recommendations were to restart anticoagulation in 24 hours, monitor CBC as outpatient, continue oral PPI and oral iron. Patient's shortness of breath improved. He was noted to have elevated creatinine from baseline; this is either acute kidney injury on CKD 4 or progression of his CKD. His creatinine remained stable around to during hospitalization, this can be monitored as outpatient. For patient's unspecified atrial flutter he was continued on metoprolol and Xarelto will be restarted as outpatient. For his chronic systolic CHF he was continue metoprolol and Lasix p.o. for his left IJ DVT he will be restarted on Xarelto. He still feels fatigued but somewhat improved. On november 02, his hemoglobin was low at 8.2. Iron studies: /. He received 8 doses of IV iron between 11/20 through 01/08. His hemoglobin had improved to 12.3. He was referred for physical therapy. He is here for an urgent follow-up. Lately he has had black stools. He is going for an upper endoscopy on Saturday. His Hgb is 8.2 today. Ferritin: 24. B12: 533. Folate: 12.7. PLAN: He is here for a blood transfusion today. He is scheduled for an upper endoscopy by Dr. Hammond on Saturday. He will return in 3 months for a follow-up visit. He recently had a follow-up with Cardiology as well. Thank you, Cc: Dr. Bower (2) Internal jugular vein thrombosis Status: Acute Assessment and plan: 88-year-old gentleman with a history of right IJ thrombosis back in May of last year. 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 Appearances are unchanged when compared to 09/03/2022. His Xarelto is on hold. He probably needs anticoagulation on account of his cardiomyopathy. PLAN: He will address this further with Dr. Finley. - Time Spent With Patient Time Spent with Patient (in minutes): 30
--- NOTE | 2023-03-15 15:55 | MHC.HEMONC ---
1 unit RBC transfused via #20 IV placed in right wrist by Tania MEYERS. Tolerated well. Has endoscopy appointment on Saturday. Has follow up with Dr bautista scheduled.
--- NOTE | 2023-03-20 15:52 | HO.HEMONCPA ---
NO PA REQUIRED FOR MARBELLA [id number] COVERED UNDER MEDICAL BENEFIT REF # [id number] 03/20/2023 AT 3:52 PM EST OK TO SCHEDULE
--- NOTE | 2023-08-05 09:45 | PM.HEMONCPN ---
Medical Summary - Medical Summary Date of Service: 08/05/23 Chief complaint: Follow-up for: 1. Anemia. 2. DVT. Primary Care Provider: Gene Dave MD Medical Summary: DIAGNOSIS: IJ THROMBOSIS. ANEMIA. CURRENT THERAPY: XERALTO 20 MG DAILY. Received IV Venofer between 03/28 and 05/14:7 doses. Interval History Interval history: Ozzy Thorne is an 88 year old gentleman, here for a follow-up visit. He tells me he has been feeling better day by day. His energy level is up. He is still using a walker but sometimes he can walk a bit without it. He denies headache. No chest pain, has had trouble breathing. He denies any abdominal symptoms. His bowel movements are clear. He is not constipated. Bowels are working without any gross blood in it. He is in good spirits. Rest of the review of systems is unremarkable. He was receiving IV iron. He received 8 doses, last dose on 01/08/23. INTERIM HISTORY: He was referred by Dr. Hammond on account of her significant anemia. He was actually seen on 03/13. Three weeks prior he had an episode of bright red blood per rectum. Hemoglobin was 9.7. Creatinine 2.4. Iron was 32. Saturation 9%. He had been on aspirin and a NOAC. [facility]. this was a single episode. However subsequently he had multiple days of dark and black stools. He had been feeling more fatigued. It appeared he had an upper GI bleeding. PRESENTING HISTORY: He was seen in [place] back on 09/05/2022. He had the complaints of sob, low hgb. 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 patient states sob began with cold weather. has been progressively worsening, worse on exertion, relieved by rest. denies orthopnea, fever, chills, chest pain. He was at cardiology on day of presentation, noted to have hgb of 6.3 (was 15.2 in January 2022). He was on AC for both aflutter and DVT of left IJ s/p ICD placement. Patient also notes that his left arm after initial resolution of edema, had been slightly more swollen over past 2 weeks. He reported chronic constipation for over a year, with occasional red blood in stool He takes ASA 325mg about once weekly for pain. Drinks 2 Manhatt[place] per day. in ED given 2 units prbc with lasix, Doppler still positive for left I.J DVT. Review of Systems Review of Systems: Constitutional: Denies fever, denies Chills Eyes: denies blurry vision ENT: denies sore throat CVS: denies chest pain Respiratory: dyspnea GI: no abdominal pain : denies dysuria MSK: denies neck pain Skin: denies rash Neuro: denies specific motor weakness Psych: denies suicidal ideation Endocrine: denies heat/cold intolerance Hematologic: denies easy bleeding Allergy: denies hives [facility] Medical History: PMH chronic systolic chf (EF 30%), unspecified aflutter, CKD IV, Acute renal insufficiency Annual physical exam Biventricular ICD (implantable cardioverter-defibrillator) in place Cardiomyopathy Cellulitis of right leg Chronic renal failure, stage 3 (moderate) Chronic systolic (congestive) heart failure Leg wound, right Family History: Mother :No problems noted. Father : No problems noted. Review of Systems - Constitutional Reports no additional constitutional complaints, Denies lack of energy, Denies malaise, Denies night sweats, Denies poor appetite, Reports weight gain, Denies weight loss - Eyes Reports no additional eye complaints - ENT Reports no additional ear, nose, mouth, and throat complaints - Cardiovascular Reports no additional cardiovascular complaints - Respiratory Reports no additional respiratory complaints - Gastrointestinal Reports no additional gastrointestinal complaints - Genitourinary Genitourinary: Reports no additional male genitourinary complaints - Musculoskeletal Reports no additional musculoskeletal complaints - Integumentary/Breasts Skin/Breast: Reports no additional skin complaints - Neurologic Reports no additional neurologic complaints, Reports weakness - Psychiatric Reports no additional psychiatric complaints - Endocrine Reports no additional endocrine complaints - Hematologic/Lymphatic Reports no additional hematologic/lymphatic complaints - Allergic/Immunologic Reports no additional allergic/immunologic complaints [facility] Medical History: Medical History (Last Reviewed 08/05/23 @ 10:00 by Yudith Kelly) Acute renal insufficiency Annual physical exam Biventricular ICD (implantable cardioverter-defibrillator) in place Cardiomyopathy Cellulitis of right leg Chronic renal failure, stage 3 (moderate) Chronic systolic (congestive) heart failure Leg wound, right Functional capacity: uses cane/walker Patient : No Family History: Family History (Last Reviewed 08/05/23 @ 10:00 by Yudith Kelly) Mother No problems noted. Father No problems noted. Other No family history of cancer Surgical History: Surgical History (Last Reviewed 08/05/23 @ 10:00 by Yudith Kelly) History of cardiac defibrillator placement History of endoscopy History of left hip replacement History of permanent cardiac pacemaker placement History of removal of skin mole History of total right knee replacement Social History: Social History (Last Reviewed 08/05/23 @ 10:00 by Yudith Kelly) Living Situation History: Household Members: Children Household Members Other:: 1 Housing: House Are you a primary nurse behavioral health care to a significant other at home: No Do you presently have visiting nurse or other home services: Yes Do you presently have visiting nurse or other home services 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 How often do you have a drink containing alcohol?: e. 4 or more times a week 2. How many drinks containing alcohol do you have on a typical day when you are drinking?: a. 1 or 2 Tobacco History: Patient Tobacco Use Status: Former Tobacco user Tobacco use type: Cigarette Years Smoked: 50 +/- Smoke Quit Date: over 20 years ago e-Cigarette/Vaping Use: Never Used Second Hand Smoke Exposure: No Substance Use History: Use of substances other than those prescribed or required for medical reasons: No Domestic Abuse History: Have you been hit, kicked, punched, or otherwise hurt by someone within the past year? If so, by whom?: No Advance Directives: Advance Directives Date on File: 09/07/22 Homicidal Assessment: Do you have thoughts of harming others: None Do you have a plan to hurt others: No Plan Do you have the means to hurt others: No Nutrition Assessment: Recently lost weight without trying: No Eating poorly because of decreased appetite: No Patient : No Occupation Assessmet: service: No Current occupational status: retired Oncology Screenings - ECOG Performance Status ECOG Performance Status: 1 Home Medications and Allergies Home Medications Medication Instructions Recorded Confirmed Type calcitriol 0.25 mcg capsule 0.25 mcg PO MOTH@0900 11/02/21 08/05/23 History bisacodyl 5 mg tablet,delayed 10 mg PO DAILY 02/03/22 08/05/23 History release (Dulcolax (bisacodyl)) metoprolol tartrate 50 mg tablet 50 mg PO BEDTIME 09/03/22 08/05/23 History omeprazole 40 mg capsule,delayed 40 mg PO DAILY 03/21/23 08/05/23 History release Allergies Allergy/AdvReac Type Severity Reaction Status Date / Time No Known Allergies Allergy Verified 08/05/23 10:00 Exam Vital signs: Vital Signs Temp 97 F 03/15/23 15:31 Pulse 81 03/15/23 15:31 Resp 18 03/15/23 13:25 BP 120/51 L 03/15/23 15:31 Pulse Ox 99 03/15/23 11:38 O2 Del Method Room Air 03/15/23 11:38 Weight 82.2 kg BMI result Body Mass Index 26.8 - Constitutional Present: no acute distress - Routine HEENT Exam Head: Present: normal inspection Eye: Present: normal appearance ENT: Present: mucous membranes moist - Routine Neck Exam Present: full ROM - Routine Respiratory Exam Present: CTAB - Routine Cardiovascular Exam Cardiovascular: Present: RRR, S1, S2 - Routine Abdominal Exam Present: soft, nontender - Routine Extremities Exam Present: nontender - Routine Back/Spine/Pelvis Exam Back/Spine: Present: full ROM - Routine Skin Exam Present: intact - Routine Neurological Exam Present: alert, oriented X3 - Routine Psychiatric Exam Present: normal affect Data - Labs CBC & Chem 7: 08/05/23 09:48 08/05/23 09:48 Assessment and Plan Patient Active problem list reviewed?: Yes (1) Acute deep vein thrombosis (DVT) of left upper extremity Status: Acute Assessment and plan: 87-year-old gentleman, with H/O Right IJ thrombosis, into basilic vein, initially noted February 01. He was maintained on eliquis. He was admitted in August with shortness of breath. History of melena. Noted to be significantly Anemic with hemoglobin of 6.8. Had left upper extremity edema. Ultrasound revealed right IJ thrombosis. I reviewed the ultrasound with the radiologist. The clot actually improved compared to ultrasound done in January. Concern was anticoagulation in the setting of GI bleeding. He was given 2 units of blood. Patient was seen by GI. H&H remained stable. Hgb in A.M.: 8.2. 23:00: 8.5. He underwent EGD and colonoscopy. EGD shows mild duodenitis. Colonoscopy showed multiple polyps, largest piecemeal resected in cecum and 2 clips applied to prevent post polypectomy bleeding. mild diverticulosis, 8x10 mm nobleeding cecal avm. 09/06/22, discharge summary: Patient was admitted for dyspnea due to iron deficiency anemia from likely chronic blood loss anemia while on Xarelto.He was transfused 2 units of PRBC and hemoglobin improved appropriately from 6.3-8.6. He was seen by GI who performed EGD and colonoscopy which showed duodenitis and colonic polyps which were removed. Recommendations were to restart anticoagulation in 24 hours, monitor CBC as outpatient, continue oral PPI and oral iron. Patient's shortness of breath improved. He was noted to have elevated creatinine from baseline; this is either acute kidney injury on CKD 4 or progression of his CKD. His creatinine remained stable around to during hospitalization, this can be monitored as outpatient. For patient's unspecified atrial flutter he was continued on metoprolol and Xarelto will be restarted as outpatient. For his chronic systolic CHF he was continue metoprolol and Lasix p.o. for his left IJ DVT he will be restarted on Xarelto. On november 02, his hemoglobin was low at 8.2. Iron studies: /. He received 8 doses of IV iron between 11/20 through 01/08. His hemoglobin had improved to 12.3. He was referred for physical therapy. He was then seen here for an urgent follow-up, on 03/15. He had black stools. His Hgb was down to 8.2. Ferritin: 24. B12: 533. Folate: 12.7. He was given a blood transfusion. He had an upper endoscopy on 03/[address] Hammond, this revealed: 1. Significant erosive duodenitis in the duodenal bulb. 2. Rule out Helicobacter pylori. 3. Hiatal hernia and gastroesophageal reflux. He was started on omeprazole 40 mg to take it on a long-term basis. Aspirin was put on hold. He has been on a NOAC. He received IV Venofer between 03/28 till 05/14. He received 7 doses. He is doing well. His hemoglobin has normalized. Ferritin is up. PLAN: The plan is to continue to monitor him along. He recently had a follow-up with Cardiology Dr. Finley. He needs physical therapy to strengthen his legs and cardiac rehab. I will set that up. He will return in 4 months for a follow-up visit. Thank you, Cc: Dr. Bower (2) Internal jugular vein thrombosis Status: Acute Assessment and plan: 88-year-old gentleman with a history of right IJ thrombosis back in January of last year. 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 Appearances are unchanged when compared to 09/03/2022. His Xarelto is on hold. He probably needs anticoagulation on account of his cardiomyopathy. PLAN: He will address this further with Dr. Finley. - Time Spent With Patient Time Spent with Patient (in minutes): 26
[2023-08-05 10:01] VITALS: BP 120/62; PULSE 75; O2SAT 98
[2023-08-05 10:01] LABS: MANUAL DIFF FLAG NO
[2023-08-05 10:28] LABS: Basophils Percent Auto 0.6 % (0-2); Eosinophils Absolute Auto 0.2 X10*3/uL (0.0-0.4); Eosinophils Percent Auto 3.4 % (0-4); Hematocrit 45.8 % (42.0-52.0); Imm Gran Abs Auto 0.05 X10*3/uL (0.00-0.03); Imm Gran Pct Auto 0.8 % (0.0-0.4); Lymphocytes Absolute Auto 0.8 X10*3/uL (1.2-4.9); Lymphocytes Percent Auto 12.1 % (20-40); Mean Corpuscular HGB Conc 32.8 g/dl (31.0-36.0); Mean Corpuscular Hemoglobin 30.7 pg (27.0-33.0); Mean Corpuscular Volume 93.7 fL (80.0-98.0); Mean Platelet Volume 9.6 fL (9.4-12.4); Monocytes Absolute Auto 0.6 X10*3/uL (0.1-1.2); Monocytes Percent Auto 8.7 % (2-11); Neutrophils Absolute Auto 4.9 x10*3/uL (2.0-8.3); Neutrophils Percent Auto 74.4 % (45-73); Platelet Count 145 X10*3/uL (160-400); Red Blood Count 4.89 X10*6/uL (4.60-5.80); Red Cell Distribution Width 14.6 % (11.0-16.0); White Blood Count 6.5 X10*3/uL (4.8-10.8)
[2023-08-05 10:43] LABS: Alanine Aminotransferase 11 U/L (0-40); Albumin Level 4.1 g/dL (3.5-5.0); Alkaline Phosphatase 102 U/L (39-117); Anion Gap 14 (12-20); Aspartate Amino Transferase 21 U/L (5-37); Bilirubin Total 0.8 mg/dL (0.0-1.0); Blood Urea Nitrogen 35 mg/dL (9-16); Calcium 9.4 mg/dL (8.4-10.2); Carbon Dioxide 28 mmol/L (22-29); Chloride 101 mmol/L (96-108); Creatinine Clr Calc Pharmacy 28.8; Estimated Glomerular Filt Rate 35; Glucose Random 105 mg/dL (60-115); Potassium 3.7 mmol/L (3.3-5.1); Sodium 139 mmol/L (135-145)
[2023-08-05 10:45] LABS: D Dimer High Sensitivity 351 NG/ML
== END 2023-12-12 | disposition home or self-care (01) ==
LOC: HO.ONC 10:00
PROVIDERS: PCP Internal Medicine; Visit Provider Internal Medicine Medical Oncology
DX: D64.9 Anemia, unspecified (principal); I82.C11 Acute embolism and thrombosis of right internal jugular vein; I48.92 Unspecified atrial flutter; I50.22 Chronic systolic (congestive) heart failure; Z79.899 Other long term (current) drug therapy
CPT/HCPCS: 36415; 80053; 82607; 82728; 82746; 83540; 83615; 85025; 85379; 86850; 86900; 86901; 86923; 99213; 99214; P9016

== ENCOUNTER → 2023-08-11 23:59 | Outpatient (BNV) | payer MEDICARE, SELFPAY ==
--- NOTE | 2023-08-12 21:28 | A.OFFVIS_ITS ---
Intake Intake Visit Reasons: Remote HF Monitoring- Medtr[employer] Allergies No Known Allergies Allergy (Verified 08/05/23 10:00) [facility] Medical History Acute renal insufficiency Annual physical exam Biventricular ICD (implantable cardioverter-defibrillator) in place Cardiomyopathy Cellulitis of right leg Chronic renal failure, stage 3 (moderate) Chronic systolic (congestive) heart failure Leg wound, right Surgical History History of endoscopy History of removal of skin mole History of cardiac defibrillator placement History of permanent cardiac pacemaker placement History of total right knee replacement History of left hip replacement Family History Mother No problems noted. Father No problems noted. Other No family history of cancer Household Members: Children Household Members Other:: 1 Housing: House Are you a primary restorative care technician to a significant other at home: No Do you presently have visiting nurse or other home services: Yes (lacing operator) Alcohol intake: current Alcohol intake frequency: 0-2 drinks per day Alcohol type: hard liquor Patient Tobacco Use Status: Former Tobacco user Quit Date: over 20 years ago Tobacco use type: Cigarette Years Smoked: 50 +/- e-Cigarette/Vaping Use: Never Used Second Hand Smoke Exposure: No Use of substances other than those prescribed or required for medical reasons: No Have you been hit, kicked, punched, or otherwise hurt by someone within the past year? If so, by whom?: No Advance Directives Date on File: 09/07/22 Do you have thoughts of harming others: None Do you have a plan to hurt others: No Plan Do you have the means to hurt others: No Recently lost weight without trying: No Eating poorly because of decreased appetite: No service: No Current occupational status: retired Cognitive needs: Yes (cane) Hearing needs: No Vision needs: Yes (glasses) Office Procedures Cardiac Device Check Cardiac Device Check Details: HF monitoring Stable thoracic impedance. [id number] Cardiac Device Interrogation, cardio physiologic monitor Procedure code (CPT) selection complete Assessment & Plan Assessment & Plan (1) Chronic heart failure: Code(s): I50.9 - Heart failure, unspecified Orders: Orders AMB Cardiac Device Follow-up 08/11/23 I50.9 - Heart failure, unspecified Coding Level of Care Code Procedure Only Diagnoses Chronic heart failure I50.9 CPT Codes Cardiac Device Check - Cardiac Device 15: [id number] Cardiac Device Interrogation, cardio physiologic monitor ([id number])
== END ==
PROVIDERS: PCP Internal Medicine; Visit Provider Internal Medicine Cardiovascular Disease
DX: I50.9 Heart failure, unspecified (principal); Z95.810 Presence of automatic (implantable) cardiac defibrillator
CPT/HCPCS: 93297

== ENCOUNTER → 2023-09-11 23:59 | Outpatient (BNV) | payer MEDICARE, SELFPAY ==
--- NOTE | 2023-09-17 21:17 | MHC.OFFVIS ---
Intake Intake Visit Reasons: Remote HF Monitoring- [employer] Allergies No Known Allergies Allergy (Verified 09/12/23 10:39) [facility] Medical History Acute renal insufficiency Annual physical exam Biventricular ICD (implantable cardioverter-defibrillator) in place Cardiomyopathy Cellulitis of right leg Chronic renal failure, stage 3 (moderate) Chronic systolic (congestive) heart failure Leg wound, right Surgical History History of endoscopy History of removal of skin mole History of cardiac defibrillator placement History of permanent cardiac pacemaker placement History of total right knee replacement History of left hip replacement Family History Mother No problems noted. Father No problems noted. 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 [id number] Cardiac Device Interrogation, cardio physiologic monitor Procedure code (CPT) selection complete Assessment & Plan Assessment & Plan (1) Chronic heart failure: Code(s): I50.9 - Heart failure, unspecified Plan: Orders: Orders AMB Cardiac Device Follow-up 09/11/23 I50.9 - Heart failure, unspecified Coding Level of Care Code Procedure Only Diagnoses Chronic heart failure I50.9 CPT Codes Cardiac Device Check - Cardiac Device 15: [id number] Cardiac Device Interrogation, cardio physiologic monitor ([id number])
== END ==
PROVIDERS: PCP Internal Medicine; Visit Provider Internal Medicine Cardiovascular Disease
DX: I50.9 Heart failure, unspecified (principal); Z95.810 Presence of automatic (implantable) cardiac defibrillator
CPT/HCPCS: 93297

== ENCOUNTER 2023-09-12 10:33 | Outpatient (AMB) | payer MEDICARE, SELFPAY ==
--- NOTE | 2023-09-12 10:37 | A.OFFPC_ITS ---
Vital Signs 09/12/23 10:39 Height 5 ft 9 in Weight 177 lb 6 oz BMI 26.2 BP 120/68 Blood Pressure Location Lt brachial Position Sitting Intake Visit Reasons: Oral Surgeon Referral-White Spot on Tongue Intake Note: Patient is here to follow up on CHF,. Lead Athlete Required: No Pin Drafting Machine Tender: Not Required per policy Accompanied by: Self / Same As Patient Allergies No Known Allergies Allergy (Verified 09/23/23 05:26) Medication List - Last Reconciled 09/23/23 by Gene Dave MD allopurinol 100 mg PO DAILY bisacodyl (Dulcolax (bisacodyl)) 10 mg PO DAILY calcitriol 0.25 mcg PO MOTH@0900 furosemide 80 mg (2 x 40 mg) PO BID 90 days metoprolol tartrate 75 mg (3 x 25 mg) PO DAILY 90 days metoprolol tartrate 50 mg PO BEDTIME omeprazole 40 mg PO DAILY rivaroxaban (Xarelto) 15 mg PO QPM tamsulosin 0.4 mg PO DAILY Tobacco use date assessed: 09/12/23 Fall risk assessment: No Falls in past year Last assessed Fall Risk: 09/12/23 Dental Screening Dental Screen Date: 09/12/23 Did you have a dental visit in the last 12 months?: Yes Did you have a dental problem in the last 6 months where you did not have access to dental care?: No Was dental information given to patient?: Patient has dentist HPI Oral Surgeon Referral-White Spot on Tongue HPI Details 88-year-old male presents to the office to discuss his chronic medical conditions. Patient continues to see his director sanitation bureau and wedding decorator. Continues to take iron for his low blood count. He has an appointment with the kidney specialist later this week. Patient has a whitish spot in the tongue and has already sched uled an appointment with the ENT. He is at baseline state of health and able to function and do activities of daily living. Compliant with all his medications. [facility], [facility] Medical History Biventricular ICD (implantable cardioverter-defibrillator) in place Chronic renal failure, stage 3 (moderate) Leg wound, right Cellulitis of right leg Annual physical exam Acute renal insufficiency Chronic systolic (congestive) heart failure Cardiomyopathy Surgical History History of endoscopy History of removal of skin mole History of cardiac defibrillator placement History of permanent cardiac pacemaker placement History of total right knee replacement History of left hip replacement Family History Mother No problems noted. Father No problems noted. 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) Alcohol intake: current Alcohol intake frequency: a few times a month Alcohol type: hard liquor Comment: patient refused alarms Patient Tobacco Use Status: Former Tobacco user Quit Date: over 20 years ago Tobacco use type: Cigarette Years Smoked: 50 +/- e-Cigarette/Vaping Use: Never Used Second Hand Smoke Exposure: No Advance Directives Date on File: 09/07/22 service: No Current occupational status: retired Cognitive needs: Yes (cane) Hearing needs: No Vision needs: Yes (glasses) Questionnaire Thrive Questionnaire Date Thrive assessed: 12/13/22 JANET-7 AMB Questionnaire JANET-7 Date JANET - 7 assessed: 12/13/22 Source: Developed by Drs. Kevin Rosario, Tiarra Menon, Lars Nelson and colleagues, with an educational gabby from [employer]. Physical exam (Primary Care) Condition is stable. Patient has an appointment with his director sanitation bureau. (2) Acute on chronic renal failure: Code(s): N17.9 - Acute kidney failure, unspecified; N18.9 - Chronic kidney disease, unspecified Plan: His blood counts are stable. With the laboratory apparatus glass grinder. 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 However I encouraged the patient to keep the ENT appointment. 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 Vital Signs: Last Vital Signs BP 120/68 09/12/23 10:39 BMI result Body Mass Index 26.2 Tobacco/Smoking Status: Tobacco use Status Tobacco use date assessed 09/12/23 09/12/23 10:43 Patient Tobacco Use Status Former Tobacco user 09/12/23 10:47 Tobacco use type Cigarette 09/12/23 10:47 e-Cigarette/Vaping Use Never Used 09/12/23 10:47 Thrive Assessment: Date of Thrive Assessment Date Thrive assessed 12/13/22 09/12/23 10:43 Const General: cooperative and healthy appearing Nutritional Appearance: well nourished Orientation/consciousness: patient oriented x3 Limitations: no limitations HENMT Head: Yes normal to inspection Eyes General: appearance normal, both eyes and all related structures Neck Neck: Yes normal visual inspection Chest Chest palpation & inspection: normal palpation of entire chest wall Resp Effort & Inspection: normal respiratory effort Skin Other: Extensive bruising. This is stable and has not changed since the previous visits. Neuro General: patient oriented x3 Assessment and Plan Assessment & Plan (1) Atrial flutter: Code(s): I48.92 - Unspecified atrial flutter Plan:
[2023-09-12 10:39] VITALS: BP 120/68; BMI 26.2
== END 2023-09-12 11:26 | disposition home or self-care (01) ==
PROVIDERS: PCP Internal Medicine; Visit Provider Internal Medicine
DX: I48.92 Unspecified atrial flutter (principal); N17.9 Acute kidney failure, unspecified; N18.9 Chronic kidney disease, unspecified; K13.21 Leukoplakia of oral mucosa, including tongue
CPT/HCPCS: 99214

== ENCOUNTER → 2023-10-13 23:59 | Outpatient (BNV) | payer MEDICARE, SELFPAY ==
--- NOTE | 2023-10-26 20:20 | MHC.OFFVIS ---
Intake Intake Visit Reasons: Remote ICD Check- [employer] Allergies No Known Allergies Allergy (Verified 10/02/23 09:58) [facility] Medical History Biventricular ICD (implantable cardioverter-defibrillator) in place Chronic renal failure, stage 3 (moderate) Leg wound, right Cellulitis of right leg Annual physical exam Acute renal insufficiency Chronic systolic (congestive) heart failure Cardiomyopathy Surgical History History of endoscopy History of removal of skin mole History of cardiac defibrillator placement History of permanent cardiac pacemaker placement History of total right knee replacement History of left hip replacement Family History Mother No problems noted. Father No problems noted. Other No family history of cancer Social History Household Members: Children Household Members Other:: 1 Housing: House Are you a primary long term care pharmacist to a significant other at home: No Do you presently have visiting nurse or other home services: Yes (compensation specialist) Alcohol intake: current Alcohol intake frequency: a few times a month Alcohol type: hard liquor Comment: patient refused alarms Patient Tobacco Use Status: Former Tobacco user Quit Date: over 20 years ago Tobacco use type: Cigarette Years Smoked: 50 +/- e-Cigarette/Vaping Use: Never Used Second Hand Smoke Exposure: No Advance Directives Date on File: 09/07/22 service: No Current occupational status: retired Cognitive needs: Yes (cane) Hearing needs: No Vision needs: Yes (glasses) Office Procedures Cardiac Device Check Cardiac Device Check Details: Biv AICD Good battery life No new alerts. Background atrial flutter. HEELER MACHINE 93%. [id number] Cardiac Device Interrogation, pacemaker or defibrillator Procedure code (CPT) selection complete Assessment & Plan Assessment & Plan (1) Chronic heart failure: Code(s): I50.9 - Heart failure, unspecified Plan Coding Level of Care Code Procedure Only Diagnoses Chronic heart failure I50.9 CPT Codes Cardiac Device Check - Cardiac Device 14: [id number] Cardiac Device Interrogation, pacemaker or defibrillator ([id number])
== END ==
PROVIDERS: PCP Internal Medicine; Visit Provider Internal Medicine Cardiovascular Disease
DX: I50.22 Chronic systolic (congestive) heart failure (principal); Z95.810 Presence of automatic (implantable) cardiac defibrillator
CPT/HCPCS: 93295

== ENCOUNTER → 2023-10-13 23:59 | Outpatient (BNV) | payer MEDICARE, SELFPAY ==
--- NOTE | 2023-10-14 14:31 | MHC.OFFVIS ---
Intake Intake Visit Reasons: Remote HF Monitoring- [employer] Allergies No Known Allergies Allergy (Verified 10/02/23 09:58) [facility] Medical History Biventricular ICD (implantable cardioverter-defibrillator) in place Chronic renal failure, stage 3 (moderate) Leg wound, right Cellulitis of right leg Annual physical exam Acute renal insufficiency Chronic systolic (congestive) heart failure Cardiomyopathy Surgical History History of endoscopy History of removal of skin mole History of cardiac defibrillator placement History of permanent cardiac pacemaker placement History of total right knee replacement History of left hip replacement Family History Mother No problems noted. Father No problems noted. Other No family history of cancer Social History Household Members: Children Household Members Other:: 1 Housing: House Are you a primary care management assistant to a significant other at home: No Do you presently have visiting nurse or other home services: Yes (press manager) Alcohol intake: current Alcohol intake frequency: a few times a month Alcohol type: hard liquor Comment: patient refused alarms Patient Tobacco Use Status: Former Tobacco user Quit Date: over 20 years ago Tobacco use type: Cigarette Years Smoked: 50 +/- e-Cigarette/Vaping Use: Never Used Second Hand Smoke Exposure: No Advance Directives Date on File: 09/07/22 service: No Current occupational status: retired Cognitive needs: Yes (cane) Hearing needs: No Vision needs: Yes (glasses) Office Procedures Cardiac Device Check Cardiac Device Check Details: HF monitoring Stable thoracic impedance. [id number] Cardiac Device Interrogation, cardio physiologic monitor Procedure code (CPT) selection complete Assessment & Plan Assessment & Plan (1) Chronic heart failure: Code(s): I50.9 - Heart failure, unspecified Plan: Orders: Orders AMB Cardiac Device Follow-up 10/13/23 I50.9 - Heart failure, unspecified Coding Level of Care Code Procedure Only Diagnoses Chronic heart failure I50.9 CPT Codes Cardiac Device Check - Cardiac Device 15: [id number] Cardiac Device Interrogation, cardio physiologic monitor ([id number])
== END ==
PROVIDERS: PCP Internal Medicine; Visit Provider Internal Medicine Cardiovascular Disease
DX: I50.9 Heart failure, unspecified (principal); Z95.810 Presence of automatic (implantable) cardiac defibrillator
CPT/HCPCS: 93297

== ENCOUNTER 2023-10-21 11:06 | Outpatient (AMB) | payer MEDICARE, SELFPAY ==
[2023-10-21 11:16] VITALS: BP 130/64; PULSE 80; BMI 25.8
--- NOTE | 2023-10-21 11:16 | A.OFFVIS_ITS ---
Intake Vital Signs 10/21/23 11:16 Height 5 ft 9 in Weight 175 lb 0.752 oz BMI 25.8 BP 130/64 Blood Pressure Location Lt brachial Position Sitting Pulse 80 Intake Visit Reasons: 4 mthf/up pt wants KM Intake Note: pt its here for a 4 mnth f/up pt states that its feeling fine. Accompanied by: Self / Same As Patient Allergies No Known Allergies Allergy (Verified 10/02/23 09:58) Medication List - Last Reconciled 10/21/23 by Woo Finley MD allopurinol 100 mg PO DAILY bisacodyl (Dulcolax (bisacodyl)) 10 mg PO DAILY calcitriol 0.25 mcg PO MOTH@0900 furosemide 80 mg (2 x 40 mg) PO BID 90 days metoprolol tartrate 75 mg (3 x 25 mg) PO DAILY 90 days metoprolol tartrate 50 mg PO BEDTIME omeprazole 40 mg PO DAILY rivaroxaban (Xarelto) 15 mg PO QPM tamsulosin 0.4 mg PO DAILY HPI HPI Comments History of Present Illness Details 88-year-old gentleman gentleman with atr ial flutter, left bundle-branch block and cardiomyopathy who is here for follow-up. He underwent Bi V AICD and subsequently developed a left upper extremity DVT. He was admitted to the hospital and was heparinized. He has significant swelling which has improved at this stage. He has been changed from Eliquis to Xarelto. He has skin cancer on the left side of his face. He will need surgery for that. He is here to discuss if rivaroxaban can be stopped. Denies any chest pain or shortness of breath. Admission to the hospital in August 2022 with anemia. He was found to have duodenitis and also had polyps removed. He was transfused and was restarted on Xarelto. He had left arm swelling and had all her left internal jugular thrombus. On last visit he was noticed to be in congestive heart failure. Was advised to increase the Lasix to 80 mg in the morning and 40 in the afternoon. He was previously taking 40 mg twice a day Lasix. He is returning and has been using Lasix on every other day. He looks significantly volume overloaded. He is short of breath. He was anemic with hemoglobin 8.2 and he has not been able to tolerate oral iron. He was advised to increase Lasix to 80 mg p.o. b.i.d.. With this regimen he has done well and overall volume status is improved. His repeat hemoglobin testing has shown stable hemoglobin. He had 1 episode of bright red blood per rectum and went to the emergency department and was discharged home from the ER. It appears a discussion was done by the ER physician with Dr. Hammond and it was advised that he hold his Xarelto for 3 days. He is saying that since then he has not had any further bleeding. 06/17/23: He returns for follow-up. He is denying any bleeding. Denying any chest discomfort. He gets dyspnea when he does activities but overall symptoms are stable. He has mild peripheral edema. Taking medications regularly. He is currently on Lasix 80 mg twice a day. 10/21/23: He is here for follow-up. He u nfortunately did tripped and fell early September and had injury to the right leg. He has been following with his primary care physician and has visiting nurses looking at his leg wound. No infection. He is taking medications otherwise regularly. No chest discomfort or shortness of breath on follow-up. [facility] Medical History Biventricular ICD (implantable cardioverter-defibrillator) in place Chronic renal failure, stage 3 (moderate) Leg wound, right Cellulitis of right leg Annual physical exam Acute renal insufficiency Chronic systolic (congestive) heart failure Cardiomyopathy Surgical History History of endoscopy History of removal of skin mole History of cardiac defibrillator placement History of permanent cardiac pacemaker placement History of total right knee replacement History of left hip replacement Family History Mother No problems noted. Father No problems noted. Other No family history of cancer Social History Household Members: Children Household Members Other:: 1 Housing: House Are you a primary career consultant to a significant other at home: No Do you presently have visiting nurse or other home services: Yes (community center director) Alcohol intake: current Alcohol intake frequency: a few times a month Alcohol type: hard liquor Comment: patient refused alarms Patient Tobacco Use Status: Former Tobacco user Quit Date: over 20 years ago Tobacco use type: Cigarette Years Smoked: 50 +/- e-Cigarette/Vaping Use: Never Used Second Hand Smoke Exposure: No Advance Directives Date on File: 09/07/22 service: No Current occupational status: retired Cognitive needs: Yes (cane) Hearing needs: No Vision needs: Yes (glasses) Physical Exam Vital Signs: Last Vital Signs Pulse 80 10/21/23 11:16 BP 130/64 10/21/23 11:16 BMI result Body Mass Index 25.8 GENERAL APPEARANCE: in no acute distress, pleasant. NECK: no carotid bruit, no JVD. HEART: no murmurs, regular rate and rhythm. LUNGS: clear to auscultation bilaterally. ABDOMEN: soft, nontender. PERIPHERAL PULSES: equal. NEUROLOGIC: No gross deficits, AAO X 3. Extremities: Mild edema at ankles. Right leg in dressing Office Procedures EKG Details: V paced rhythm, background atrial flutter, QTC 498 milliseconds. [id number], Complete Assessment & Plan Assessment & Plan (1) Cardiomyopathy: Code(s): I42.9 - Cardiomyopathy, unspecified (2) Atrial flutter: Code(s): I48.92 - Unspecified atrial flutter (3) Chronic heart failure: Code(s): I50.9 - Heart failure, unspecified Plan 88-year-old gentleman who is here for follow-up. He has background of cardiomyopathy and underwent MANAGER MULTICULTURAL D. Ejection fraction improved from severely reduced to moderately reduced. Clinically has done well and has been stable. He has been on rivaroxaban for atrial flutter. Continue same medications for now. See us back in 4 months. Thank you for allowing me to participate in the care of your patient. Please feel free to contact me if you have any questions. Coding Level of Care Code Est Pt Level 3 (04714) Diagnoses Cardiomyopathy I42.9 Atrial flutter I48.92 Chronic heart failure I50.9 CPT Codes EKG - CPT: 17393-Vlmzmusoabsnuqtvk, Complete ([id number])
== END 2023-10-21 11:48 | disposition home or self-care (01) ==
PROVIDERS: PCP Internal Medicine; Visit Provider Internal Medicine Cardiovascular Disease
DX: I42.9 Cardiomyopathy, unspecified (principal); I48.92 Unspecified atrial flutter; I50.9 Heart failure, unspecified
CPT/HCPCS: 93010; 99213

== ENCOUNTER → 2023-10-21 11:06 | Outpatient (BNVA) | payer MEDICARE, SELFPAY | PROVIDERS: PCP Internal Medicine; Visit Provider Internal Medicine Cardiovascular Disease | DX: I42.9 Cardiomyopathy, unspecified (principal); I48.92 Unspecified atrial flutter; I50.9 Heart failure, unspecified | CPT/HCPCS: 93005; 99212 ==

== ENCOUNTER → 2023-11-13 23:59 | Outpatient (BNV) | payer MEDICARE, SELFPAY ==
--- NOTE | 2023-11-27 10:44 | A.OFFVIS_ITS ---
Intake Intake Visit Reasons: Remote HF Monitoring- [employer] Allergies No Known Allergies Allergy (Verified 10/02/23 09:58) [facility] Medical History Biventricular ICD (implantable cardioverter-defibrillator) in place Chronic renal failure, stage 3 (moderate) Leg wound, right Cellulitis of right leg Annual physical exam Acute renal insufficiency Chronic systolic (congestive) heart failure Cardiomyopathy Surgical History History of endoscopy History of removal of skin mole History of cardiac defibrillator placement History of permanent cardiac pacemaker placement History of total right knee replacement History of left hip replacement Family History Mother No problems noted. Father No problems noted. Other No family history of cancer Social History Household Members: Children Household Members Other:: 1 Housing: House Are you a primary home care giver to a significant other at home: No Do you presently have visiting nurse or other home services: Yes (occupational health professional) Alcohol intake: current Alcohol intake frequency: a few times a month Alcohol type: hard liquor Comment: patient refused alarms Patient Tobacco Use Status: Former Tobacco user Quit Date: over 20 years ago Tobacco use type: Cigarette Years Smoked: 50 +/- e-Cigarette/Vaping Use: Never Used Second Hand Smoke Exposure: No Advance Directives Date on File: 09/07/22 service: No Current occupational status: retired Cognitive needs: Yes (cane) Hearing needs: No Vision needs: Yes (glasses) Office Procedures Cardiac Device Check Cardiac Device Check Details: Heart failure monitoring. Stable thoracic impedance. [id number] Cardiac Device Interrogation, cardio physiologic monitor Procedure code (CPT) selection complete Assessment & Plan Assessment & Plan (1) Cardiomyopathy: Code(s): I42.9 - Cardiomyopathy, unspecified Plan Coding Level of Care Code Procedure Only Diagnoses Cardiomyopathy I42.9 CPT Codes Cardiac Device Check - Cardiac Device 15: [id number] Cardiac Device Interrogation, cardio physiologic monitor ([id number])
== END ==
PROVIDERS: PCP Internal Medicine; Visit Provider Internal Medicine Cardiovascular Disease
DX: I42.9 Cardiomyopathy, unspecified (principal); Z95.810 Presence of automatic (implantable) cardiac defibrillator
CPT/HCPCS: 93297

== ENCOUNTER 2023-11-14 13:05 | Outpatient (RCR) | payer MEDICARE, SELFPAY | END 2023-12-05 14:00 | disposition home or self-care (01) | LOC: HO.WCC 13:05 | PROVIDERS: Visit Provider Surgery | DX: I87.311 Chronic venous hypertension (idiopathic) with ulcer of right lower extremity (principal); L97.312 Non-pressure chronic ulcer of right ankle with fat layer exposed; S91.105D Unspecified open wound of left lesser toe(s) without damage to nail, subsequent encounter; I87.302 Chronic venous hypertension (idiopathic) without complications of left lower extremity | CPT/HCPCS: 11042; 97597; 99212 ==

== ENCOUNTER 2023-11-21 06:14 | Outpatient (REF) | payer MEDICARE, SELFPAY ==
[2023-11-21 07:55] LABS: Hematocrit 44.1 % (42.0-52.0); Hemoglobin 14.4 g/dl (14.0-18.0); Mean Corpuscular HGB Conc 32.7 g/dl (31.0-36.0); Mean Corpuscular Hemoglobin 30.6 pg (27.0-33.0); Mean Corpuscular Volume 93.6 fL (80.0-98.0); Mean Platelet Volume 9.9 fL (9.4-12.4); Platelet Count 180 X10*3/uL (160-400); Red Blood Count 4.71 X10*6/uL (4.60-5.80); Red Cell Distribution Width 14.6 % (11.0-16.0); White Blood Count 5.8 X10*3/uL (4.8-10.8)
[2023-11-21 08:17] LABS: Anion Gap 12 (12-20); Blood Urea Nitrogen 33 mg/dL (9-16); Calcium 9.5 mg/dL (8.4-10.2); Carbon Dioxide 33 mmol/L (22-29); Chloride 95 mmol/L (96-108); Estimated Glomerular Filt Rate 38; Glucose Random 117 mg/dL (60-115); Potassium 4.2 mmol/L (3.3-5.1); Sodium 136 mmol/L (135-145)
[2023-11-21 08:24] LABS: Parathyroid Hormone Intact 283.1 pg/mL (8.7-77.1)
== END 2023-11-21 06:15 | disposition home or self-care (01) ==
LOC: HO.LAB 06:14
PROVIDERS: PCP Internal Medicine; Visit Provider Internal Medicine Hypertension Specialist
DX: N18.9 Chronic kidney disease, unspecified (principal); Z66 Do not resuscitate
CPT/HCPCS: 36415; 80048; 83970; 85027

== ENCOUNTER 2023-11-28 12:02 | Outpatient (AMB) | payer MEDICARE, SELFPAY ==
[2023-11-28 12:06] VITALS: BP 122/62; BMI 25.4
--- NOTE | 2023-11-28 12:06 | HO.NEPHOV ---
HPI HPI Comments History of Present Illness Details Ozzy is a 88-year-old man with a history of longstanding hypertension and CKD. He has a history of taking ibuprofen in the past after stopping ibuprofen creatinine is marginally improved. Creatinine decreased from 2.5 down to 1.7. Creatinine remained stable for the last several months. He has a history of GI bleed status post transfusion recently hemoglobin has been stable he has on a proton pump inhibitor. He is chronic leg edema with wounds is visiting the wound clinic frequently. He complains of constipation for which he takes various anti constipation preparations. He admits to drinking [place] a day. He has cut back to 1 a day [facility] Medical History Biventricular ICD (implantable cardioverter-defibrillator) in place Chronic renal failure, stage 3 (moderate) Leg wound, right Cellulitis of right leg Annual physical exam Acute renal insufficiency Chronic systolic (congestive) heart failure Cardiomyopathy Surgical History History of endoscopy History of removal of skin mole History of cardiac defibrillator placement History of permanent cardiac pacemaker placement History of total right knee replacement History of left hip replacement Family History Mother No problems noted. Father No problems noted. 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) Alcohol intake: current Alcohol intake frequency: a few times a month Alcohol type: hard liquor Comment: patient refused alarms Patient Tobacco Use Status: Former Tobacco user Quit Date: over 20 years ago Tobacco use type: Cigarette Years Smoked: 50 +/- e-Cigarette/Vaping Use: Never Used Second Hand Smoke Exposure: No Advance Directives Date on File: 09/07/22 service: No Current occupational status: retired Cognitive needs: Yes (cane) Hearing needs: No Vision needs: Yes (glasses) Vital Signs 11/28/23 12:06 Height 5 ft 9 in Weight 172 lb BMI 25.4 BP 122/62 Blood Pressure Location Lt brachial Position Sitting Physical Exam Vital Signs: Last Vital Signs BP 122/62 11/28/23 12:06 BMI result Body Mass Index 25.4 Const General: comfortable Nutritional Appearance: well nourished Orientation/consciousness: patient oriented x3 HEENT Head: No normal to inspection Mouth: moist mucous membranes Neck Neck: Yes supple and Yes no JVD Resp Auscultation: clear to auscultation bilaterally, no rales and rub present Cardio Jugular venous distension: no JVD Palpation: no palpable S3 and no palpable S4 Heart sounds: no rubs GI Palpation (GI): Soft to palpation and nontender Percussion: No Fluid wave present General: Yes no CVA tenderness Back/Spine/Pelvis Back: no CVA tenderness Skin Wounds: wounds noted Neuro General: patient oriented x3 Extrem General: No clubbing and Yes edema Assessment & Plan Assessment & Plan (1) CKD (chronic kidney disease): Comment: Due to longstanding hypertension leading to nephrosclerosis Code(s): N18.9 - Chronic kidney disease, unspecified Plan: Renal function stable at baseline. Continue to avoid nephrotoxic agents including NSAIDs. Keep intake more than output. Optimize blood pressure She will follow renal function periodically. Volume status is acceptable (2) Chronic heart failure: Comment: Well compensated and follows with Cardiology Code(s): I50.9 - Heart failure, unspecified Plan: Encouraged to stay on low-sodium diet Continue current dose of Lasix (3) Anemia: Comment: Due to GI bleed Resolved Code(s): D64.9 - Anemia, unspecified Plan: Monitor hemoglobin periodically (4) Constipation: Code(s): K59.00 - Constipation, unspecified Plan: Encouraged to stay on MiraLax and prunes (5) Secondary hyperparathyroidism: Code(s): N25.81 - Secondary hyperparathyroidism of renal origin Plan: Calcium is acceptable PTH is 238 Continue with calcitriol and we will monitor both calcium and PTH periodically. Orders: Orders Basic Metabolic Panel 5 Months N18.9 - Chronic kidney disease, unspecified Comprehensive Met. Panel 5 Months N18.9 - Chronic kidney disease, unspecified Parathyroid Hormone Intact 5 Months N18.9 - Chronic kidney disease, unspecified Coding Level of Care Code Est Pt Level 4 (36112) Diagnoses CKD (chronic kidney disease) N18.9 Chronic heart failure I50.9 Anemia D64.9 Constipation K59.00 Secondary hyperparathyroidism N25.81 Results Reviewed Nephrology Results: Hgb 14.4 g/dl (14.0-18.0) 11/21/23 WBC 5.8 X10*3/uL (4.8-10.8) 11/21/23 Plt Count 180 X10*3/uL (160-400) 11/21/23 Sodium 136 mmol/L (135-145) 11/21/23 Potassium 4.2 mmol/L (3.3-5.1) 11/21/23 Chloride 95 mmol/L (96-108) L 11/21/23 Carbon Dioxide 33 mmol/L (22-29) H 11/21/23 BUN 33 mg/dL (9-16) H 11/21/23 Creatinine 1.73 mg/dL (0.5-1.4) H 11/21/23 Calcium 9.5 mg/dL (8.4-10.2) 11/21/23 PTH Intact 283.1 pg/mL (8.7-77.1) H 11/21/23
== END 2023-11-28 12:22 | disposition home or self-care (01) ==
PROVIDERS: PCP Internal Medicine; Visit Provider Internal Medicine Hypertension Specialist
DX: N18.9 Chronic kidney disease, unspecified (principal); I50.9 Heart failure, unspecified; D64.9 Anemia, unspecified; K59.00 Constipation, unspecified; N25.81 Secondary hyperparathyroidism of renal origin
CPT/HCPCS: 99214

== ENCOUNTER → 2023-11-28 12:02 | Outpatient (BNVA) | payer MEDICARE, SELFPAY | PROVIDERS: PCP Internal Medicine; Visit Provider Internal Medicine Hypertension Specialist | DX: N18.9 Chronic kidney disease, unspecified (principal); I50.9 Heart failure, unspecified; D64.9 Anemia, unspecified; K59.00 Constipation, unspecified; N25.81 Secondary hyperparathyroidism of renal origin | CPT/HCPCS: 99212 ==

== ENCOUNTER 2023-12-05 10:22 | Outpatient (AMB) | payer MEDICARE, SELFPAY ==
--- NOTE | 2023-12-05 10:57 | MHC.PC.OV ---
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: Not Required per policy Accompanied by: Self / Same As Patient Allergies No Known Allergies Allergy (Verified 12/05/23 11:46) Medication List - Last Reconciled 12/05/23 by Gene aDve MD allopurinol 100 mg PO DAILY bisacodyl (Dulcolax (bisacodyl)) 10 mg PO DAILY calcitriol 0.25 mcg PO MOTH@0900 furosemide 80 mg (2 x 40 mg) PO BID 90 days metoprolol tartrate 75 mg (3 x 25 mg) PO DAILY 90 days metoprolol tartrate 50 mg PO BEDTIME omeprazole 40 mg PO DAILY rivaroxaban (Xarelto) 15 mg PO QPM tamsulosin 0.4 mg PO DAILY Tobacco use date assessed: 12/05/23 Fall risk assessment: No Falls in past year Last assessed Fall Risk: 12/05/23 Dental Screening Dental Screen Date: 12/05/23 Did you have a dental visit in the last 12 months?: Yes Did you have a dental problem in the last 6 months where you did not have access to dental care?: No Was dental information given to patient?: Patient has dentist HPI 3 month f/u HPI Details 88-year-old male presents to the office to discuss his chronic medical conditions. Patient comes to the office on his own using a walker. He is at baseline state of health. The wound has healed completely on the right ankle. He is able to bear weight with no pain or discomfort. Compliant with all his medications and reporting no side effects. [facility] Medical History (Updated 12/05/23 @ 11:48 by Gene Dave MD) Biventricular ICD (implantable cardioverter-defibrillator) in place Chronic renal failure, stage 3 (moderate) Leg wound, right Cellulitis of right leg Annual physical exam Acute renal insufficiency Chronic systolic (congestive) heart failure Cardiomyopathy Surgical History History of endoscopy History of removal of skin mole History of cardiac defibrillator placement History of permanent cardiac pacemaker placement History of total right knee replacement History of left hip replacement Family History Mother No problems noted. Father No problems noted. 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) Alcohol intake: current Alcohol intake frequency: a few times a month Alcohol type: hard liquor Comment: patient refused alarms Patient Tobacco Use Status: Former Tobacco user Quit Date: over 20 years ago Tobacco use type: Cigarette Years Smoked: 50 +/- e-Cigarette/Vaping Use: Never Used Second Hand Smoke Exposure: Yes Advance Directives Date on File: 09/07/22 service: No Current occupational status: retired Cognitive needs: Yes (walker) Hearing needs: No Vision needs: Yes (glasses) Questionnaire Thrive Questionnaire Date Thrive assessed: 10/02/23 JANET-7 AMB Questionnaire JANET-7 Date JANET - 7 assessed: 10/02/23 Source: Developed by Drs. Kevin Rosario, Tiarra Menon, Lars Nelson and colleagues, with an educational gabby from [employer]. Physical exam (Primary Care) Vital Signs: Last Vital Signs Pulse 94 12/05/23 10:58 BP 136/72 12/05/23 10:58 Pulse Ox 98 12/05/23 10:58 Oxygen Delivery Method Room Air 12/05/23 10:58 BMI result Body Mass Index 25.4 Tobacco/Smoking Status: Tobacco use Status Tobacco use date assessed 12/05/23 12/05/23 10:59 Patient Tobacco Use Status Former Tobacco user 12/05/23 10:59 Tobacco use type Cigarette 12/05/23 10:59 e-Cigarette/Vaping Use Never Used 12/05/23 10:59 Thrive Assessment: Date of Thrive Assessment Date Thrive assessed 10/02/23 12/05/23 10:59 Extrem Other: Right lower extremity: No open wound. Venous stasis persist. Assessment and Plan Assessment & Plan (1) Cellulitis of right leg: Code(s): L03.115 - Cellulitis of right lower limb Plan: This condition has resolved and returned to normal baseline. He has an a wound clinic appointment this afternoon. I have encouraged him to keep the same. Coding Level of Care Code Est Pt Level 3 (82373) Diagnoses Cellulitis of right leg L03.115
[2023-12-05 10:58] VITALS: BP 136/72; PULSE 94; O2SAT 98; BMI 25.4
== END 2023-12-05 11:46 | disposition home or self-care (01) ==
PROVIDERS: PCP Internal Medicine; Visit Provider Internal Medicine
DX: L03.115 Cellulitis of right lower limb (principal)
CPT/HCPCS: 99213

== ENCOUNTER 2023-12-12 14:12 | Observation (INO) | payer MEDICARE, SELFPAY ==
[2023-12-12] VITALS (8 sets, daily range): BP systolic 106–165; BP diastolic 60–79; PULSE 80–115; RESP 16–20; TEMP 35–36.1; O2SAT 94–100; BMI 22.9
--- NOTE | ~2023-12-12 | CT_ITS ---
EXAMINATION: CT brain without contrast. CT chest, abdomen and pelvis without contrast. CLINICAL INDICATION: Unresponsive. COMPARISON: None. TECHNIQUE: 5 mm thin axial and reformatted 2 mm thin sagittal and coronally images of brain were obtained without contrast. Subsequently 5 mm thin axial and reformatted 3 minutes thin sagittal and coronal images of chest, abdomen pelvis were obtained without contrast. DLP 940. This CT examination was performed using dose optimization technique as appropriate, variously including the following: Automated exposure control Adjustment of MA and/or KV according to patient size(this includes techniques or standardized protocols for targeted exams where dose is matched to indication/reason for exam; extremities or head. Use of iterative reconstruction techniques. 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 Blood extends on the top of the right tentorium as well. There is significant yblon-oy-ifua midline shift with complete compression of right lateral ventricle extending to the left of midline with moderate dilation of left lateral ventricle, likely entrapment. There is effacement of prepontine quadrigeminal cisterns suspicious for mild uncal herniation. There is moderate hypodensity in the right occipital lobe suggestive of ischemic changes. Bone windows reveal no calvarial abnormality. There is no scalp soft tissue abnormality. There is mild mucoperiosteal thickening right maxillary sinus. Rest of the paranasal sinuses and mastoid air cells are well-aerated. CHEST: LUNGS: The lungs are well-expanded and clear of acute pneumonic process. There is bibasilar scarring or atelectasis. No consolidation, mass or pulmonary nodules seen. Mediastinum: The thyroid lobes are symmetrical and normal. The central trachea and the bronchi widely patent. Heart size is normal. There is ascending aortic aneurysm measuring 4.6 x 4.7 cm. There is moderate cardiomegaly with moderate coronary artery calcification. No pericardial effusion seen. Small shotty lymph nodes are seen in the mediastinum. There do pacer electrodes in right atrium and right ventricle.. Pleura: There is no pleural effusion, thickening or calcification. Axilla: Small shotty bilateral axillary lymph nodes seen. The chest wall is unremarkable. Osseous structures: Mild degenerative changes of bilateral shoulder joints are noted. No gross fractures seen. Abdomen and pelvis: Liver, ducts and gallbladder. The liver is normal size, contour and density. There are small hypodense areas in the left and right upper lobe measuring cyst. No intrahepatic ductal dilatation seen. The gallbladder is unremarkable. Spleen: Unremarkable. Pancreas: Unremarkable. Adrenal glands: Unremarkable. Kidneys: The right kidneys small and atrophic. The left kidney is normal cortical thickness. No radiopaque calculi seen. There is extrarenal bilateral kidney pelvises with mild dilated left ureter but no obstructive etiology seen. Lymphovascular structures: The abdominal aorta is mildly dilated distal segment measuring 2.7 x 3.0 cm. No abnormal size retroperitoneal or mesenteric lymph nodes seen. GI tract: There is large amount of stool in the rectum and ascending colon consistent constipation. The small bowel loops are normal. No free air or free fluid seen. Abdominal wall: Unremarkable. Pelvis: The urinary bladder is distended. There is no free air or free fluid. 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 There are degenerative disc changes and mild dextroscoliosis lumbar spine. CT/CT head/brain wo IV con IMPRESSION:: Large right frontal parietal subdural hematoma with underlying hygroma. There is a significant cxgti-yx-heki midline shift measuring approximately 2.3 cm. There is ischemic changes in the right axilla most likely secondary to uncal herniation with impingement of right posterior cerebral artery. 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 No acute process seen in the chest, abdomen or pelvis. There is aneurysmal dilatation of ascending aorta and distal abdominal aorta. No retroperitoneal mass or bleed seen. Atrophic right kidney with extrarenal renal kidney pelvis and a dilated left ureter but no obstructive etiology seen. Moderate constipation. Results were immediately called by phone to ALISON Andres by phone at 3:43 PM.
--- NOTE | ~2023-12-12 | XR_ITS ---
EXAMINATION: XR CHEST CLINICAL INFORMATION: Intubation. COMPARISON: Chest radiograph 12/11/2022. TECHNIQUE: Frontal view of the chest was obtained. FINDINGS: Endotracheal tube terminates at 4 cm above the forrest. Left-sided pacer/AICD with leads projecting over the right atrium, right ventricle and coronary sinus. External EKG leads overlie the chest. Stable prominence of the cardiomediastinal silhouette. Low lung volumes with subtle peripheral and bibasilar reticular opacities. No consolidation, pleural effusion or pneumothorax. No acute osseous findings. XR/XR chest 1V IMPRESSION: 1. Endotracheal tube terminates at 4 cm above the forrest. 2. Low lung volumes with subtle nonspecific peripheral and bibasilar reticular opacities. 3. No consolidation, pleural effusion or pneumothorax.
--- NOTE | ~2023-12-12 | CT_ITS ---
EXAMINATION: CT brain without contrast. CT chest, abdomen and pelvis without contrast. CLINICAL INDICATION: Unresponsive. COMPARISON: None. TECHNIQUE: 5 mm thin axial and reformatted 2 mm thin sagittal and coronally images of brain were obtained without contrast. Subsequently 5 mm thin axial and reformatted 3 minutes thin sagittal and coronal images of chest, abdomen pelvis were obtained without contrast. DLP 940. This CT examination was performed using dose optimization technique as appropriate, variously including the following: Automated exposure control Adjustment of MA and/or KV according to patient size(this includes techniques or standardized protocols for targeted exams where dose is matched to indication/reason for exam; extremities or head. Use of iterative reconstruction techniques. 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 Blood extends on the top of the right tentorium as well. There is significant hdrew-ws-vszn midline shift with complete compression of right lateral ventricle extending to the left of midline with moderate dilation of left lateral ventricle, likely entrapment. There is effacement of prepontine quadrigeminal cisterns suspicious for mild uncal herniation. There is moderate hypodensity in the right occipital lobe suggestive of ischemic changes. Bone windows reveal no calvarial abnormality. There is no scalp soft tissue abnormality. There is mild mucoperiosteal thickening right maxillary sinus. Rest of the paranasal sinuses and mastoid air cells are well-aerated. CHEST: LUNGS: The lungs are well-expanded and clear of acute pneumonic process. There is bibasilar scarring or atelectasis. No consolidation, mass or pulmonary nodules seen. Mediastinum: The thyroid lobes are symmetrical and normal. The central trachea and the bronchi widely patent. Heart size is normal. There is ascending aortic aneurysm measuring 4.6 x 4.7 cm. There is moderate cardiomegaly with moderate coronary artery calcification. No pericardial effusion seen. Small shotty lymph nodes are seen in the mediastinum. There do pacer electrodes in right atrium and right ventricle.. Pleura: There is no pleural effusion, thickening or calcification. Axilla: Small shotty bilateral axillary lymph nodes seen. The chest wall is unremarkable. Osseous structures: Mild degenerative changes of bilateral shoulder joints are noted. No gross fractures seen. Abdomen and pelvis: Liver, ducts and gallbladder. The liver is normal size, contour and density. There are small hypodense areas in the left and right upper lobe measuring cyst. No intrahepatic ductal dilatation seen. The gallbladder is unremarkable. Spleen: Unremarkable. Pancreas: Unremarkable. Adrenal glands: Unremarkable. Kidneys: The right kidneys small and atrophic. The left kidney is normal cortical thickness. No radiopaque calculi seen. There is extrarenal bilateral kidney pelvises with mild dilated left ureter but no obstructive etiology seen. Lymphovascular structures: The abdominal aorta is mildly dilated distal segment measuring 2.7 x 3.0 cm. No abnormal size retroperitoneal or mesenteric lymph nodes seen. GI tract: There is large amount of stool in the rectum and ascending colon consistent constipation. The small bowel loops are normal. No free air or free fluid seen. Abdominal wall: Unremarkable. Pelvis: The urinary bladder is distended. There is no free air or free fluid. 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 There are degenerative disc changes and mild dextroscoliosis lumbar spine. CT/CT abdomen pelvis wo IV con IMPRESSION:: Large right frontal parietal subdural hematoma with underlying hygroma. There is a significant gwmku-wz-drvd midline shift measuring approximately 2.3 cm. There is ischemic changes in the right axilla most likely secondary to uncal herniation with impingement of right posterior cerebral artery. 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 No acute process seen in the chest, abdomen or pelvis. There is aneurysmal dilatation of ascending aorta and distal abdominal aorta. No retroperitoneal mass or bleed seen. Atrophic right kidney with extrarenal renal kidney pelvis and a dilated left ureter but no obstructive etiology seen. Moderate constipation. Results were immediately called by phone to ALISON Andres by phone at 3:43 PM.
--- NOTE | ~2023-12-12 | CT_ITS ---
EXAMINATION: CT brain without contrast. CT chest, abdomen and pelvis without contrast. CLINICAL INDICATION: Unresponsive. COMPARISON: None. TECHNIQUE: 5 mm thin axial and reformatted 2 mm thin sagittal and coronally images of brain were obtained without contrast. Subsequently 5 mm thin axial and reformatted 3 minutes thin sagittal and coronal images of chest, abdomen pelvis were obtained without contrast. DLP 940. This CT examination was performed using dose optimization technique as appropriate, variously including the following: Automated exposure control Adjustment of MA and/or KV according to patient size(this includes techniques or standardized protocols for targeted exams where dose is matched to indication/reason for exam; extremities or head. Use of iterative reconstruction techniques. 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 Blood extends on the top of the right tentorium as well. There is significant [id number] midline shift with complete compression of right lateral ventricle extending to the left of midline with moderate dilation of left lateral ventricle, likely entrapment. There is effacement of prepontine quadrigeminal cisterns suspicious for mild uncal herniation. There is moderate hypodensity in the right occipital lobe suggestive of ischemic changes. Bone windows reveal no calvarial abnormality. There is no scalp soft tissue abnormality. There is mild mucoperiosteal thickening right maxillary sinus. Rest of the paranasal sinuses and mastoid air cells are well-aerated. CHEST: LUNGS: The lungs are well-expanded and clear of acute pneumonic process. There is bibasilar scarring or atelectasis. No consolidation, mass or pulmonary nodules seen. Mediastinum: The thyroid lobes are symmetrical and normal. The central trachea and the bronchi widely patent. Heart size is normal. There is ascending aortic aneurysm measuring 4.6 x 4.7 cm. There is moderate cardiomegaly with moderate coronary artery calcification. No pericardial effusion seen. Small shotty lymph nodes are seen in the mediastinum. There do pacer electrodes in right atrium and right ventricle.. Pleura: There is no pleural effusion, thickening or calcification. Axilla: Small shotty bilateral axillary lymph nodes seen. The chest wall is unremarkable. Osseous structures: Mild degenerative changes of bilateral shoulder joints are noted. No gross fractures seen. Abdomen and pelvis: Liver, ducts and gallbladder. The liver is normal size, contour and density. There are small hypodense areas in the left and right upper lobe measuring cyst. No intrahepatic ductal dilatation seen. The gallbladder is unremarkable. Spleen: Unremarkable. Pancreas: Unremarkable. Adrenal glands: Unremarkable. Kidneys: The right kidneys small and atrophic. The left kidney is normal cortical thickness. No radiopaque calculi seen. There is extrarenal bilateral kidney pelvises with mild dilated left ureter but no obstructive etiology seen. Lymphovascular structures: The abdominal aorta is mildly dilated distal segment measuring 2.7 x 3.0 cm. No abnormal size retroperitoneal or mesenteric lymph nodes seen. GI tract: There is large amount of stool in the rectum and ascending colon consistent constipation. The small bowel loops are normal. No free air or free fluid seen. Abdominal wall: Unremarkable. Pelvis: The urinary bladder is distended. There is no free air or free fluid. 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 There are degenerative disc changes and mild dextroscoliosis lumbar spine. 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 There is a significant [id number] midline shift measuring approximately 2.3 cm. There is ischemic changes in the right axilla most likely secondary to uncal herniation with impingement of right posterior cerebral artery. 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 No acute process seen in the chest, abdomen or pelvis. There is aneurysmal dilatation of ascending aorta and distal abdominal aorta. No retroperitoneal mass or bleed seen. Atrophic right kidney with extrarenal renal kidney pelvis and a dilated left ureter but no obstructive etiology seen. Moderate constipation. Results were immediately called by phone to ALISON Andres by phone at 3:43 PM.
--- NOTE | 2023-12-12 14:37 | ED.AMS ---
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 Patient was reportedly found altered in his recliner this afternoon. History is significantly limited and obtained by EMS who transported the patient in. Patient was reportedly brought to his recliner this morning, unclear what time. He was found this afternoon minimally responsive. EMS was called. Patient was hemodynamically stable. He was protecting his airway but not responding to questions. MD complaint: altered mental status Onset (ago): unknown Severity: severe Consistency of symptoms: getting Worse Related Data Home Medications Medication Instructions Recorded Confirmed bisacodyl 5 mg tablet,delayed 10 mg PO DAILY 02/03/22 12/05/23 release (Dulcolax (bisacodyl)) omeprazole 40 mg capsule,delayed 40 mg PO DAILY 03/21/23 12/05/23 release Previous Rx's Medication Instructions Recorded allopurinol 100 mg tablet 100 mg PO DAILY #90 tabs 05/17/23 rivaroxaban 15 mg tablet (Xarelto) 15 mg PO QPM #30 tabs 06/27/23 tamsulosin 0.4 mg capsule 0.4 mg PO DAILY #90 caps 07/19/23 furosemide 40 mg tablet 80 mg (2 x 40 mg) PO BID 90 days 09/20/23 #360 tabs calcitriol 0.25 mcg capsule 0.25 mcg PO MOTH@0900 #30 caps 10/13/23 metoprolol tartrate 25 mg tablet 75 mg (3 x 25 mg) PO DAILY 90 days 11/11/23 #270 tabs metoprolol tartrate 50 mg tablet 50 mg PO BEDTIME #90 tabs 11/11/23 Allergies Allergy/AdvReac Type Severity Reaction Status Date / Time No Known Allergies Allergy Verified 12/05/23 11:46 Review of Systems Review of Systems: Yes Unobtainable due to mental condition and Unobtainable due to mental status [facility] Past Medical History Medical History (Updated 12/12/23 @ 16:[address]) Biventricular ICD (implantable cardioverter-defibrillator) in place Chronic renal failure, stage 3 (moderate) Leg wound, right Cellulitis of right leg Annual physical exam Acute renal insufficiency Chronic systolic (congestive) heart failure Cardiomyopathy Surgical History History of endoscopy History of removal of skin mole History of cardiac defibrillator placement History of permanent cardiac pacemaker placement History of total right knee replacement History of left hip replacement Family History Family History Mother No problems noted. Father No problems noted. 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) Alcohol intake: current Alcohol intake frequency: a few times a month Alcohol type: hard liquor Comment: patient refused alarms Patient Tobacco Use Status: Former Tobacco user Quit Date: over 20 years ago Tobacco use type: Cigarette Years Smoked: 50 +/- e-Cigarette/Vaping Use: Never Used Second Hand Smoke Exposure: Yes Advance Directives: Yes Advance Directives on File: Yes Advance Directives Date on File: 09/07/22 service: No Current occupational status: retired Cognitive needs: Yes (walker) Hearing needs: No Vision needs: Yes (glasses) Physical Exam ED Vital Signs: Vital Signs - 24 hr 12/12/23 14:32 12/12/23 15:10 12/12/23 15:13 Temperature 96.9 F Pulse Rate 82 100 Respiratory Rate 20 18 Blood Pressure 165/79 H 106/60 Pulse Oximetry 98 100 Oxygen Delivery Method Room Air Mechanical Ventilation Fraction of Inspired Oxygen 100 12/12/23 15:36 12/12/23 16:10 Temperature Pulse Rate 80 80 Respiratory Rate 18 16 Blood Pressure 118/66 121/66 Pulse Oximetry 100 99 Oxygen Delivery Method Mechanical Ventilation Mechanical Ventilation Fraction of Inspired Oxygen BMI result Body Mass Index 22.9 Appearance: elderly male, minimally responsive Head: normocephalic, atraumatic. Eyes: Pupils equal, round 4mm and not reactive to light. ENT: Pharynx w/ dry mucus membranes. No tonsillar swelling or exudate. Neck: Normal inspection. Neck supple. CVS: Normal heart rate and rhythm. Pulses normal. Respiratory: No respiratory distress. Breath sounds normal. Abdomen: Softly distended , active +BS x4 Skin: Skin warm and dry. Extremities: chronic venous stasis changes to LLE. bleeding on multiple toes Neuro/psych: GCS 6, minimally responsive, does not follow commands, flexes to painful stimuli Course Reevaluation(s) Reevaluation #1: Spoke with the patient's daughter Yamileth who is his healthcare proxy. She lives in [facility]. She was made aware of the CT scan findings, large subdural hematoma with significant midline shift. Yamileth made it clear that patient would not want any heroic interventions. The patient has already been intubated prior to confirming his goals of care. She is okay with continuing mechanical ventilation until she is able to arrived to the bedside to terminally extubate. She would like to make the patient comfortable. She is on her way to the hospital now, approximate arrival time 6 or 19:00 Patient's son Moose and sister Elle or in the family waiting room. Results and plan discussed with them who were in agreement. They are to be with the patient until Yamileth arrives. Time: 15:15 Medications Administered Discontinued Medications Generic Name Dose Route Start Last Admin Trade Name Freq PRN Reason Stop Dose Admin Etomidate 30 mg 12/12/23 14:57 12/12/23 15:02 Etomidate 20 Mg/10 Ml Vial IVPUSH 12/12/23 14:58 30 mg NOW STA Administration Fentanyl 50 mcg 12/12/23 14:56 12/12/23 15:01 Fentanyl Citrate/Pf 100 Mcg/2 Ml Vial IVPUSH 12/12/23 14:57 50 mcg ONCE ONE Administration Protocol Prothrombin Complex Concent ( 80 mls @ 480 mls/hr 12/12/23 14:57 12/12/23 16:12 Human) 2,000 unit/ IV IV 12/12/23 15:06 Not Given Miscellaneous Supplies .Q10M ONE Rocuronium Custar 100 mg 12/12/23 14:57 12/12/23 15:02 Rocuronium Custar 50 Mg/5 Ml Vial IVPUSH 12/12/23 14:58 100 mg ONCE ONE Administration Medical Decision Making Medical Decision Making [facility] Narrative: 88-year-old male with multiple medical comorbidities including a flutter on anticoagulation, CKD, CHF, cardiac pacemaker who presents to the ER for evaluation of altered mental status in the setting of multiple falls recently. Patient lives at home with his son. Unclear if these falls were witnessed or not. Unclear timing of the falls. Unclear last known well time. Patient arrives to the ER significantly altered. Concern for intracranial bleed. Patient brought to the CT scanner and confirmed to have a large subdural hematoma with significant midline shift. Unable to get a hold of family initially. His mental status continued to decline. He was unable to protect his airway and actually breathing. Patient was successfully intubated. The patient's daughter and healthcare proxy Yamileth called back the emergency department and expressed that the patient would not want any heroic measures. She is going to come to the hospital to transition to comfort measures only. She is okay with mechanical ventilation to keep him alive until she arrives to say goodbye. Differential Diagnosis Differential Diagnoses: The differential diagnosis associated with the presentation includes SAH/ICH, SDH, epidural hematoma, acute metabolic encephalopathy, toxic encephalopathy, sepsis Admission/Observation Consideration of admission/observation: Escalation of care including admission/observation considered Consult Healthcare Provider Management of the patient was discussed with: Upholste[employer] Spoke with Neurointensivist at [facility] however goals of care have changed and will not pursue transfer Lab Data [facility] Lab Attestation statement: I reviewed the patient's lab results. 12/12/23 14:40 12/12/23 14:40 Labs: Lab Results 12/12/23 12/12/23 Range/Units 14:40 14:47 WBC 7.5 (4.8-10.8) X10*3/uL RBC 4.69 (4.60-5.80) X10*6/uL Hgb 14.5 (14.0-18.0) g/dl Hct 43.0 (42.0-52.0) % MCV 91.7 (80.0-98.0) fL MCH 30.9 (27.0-33.0) pg MCHC 33.7 (31.0-36.0) g/dl RDW 14.5 (11.0-16.0) % Plt Count 138 L (160-400) X10*3/uL MPV 9.6 (9.4-12.4) fL Immature Gran % (Auto) 0.5 H (0.0-0.4) % Neut % (Auto) 79.3 H (45-73) % Lymph % (Auto) 9.0 L (20-40) % [place] % (Auto) 10.2 (2-11) % Eos % (Auto) 0.7 (0-4) % Baso % (Auto) 0.3 (0-2) % Lymph # (Auto) 0.7 L (1.2-4.9) X10*3/uL [place] # (Auto) 0.8 (0.1-1.2) X10*3/uL Eos # (Auto) 0.1 (0.0-0.4) X10*3/uL Baso # (Auto) 0.0 (0.0-0.2) X10*3/uL Abs Immat Gran (auto) 0.04 H (0.00-0.03) X10*3/uL Absolute Neuts (auto) 6.0 (2.0-8.3) x10*3/uL Absolute Nucleated RBC 0.000 (0.0-0.012) X10*3/uL Nucleated RBC % (auto) 0.0 (0.0-0.2) /100WBC PT 14.3 H (11.1-13.3) SEC INR 1.2 H (0.9-1.1) APTT 33.8 (26.0-36.8) SEC VBG pH 7.50 H (7.32-7.43) VBG pCO2 40 mmHg VBG pO2 55 mmHg VBG HCO3 31 H (22-26) mmol/L VBG O2 Saturation 87.0 % VBG Base Excess 7.8 mmol/L Sodium 140 (135-145) mmol/L Potassium 3.4 (3.3-5.1) mmol/L Chloride 101 (96-108) mmol/L Carbon Dioxide 30 H (22-29) mmol/L Anion Gap 12 (12-20) BUN 36 H (9-16) mg/dL Creatinine 1.93 H (0.5-1.4) mg/dL Estim Creat Clear Calc 30.5 Estimated GFR 33 Random Glucose 116 H (60-115) mg/dL Lactic Acid 1.3 (0.5-2.0) mmol/L Calcium 9.3 (8.4-10.2) mg/dL Magnesium 2.7 H (1.6-2.6) mg/dL Total Bilirubin 0.7 (0.0-1.0) mg/dL Direct Bilirubin 0.3 (0.0-0.5) mg/dL AST 22 (5-37) U/L ALT 12 (0-40) U/L Alkaline Phosphatase 105 (39-117) U/L Total Creatine Kinase 82 (38-174) U/L Troponin I High Sens 10.7 (<3.5-35.0) ng/L B-Natriuretic Peptide 191 H (<100) pg/mL Total Protein 7.4 (6.5-8.0) g/dL Albumin 3.7 (3.5-5.0) g/dL Lipase 25 (8-78) U/L Procalcitonin 0.23 ng/mL TSH 1.16 (0.32-4.0) uIU/mL Ethyl Alcohol < 10 mg/dL Independent Interpretation I performed an independent interpretation of an: CT Scan Interpretation: CT scan w/ large SDH with 2.5cm shift Radiology Impression Discussion of test interpretation with radiology: I have reviewed the radiologist's reading. Radiologist Impression: [place] [id number] CT Scan Report Signed Patient: Ozzy Thorne MR#: [id number] : 1935 Acct:[id number] Age/Sex: 88 / M ADM Date: 12/12/23 Loc: HO.ED Attending Dr: Ordering Physician: Malaika Rosenthal Date of Service: 12/12/23 Procedure(s): CT chest wo IV con Accession Number(s): [id number] cc: Physician,Unknown ; Malaika Rosenthal~ EXAMINATION: CT brain without contrast. CT chest, abdomen and pelvis without contrast. CLINICAL INDICATION: Unresponsive. COMPARISON: None. TECHNIQUE: 5 mm thin axial and reformatted 2 mm thin sagittal and coronally images of brain were obtained without contrast. Subsequently 5 mm thin axial and reformatted 3 minutes thin sagittal and coronal images of chest, abdomen pelvis were obtained without contrast. DLP 940. This CT examination was performed using dose optimization technique as appropriate, variously including the following: Automated exposure control Adjustment of MA and/or KV according to patient size(this includes techniques or standardized protocols for targeted exams where dose is matched to indication/reason for exam; extremities or head. Use of iterative reconstruction techniques. 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 Blood extends on the top of the right tentorium as well. There is significant [id number] midline shift with complete compression of right lateral ventricle extending to the left of midline with moderate dilation of left lateral ventricle, likely entrapment. There is effacement of prepontine quadrigeminal cisterns suspicious for mild uncal herniation. There is moderate hypodensity in the right occipital lobe suggestive of ischemic changes. Bone windows reveal no calvarial abnormality. There is no scalp soft tissue abnormality. There is mild mucoperiosteal thickening right maxillary sinus. Rest of the paranasal sinuses and mastoid air cells are well-aerated. CHEST: LUNGS: The lungs are well-expanded and clear of acute pneumonic process. There is bibasilar scarring or atelectasis. No consolidation, mass or pulmonary nodules seen. Mediastinum: The thyroid lobes are symmetrical and normal. The central trachea and the bronchi widely patent. Heart size is normal. There is ascending aortic aneurysm measuring 4.6 x 4.7 cm. There is moderate cardiomegaly with moderate coronary artery calcification. No pericardial effusion seen. Small shotty lymph nodes are seen in the mediastinum. There do pacer electrodes in right atrium and right ventricle.. Pleura: There is no pleural effusion, thickening or calcification. Axilla: Small shotty bilateral axillary lymph nodes seen. The chest wall is unremarkable. Osseous structures: Mild degenerative changes of bilateral shoulder joints are noted. No gross fractures seen. Abdomen and pelvis: Liver, ducts and gallbladder. The liver is normal size, contour and density. There are small hypodense areas in the left and right upper lobe measuring cyst. No intrahepatic ductal dilatation seen. The gallbladder is unremarkable. Spleen: Unremarkable. Pancreas: Unremarkable. Adrenal glands: Unremarkable. Kidneys: The right kidneys small and atrophic. The left kidney is normal cortical thickness. No radiopaque calculi seen. There is extrarenal bilateral kidney pelvises with mild dilated left ureter but no obstructive etiology seen. Lymphovascular structures: The abdominal aorta is mildly dilated distal segment measuring 2.7 x 3.0 cm. No abnormal size retroperitoneal or mesenteric lymph nodes seen. GI tract: There is large amount of stool in the rectum and ascending colon consistent constipation. The small bowel loops are normal. No free air or free fluid seen. Abdominal wall: Unremarkable. Pelvis: The urinary bladder is distended. There is no free air or free fluid. 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 There are degenerative disc changes and mild dextroscoliosis lumbar spine. 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 There is a significant [id number] midline shift measuring approximately 2.3 cm. There is ischemic changes in the right axilla most likely secondary to uncal herniation with impingement of right posterior cerebral artery. 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 No acute process seen in the chest, abdomen or pelvis. There is aneurysmal dilatation of ascending aorta and distal abdominal aorta. No retroperitoneal mass or bleed seen. Atrophic right kidney with extrarenal renal kidney pelvis and a dilated left ureter but no obstructive etiology seen. Moderate constipation. Independent Historian Clinical information obtained from an independent historian. History obtained from or confirmed by: Other (daughter Yamileth who is the to's health care proxy) External Record Review External record reviewed: Inpatient record, Office record, Outpatient record, Prior outpatient labs and Prior outpatient radiology Prescription Management I considered prescription management with: Pain Medication Chronic Conditions Patient?s care impacted by: Other (A flutter, CKD) Critical Care Time Critical Care Time Critical Care Time: Yes Total Critical Care Time: 69 Attestation: I have personally provided critical care time exclusive of time spent on separately billable procedures. Time includes review of lab data, radiology results, discussion with consultants, and monitoring for potential decompensation. Intervention performed as documented. Discharge Plan Discharge Clinical Impression: SDH (subdural hematoma), Acute encephalopathy Patient Disposition: Still a Patient Transfer Details: Plan to transition to SPEECH ASSISTANT Prescriptions: No Action allopurinol 100 mg tablet 100 mg PO DAILY Qty: 90 1RF Xarelto 15 mg tablet 15 mg PO QPM Qty: 30 5RF tamsulosin 0.4 mg capsule 0.4 mg PO DAILY Qty: 90 1RF furosemide 40 mg tablet 80 mg PO BID 90 Days Qty: 360 3RF calcitriol 0.25 mcg capsule 0.25 mcg PO MOTH@0900 Qty: 30 2RF metoprolol tartrate 25 mg tablet 75 mg PO DAILY 90 Days Qty: 270 3RF Rx Instructions: 25mg tabs - Take 3 tabs to equal 75mg in the AM metoprolol tartrate 50 mg tablet 50 mg PO BEDTIME Qty: 90 3RF Rx Instructions: Take one 50mg tab at bedtime (this is separate from your 25 mg morning tabs) bisacodyl [Dulcolax (bisacodyl)] 5 mg Tablet,Delayed Release (Dr/Ec) 10 mg PO DAILY omeprazole 40 mg capsule,delayed release(DR/EC) 40 mg PO DAILY
[2023-12-12 14:48] LABS: MANUAL DIFF FLAG NO
[2023-12-12 14:54] LABS: Basophils Percent Auto 0.3 % (0-2); Eosinophils Absolute Auto 0.1 X10*3/uL (0.0-0.4); Eosinophils Percent Auto 0.7 % (0-4); Hemoglobin 14.5 g/dl (14.0-18.0); Imm Gran Abs Auto 0.04 X10*3/uL (0.00-0.03); Imm Gran Pct Auto 0.5 % (0.0-0.4); Lymphocytes Absolute Auto 0.7 X10*3/uL (1.2-4.9); Mean Corpuscular HGB Conc 33.7 g/dl (31.0-36.0); Mean Corpuscular Hemoglobin 30.9 pg (27.0-33.0); Mean Corpuscular Volume 91.7 fL (80.0-98.0); Mean Platelet Volume 9.6 fL (9.4-12.4); Monocytes Absolute Auto 0.8 X10*3/uL (0.1-1.2); Monocytes Percent Auto 10.2 % (2-11); Neutrophils Percent Auto 79.3 % (45-73); Platelet Count 138 X10*3/uL (160-400); Red Blood Count 4.69 X10*6/uL (4.60-5.80); Red Cell Distribution Width 14.5 % (11.0-16.0); White Blood Count 7.5 X10*3/uL (4.8-10.8)
[2023-12-12 14:56] LABS: VBG Base Excess 7.8 mmol/L; VBG HCO3 31 mmol/L (22-26); VBG pCO2 40 mmHg; VBG pO2 55 mmHg
[2023-12-12 14:58] LABS: Venous Blood Gas Refer to POC result
--- NOTE | 2023-12-12 15:00 | PC.NURSE ---
MD and RT at bedside, RSI intubation performed by MD. Pt medicated per MIGUEL and intubated by MD with 7.0 ETT, 23 at the teeth, + color CO2 color change. Vent: RR 16, TV 400, FiO2 40%, 5 Peep Pt tolerating vent well.
[2023-12-12 15:01] LABS: INTERNATIONAL NORM RATIO 1.2 (0.9-1.1); Prothrombin Time 14.3 SEC (11.1-13.3)
[2023-12-12] MEDS: fentaNYL citrate/PF 100 MCG/2 ML VIAL 50 MCG IVPUSH (15:01)
[2023-12-12] MEDS: Etomidate 20 MG/10 ML VIAL 30 MG IVPUSH (15:02)
[2023-12-12] MEDS: Rocuronium Bromide 50 MG/5 ML VIAL 100 MG IVPUSH (15:02)
[2023-12-12 15:03] LABS: Partial Thromboplastin Time 33.8 SEC (26.0-36.8)
[2023-12-12 15:06] LABS: Lactic Acid 1.3 mmol/L (0.5-2.0)
--- NOTE | 2023-12-12 15:12 | W.ED.CONS.HO ---
Consult Details Consult Details: Patient being seen by Malaika found to have a large brain mass with shift has had multiple falls concern for airway protection decision was made to intubate the patient. Procedures Intubation Intubation Type:: Endotracheal Tube Insertion Intubation Date:: 12/12/23 Intubation Time:: 15:12 Time out performed: Yes sedative: Etomidate Mg Given: 30 paralytic: Rocuronium Mg Given: 100 Laryngoscope: fiber optic video scope ET Tube Size: 7.5 ET Tube Uncuffed: Yes Tube Secured Depth (cm): 25 Tube Secured Location: lips Tube Placement Confirmation: visualized tube passing through cords, equal breath sounds bilaterally and confirmation by capnometry Patient Tolerated Procedure: well and no complications Intubation Complications: none Additional Comments: After intubation orogastric tube was also placed patient tolerated the procedure well.
[2023-12-12 15:13] LABS: Alanine Aminotransferase 12 U/L (0-40); Albumin Level 3.7 g/dL (3.5-5.0); Alkaline Phosphatase 105 U/L (39-117); Anion Gap 12 (12-20); Aspartate Amino Transferase 22 U/L (5-37); Bilirubin Direct 0.3 mg/dL (0.0-0.5); Bilirubin Total 0.7 mg/dL (0.0-1.0); Blood Urea Nitrogen 36 mg/dL (9-16); Calcium 9.3 mg/dL (8.4-10.2); Carbon Dioxide 30 mmol/L (22-29); Chloride 101 mmol/L (96-108); Creatinine Clr Calc Pharmacy 30.5; Estimated Glomerular Filt Rate 33; Ethanol < 10 mg/dL; Glucose Random 116 mg/dL (60-115); Lipase 25 U/L (8-78); Magnesium 2.7 mg/dL (1.6-2.6); Potassium 3.4 mmol/L (3.3-5.1); Sodium 140 mmol/L (135-145); Total Protein 7.4 g/dL (6.5-8.0)
--- NOTE | 2023-12-12 15:14 | PC.NURSE ---
Vent settings per RT: RR 16, TV 400, PEEP 5, 40% O2
[2023-12-12 15:16] LABS: B Type Natriuretic Peptide 191 pg/mL (<100)
[2023-12-12 15:19] LABS: Troponin-I High Sensitivity 10.7 ng/L (<3.5-35.0)
[2023-12-12 15:33] LABS: TSH reflex Free T4 1.16 uIU/mL (0.32-4.0)
[2023-12-12 15:49] LABS: Procalcitonin 0.23 ng/mL
--- NOTE | 2023-12-12 17:12 | PC.NURSE ---
Patient continues to rest comfortably. no s/s of pain or discomfort. at bedside
--- NOTE | 2023-12-12 18:24 | PC.NURSE ---
Family at bedside, awaiting arrival of daughter. Patient tolerating vent well, rr 16 no s/s of pain or discomfort
[2023-12-12] MEDS: HYDROmorphone HCl 2 MG/ML VIAL IVPUSH (19:32)
[2023-12-12] MEDS: LORazepam 2 MG/ML VIAL IVPUSH (19:32)
--- NOTE | 2023-12-12 19:35 | PC.NURSE ---
pt extubated by RT, pt medicated by nursing staff, family at bedside, pt is floor layer
--- NOTE | 2023-12-12 19:54 | PC.NURSE ---
Nino, ED provider spoke to the family regarding application of magnet to patient's chest to deactivate ICD, family declined.
--- NOTE | 2023-12-12 22:24 | P.HPHOSP_ITS ---
History of Present Illness Date of Service: 12/12/23 Attending physician on admission: Jerica Kay Chief Complaint: AMS Pt is an 88-year-old male with a PMH significant for?Alutter on anticoagulation, CHF w/ EF 30% s/p PPM, cardiomyopathy, CKD3, iron deficiency anemia s/p recent PRBC and iron transfusions, and hx GI bleed who presents to the ED by EMS for evaluation of altered mental status. Patient is obtunded in HPI taken from chart and provider review, as well as family who was at bedside. Patient lives with family who found him minimally responsive in his recliner this afternoon. Patient would not wake up to verbal or noxious stimuli. Reports he was in his normal state of health yesterday and earlier this morning, but apparently has had 3 falls within the past 3 days. Unknown if there were any head strikes. Patient has a long history of falling at home with multiple presentations to the ED if he suffered an apparent injury. Today, CT of head found large right frontoparietal subdural hematoma with significant right to left midline shift measuring approximately 2.3 cm. Patient was initially intubated to protect his airway, but then extubated after lengthy discussion with family about patient's poor prognosis. Patient will be admitted to the hospital for comfort measures only. Review of Systems 2 Review of Systems: Unable to obtain due to patient's mentation [facility] Medical History (Updated 12/12/23 @ 16:[address]) Biventricular ICD (implantable cardioverter-defibrillator) in place Chronic renal failure, stage 3 (moderate) Leg wound, right Cellulitis of right leg Annual physical exam Acute renal insufficiency Chronic systolic (congestive) heart failure Cardiomyopathy Family History Mother No problems noted. Father No problems noted. 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) Alcohol intake: current Alcohol intake frequency: a few times a month Alcohol type: hard liquor Comment: patient refused alarms Patient Tobacco Use Status: Former Tobacco user Quit Date: over 20 years ago Tobacco use type: Cigarette Years Smoked: 50 +/- e-Cigarette/Vaping Use: Never Used Second Hand Smoke Exposure: Yes Advance Directives: Yes Advance Directives on File: Yes Advance Directives Date on File: 09/07/22 service: No Current occupational status: retired Cognitive needs: Yes (walker) Hearing needs: No Vision needs: Yes (glasses) Meds Allergies Allergy/AdvReac Type Severity Reaction Status Date / Time No Known Allergies Allergy Verified 12/05/23 11:46 Active Medications: Current Medications Propofol (Diprivan) 1,000 mg in 100 mls @ 0 mls/hr IVCONT .Q0M MARKO; Protocol Home Medications Medication Instructions Recorded Confirmed Last Taken Type bisacodyl 5 mg tablet,delayed 10 mg PO DAILY 02/03/22 12/05/23 09/03/22 08:00 History release (Dulcolax (bisacodyl)) omeprazole 40 mg capsule,delayed 40 mg PO DAILY 03/21/23 12/05/23 Unknown History release Physical Exam 2 Vital Signs and Narrative: Vital Signs: Last Vital Signs Temp 96.9 F 12/12/23 14:32 Pulse 80 12/12/23 18:25 Resp 16 12/12/23 18:25 BP 127/67 12/12/23 18:25 Pulse Ox 99 12/12/23 18:25 O2 Del Method Mechanical Ventil ation 12/12/23 18:25 FiO2 40 12/12/23 16:32 BMI result Body Mass Index 22.9 General: Obtunded, in no acute distress Resp: Difficult to auscultate due to patient's snoring CVS: S1, S2, RRR GI: +BS, NT, no distention Skin: Warm, dry Neuro: Patient obtunded. Extremities: No edema Results Labs 12/12/23 14:40 12/12/23 14:40 Labs: Laboratory Results - last 24 hr 12/12/23 12/12/23 14:40 14:47 MCV 91.7 MCH 30.9 MCHC 33.7 RDW 14.5 Plt Count 138 L MPV 9.6 Immature Gran % (Auto) 0.5 H Neut % (Auto) 79.3 H Lymph % (Auto) 9.0 L [place] % (Auto) 10.2 Eos % (Auto) 0.7 Baso % (Auto) 0.3 Lymph # (Auto) 0.7 L [place] # (Auto) 0.8 Eos # (Auto) 0.1 Baso # (Auto) 0.0 Abs Immat Gran (auto) 0.04 H Absolute Neuts (auto) 6.0 Absolute Nucleated RBC 0.000 Nucleated RBC % (auto) 0.0 PT 14.3 H INR 1.2 H APTT 33.8 VBG pH 7.50 H VBG pCO2 40 VBG pO2 55 VBG HCO3 31 H VBG O2 Saturation 87.0 VBG Base Excess 7.8 Anion Gap 12 Estim Creat Clear Calc 30.5 Estimated GFR 33 Random Glucose 116 H Lactic Acid 1.3 Calcium 9.3 Magnesium 2.7 H Total Bilirubin 0.7 Direct Bilirubin 0.3 AST 22 ALT 12 Alkaline Phosphatase 105 Total Creatine Kinase 82 Troponin I High Sens 10.7 B-Natriuretic Peptide 191 H Total Protein 7.4 Albumin 3.7 Lipase 25 Procalcitonin 0.23 TSH 1.16 Ethyl Alcohol < 10 Imaging Radiologist's Impressions: Impressions Head CT 12/12/23 15:05 IMPRESSION:: Large right frontal parietal subdural hematoma with underlying hygroma. There is a significant cmvro-rk-[id number] midline shift measuring approximately 2.3 cm. There is ischemic changes in the right axilla most likely secondary to uncal herniation with impingement of right posterior cerebral artery. 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 No acute process seen in the chest, abdomen or pelvis. There is aneurysmal dilatation of ascending aorta and distal abdominal aorta. No retroperitoneal mass or bleed seen. Atrophic right kidney with extrarenal renal kidney pelvis and a dilated left ureter but no obstructive etiology seen. Moderate constipation. Results were immediately called by phone to ALISON Andres by phone at 3:43 PM. Abdomen/Pelvis CT 12/12/23 15:10 IMPRESSION:: Large right frontal parietal subdural hematoma with underlying hygroma. There is a significant mzcfp-ih-svdd midline shift measuring approximately 2.3 cm. There is ischemic changes in the right axilla most likely secondary to uncal herniation with impingement of right posterior cerebral artery. 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 No acute process seen in the chest, abdomen or pelvis. There is aneurysmal dilatation of ascending aorta and distal abdominal aorta. No retroperitoneal mass or bleed seen. Atrophic right kidney with extrarenal renal kidney pelvis and a dilated left ureter but no obstructive etiology seen. Moderate constipation. Results were immediately called by phone to ALISON Andres by phone at 3:[address] 12/12/23 15:10 IMPRESSION:: Large right frontal parietal subdural hematoma with underlying hygroma. There is a significant rbhdc-fx-ihgi midline shift measuring approximately 2.3 cm. There is ischemic changes in the right axilla most likely secondary to uncal herniation with impingement of right posterior cerebral artery. 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 No acute process seen in the chest, abdomen or pelvis. There is aneurysmal dilatation of ascending aorta and distal abdominal aorta. No retroperitoneal mass or bleed seen. Atrophic right kidney with extrarenal renal kidney pelvis and a dilated left ureter but no obstructive etiology seen. Moderate constipation. Results were immediately called by phone to ALISON Andres by phone at 3:43 PM. Chest X-Ray 12/12/23 15:29 IMPRESSION: 1. Endotracheal tube terminates at 4 cm above the forrest. 2. Low lung volumes with subtle nonspecific peripheral and bibasilar reticular opacities. 3. No consolidation, pleural effusion or pneumothorax. Assessment and Plan (1) SDH (subdural hematoma): Status: Acute Plan Pt is an 88-year-old male with a PMH significant for?AFlutter on anticoagulation, CHF w/ EF 30% s/p PPM, cardiomyopathy, CKD3, iron deficiency anemia s/p recent PRBC and iron transfusions, and hx GI bleed who presents to the ED by EMS for evaluation of altered mental status. Patient was initially intubated to protect his airway, but then extubated after lengthy discussion with family about patient's poor prognosis. Patient will be admitted to the hospital for comfort measures only. Subdural hematoma CT of head found large right frontoparietal subdural hematoma with significant right to left midline shift Likely secondary to mechanical fall at home Patient will be made PANELBOARD TANK PUMPER: Morphine, Ativan p.r.n.; scopolamine patch All other acute and chronic conditions: A flutter, CHF, CKD 3, anemia, gout, GERD, BPH Hold all home meds Patient will be made PANELBOARD TANK PUMPER Comfort measures only Attending:?Dr. Kay DVT Prophylaxis: Patient PANELBOARD TANK PUMPER Patient will be admitted to the hospital for comfort measures only due to subdermal hematoma with midline shift. Quality Stroke Does the patient have a stroke diagnosis?: No VTE Prior VTE?: No VTE Risk Level:: Medical - moderate - high VTE Device Contraindication: Treatment Not Indicated VTE Drug Contraindication: Treatment Not Indicated
--- NOTE | 2023-12-12 22:35 | MHC.EDTECH ---
Patient changed and repositioned
--- NOTE | 2023-12-12 23:18 | MHC.CM.ED ---
Addendum entered by Rox Chanel 12/12/23 23:24: Pt had been made CIGAR PACKING EXAMINER at request of family. Original Note: CM met with daughter, Yamileth Morel, who tells CM she is the HCP. HCP on file is Elle Sarabiaelmo (sister). Pt son, Moose is at the bedside, along with Yamileth's . Pt appears to be in dying process. Breathing is agonal. Primary RN notified. Pt is mottled and arms/hands are cold. CM had spoken with Tabitha RN form hospice re: CIGAR PACKING EXAMINER/GIP. Hospice said they would see the patient in the morning if he was alive. Pt . RN and CM present with family. Dr. Kay called and pronounced patient . CM called and left message with hospice regarding patient's passing. Family aware that they may stay with patient as long as they need to. Family members using Family Room for privacy. Daughter remains with patient.
--- NOTE | 2023-12-12 23:19 | PM.DDS ---
Discharge Sum: Prov Provider Primary care physician: Unknown Physician Admitting clinician: Braeden Handley Attending physician on admission: Jerica Kay Pronouncing clinician: Jerica Kay Discharge Sum: Diag Contributing Factors (1) SDH (subdural hematoma): Discharge Sum: Summary Date and Time Date of admission: 12/12/23 22:16 Date of : 12/12/23 Time of : 23:14 Summary Details: HPI: Pt is an 88-year-old male with a PMH significant for?Alutter on anticoagulation, CHF w/ EF 30% s/p PPM, cardiomyopathy, CKD3, iron deficiency anemia s/p recent PRBC and iron transfusions, and hx GI bleed who presents to the ED by EMS for evaluation of altered mental status. Patient is obtunded in HPI taken from chart and provider review, as well as family who was at bedside. Patient lives with family who found him minimally responsive in his recliner this afternoon. Patient would not wake up to verbal or noxious stimuli. Reports he was in his normal state of health yesterday and earlier this morning, but apparently has had 3 falls within the past 3 days. Unknown if there were any head strikes. Patient has a long history of falling at home with multiple presentations to the ED if he suffered an apparent injury. Today, CT of head found large right frontoparietal subdural hematoma with significant right to left midline shift measuring approximately 2.3 cm. Patient was initially intubated to protect his airway, but then extubated after lengthy discussion with family about patient's poor prognosis. Patient will be admitted to the hospital for comfort measures only. Hospital course: Patient was admitted with comfort care measures with IV morphine and IV Ativan p.r.n.. Soon after admission, I was called to patient's bedside to pronounce the patient. No spontaneous movements were present. There was no response to verbal or tactile stimulus. Pupils were mid dilated and fixed. No breath sounds were appreciated over either lung field. No carotid pulses were palpable. No heart sounds were auscultated over entire precordium. Patient was on comfort measures only. Patient pronounced on 12/12/2023 at 23:14. Condolences offered to family members at bedside. Cause of : Acute respiratory failure due to subdural hematoma with midline shift Additional Data Confirmation of as documented by pronouncing clinician: no pulse, no respirations, no heart sounds and pupils fixed and dilated Family: at bedside Additional persons at bedside: licensed master social worker Attending/PCP notified?: No Attending physician: Jerica Kay MD Was code activated?: No Autopsy requested?: No supervisory examiner notified?: No
--- NOTE | 2023-12-13 00:01 | PC.NURSE ---
2229 This RN cleaned and repositioned pt with Tech, mouth suctioned. [id number]-daughter and son at bedside, pt agonally breathing. This RN at bedside with pt and family. notified. Time of called at 2314.
--- NOTE | 2023-12-13 00:22 | PC.NURSE ---
This RN called [facility]. Pt was not accepted as a pt. Reference # [id number]
== END 2023-12-13 19:39 | disposition expired ==
LOC: HO.ED 19:09 → HO.EDOVER 22:57
PROVIDERS: Emergency Medicine; Physician Assistant; Admitting Provider Student in an Organized Health Care Education/Training Program; Emergency Provider Emergency Medicine; PCP Internal Medicine; Visit Provider Student in an Organized Health Care Education/Training Program
DX: S06.5XAA Traumatic subdural hemorrhage with loss of consciousness status unknown, initial encounter (principal); Z51.5 Encounter for palliative care; X58.XXXA Exposure to other specified factors, initial encounter; Y93.9 Activity, unspecified; Y92.9 Unspecified place or not applicable; Y99.9 Unspecified external cause status; G93.40 Encephalopathy, unspecified; R41.82 Altered mental status, unspecified; I50.9 Heart failure, unspecified; Z95.810 Presence of automatic (implantable) cardiac defibrillator; N18.30 Chronic kidney disease, stage 3 unspecified; I48.92 Unspecified atrial flutter; Z79.01 Long term (current) use of anticoagulants; D50.9 Iron deficiency anemia, unspecified
CPT/HCPCS: 36415; 70450; 71045; 71250; 74176; 80048; 80076; 80307; 82550; 82803; 83605; 83690; 83735; 83880; 84145; 84443; 84484; 85025; 85610; 85730; 87040; 94002; 96374; 96375; 99221; 99284; 99285; J1170; J2060; J3010

== ENCOUNTER → 2023-12-12 22:16 | Outpatient (BNV) | payer MEDICARE, SELFPAY | PROVIDERS: Admitting Provider Student in an Organized Health Care Education/Training Program; Emergency Provider Emergency Medicine; Visit Provider Student in an Organized Health Care Education/Training Program | DX: S06.5XAA Traumatic subdural hemorrhage with loss of consciousness status unknown, initial encounter (principal) | CPT/HCPCS: 99223; 99499 ==